=== PATIENT | male | born 1965 | race Caucasian/White ===

== ENCOUNTER → 2017-12-27 20:13 | Outpatient (CLI) | payer MEDICAID, SELFPAY | PROVIDERS: Family Provider Internal Medicine; PCP Internal Medicine; Visit Provider Internal Medicine | DX: G47.10 Hypersomnia, unspecified (principal); R06.81 Apnea, not elsewhere classified; R06.83 Snoring | CPT/HCPCS: 95810 ==

== ENCOUNTER → 2018-06-09 20:00 | Outpatient (CLI) | payer MEDICAID, SELFPAY | PROVIDERS: Family Provider Internal Medicine; PCP Internal Medicine; Visit Provider Psychiatry & Neurology Psychiatry | DX: G47.33 Obstructive sleep apnea (adult) (pediatric) (principal) | CPT/HCPCS: 95810 ==

== ENCOUNTER 2018-08-22 16:57 | Emergency (ER) | payer MEDICAID, SELFPAY ==
[2018-08-22 16:58] VITALS: BP 116/71; PULSE 63; RESP 16; TEMP 36.4; O2SAT 99; BMI 20.5
[2018-08-22 17:06] VITALS: O2SAT 97
--- NOTE | 2018-08-22 17:32 | ED.DCSUM_ITS ---
- ER Visit Summary Date of Service: 08/22/18 Chief Complaint: Cough History of Present Illness: The patient is a 53 M productive cough for a week. Subjective fevers. No sick contacts. Tobacco history. COPD history. States inhalers broken. Occasional wheezing at home. No chest pains. No nausea or vomiting. No dyspnea. Physical Examination: General: Alert and oriented ?3, no acute distress. Occasional coughing HEENT: Normocephalic, atraumatic. Moist mucosa membranes Neck: supple, nontender. Cardiovascular: Regular rate and rhythm, no murmurs Respiratory: Normal breath sounds, symmetric, no distress Abdomen: Soft, nontender, nondistended Extremities: Nontender, no edema, pulses intact ?4 Neuro: no focal neurological deficits. Test Results: [] Emergency Department Course and Treatment: Patient vital signs stable, nontoxic. No current wheezing. COPD history with productive cough. Placed on antibiotics secondary to gold's criteria. Steroids to be held due to no current wheezing. Zithromax started. Prescription for MDI. Follow-up as an outpatient. Treatment Plan: [] Disposition: Discharge Impression: 1. Acute bronchitis 2 COPD This note was generated with [employer] dictation software. It may contain incorrect words, spelling, and punctuation that were not noted in review of the chart prior to signing ED Disposition - Plan for ED Patient: Disposition: Home or Assisted Living Chief Complaint: Cough Diagnosis: Acute bronchitis, COPD (chronic obstructive pulmonary disease) Instructions: ED Upper Resp Infec Abx Tx, ED COPD Flare Prescriptions: Azithromycin [Zithromax] 250 mg PO DAILY #4 tablet Albuterol Sulfate [Proventil Hfa] 6.7 gm IH Q6H #1 [email or web address] Referrals: Mayuri Payne MD [Primary Care Provider] - 5-7 Days
[2018-08-22] MEDS: Azithromycin 250 MG Tablet 500 MG PO (17:42)
--- NOTE | 2018-08-22 17:46 | ED.RN ---
DISCHARGE INSTRUCTIONS GIVEN TO AND REVIEWED WITH PATIENT, PATIENT DENIES QUESTIONS OR CONCERNS AND VOICES UNDERSTANDING OF DISCHARGE INSTRUCTIONS. PT AMBULATES OUT OF ROOM WITHOUT DIFFICULTY.
== END 2018-08-22 17:46 | disposition home or self-care (01) ==
PROVIDERS: Emergency Provider Emergency Medicine; Family Provider Internal Medicine; PCP Internal Medicine
DX: J20.9 Acute bronchitis, unspecified (principal); J44.9 Chronic obstructive pulmonary disease, unspecified; Z79.82 Long term (current) use of aspirin
CPT/HCPCS: 99283

== ENCOUNTER 2019-01-18 21:22 | Emergency (ER) | payer MEDICAID, SELFPAY ==
[2019-01-18 21:25] VITALS: BP 97/61; PULSE 80; RESP 16; TEMP 36.6; O2SAT 100; BMI 19.9
--- NOTE | 2019-01-18 21:56 | EKG12_ITS ---
Test Reason : GEN ILL Blood Pressure : / mmHG Vent. Rate : 073 BPM Atrial Rate : 073 BPM P-R Int : 134 ms QRS Dur : 082 ms QT Int : 374 ms P-R-T Axes : 080 085 050 degrees QTc Int : 412 ms Normal sinus rhythm Normal ECG Confirmed by LISA DIAL, IRENA ([id number]), editorial project manager BABAK RAND ([id number]) on 01/23/2019 4:33:01 PM Referred By: MIKE Confirmed By:IRENA GONZALEZ MD
--- NOTE | 2019-01-18 21:57 | ED.VISSUMM ---
- ER Visit Summary Date of Service: 01/18/19 Chief Complaint: Cough History of Present Illness: The patient is a 54 M who presents for 2 days of cough. Patient states he has been having a severe cough with associated shortness of breath and pleuritic chest pain with cough and diffuse chest tightness otherwise, which he states is chronic. Patient has had no fever. Patient has associated sinus congestion sore throat and rhinorrhea. Patient also complains of his ears ringing. He states he has been having watery diarrhea. had similar symptoms earlier this week. Patient has history of emphysema, coronary artery disease status post stents. Patient smokes tobacco. he is currently not on any medications, including for COPD. Physical Examination: Vital signs: afebrile, hemodynamically stable, no hypoxia on room air General: well nourished, well developed, appears like he does not feel well, frequent harsh moist cough Skin: warm, moist, pale, conjunctivae are pink, no to the palmar creases HEENT: normocephalic and atraumatic; PERRL, EOMI, moist mucous membranes, TMs are clear and pearly bilaterally Cardiovascular: regular rate and rhythm without murmurs, no peripheral edema, 2+ pulses all distal extremities Respiratory: Lung sounds are significantly diminished globally Abdominal: Abdomen is soft, mildly tender in the epigastrium with normoactive bowel sounds, no guarding or rebound, no masses MSK: Moves all extremities, no deformities, normal strength Neuro: Awake and alert, oriented ?4. No facial droop, sensation and motor function intact and symmetric Test Results: Abnormal Lab Results 01/18/19 01/18/19 22:15 22:15 WBC 8.9 RBC 5.11 Hgb 16.2 Hct 46.6 MCV 91.2 MCH 31.7 MCHC 34.8 RDW 12.9 RDW Differential 43.1 Plt Count 185 MPV 9.7 Immature Gran % (Auto) 0.100 Neut % (Auto) 85.2 H Lymph % (Auto) 8.6 L [place] % (Auto) 5.9 Eos % (Auto) 0.0 Baso % (Auto) 0.2 Absolute Neuts (auto) 7.6 Absolute Lymphs (auto) 0.77 L Total Counted Not Reportable Sodium 135 L Potassium 4.2 Chloride 102 Carbon Dioxide 27.0 Anion Gap 6 BUN 16 Creatinine 1.31 H Estim Creat Clear Calc 65.60 Est GFR (MDRD) Af Amer 74 Est GFR (MDRD) Non-Af 61 BUN/Creatinine Ratio 12.2 Glucose 106 Calcium 9.4 Troponin I < 0.015 Clinical Impression(s) from Imaging Studies Chest X-Ray 01/18/19 22:38 IMPRESSION: Findings consistent with COPD. No acute cardiopulmonary disease process is noted. Chest findings are stable in the interval. Electronically Signed: Edin Dodd MD at 23:00 EDT , Service support , Medications Given Discontinued Medications Albuterol Sulfate (Ventolin Aerosols) 2.5 mg INHALATION Q20M KELVIN Stop: 01/18/19 22:41 Last Admin: 01/18/19 22:22 Dose: Not Given Admin: 01/18/19 22:03 Dose: 2.5 mg Admin: 01/18/19 22:03 Dose: 2.5 mg Albuterol/Ipratropium (Duoneb) 3 ml INHALATION X1 ONE Stop: 01/18/19 21:57 Last Admin: 01/18/19 22:03 Dose: 3 ml Sodium Chloride () 1,000 mls @ 999 mls/hr IV .Q1H1M ONE Stop: 01/18/19 22:56 Last Admin: 01/18/19 22:15 Dose: 999 mls/hr Methylprednisolone (Solu-Medrol) 125 mg IV X1 ONE Stop: 01/18/19 21:57 Last Admin: 01/18/19 22:16 Dose: 125 mg Emergency Department Course and Treatment: Patient presents for evaluation of 2 days of cough and other associated symptoms, with frequent moist cough noted. Patient does have significant cardiac history and has associated chest tightness and pleuritic chest pain, which are likely related to his current respiratory illness. Chest pain workup was included. Patient was given breathing treatments and Solu-Medrol. Chest x-ray was significant for COPD with no infiltrates or pulmonary edema noted. Labs showed no leukocytosis. Creatinine was at baseline. Troponin negative. Flu negative. EKG showed sinus rhythm without ischemic changes. On reevaluation, patient's lungs were still diminished but were better auscultated than at initial presentation. Patient's color had improved somewhat. Patient's symptoms are most consistent with a respiratory infection on top of untreated COPD. Patient was given a prescription for an albuterol inhaler and a prednisone burst. Patient was also given a prescription for doxycycline for coverage of rhinosinusitis and bronchitis, with antibiotics provided due to patient's severe COPD and poor outpatient follow-up. Patient was strongly encouraged to follow-up with his doctor for further evaluation and for management of his COPD. Patient was 99% on room air at time of discharge. He was discharged home with return precautions. Treatment Plan: [] Disposition: [] Impression: Acute COPD exacerbation, acute rhinosinusitis and bronchitis This note was generated with [employer] dictation software. It may contain incorrect words, spelling, and punctuation that were not noted in review of the chart prior to signing ED Disposition - Plan for ED Patient: Disposition: Home or Assisted Living Instructions: ED Upper Resp Infec Abx Tx, ED COPD Flare Prescriptions: RX: Albuterol Inhaler [Ventolin Hfa] 2 puff INHALATION Q4H PRN PRN #1 inhaler PRN Reason: Wheezing RX: Prednisone [Deltasone] 40 mg PO DAILY #10 tab RX: Doxycycline 100 mg PO BID #14 cap Referrals: Mayuri Payne MD [Primary Care Provider] - As soon as possible Additional Instructions: Please follow-up with your doctor as soon as possible for evaluation and treatment of your COPD. Take the antibiotic and the steroids as prescribed for the full courses. Use the albuterol inhaler as needed for wheezing and cough. You may use [id number] Tylenol as needed for fever. If you have any worsening of your condition or any new concerning symptoms, please return immediately to the emergency department for another evaluation.
[2019-01-18 22:00] VITALS: PULSE 85; RESP 16
[2019-01-18] MEDS: Albuterol 2.5 MG/3 ML VIAL.NEB. INHALATION ×2 (22:03)
[2019-01-18] MEDS: Ipratropium/Albuterol Sulfate 3 ML AMPUL.NEB INHALATION (22:03)
[2019-01-18] MEDS: 0.9% Normal Saline 1,000 ML 999 ML IV (22:15)
[2019-01-18] MEDS: MethylPREDNISolone 125 MG/2 ML Vial IV (22:16)
[2019-01-18 22:21] VITALS: PULSE 78; RESP 18
[2019-01-18 22:22] VITALS: BP 110/78; PULSE 78; RESP 13; O2SAT 98
[2019-01-18 22:33] LABS: Absolute Lymphocyte Count 0.77 X10^3/ul (0.83-4.51); Absolute Neutrophil Count 7.6 X10^3/uL (2.0-7.7); Basophil# 0.02 X10^3/uL; Basophil% 0.2 % (0-1); Hematocrit 46.6 % (40-54); Hemoglobin 16.2 g/dl (13.0-16.5); Lymphocyte # 0.77 X10^3/ul (4.0); Lymphocyte % 8.6 % (19-41); Mean Corp Hgb Conc 34.8 g/gl (32-36); Mean Corpuscular Hgb 31.7 pg (27.0-32.0); Mean Corpuscular Volume 91.2 fL (80-94); Mean Platelet Vol. 9.7 fl (6.2-12.0); Monocyte# 0.53 X10^3/uL; Monocyte% 5.9 % (0-10); Neutrophil # 7.61 X10^3/uL (2.7-7.7); Neutrophil % 85.2 % (47-70); Platelet Count 185 K/mm3 (150-450); RBC Distribution Width CV 12.9 % (11.6-14.6); RBC Distribution Width SD 43.1 fl (35.1-43.9); Red Blood Count 5.11 M/mm3 (4.6-6.2); White Blood Count 8.9 K/mm3 (4.4-11.0)
[2019-01-18 22:35] LABS: POSITIVE COUNT NO; POSITIVE DIFFERENTIAL NO; POSITIVE MORPHOLOGY NO
--- NOTE | 2019-01-18 22:38 | RAD_ITS ---
STUDY: X-RAY CHEST REASON FOR EXAM: Male, 54 years old. Cough shortness of breath and shaking TECHNIQUE: AP and lateral views of the chest. COMPARISON: Prior study of November 17, 2016 FINDINGS: contract admin leads are present. The lungs are hyperinflated. There is hemidiaphragmatic flattening with an increased retrosternal airspace consistent with COPD. There is no demonstrated pleural abnormality. Normal size heart. Normal mediastinum and lori. Normal visualized pulmonary arteries. Normal visualized aortic arch and descending thoracic aorta. Normal visualized thoracic spine. Normal visualized ribs, clavicles, and shoulders. There is no demonstrated abnormality of the visualized soft tissue structures of the upper abdomen. RAD/Chest PA and Lateral IMPRESSION: Findings consistent with COPD. No acute cardiopulmonary disease process is noted. Chest findings are stable in the interval. Electronically Signed: Edin Dodd MD at 23:00 EDT , Service support ,
[2019-01-18 22:48] LABS: Anion Gap 6 (5-15); BUN 16 mg/dL (7-18); BUN/Creat Ratio 12.2 RATIO (10-20); Calcium,Total 9.4 mg/dL (8.5-10.1); Chloride 102 mmol/L (98-107); Creatinine, Serum 1.31 mg/dL (0.70-1.30); EST Glomerular Filtration Rate 61 mL/min (>60); Est Glom Filt Rate - Afr Amer 74 mL/min (>60); Glucose 106 mg/dL (74-106); Potassium 4.2 mmol/L (3.5-5.1); Sodium Level 135 mmol/L (136-145)
[2019-01-18 23:34] VITALS: BP 119/72; PULSE 88; RESP 18; O2SAT 98
== END 2019-01-18 23:48 | disposition home or self-care (01) ==
PROVIDERS: Emergency Provider Emergency Medicine; Family Provider Internal Medicine; PCP Internal Medicine
DX: J44.1 Chronic obstructive pulmonary disease with (acute) exacerbation (principal); J20.9 Acute bronchitis, unspecified; J44.0 Chronic obstructive pulmonary disease with (acute) lower respiratory infection; J01.90 Acute sinusitis, unspecified; I25.10 Atherosclerotic heart disease of native coronary artery without angina pectoris; F17.200 Nicotine dependence, unspecified, uncomplicated; J45.909 Unspecified asthma, uncomplicated; I25.2 Old myocardial infarction; Z95.5 Presence of coronary angioplasty implant and graft; Z79.51 Long term (current) use of inhaled steroids
CPT/HCPCS: 71046; 80048; 84484; 85025; 87804; 93005; 94640; 96361; 96374; 99284; J7030; A4216

== ENCOUNTER 2019-03-18 23:45 | Emergency (ER) | payer MEDICAID, SELFPAY ==
[2019-03-18 23:46] VITALS: BP 124/66; PULSE 80; RESP 16; TEMP 36.6; O2SAT 98; BMI 19.9
--- NOTE | 2019-03-18 23:58 | ED.RN ---
pt with abrasions to bilateral hands.
--- NOTE | 2019-03-19 00:17 | ED.VISSUMM ---
- ER Visit Summary Date of Service: 03/19/19 Chief Complaint: Rash History of Present Illness: The patient is a 54 M was working with [employer], he developed a slight rash on the back of his hands. No constitutional symptoms. No fever or chills no lymphangitic streaking. Physical Examination: There is a small confluent erythematous rash on the dorsum of his right hand consistent with cellulitis there is a small area where he had a thorn puncture his skin on the left the looks like it starting to get cellulitis. This is confluent, red consistent with cellulitis does not appear fungal. There is no lymphangitic streaking Emergency Department Course and Treatment: Patient has cellulitis. He denies any injury from [email or web address], this does not appear fungal, I doubt it is sporotrichosis. I will treat him for cellulitis. If this worsens he needs to return in a day or 2. Discharge stable condition Impression: Cellulitis This note was generated with [employer] dictation software. It may contain incorrect words, spelling, and punctuation that were not noted in review of the chart prior to signing ED Disposition - Plan for ED Patient: Disposition: Home or Assisted Living Instructions: Discharge Instructions for Cellulitis Prescriptions: Doxycycline 100 mg PO BID #20 cap Referrals: Mayuri Payne MD [Primary Care Provider] - 3-5 Days Additional Instructions: If the rash becomes worse over the next 2 days return to the emergency department right away to get checked to make sure you do not have a fungal infection.
--- NOTE | 2019-03-19 00:22 | ED.DCSUM_ITS ---
- ER Visit Summary Date of Service: 03/19/19 Chief Complaint: Rash History of Present Illness: The patient is a 54 M was working with [employer], he developed a slight rash on the back of his hands. No constitutional symptoms. No fever or chills no lymphangitic streaking. Physical Examination: There is a small confluent erythematous rash on the dorsum of his right hand consistent with cellulitis there is a small area where he had a thorn puncture his skin on the left the looks like it starting to get cellulitis. This is confluent, red consistent with cellulitis does not appear fungal. There is no lymphangitic streaking Emergency Department Course and Treatment: Patient has cellulitis. He denies any injury from [employer], this does not appear fungal, I doubt it is sporotrichosis. I will treat him for cellulitis. If this worsens he needs to return in a day or 2. Discharge stable condition Impression: Cellulitis This note was generated with [employer] dictation software. It may contain incorrect words, spelling, and punctuation that were not noted in review of the chart prior to signing ED Disposition - Plan for ED Patient: Disposition: Home or Assisted Living Instructions: Discharge Instructions for Cellulitis Prescriptions: Doxycycline 100 mg PO BID #20 cap Referrals: Mayuri Payne MD [Primary Care Provider] - 3-5 Days Additional Instructions: If the rash becomes worse over the next 2 days return to the emergency department right away to get checked to make sure you do not have a fungal infection.
[2019-03-19] MEDS: Doxycycline 100 MG CAPSULE PO (00:33)
[2019-03-19 00:35] VITALS: BP 124/66; PULSE 80; RESP 16; O2SAT 98
== END 2019-03-19 00:35 | disposition home or self-care (01) ==
PROVIDERS: Emergency Provider Emergency Medicine; Family Provider Internal Medicine; PCP Internal Medicine
DX: L03.113 Cellulitis of right upper limb (principal); S61.431A Puncture wound without foreign body of right hand, initial encounter; W60.XXXA Contact with nonvenomous plant thorns and spines and sharp leaves, initial encounter; Y93.9 Activity, unspecified; Y92.9 Unspecified place or not applicable; F17.200 Nicotine dependence, unspecified, uncomplicated
CPT/HCPCS: 99283

== ENCOUNTER → 2019-04-14 | Outpatient (CLI) | payer MEDICAID, SELFPAY ==
[2019-04-14 13:41] VITALS: BMI 20.7
[2019-04-14 15:25] LABS: Absolute Lymphocyte Count 1.39 X10^3/ul (0.83-4.51); Absolute Neutrophil Count 6.9 X10^3/uL (2.0-7.7); Basophil# 0.02 X10^3/uL; Basophil% 0.2 % (0-1); Eosinophil# 0.18 X10^3/uL; Hematocrit 43.3 % (40-54); Hemoglobin 14.7 g/dl (13.0-16.5); Lymphocyte # 1.39 X10^3/ul (4.0); Lymphocyte % 15.5 % (19-41); Mean Corp Hgb Conc 33.9 g/gl (32-36); Mean Corpuscular Hgb 31.1 pg (27.0-32.0); Mean Corpuscular Volume 91.7 fL (80-94); Mean Platelet Vol. 10.1 fl (6.2-12.0); Monocyte# 0.52 X10^3/uL; Monocyte% 5.8 % (0-10); Neutrophil # 6.86 X10^3/uL (2.7-7.7); Neutrophil % 76.4 % (47-70); Platelet Count 198 K/mm3 (150-450); RBC Distribution Width CV 12.9 % (11.6-14.6); RBC Distribution Width SD 43.2 fl (35.1-43.9); Red Blood Count 4.72 M/mm3 (4.6-6.2)
[2019-04-14 15:47] LABS: POSITIVE COUNT NO; POSITIVE DIFFERENTIAL NO; POSITIVE MORPHOLOGY NO
[2019-04-14 15:51] LABS: Erythrocyte Sedimentation Rate 3 mm/hr (0-20)
[2019-04-14 16:29] LABS: AST(SGOT) 15 U/L (15-37); Alanine Aminotransfer ALT/SGPT 18 U/L (16-61); Albumin, Serum 3.8 g/dL (3.2-5.0); Alkaline Phosphatase 75 U/L (45-117); Anion Gap 5 (5-15); BUN 19 mg/dL (7-18); BUN/Creat Ratio 16.5 RATIO (10-20); Calcium,Total 9.2 mg/dL (8.5-10.1); Chloride 106 mmol/L (98-107); Creatinine, Serum 1.15 mg/dL (0.70-1.30); EST Glomerular Filtration Rate 71 mL/min (>60); Est Glom Filt Rate - Afr Amer 86 mL/min (>60); Globulin 3.7 g/dL (2.2-4.2); Glucose 97 mg/dL (74-106); Potassium 4.2 mmol/L (3.5-5.1); Protein, Total 7.5 g/dL (6.4-8.2); Sodium Level 141 mmol/L (136-145); T4 Total, Thyroxin 8.7 ug/dL (4.5-12.1)
== END | disposition home or self-care (01) ==
LOC: LAB 14:49
PROVIDERS: Family Provider Internal Medicine; PCP Internal Medicine; Referring Provider Internal Medicine Cardiovascular Disease; Visit Provider Internal Medicine Cardiovascular Disease
DX: R63.4 Abnormal weight loss (principal); E87.1 Hypo-osmolality and hyponatremia; I95.1 Orthostatic hypotension; R68.89 Other general symptoms and signs; R07.9 Chest pain, unspecified; R68.83 Chills (without fever)
CPT/HCPCS: 36415; 80053; 82533; 84436; 85025; 85652

== ENCOUNTER 2019-04-20 01:30 | Emergency (ER) | payer MEDICAID, SELFPAY ==
[2019-04-14 13:41] VITALS: BMI 20.7
[2019-04-20 01:31] VITALS: BP 115/71; PULSE 62; RESP 20; TEMP 36.8; O2SAT 99; BMI 21.1
--- NOTE | 2019-04-20 01:42 | RAD_ITS ---
STUDY: X-RAY - SOFT TISSUE NECK REASON FOR EXAM: Male, 54 years old. Pain. The patient may have swallowed glass. TECHNIQUE: 2 view(s) of the neck were obtained. COMPARISON: None. FINDINGS: Normal visualized nasopharynx, oropharynx, hypopharynx. Normal epiglottis. Normal visualized subglottic tracheal air column. Normal prevertebral soft tissue structures. There is disc space narrowing at the C5-6 and C6-7 levels with mild spondylosis at the C6-7 level.. The soft tissue structures are unremarkable. RAD/Neck for Soft Tissue IMPRESSION: Normal x-ray soft tissue neck. No visualized radiodense foreign body. Electronically Signed: Jason Ware MD at 2:45 EDT , Service support ,
--- NOTE | 2019-04-20 01:53 | ED.VISSUMM ---
- ER Visit Summary Date of Service: 04/20/19 Chief Complaint: Scratchy throat, questionably swallowed glass History of Present Illness: The patient is a 54 M who was making a salad tonight when the saltshaker broke into his salad. He took one bite of the salad after this and it was very salty but he is concerned he may have swallowed a piece of glass. His throat now feels scratchy. He denies seeing any blood. He has no pain in his stomach or his chest. He just feels scratchiness in his throat. Physical Examination: Vital signs reviewed. HEENT exam reveals no foreign body seen. There is no posterior oropharyngeal erythema. There is no bleeding. I see no foreign bodies. His heart is regular rate and rhythm. Lungs are clear. Abdomen is soft. Neurologic exam normal. Test Results: Neck x-rays revealed no evidence of foreign body Emergency Department Course and Treatment: I do not see any evidence of foreign body on the x-ray. I doubt that he swallowed any large pieces of glass. Feel that he can be safely discharged home to follow-up with his doctor Treatment Plan: [] Disposition: Discharge Impression: Sore throat This note was generated with [employer] dictation software. It may contain incorrect words, spelling, and punctuation that were not noted in review of the chart prior to signing ED Disposition - Plan for ED Patient: Referrals: Mayuri Payne MD [Primary Care Provider] -
--- NOTE | 2019-04-20 02:15 | ED.DEP ---
ED Disposition - Plan for ED Patient: Disposition: Home or Assisted Living Instructions: SWALLOWED FOREIGN BODY (Adult) Referrals: Mayuri Payne MD [Primary Care Provider] -
[2019-04-20 02:26] VITALS: RESP 16
== END 2019-04-20 02:27 | disposition home or self-care (01) ==
PROVIDERS: Emergency Provider Emergency Medicine; Family Provider Internal Medicine; PCP Internal Medicine
DX: J02.9 Acute pharyngitis, unspecified (principal); I25.10 Atherosclerotic heart disease of native coronary artery without angina pectoris; J44.9 Chronic obstructive pulmonary disease, unspecified; Z72.0 Tobacco use
CPT/HCPCS: 70360; 99282

== ENCOUNTER → 2019-04-24 | Outpatient (CLI) | payer MEDICAID, SELFPAY ==
[2019-04-14 13:41] VITALS: BMI 20.7
[2019-04-20 01:31] VITALS: BMI 21.1
--- NOTE | 2019-04-24 16:01 | MRI_ITS ---
STUDY: MRI THORACIC SPINE WITHOUT CONTRAST REASON FOR EXAM: Male, 54 years old. Back pain TECHNIQUE: Standardized fat and water weighted pulse sequences were obtained in the sagittal and axial planes. COMPARISON: None. FINDINGS: Normal kyphosis of the thoracic spine. There is no substantial scoliosis. Small interosseous hemangiomata within the T3 and T4 vertebral bodies. T1-2, T2-3, T3-4, T4-5, T5-6, T6-7, T7-8, T8-9, T9-10, T10-11, T11-12: Normal endplates. Tiny left paracentral disc protrusion at T5-6 without significant spinal stenosis.. Normal central canal and intervertebral neural foramina at the corresponding levels. Normal visualized thoracic cord. Normal conus medullaris that terminates at T12-L1. The soft tissue structures are unremarkable. MRI/Spine Thoracic (Routine) IMPRESSION: No evidence for acute fracture or other significant bony pathology. Tiny left paracentral disc protrusion at T5-6 without significant spinal stenosis or cord compression Otherwise unremarkable study Electronically Signed: Francisco Jeong MD at 19:21 EDT , Service support ,
--- NOTE | 2019-04-24 16:01 | MRI_ITS ---
STUDY: MRI LUMBAR SPINE WITHOUT CONTRAST REASON FOR EXAM: Male, 54 years old. Back pain TECHNIQUE: Standardized fat and water weighted pulse sequences were obtained in the sagittal and axial planes. COMPARISON: None FINDINGS: T12-L1: Normal endplates. Normal disc height, hydration and morphology. Normal bilateral facet joints. Normal central canal and bilateral lateral recesses. Normal bilateral intervertebral neural foramina. Normal lumbar lordosis. There is no substantial scoliosis. Normal conus medullaris that terminates at T12-L1 L1-2: Normal endplates. Normal disc height, hydration and morphology. Normal bilateral facet joints. Normal central canal and bilateral lateral recesses. Normal bilateral intervertebral neural foramina. L2-3: Normal endplates. Normal disc height, hydration and morphology. Normal bilateral facet joints. Normal central canal and bilateral lateral recesses. Normal bilateral intervertebral neural foramina. L3-4: Normal endplates. Normal disc height, hydration and morphology. Normal bilateral facet joints. Normal central canal and bilateral lateral recesses. Normal bilateral intervertebral neural foramina. L4-5: Normal endplates. Normal disc height, hydration and minor annular bulge. Bilateral facet arthropathy.. Normal central canal and bilateral lateral recesses. Moderate bilateral neuroforaminal stenosis. L5-S1: Normal endplates. Normal disc height, desiccation and minor annular bulge with central annular tear without focal disc protrusion. Normal bilateral facet joints. Normal central canal and bilateral lateral recesses. Normal bilateral neuroforamina Normal visualized sacral ala. Normal visualized paraspinous soft tissue structures. MRI/Spine Lumbar (Routine) IMPRESSION: No evidence for acute fracture or subluxation. Spinal stenosis L4-5 secondary to annular bulge and facet arthropathy. Minor annular bulge at L5-S1 with central annular tear but without disc protrusion or spinal stenosis Electronically Signed: Francisco Jeong MD at 20:42 EDT , Service support ,
--- NOTE | 2019-04-24 16:01 | MRI_ITS ---
STUDY: MRI CERVICAL SPINE WITHOUT CONTRAST REASON FOR EXAM: Male, 54 years old. Pain TECHNIQUE: Standardized fat and water weighted pulse sequences were obtained in the sagittal and axial planes. COMPARISON: CT of the cervical spine May 31, 2014 FINDINGS: Normal foramen magnum and brainstem-cervical cord junction. Normal craniovertebral junction. Normal anterior atlantoaxial articulation. Normal odontoid process. Normal cervical lordosis. Normal vertebral bodies and posterior osseous elements. C2-3: Normal endplates. Normal disc height, signal and morphology. Normal central canal and intervertebral neural foramina. C3-4: Normal endplates. Normal disc height, signal and morphology. Normal central canal and intervertebral neural foramina. C4-5: Normal endplates. Normal disc height, signal and morphology. Normal central canal and intervertebral neural foramina. C5-6: Normal endplates. Normal disc height, signal and morphology. Normal central canal . Minor right neuroforaminal stenosis and severe narrowing on the left secondary to bony hypertrophy. C6-7: Normal endplates. Normal disc height, signal and mild diffuse bulging of the disc.. Normal central canal. Moderate left neuroforaminal stenosis secondary to disc and bony hypertrophy with minor narrowing on the right. C7-T1: Normal endplates. Normal disc height, signal and tiny left paracentral disc protrusion.. Normal central canal and intervertebral neural foramina. Normal cervical cord. Normal visualized soft tissue structures. MRI/Spine Cervical (Routine) IMPRESSION: No evidence for acute fracture or subluxation. Spinal stenosis at C5-6 and C6-7 greater on the left secondary to disc disease and bony hypertrophy. Electronically Signed: Francisco Jeong MD at 19:55 EDT , Service support ,
--- NOTE | 2019-04-24 16:55 | RAD_ITS ---
STUDY: X-RAY - ORBITS REASON FOR EXAM: Male, 54 years old. This study is being performed as a clearance examination for exclusion of orbital metal, prior to the performance of an MRI examination. TECHNIQUE: 2 view(s) of the orbits were obtained. COMPARISON: None. FINDINGS: Normal bilateral orbits without a metallic orbital foreign body. Normal visualized facial bones. Normal paranasal sinuses. The soft tissue structures are unremarkable. RAD/Orbits for Foreign Body IMPRESSION: No demonstrated metallic orbital foreign body. The patient is cleared for an MRI examination. Electronically Signed: Austin Gonzalez MD at 17:09 EDT , Service support ,
== END | disposition home or self-care (01) ==
PROVIDERS: Family Provider Internal Medicine; PCP Internal Medicine; Referring Provider Internal Medicine Cardiovascular Disease; Visit Provider Internal Medicine Cardiovascular Disease
DX: M54.2 Cervicalgia (principal); R68.89 Other general symptoms and signs; I95.1 Orthostatic hypotension; R07.89 Other chest pain; R63.4 Abnormal weight loss; R29.898 Other symptoms and signs involving the musculoskeletal system
CPT/HCPCS: 70030; 72141; 72146; 72148

== ENCOUNTER → 2019-05-02 | Outpatient (CLI) | payer MEDICAID, SELFPAY ==
[2019-04-14 13:41] VITALS: BMI 20.7
[2019-04-20 01:31] VITALS: BMI 21.1
--- NOTE | 2019-05-02 09:53 | ECHOD_ITS ---
Reason For Study: arrhythmia Procedure This was a 2D Doppler, Color Flow transthoracic echocardiogram. The study was technically difficult. Due to body habitus and respiratoty interference and diminished parasternal accoustic windows. Exam performed in department. Left Ventricle Normal size and thickness. The estimated ejection fraction is 55-60 %. Stage 1 diastolic dysfunction. No regional wall motion abnormalities noted. Right Ventricle Normal size and thickness. Normal systolic function. Atria Normal left atrium. Normal right atrium. Normal atrial septum. Mitral Valve The mitral valve is structurally normal. No prolapse or stenosis seen. Tricuspid Valve Normal tricuspid valve. Mild (1+) tricuspid valve insufficiency. Right ventricular systolic pressure estimated to be 34 mmHg. Aortic Valve Normal aortic valve. Trisinus/trileaflet aortic valve. Pulmonic Valve Normal pulmonic valve. Great Vessels Normal aortic root. Normal arch. Normal inferior vena cava. Inferior vena cava collapse with sniff. Pericardium/Pleural No pericardial effusion. MMode/2D Measurements & Calculations LVIDd: 5.1 cm IVSd: 0.90 cm Ao root diam: 4.1 cm LVIDs: 3.4 cm LVPWd: 0.81 cm RVDd: 3.1 cm FS: 32.4 % LAV(MOD-bp): 51.6 ml LA A4 area: 18.4 cm2 LA dimension(2D): 3.4 cm LAV(MOD-bp) Indexed: 26.0 ml/m2 LAV(MOD-sp2): 42.8 ml LAV(MOD-sp4): 55.0 ml RA A4 area: 10.0 cm2 Time Measurements MV dec time: 0.19 sec Doppler Measurements & Calculations MV E max alex: 79.3 cm/sec Lat Peak E' Alex: 15.6 cm/sec Med Peak E' Alex: 13.2 cm/sec MV A max alex: 31.6 cm/sec E/E' lat: 5.1 E/E' med: 6.0 MV E/A: 2.5 Ao V2 max: 133.9 cm/sec LV V1 max: 116.3 cm/sec PA V2 max: 97.4 cm/sec Ao max P.2 mmHg LV V1 max P.4 mmHg TR max alex: 254.1 cm/sec TR max P.4 mmHg Interpretation Summary The estimated ejection fraction is 55-60 %. Stage 1 diastolic dysfunction. Mild (1+) tricuspid valve insufficiency. Right ventricular systolic pressure estimated to be 34 mmHg. Compared to echo report dated 11/11/2016, no appreciable changes noted. Ordering Physician: José Luis Goldberg Referring Physician: [place]. [place] Performed By: Emmy Salinas, ANGELA, RVT
--- NOTE | 2019-05-02 13:09 | PFTCOMP_ITS ---
COMPLETE PULMONARY FUNCTION TEST INTERPRETATION Brief HPI: Patient is a 54 year old male, currently under the care of Dr. Goldberg, who presents to [facility] for complete pulmonary function tests secondary to diagnosis of hypotension. Respiratory therapist reports good effort and reproducible results. Interpretation: Forced expiration spirometry shows a severe large airways obstructive ventilatory defect with an FEV1 of 79% predicted. There is a significant bronchodilator response in FEV1 by strict ATS criteria. Spirograms are of good quality and plateau slowly, indicating slowly emptying areas of the lungs. The respiratory flow volume loop shows decreased expiratory flow rates at all lung volumes consistent with airway obstruction. Lung volumes by body plethysmography show a normal total lung capacity at 8.11 L, 105% predicted. All other lung volumes are within normal limits. Diffusion capacity by carbon monoxide is normal at 82% predicted. The airway resistance is normal. No previous pulmonary function tests were available for review. Impression: Partially reversible severe large airways obstructive ventilatory defect with preserved lung volumes and diffusing capacity.
== END | disposition home or self-care (01) ==
LOC: PSN 08:41
PROVIDERS: Family Provider Internal Medicine; PCP Internal Medicine; Referring Provider Internal Medicine Cardiovascular Disease; Visit Provider Internal Medicine Cardiovascular Disease
DX: R07.89 Other chest pain (principal); I95.1 Orthostatic hypotension; E87.1 Hypo-osmolality and hyponatremia
CPT/HCPCS: 93306; 94060; 94726; 94729

== ENCOUNTER 2019-06-22 06:16 | Emergency (ER) | payer MEDICAID, SELFPAY ==
[2019-06-13 12:06] VITALS: BMI 20.7
[2019-06-22 06:17] VITALS: BP 128/86; PULSE 60; RESP 15; TEMP 36.7; O2SAT 98; BMI 20.5
--- NOTE | 2019-06-22 06:53 | ED.VIS.GEN ---
History of Present Illness Chief Complaint: Laceration Narrative: This patient is a 54-year-old male who presents with a head injury. He fell out of bed and hit his head on the desk sustaining a laceration lateral to his right eye. He sleeps in a sleeping gag cold at night. He also has a history of some gait instability due to back and leg pain and states that he has had previous falls due to his back or legs giving out. He actually just saw his family physician yesterday. He denies any loss of consciousness or amnesia. He is not anticoagulated. He does however complain of a major headache and nausea. Past Medical History - Allergies and Home Meds Allergies/Adverse Reactions: Allergies No Known Allergies Allergy (Verified 06/22/19 06:22) Primary Care Physician: Mayuri Payne MD [Primary Care Provider] - Past Medical History: - - Weakness, hypotension- on florinef Surgical History: no surgical history Smoking Status: Current every day smoker - Family History Paternal Family History: Family History (Last Reviewed 04/14/19 @ 13:42 by Leia Eddy) Mother Diabetes Father Heart disease Family History: Reports: Heart Disease Maternal Family History: Family History (Last Reviewed 04/14/19 @ 13:42 by Leia Eddy) Mother Diabetes Father Heart disease Family History: Reports: Diabetes Review of Systems All systems negative except as indicated General: Denies: Fever Cardiovascular: Denies: Chest pain Respiratory: Denies: Dyspnea Gastrointestinal: Reports: Nausea. Denies: Vomiting Neurological: Reports: Headache Physical Exam Vital Signs/Narrative: Vital Signs Temp Pulse Resp BP Pulse Ox 06/22/19 06:17 98.0 F 60 15 128/86 H 98 Inital Vital Signs reviewed: Yes General: Well nourished Head: Normocephalic, - - 1 cm laceration over the lateral right eyebrow Eyes: Perrl, EOMI ENT: Moist mucous membranes Neck: Supple Cardiovascular: Regular rate, Regular rhythm Respiratory: No distress, CTA bilaterally Abdomen: Soft Neurological: Alert, Oriented x3, Normal Strength, Normal Sensation, - - GCS of 15 with no focal or lateralizing neurological deficits Diagnostic/Tx/Re-eval - Medical Decision Making Laceration was cleansed with an alcohol swab and then anesthetized with 1 cc of local 1% lidocaine without epinephrine with good anesthesia. 3 simple interrupted 5?0 nonabsorbable sutures were placed. Patient instructed on wound care. Due to his complaints of headache and nausea we will obtain CT of the head. This will be signed out to the oncoming physician to follow-up on the results but if normal plan is discharged. He was instructed on signs and symptoms to monitor for and symptoms which should prompt return here to the emergency department. ED Disposition - Plan for ED Patient: Disposition: Home or Assisted Living Diagnosis: Closed head injury, Facial laceration Instructions: LACERATION, Face (Suture or Tape), HEAD INJURY, No Wake-Up (Adult) Referrals: Mayuri Payne MD [Primary Care Provider] -
--- NOTE | 2019-06-22 06:57 | CT_ITS ---
STUDY: CT BRAIN WITHOUT CONTRAST REASON FOR EXAM: Male, 54 years old. Fall. Head laceration RADIATION DOSAGE (If Supplied By Facility): CTDIvol = ( 44.99 ) mGy, DLP = ( 796.11 ) mGycm TECHNIQUE: Transaxial CT imaging of the brain was performed without administration of intravenous contrast material. Individualized dose optimization techniques were used for this CT. COMPARISON: No relevant priors. FINDINGS: Normal soft tissue structures. Normal calvarium. Normal size ventricles and extra-axial spaces for the patient's age. Normal white matter tracts of the cerebral hemispheres. Normal basal ganglia and thalami. Normal brainstem. Normal cerebellum. There is no intracranial hemorrhage. There are no findings of an acute ischemic infarction. Mucosal retention cysts are seen in the maxillary sinuses bilaterally. CT/Brain/Head without Contrast IMPRESSION: No acute intracranial abnormality Electronically Signed: Angle Sanabria, at 7:26 EDT Tel , Service support ,
[2019-06-22] MEDS: Acetaminophen 500 MG Tablet 1000 MG PO (07:36)
[2019-06-22 07:42] VITALS: BP 127/69; PULSE 71; RESP 16; O2SAT 98
== END 2019-06-22 07:43 | disposition home or self-care (01) ==
LOC: ED 07:09
PROVIDERS: Emergency Provider Emergency Medicine; Family Provider Internal Medicine; PCP Internal Medicine
DX: S01.111A Laceration without foreign body of right eyelid and periocular area, initial encounter (principal); R11.0 Nausea; R40.2410 Glasgow coma scale score 13-15, unspecified time; W06.XXXA Fall from bed, initial encounter; Z91.81 History of falling; Y93.9 Activity, unspecified; Y92.9 Unspecified place or not applicable; R53.1 Weakness; I95.9 Hypotension, unspecified; M79.606 Pain in leg, unspecified; M54.9 Dorsalgia, unspecified; Z79.899 Other long term (current) drug therapy; F17.200 Nicotine dependence, unspecified, uncomplicated
CPT/HCPCS: 12011; 70450; 99283

== ENCOUNTER 2019-09-16 01:36 | Emergency (ER) | payer MEDICAID, SELFPAY ==
[2019-09-16 01:37] VITALS: BP 129/81; PULSE 69; RESP 18; TEMP 36.4; O2SAT 100; BMI 21.0
--- NOTE | 2019-09-16 01:56 | EKG12_ITS ---
Test Reason : Blood Pressure : / mmHG Vent. Rate : 065 BPM Atrial Rate : 065 BPM P-R Int : 142 ms QRS Dur : 088 ms QT Int : 402 ms P-R-T Axes : 076 081 050 degrees QTc Int : 418 ms Normal sinus rhythm Normal ECG Confirmed by ROBB DIAL, EMERITA ([id number]), writer editor BABAK RAND ([id number]) on 09/17/2019 9:45:10 AM Referred By: Confirmed By:JASIEL ZAMUDIO MD
--- NOTE | 2019-09-16 01:56 | RAD_ITS ---
HISTORY: c/o lt sided cp ADDITIONAL HISTORY: None provided. TECHNIQUE: Frontal chest radiograph. Number of images including paperwork: 2 COMPARISON: 01/18/2019 FINDINGS: LUNGS AND PLEURA: Low lung volumes. No dense consolidation. Mild interstitial prominence at the bases. CARDIAC SILHOUETTE: Unremarkable. MEDIASTINUM AND ELADIA: Unremarkable. UPPER ABDOMEN: Unremarkable. SKELETON AND SOFT TISSUES: No acute findings. OTHER DEVICES AND HARDWARE: None. RAD/Chest 1 View (Portable) IMPRESSION: Low lung volumes without definite acute abnormality. Follow-up as clinically indicated. at 0300 Reported and signed by: Nithya Manriquez MD Electronically Signed: Nithya Manriquez MD at 3:00 EST Tel , Service support ,
--- NOTE | 2019-09-16 01:56 | RAD_ITS ---
HISTORY: c/o lt wrist pain nki hx of carpal tunnel ADDITIONAL HISTORY: None provided. TECHNIQUE: Left wrist 3 views Number of images including paperwork: 3 COMPARISON: None FINDINGS: BONES: No acute fracture. JOINTS: No subluxation. Mild radiocarpal joint space narrowing. SOFT TISSUES: No distinct foreign body. RAD/Wrist min 3 Views IMPRESSION: No acute osseous abnormality. at 0257 Reported and signed by: Nithya Manriquez MD Electronically Signed: Nithya Manriquez MD at 2:57 EST Tel , Service support ,
--- NOTE | 2019-09-16 02:03 | ED.VISSUMM ---
- ER Visit Summary Date of Service: 09/16/19 Chief Complaint: Left arm pain History of Present Illness: The patient is a 54 M presenting with left arm pain. Patient states this started 7 days ago. He states pain is worsened with movements and when pushing himself up out of bed. Pain starts in his left wrist and then radiates up his arm. He states it occasionally goes into his left chest wall. He states the pain has been constant for the past 7 days. He denies shortness of breath. Denies fever. Denies other complaints. Physical Examination: Vitals are stable. Patient is afebrile. Alert no acute distress. HEENT exam is unremarkable. Neck is supple. Lungs are clear and equal bilaterally. Chest wall tenderness with no crepitus Heart is regular rate and rhythm. Abdomen is soft nontender nondistended. Extremities mild tenderness of left wrist with painful range of motion. No erythema or warmth. Active full range of motion. Normal pulses. Skin is warm and dry. No focal neurologic deficit. Remainder of exam is unremarkable. Emergency Department Course and Treatment: Patient was given aspirin on arrival. Chest x-ray shows low lung volumes without definite acute abnormality. Left wrist x-ray shows no acute process. CBC, chemistries unremarkable. Troponin is negative. D-dimer negative. Patient has had constant pain for the past 7 days. He has a negative troponin. Pain is more consistent with musculoskeletal pain as it worsens with movements in different positions. He is given a cock-up wrist splint. Advised to follow-up with his primary care physician. He is given a prescription for Naprosyn. Advised return to ED if worsening complaints. Disposition: Discharge home Impression: Left wrist sprain This note was generated with [employer] dictation software. It may contain incorrect words, spelling, and punctuation that were not noted in review of the chart prior to signing ED Disposition - Plan for ED Patient: Instructions: Wrist Sprain Prescriptions: Naproxen [Naprosyn] 500 mg PO BID PRN #20 tab Prescription Printed Referrals: Mayuri Payne MD [Primary Care Provider] -
[2019-09-16 02:12] VITALS: BP 122/76; PULSE 64; RESP 14; O2SAT 100
[2019-09-16] MEDS: Aspirin 81 MG TAB.CHEW 324 MG PO (02:12)
[2019-09-16 02:20] LABS: Absolute Lymphocyte Count 1.71 X10^3/uL (0.83-4.51); Absolute Neutrophil Count 5.1 X10^3/uL (2.0-7.7); Basophil# 0.04 X10^3/uL; Basophil% 0.5 % (0-1); Eosinophil# 0.19 X10^3/uL; Eosinophils% 2.5 % (0-5); Hematocrit 39.3 % (40-54); Hemoglobin 13.4 g/dL (13.0-16.5); Lymphocyte # 1.71 X10^3/ul (4.0); Lymphocyte % 22.5 % (19-41); Mean Corp Hgb Conc 34.1 g/dL (32-36); Mean Corpuscular Hgb 31.2 pg (27.0-32.0); Mean Corpuscular Volume 91.6 fL (80-94); Mean Platelet Vol. 9.6 fl (6.2-12.0); Monocyte# 0.53 X10^3/uL; NRBC Flagged by Analyzer 0 % (0-5); Neutrophil # 5.12 X10^3/uL (2.7-7.7); Neutrophil % 67.2 % (47-70); Platelet Count 184 K/mm3 (150-450); RBC Distribution Width CV 11.9 % (11.6-14.6); RBC Distribution Width SD 40.2 fl (35.1-43.9); Red Blood Count 4.29 M/mm3 (4.6-6.2); White Blood Count 7.6 K/mm3 (4.4-11.0)
[2019-09-16 02:40] LABS: Anion Gap 4 (5-15); BUN 21 mg/dL (7-18); BUN/Creat Ratio 18.9 RATIO (10-20); Calcium,Total 8.9 mg/dL (8.5-10.1); Chloride 106 mmol/L (98-107); Creatinine, Serum 1.11 mg/dL (0.70-1.30); D-Dimer Quantitative (DVT/PE) 0.38 FEU/ug/m (0.27-0.49); EST Glomerular Filtration Rate 74 mL/min (>60); Est Glom Filt Rate - Afr Amer 89 mL/min (>60); Estimated Creatinine Clearance 82.03 ml/min; Glucose 105 mg/dL (74-106); Sodium Level 140 mmol/L (136-145)
[2019-09-16 04:05] VITALS: BP 104/74; PULSE 66; RESP 21; O2SAT 99
--- NOTE | 2019-09-16 04:08 | ED.DEP ---
ED Disposition - Plan for ED Patient: Instructions: Wrist Sprain Prescriptions: Naproxen [Naprosyn] 500 mg PO BID PRN #20 tablet Referrals: Mayuri Payne MD [Primary Care Provider] -
[2019-09-16 04:24] VITALS: BP 124/76; PULSE 65; RESP 18; O2SAT 95
== END 2019-09-16 04:24 | disposition home or self-care (01) ==
LOC: ED 02:06
PROVIDERS: Emergency Provider Emergency Medicine; Family Provider Internal Medicine; PCP Internal Medicine
DX: S63.502A Unspecified sprain of left wrist, initial encounter (principal); R07.89 Other chest pain; X58.XXXA Exposure to other specified factors, initial encounter; Y93.9 Activity, unspecified; Y92.9 Unspecified place or not applicable; I25.10 Atherosclerotic heart disease of native coronary artery without angina pectoris; Z79.82 Long term (current) use of aspirin; Z72.0 Tobacco use
CPT/HCPCS: 71045; 73110; 80048; 84484; 85025; 85379; 93005; 99285; A4216

== ENCOUNTER 2019-10-01 15:33 | Emergency (ER) | payer MEDICAID, SELFPAY ==
[2019-10-01 15:34] VITALS: BP 107/73; PULSE 69; RESP 18; TEMP 36.5; O2SAT 99; BMI 21.6
--- NOTE | 2019-10-01 15:56 | RAD_ITS ---
STUDY: X-RAY - LEFT HUMERUS REASON FOR EXAM: Male, 54 years old. Pain TECHNIQUE: 2 view(s) of the humerus. COMPARISON: None. FINDINGS: Normal visualized humerus. There is no demonstrated fracture or osseous destructive process. There is no demonstrated soft tissue abnormality. RAD/Humerus min 2 Views IMPRESSION: Normal x-ray examination of the humerus. Electronically Signed: Marino Loaiza MD at 16:37 EST , Service support ,
--- NOTE | 2019-10-01 15:58 | ED.VISSUMM ---
- ER Visit Summary Date of Service: 10/01/19 Chief Complaint: Left arm pain History of Present Illness: The patient is a [address] Payne. He is left-hand dominant. He reports that approximately 3 weeks ago he fell out of bed and hit his left wrist on a stool. States that he had pain that began in his wrist at that time and he was seen in the emergency department and placed in a Velcro splint. Ports the pain is now moved up to his elbow and then moved from his elbow to his shoulder. He denies any further trauma. Patient reports it is a constant sharp, throbbing pain that is 9 out of 10 worsening a 10 currently it is worsened by movement. Is relieved by elevating it and heat. He denies any numbness or weakness. Physical Examination: Vitals: Stable. Afebrile. General: Well-nourished and well-developed. Head: Normocephalic atraumatic. Neck: Supple, no lymphadenopathy. No JVD. Nontender. Cardiovascular: Regular rate and rhythm. No murmurs. Respiratory: No respiratory distress. Clear to auscultation bilaterally. Abdominal: Soft, nontender, nondistended, normal bowel sounds. No guarding, rebound, or peritoneal signs. Back: Nontender. Extremities: Mild diffuse tenderness palpation over his entire left arm. This is from the shoulder down to his wrist. This seems to be worse over the olecranon process. There is no soft tissue swelling or contusion. There is no erythema or warmth to suggest cellulitis or septic joint. He has a 2+ radial pulse. Less than 2-second cap refill. Normal sensation to light touch. He has normal range of motion at the shoulder, elbow, and wrist with minimal pain. No edema. Skin: Normal color, no rash. Neurologic: Alert and oriented ?3. Cranial nerves II through XII are intact. Normal strength and sensation. Psych: Normal affect. Test Results: Patient had x-rays of his left humerus and left forearm that showed no acute disease. Emergency Department Course and Treatment: Patient was treated with naproxen. He is resting comfortably. Treatment Plan: Had a prolonged scratch patient at this time I do not have an explanation for his pain. It is been going on for 3 weeks. I do not think placing him on opiate-based medications as indicated or in his best interest. He will be discharged instructed to follow-up his primary care physician in 3 to 5 days for another exam. I discussed them at this point that I think that anything that would be most beneficial to him is physical therapy. Disposition: To home in improved and stable condition. Impression: 1. Left arm pain, chronic. 2. Left forearm pain, chronic. This note was generated with [employer] dictation software. It may contain incorrect words, spelling, and punctuation that were not noted in review of the chart prior to signing ED Disposition - Plan for ED Patient: Instructions: Hand and Wrist Exercises: Forearm Roll Prescriptions: Naproxen [Naprosyn] 500 mg PO BID #14 tablet Referrals: Mayuri Payne MD [Primary Care Provider] - 3-5 Days
--- NOTE | 2019-10-01 16:00 | RAD_ITS ---
STUDY: X-RAY - LEFT RADIUS AND ULNA REASON FOR EXAM: Male, 54 years old. Pain. TECHNIQUE: 2 view(s) of the forearm. COMPARISON: None. FINDINGS: There is no demonstrated soft tissue swelling. Normal visualized radius. Normal visualized ulna. There is no demonstrated acute fracture. RAD/Forearm 2 Views IMPRESSION: Normal x-ray examination of the radius and ulna. Electronically Signed: Marino Loaiza MD at 16:36 EST , Service support ,
[2019-10-01] MEDS: Naproxen 500 MG Tablet PO (16:05)
== END 2019-10-01 16:52 | disposition home or self-care (01) ==
LOC: ED 16:04
PROVIDERS: Emergency Provider Emergency Medicine; Family Provider Internal Medicine; PCP Internal Medicine
DX: M79.632 Pain in left forearm (principal); G89.29 Other chronic pain; J44.9 Chronic obstructive pulmonary disease, unspecified; R51 Headache; Z72.0 Tobacco use; Z79.82 Long term (current) use of aspirin; Z79.899 Other long term (current) drug therapy
CPT/HCPCS: 73060; 73090; 99283

== ENCOUNTER → 2019-11-22 10:13 | Outpatient (CLI) | payer MEDICAID, SELFPAY ==
[2019-11-02 14:54] VITALS: BMI 20.5
[2019-11-16 12:49] VITALS: BMI 26.4
--- NOTE | 2019-11-22 10:15 | ART_ITS ---
Reason For Study: Claudication Procedure A bilateral lower extremity continuous wave Doppler with analog waveform analysis,segmental pressures,and ankle brachial indexes without exercise. Left Segmental Pressures Left brachial= 101mmHg. Left posterior tibial artery = 148mmHg. Left dorsalis pedis artery = 149mmHg. Left digit = 63 mmHg. Right Segmental Pressures Right brachial= 109mmHg. Right posterior tibial artery = 149mmHg. Right dorsalis pedis artery = 131mmHg. Right digit = 57 mmHg. Indices The right ankle brachial index by the posterior tibial artery is 1.37. The right ankle brachial index by the dorsalis pedis is 1.20. The right digital-brachial index is 0.52. The left ankle brachial index by the posterior tibial artery is 1.36. The left ankle brachial index by the dorsalis pedis is 1.37. The left digital-brachial index is 0.58. Interpretation Summary 1. Bilateral legs appear triphasic flow and LUCIANA 1.37 and 1.37 and may be slightly falsely elevated. But appears normal at ankles. 2. Bilateral mild small vessel disease with DBI 0.52 and 0.58. Ordering Physician: Naresh Sainz Referring Physician: Naresh Sainz Performed By: Cheryle Sainz RDCS/RVT
== END ==
PROVIDERS: PCP Internal Medicine; Referring Provider Nurse Practitioner Family; Visit Provider Nurse Practitioner Family
DX: I73.9 Peripheral vascular disease, unspecified (principal); F17.200 Nicotine dependence, unspecified, uncomplicated; R68.89 Other general symptoms and signs
CPT/HCPCS: 93923

== ENCOUNTER → 2019-11-29 13:28 | Outpatient (CLI) | payer MEDICAID, SELFPAY ==
[2019-11-02 14:54] VITALS: BMI 20.5
[2019-11-16 12:49] VITALS: BMI 26.4
--- NOTE | 2019-11-29 13:31 | STE_ITS ---
Reason For Study: CHEST PAIN Stress Results Protocol: Dobutatmine Stress Echo Maximum Predicted HR: 168 bpm Target HR: 143 bpm % Maximum Predicted HR: 86 % DurationHeart Rate Stage (mm:ss) (bpm) BP Dose Comment BASELINE 55 132/84 STAGE 1 3:33 55 127/7310.00 STAGE 2 3:00 129 146/8620.00 STAGE 3 3:00 130 150/7530.00ST DEPRESSION, STATES CHEST STABBING STAGE 4 3:47 144 149/9540.000.25 MG AGTROPINE, CHEST PAIN REMAINS,O2 APPLIED RECOVERY 98 121/70 STATES PAIN, COMES AND GOES, GETTING BETTER Stress Duration: 13:20 mm:ss Maximum Stress HR: 144 bpm Baseline Echocardiogram Findings The estimated ejection fraction is 65 %. Stress Echo Wall motion Data Resting WM Intermediate WM Stress WM Resting Wall Motion Wall Motion Stress No regional wall motion No regional wall motion abnormalities noted. abnormalities noted. EKG Data The baseline ECG displays normal sinus rhythm. The patient was titrated from 10 mcg to a maximum of 40 mcg of dobutamine during the stress. The maximum heart rate attained was 144 beats per minute. This was 85% of maximum predicted heart rate. The stress ECG displays diffuse abnormal ST segments. No clinical angina was noted. Interpretation Summary The estimated ejection fraction is 65 %. Normal, adequate, dobutamine echocardiogram. Negative for ischemia by echocardiographic criteria. Pt developed diffuse ST depresion during infusion which lasted until 15:50 into recovery. No associated wall motion abnormality noted. No anginal symptoms noted. Appropriate blood pressure response to dobutamine. Final LVEF is 75%. Test terminated due to the attainment target heart rate. Ordering Physician: JUJU MACARIO Referring Physician: JUJU MACARIO Performed By: Emmy Salinas, RDCS, RVT
== END ==
PROVIDERS: PCP Internal Medicine; Referring Provider Nurse Practitioner Family; Visit Provider Nurse Practitioner Family
DX: R06.09 Other forms of dyspnea (principal); F17.200 Nicotine dependence, unspecified, uncomplicated; R07.9 Chest pain, unspecified
CPT/HCPCS: 93017; 93350; J7040; A4216

== ENCOUNTER 2020-06-25 04:13 | Emergency (ER) | payer MEDICAID, SELFPAY ==
[2020-05-02 09:10] VITALS: BMI 21.3
[2020-06-25 04:15] VITALS: BP 134/88; PULSE 63; RESP 12; TEMP 36.4; O2SAT 99; BMI 22.5
--- NOTE | 2020-06-25 04:17 | ED.VIS.GEN ---
History of Present Illness Chief Complaint: Chest Pain Informant: Patient Narrative: 55-year-old male presenting with sharp chest pain. He states it is on both sides of his chest parasternally. It hurts when he twists to the left or the right. He has COPD and chronic shortness of breath but no new shortness of breath. He does not have a new cough or fever. Patient states that he had a negative stress test earlier this year. He also had a normal cardiac catheterization late last year. He states that he has been trying to get into an appointment with Dr. Goldberg, but he states nobody is seeing patients because of COVID?19. He also has questions about his medications scribed to him by his PCP. He states he called the office but they would not give him information out over the phone. He also states he did not make an appointment because he is working on gas money to get over there. No history of DVT/PE that he can recall. He has no risk factors that he knows of. He has no exposure to COVID?19. Patient also states that he thinks he has a urinary tract infection or possibly a kidney stone because it denise when he urinates. He also complains of right-sided flank pain. - Past Medical History (1) Chronic hyponatremia Status: Chronic (2) Claudication Status: Chronic (3) History of left heart catheterization Status: Chronic Comment: Normal Coronary Arteries per cath done 11/11/[address] Goldberg Cath At [place] [address] Marrero Past Medical History - Allergies and Home Meds Allergies/Adverse Reactions: Allergies No Known Allergies Allergy (Verified 12/01/19 10:05) Primary Care Physician: Mayuri Pyane MD [Primary Care Provider] - Prior records reviewed: Yes Past Medical History: - - Reviewed and problem list Surgical History: - - Cardiac catheterization Lives: Alone Smoking Status: Current every day smoker Alcohol: None Drugs: None - Family History Paternal Family History: Family History (Last Reviewed 05/02/20 @ 09:11 by Leia Eddy) Mother Diabetes Father Heart disease Family History: Reports: Heart Disease Maternal Family History: Family History (Last Reviewed 05/02/20 @ 09:11 by Leia Eddy) Mother Diabetes Father Heart disease Family History: Reports: Diabetes Review of Systems General: Denies: Chills, Fever, Sweats Eyes: Denies: Visual changes - bilaterally, Diplopia ENT: Denies: Rhinorrhea, Sore throat Cardiovascular: Reports: Chest pain. Denies: Palpitations, Heart racing Respiratory: Denies: Dyspnea, Cough, Sputum Gastrointestinal: Denies: Abdominal pain, Nausea, Vomiting Genitourinary: Reports: Dysuria. Denies: Hematuria Musculoskeletal: Reports: Back pain - Right flank pain. Denies: Myalgias Skin: Denies: Rash, Abscess Neurological: Denies: Headache, Weakness Physical Exam Inital Vital Signs reviewed: Yes General: Unkempt, No Acute Distress Head: Normocephalic, Atraumatic Eyes: Perrl, EOMI ENT: Moist mucous membranes, No rhinorrhea Cardiovascular: Regular rate, Regular rhythm Respiratory: No distress, CTA bilaterally Abdomen: Soft, Nontender, Nondistended Back: CVA tenderness - Right sided Extremities: Nontender, No edema Skin: Normal color, No rash Neurological: Alert, Oriented x3 Psychological: Normal affect, Normal Mood Diagnostic/Tx/Re-eval Clinical Impression(s) from Imaging Studies Chest X-Ray 06/25/20 04:18 IMPRESSION: Right basilar subsegmental atelectasis versus pneumonia. Electronically Signed: Triston Sevilla MD at 4:39 EDT , Service support , Abdomen/Pelvis CT 06/25/20 04:48 IMPRESSION: No hydronephrosis or urinary tract stones. Fecal retention. Hepatic cysts not significantly changed. Borderline prostate gland enlargement. Electronically Signed: Triston Sevilla MD at 5:45 EDT , Service support , Laboratory Data 06/25/20 06/25/20 06/25/20 04:20 04:20 04:20 WBC 7.4 RBC 4.39 L Hgb 13.3 Hct 40.7 MCV 92.7 MCH 30.3 MCHC 32.7 RDW Std Deviation 42.7 RDW Coeff of Juan David 12.4 Plt Count 208 MPV 10.1 Immature Gran % (Auto) 0.100 Neut % (Auto) 62.4 Lymph % (Auto) 27.4 Sandoval % (Auto) 6.8 Eos % (Auto) 2.6 Baso % (Auto) 0.7 Absolute Neuts (auto) 4.6 Absolute Lymphs (auto) 2.02 Nucleated RBC % 0 D-Dimer Quant (PE/DVT) <= 0.27 Sodium 145 Potassium 3.9 Chloride 110 H Carbon Dioxide 30.0 Anion Gap 5 BUN 16 Creatinine 1.24 Estim Creat Clear Calc 77.66 Est GFR (MDRD) Af Amer 78 Est GFR (MDRD) Non-Af 65 BUN/Creatinine Ratio 12.9 Glucose 76 Calcium 8.5 Troponin I < 0.015 Urine Color Urine Clarity Urine pH Ur Specific Bearden Urine Protein Urine Glucose (UA) Urine Ketones Urine Occult Blood Urine Nitrite Urine Bilirubin Urine Urobilinogen Ur Leukocyte Esterase Urine RBC Urine WBC Ur Squamous Epith Cells Urine Bacteria Urine Mucus 06/25/20 04:40 WBC RBC Hgb Hct MCV MCH MCHC RDW Std Deviation RDW Coeff of Juan David Plt Count MPV Immature Gran % (Auto) Neut % (Auto) Lymph % (Auto) Sandoval % (Auto) Eos % (Auto) Baso % (Auto) Absolute Neuts (auto) Absolute Lymphs (auto) Nucleated RBC % D-Dimer Quant (PE/DVT) Sodium Potassium Chloride Carbon Dioxide Anion Gap BUN Creatinine Estim Creat Clear Calc Est GFR (MDRD) Af Amer Est GFR (MDRD) Non-Af BUN/Creatinine Ratio Glucose Calcium Troponin I Urine Color Yellow Urine Clarity Clear Urine pH 6.0 Ur Specific Bearden 1.025 Urine Protein 15 H Urine Glucose (UA) Normal Urine Ketones 5 H Urine Occult Blood 50 H Urine Nitrite Negative Urine Bilirubin 1 H Urine Urobilinogen 8 H Ur Leukocyte Esterase 25 H Urine RBC 0-5 SEEN Urine WBC 0-5 SEEN Ur Squamous Epith Cells 0 SEEN Urine Bacteria 0 SEEN Urine Mucus 0 SEEN - Rhythm Strip Rhythm Strip: Sinus Rhythm Rate: 61 - EKG Follow-up EKG Interpretation: Sinus Rhythm, No Acute Injury Pattern - Medical Decision Making Patient presents with chest pain which he has had this yesterday. He states that it is constant but exacerbated by turning left and right. It is reproducible by having him do this motion. He has no cough, shortness of breath, diaphoresis, lightheadedness, radiation of the pain. His EKG is normal. Troponin is negative. Given that he has had this pain since yesterday I do not believe he needs a delta troponin and EKG. In addition to this he had a negative stress test this year as well as a negative cardiac cath last year. D-dimer is negative. In regards to his complaint of right flank pain he did have some hematuria without signs of infection. CT abdomen pelvis without contrast shows no kidney stone therefore he likely passed a stone if he had one. Patient will be discharged home in stable condition and he is encouraged to follow-up with his regular providers. Impression: 1. Atypical chest pain 2. Right flank pain 3. Hematuria ED Disposition - Plan for ED Patient: Disposition: Home or Assisted Living Instructions: ED Chest Pain Atypical Unkn Cause, ED Hematuria Referrals: Mayuri Payne MD [Primary Care Provider] -
--- NOTE | 2020-06-25 04:18 | RAD_ITS ---
STUDY: X-RAY CHEST REASON FOR EXAM: Male, 55 years old. Chest pain. TECHNIQUE: AP portable chest. COMPARISON: September 16, 2019. FINDINGS: Small patchy density right lung base. No pleural effusions. No pneumothorax. Normal size heart. Normal mediastinum and lori. Normal visualized pulmonary arteries. Normal visualized aortic arch and descending thoracic aorta. Normal visualized thoracic spine. Normal visualized ribs, clavicles, and shoulders. There is no demonstrated abnormality of the visualized soft tissue structures of the upper abdomen. RAD/Chest 1 View (Portable) IMPRESSION: Right basilar subsegmental atelectasis versus pneumonia. Electronically Signed: Triston Sevilla MD at 4:39 EDT , Service support ,
--- NOTE | 2020-06-25 04:18 | EKG12_ITS ---
Test Reason : CP Blood Pressure : / mmHG Vent. Rate : 061 BPM Atrial Rate : 061 BPM P-R Int : 144 ms QRS Dur : 088 ms QT Int : 420 ms P-R-T Axes : 067 076 053 degrees QTc Int : 422 ms Normal sinus rhythm Normal ECG Confirmed by ROBB DIAL, EMERITA ([id number]), television news video editor NISREEN GUIDRY ([id number]) on 07/01/2020 1:10:37 PM Referred By: DR DELA CRUZ Confirmed By:JASIEL ZAMUDIO MD
[2020-06-25] MEDS: Aspirin 81 MG TAB.CHEW 324 MG PO (04:30)
[2020-06-25 04:35] LABS: Absolute Lymphocyte Count 2.02 X10^3/uL (0.83-4.51); Absolute Neutrophil Count 4.6 X10^3/uL (2.0-7.7); Basophil# 0.05 X10^3/uL; Basophil% 0.7 % (0-1); Eosinophil# 0.19 X10^3/uL; Eosinophils% 2.6 % (0-5); Hematocrit 40.7 % (40-54); Hemoglobin 13.3 g/dL (13.0-16.5); Lymphocyte # 2.02 X10^3/ul (4.0); Lymphocyte % 27.4 % (19-41); Mean Corp Hgb Conc 32.7 g/dL (32-36); Mean Corpuscular Hgb 30.3 pg (27.0-32.0); Mean Corpuscular Volume 92.7 fL (80-94); Mean Platelet Vol. 10.1 fl (6.2-12.0); Monocyte% 6.8 % (0-10); NRBC Flagged by Analyzer 0 % (0-5); Neutrophil % 62.4 % (47-70); Platelet Count 208 K/mm3 (150-450); RBC Distribution Width CV 12.4 % (11.6-14.6); RBC Distribution Width SD 42.7 fl (35.1-43.9); Red Blood Count 4.39 M/mm3 (4.6-6.2); White Blood Count 7.4 K/mm3 (4.4-11.0)
[2020-06-25 04:42] LABS: D-Dimer Quantitative (DVT/PE) <= 0.27 FEU/ug/m (0.27-0.49)
[2020-06-25 04:43] LABS: Anion Gap 5 (5-15); BUN 16 mg/dL (7-18); BUN/Creat Ratio 12.9 RATIO (10-20); Calcium,Total 8.5 mg/dL (8.5-10.1); Chloride 110 mmol/L (98-107); Creatinine, Serum 1.24 mg/dL (0.70-1.30); EST Glomerular Filtration Rate 65 mL/min (>60); Est Glom Filt Rate - Afr Amer 78 mL/min (>60); Estimated Creatinine Clearance 77.66 ml/min; Glucose 76 mg/dL (74-106); Potassium 3.9 mmol/L (3.5-5.1); Sodium Level 145 mmol/L (136-145)
[2020-06-25 04:46] LABS: Bacteria 0 SEEN /hpf (None Seen); Mucous, Urine 0 SEEN /hpf (<or=2+); Squamous Epithelial Cells - UA 0 SEEN /hpf (0-5)
[2020-06-25 04:47] LABS: Color, Urine Yellow (Yellow); Glucose, Dipstick Normal (Normal); Ketone-Dipstick 5 mg/dl (Negative); Leukocyte Esterase-Dipstick 25 /ul (Negative); Nitrite-Dipstick Negative (Negative); Occult Blood-Urine 50 /ul (Negative); Protein-Dipstick 15 mg/dl (Negative); Specific Gravity, Urine 1.025 (1.002-1.030); Urine Bilirubin Dipstick 1 mg/dL (Negative); Urine Clarity Clear (Clear); Urine Urobilinogen 8 mg/dl (Normal)
--- NOTE | 2020-06-25 04:48 | CT_ITS ---
STUDY: CT ABDOMEN AND PELVIS WITHOUT CONTRAST REASON FOR EXAM: Male, 55 years old. Right flank pain since yesterday. History of kidney stones and colon cancer. RADIATION DOSAGE (If Supplied By Facility): CTDIvol = ( 6.31 ) mGy, DLP = ( 315.31 ) mGycm TECHNIQUE: Transaxial images were obtained from the dome of the diaphragm to the symphysis pubis without oral contrast, and without intravenous contrast. Sagittal and coronal images were reconstructed. Individualized dose optimization techniques were used for this CT. COMPARISON: April 20, 2013. FINDINGS: The visualized lung bases are unremarkable. The visualized portions of the heart are within normal limits. Hepatic cysts not significantly changed. The gallbladder is contracted. Normal spleen. Normal pancreas. Normal bilateral adrenal glands. Normal right kidney. Normal left kidney. Normal visualized stomach. Normal small intestine. Stool present throughout the colon suggestive of fecal retention. The appendix is probably visualized and appears normal. Evaluation of bowel is limited without oral contrast. There is atherosclerotic calcification of the abdominal aorta, without a demonstrated aneurysm. Normal inferior vena cava. Normal retroperitoneum. No intra-abdominal free air. Normal urinary bladder. Prostate gland is borderline enlarged. Normal abdominal wall. Normal osseous structures. CT/Abdomen/Pelvis without Cont IMPRESSION: No hydronephrosis or urinary tract stones. Fecal retention. Hepatic cysts not significantly changed. Borderline prostate gland enlargement. Electronically Signed: Triston Sevilla MD at 5:45 EDT , Service support ,
[2020-06-25 04:53] LABS: Red Blood Cells-Urine 0-5 SEEN /hpf (0-5); White Blood Cells 0-5 SEEN /hpf (0-5)
[2020-06-25 06:10] VITALS: BP 119/72; PULSE 80; RESP 16; O2SAT 98
== END 2020-06-25 06:11 | disposition home or self-care (01) ==
PROVIDERS: Emergency Provider Student in an Organized Health Care Education/Training Program; PCP Internal Medicine
DX: R07.89 Other chest pain (principal); R10.9 Unspecified abdominal pain; R31.9 Hematuria, unspecified; R30.0 Dysuria; J44.9 Chronic obstructive pulmonary disease, unspecified; F17.200 Nicotine dependence, unspecified, uncomplicated
CPT/HCPCS: 71045; 74176; 80048; 81001; 84484; 85025; 85379; 93005; 99285

== ENCOUNTER 2021-07-16 05:53 | Emergency (ER) | payer MEDICAID, SELFPAY ==
[2021-07-16 05:55] VITALS: BP 121/79; PULSE 63; RESP 16; TEMP 36.8; O2SAT 99; BMI 23.2
--- NOTE | 2021-07-16 05:56 | RAD_ITS ---
EXAM: XR CHEST, 1 VIEW : 1965 CLINICAL INDICATION: chest pain TECHNIQUE: Frontal view of the chest. This report was created using [employer] report generation technology. COMPARISON: 06/25/20 FINDINGS: LUNGS AND PLEURAL SPACES: Unremarkable. No consolidation or edema. No pneumothorax. No effusion. HEART: Unremarkable. Cardiac silhouette not enlarged. MEDIASTINUM: Central airways and mediastinal contour are unremarkable. BONES/JOINTS: Unremarkable. SOFT TISSUES: Unremarkable. RAD/Chest 1 View (Portable) IMPRESSION: No radiographic evidence of acute cardiopulmonary disease. at 0658 Reported and signed by: Chance Mcdaniels MD Electronically Signed: Chance Mcdaniels MD at 6:57 EDT Tel , Service support ,
--- NOTE | 2021-07-16 05:56 | EKG12_ITS ---
Test Reason : CP Blood Pressure : / mmHG Vent. Rate : 063 BPM Atrial Rate : 063 BPM P-R Int : 146 ms QRS Dur : 084 ms QT Int : 406 ms P-R-T Axes : 068 076 054 degrees QTc Int : 415 ms Normal sinus rhythm Normal ECG Confirmed by ROBB DIAL, EMERITA ([id number]), newspaper copy editor NISREEN GUIDRY ([id number]) on 07/21/2021 10:39:12 AM Referred By: DONALD Confirmed By:JASIEL ZAMUDIO MD
[2021-07-16 06:08] LABS: Absolute Lymphocyte Count 1.87 X10^3/uL (0.83-4.51); Absolute Neutrophil Count 4.6 X10^3/uL (2.0-7.7); Basophil# 0.03 X10^3/uL; Basophil% 0.4 % (0-1); Eosinophil# 0.15 X10^3/uL; Eosinophils% 2.1 % (0-5); Hemoglobin 13.5 g/dL (13.0-16.5); Lymphocyte # 1.87 X10^3/ul (0.83-4.51); Lymphocyte % 26.3 % (19-41); Mean Corp Hgb Conc 33.8 g/dL (32-36); Mean Corpuscular Hgb 30.7 pg (27.0-32.0); Mean Corpuscular Volume 90.9 fL (80-94); Mean Platelet Vol. 9.4 fl (6.2-12.0); Monocyte# 0.47 X10^3/uL; Monocyte% 6.6 % (0-10); NRBC Flagged by Analyzer 0 % (0-5); Neutrophil # 4.56 X10^3/uL (2.7-7.7); Neutrophil % 64.3 % (47-70); Platelet Count 200 K/mm3 (150-450); RBC Distribution Width CV 12.1 % (11.6-14.6); RBC Distribution Width SD 40.1 fl (35.1-43.9); White Blood Count 7.1 K/mm3 (4.4-11.0)
--- NOTE | 2021-07-16 06:19 | ED.VIS.CHEST ---
HPI History of Present Illness Chief Complaint: Chest Pain Informant: patient and spouse/S.O. Onset/Context/Timing Onset: Yesterday and Days Activity at onset: gradual Timing: Continuous Quality: Positive for Stabbing Location: Right Chest and Left Chest Current Severity: Mild Maximum Severity: Mild Worsened By: Movement of Arm Relieved By: Nothing Associated Symptoms: Negative for Nausea, Vomiting, Diaphoresis, Dyspnea, Cough, Fever, Lightheadedness, Acid Reflux and Palpitations Narrative Narrative: 56-year-old male past medical history of coronary artery disease with 2 prior heart caths. On history of COPD and vertigo. Patient states on Wednesday he had some type of pulmonary function testing. He states they made him breathe in and out multiple times in deeply and it caused him to get chest soreness. He said since that time in the last 24 hours he has had constant stabbing chest discomfort all over his entire chest. Worse with movement. He denies any falls or trauma. No fever or chills. No history of DVT or PE. No hemoptysis. Is not associated with exertion. He has had similar symptoms to this before. Prior Similar Symptoms: Yes Recent Illness/Hospitalization: No CVD Risk Factors: Positive for Smoking; Negative for Diabetes PE Risk Factors: Negative for Recent Travel/Surgery, Recent Immobilization, Prior DVT or PE, Cancer and OCP + Smoking + >/=35 TAD Risk Factors: Negative for Marfan's Syndrome [facility] Medical History (Updated 07/16/21 @ 06:[address] Ki Pena MD) Asthma Chest pain of uncertain etiology Chronic hyponatremia Cold intolerance Depression History of bronchitis History of pneumonia Hypertension Nicotine dependence Orthostatic hypotension Pulmonary fibrosis Pulmonary hypertension Rheumatoid arthritis Sleep apnea Syncope and collapse Syncope, near Weight loss, abnormal Home Medications aspirin 81 mg PO DAILY 09/16/19 [History Last Taken Unknown] naproxen 500 mg PO BID PRN #20 tab 09/16/19 [Rx Last Taken Unknown] fludrocortisone 0.1 mg tablet 0.2 mg PO BID #120 tab 11/16/19 [Rx Last Taken Unknown] gabapentin 600 mg tablet 600 mg PO BID 12/01/19 [History Last Taken Unknown] Allergy/AdvReac Type Severity Reaction Status Date / Time No Known Allergies Allergy Verified 07/16/21 05:54 Family History Mother Diabetes Father Heart disease Surgical History History of left heart catheterization (11/11/16) Social History Smoking Status: Current every day smoker tobacco type: cigarettes ROS ROS ED ROS Narrative Stabbing chest discomfort. Review of Systems ROS Unobtainable: Denies due to encephalopathy Constitutional Constitutional ED: Denies chills, fever(s) or subjective Eyes Eyes: Denies none or change in vision ENT ENT ED: Denies ear pain or sore throat Cardiovascular Cardiovascular: Reports as per HPI and chest pain; Denies palpitations Respiratory/Chest Respiratory/Chest: Denies cough, dyspnea or sputum Gastrointestinal Gastrointestinal: Denies abdominal pain, diarrhea, nausea or vomiting Genitourinary Genitourinary ED: Denies dysuria or hematuria Musculoskeletal Musculoskeletal: Denies myalgias Integumentary Denies rash Neurologic Neurologic: Denies headache(s) Psychiatric Psychiatric: Denies depression Endocrine Endocrinology: Denies polyuria Hematologic/Lymphatic Hematologic/Lymphatic: Denies easy bruising Allergic/Immunologic Allergic/Immunologic ED: Denies urticaria EXAM Physical Exam Narrative Exam Narrative: Male no acute distress vital signs stable afebrile. Pulse ox 9 9% on room air no signs hypoxia. H EENT exam unremarkable. Neck nontender. No lymphadenopathy. Lungs clear to auscultation bilaterally. Heart regular rate and rhythm no murmur rate about 60. Chest wall reproducibly tender over his entire anterior chest wall. There is no signs of trauma. There is no bruising. There is no subcu air or crepitance. This appears a musculoskeletal chest pain is very reproducible. He states this is the same pain that he came in for. Abdomen soft nontender normal bowel sounds no peritoneal signs. Moving all 4 extremities. Calves are nontender without edema or cords. Back nontender. Neurologically is awake and alert. No focal motor deficits. Const Vital Signs: 07/16/21 05:55 07/16/21 06:00 07/16/21 06:02 Temperature 98.2 F Temperature Source Temporal Pulse Rate 63 Respiratory Rate 16 Respiratory Effort Normal Respiratory Pattern Normal Blood Pressure 121/79 H Blood Pressure Mean 93 Pulse Ox 99 Oxygen Delivery Method Room Air Room Air Positive well nourished and well developed; Negative for obese, cachectic, contractures or unkempt General Appearance ED: well developed and NAD; Negative for unkempt, cachectic, contractures or pallor Nutritional Appearance: Negative for cachectic or obese HEENT Reports moist mucous membranes normocephalic and atraumatic; Negative for trauma Eyes PERRL and EOMs intact bilaterally Neck no lymphadenopathy, supple and no JVD Chest Wall inspection of chest normal; Negative for palpation of chest normal Chest: tenderness Resp normal respiratory effort and clear to auscultation bilaterally Effort and Inspection: respiratory distress Auscultation: Negative for rales, rhonchi or wheezes Cardio regular rate, regular rhythm, S1 normal heart sound, S2 normal heart sound and no murmurs Rate: Negative for bradycardia or tachycardic GI normal to inspection, nondistended, normoactive bowel sounds, soft to palpation, non-tender, non-distended and no masses Back/Spine no CVA tenderness General Back: Negative for CVA tenderness Extremity normal to inspection General Extremety ED: Negative for edema or tenderness General Extremity: Negative for edema Neuro oriented x3 Sensorium / Orientation: awake, alert, oriented to person, oriented to place and oriented to time Motor Exam: strength 5/5 throughout Psych mental status grossly normal Appearance: Negative for unkempt Skin no rashes or lesions noted and no wounds General Skin Exam: Negative for jaundice or pallor Heart Score History: Slightly/Non-Suspicious ECG: Normal Age: >45 - <65 years Risk Factors: >/= 3 Risk Factors or History of CAD Troponin: </= Normal Limit Score: 3 MDM MDM MDM Narrative Medical decision making narrative: 56-year-old male with reproducible chest wall pain. The pains been more than 24 hours. Sharp and stabbing. Not associated with exertion. It occurred after he had some type of pulmonary function tests done. Clinically this does not sound cardiac. He does have a history of coronary disease. He will be put through a cardiac work-up. If the work-up is negative apart with him being discharged home. Patient's chest x-ray, labs and EKG were basically unremarkable except for COPD on chest x-ray. Pain is reproducible. Is been going on more than 24 hours. His troponin is normal. Patient will be discharged home with musculoskeletal chest wall pain. Motrin for the pain. Follow-up as needed. Lab Data Attestation: I reviewed the patient's lab results. Lab results narrative: CBC shows a normal white count of 7. Hemoglobin 13.5. BMP normal. Troponin IV. Normal gap. Normal creatinine. Labs: Laboratory Results - last 24 hr 07/16/21 07/16/21 06:00 06:00 WBC 7.1 RBC 4.40 L Hgb 13.5 Hct 40.0 MCV 90.9 MCH 30.7 MCHC 33.8 RDW Std Deviation 40.1 RDW Coeff of Juan David 12.1 Plt Count 200 MPV 9.4 Immature Gran % (Auto) 0.300 Neut % (Auto) 64.3 Lymph % (Auto) 26.3 Simpson % (Auto) 6.6 Eos % (Auto) 2.1 Baso % (Auto) 0.4 Absolute Neuts (auto) 4.6 Absolute Lymphs (auto) 1.87 Nucleated RBC % 0 Sodium 140 Potassium 4.0 Chloride 105 Carbon Dioxide 29.0 Anion Gap 6 BUN 13 Creatinine 1.20 Estim Creat Clear Calc 81.72 Est GFR (MDRD) Af Amer 81 Est GFR (MDRD) Non-Af 67 BUN/Creatinine Ratio 10.8 Glucose 97 Calcium 9.0 Troponin I High Sens 4 Radiography Chest X-Ray - ED: 1 View, Read by ED Physician, Heart, Lungs, Mediastinum, Bony Structures, No Acute Disease and Chronic Changes Diagnostic Testing: Single portable chest x-ray interpreted by myself shows chronic changes consistent with COPD. But no acute process. Rhythm Strip Rhythm Strip: Sinus Rhythm Rate: 63 Ectopy: None EKG Initial EKG: Attestation: I personally reviewed and interpreted this EKG as follows: Interpretation: Sinus Rhythm and No Acute Injury Pattern Comments: Normal sinus rhythm rate of 63 no acute signs of ID or ischemia. Unchanged from her prior EKG from June of last year. Prior EKG tracings: available for review Prior: Unchanged Discharge Plan Triage Chief Complaint: Chest Pain ED Provider: Ki Pena Dx/Rx/DC Orders Clinical Impression: Anterior chest wall pain, History of acquired heart disease Instructions: ED Chest Wall Contusion Prescriptions: No Action gabapentin 600 mg tablet 600 mg PO BID RF: 0 aspirin 81 MG tablet,chewable 81 mg PO DAILY RF: 0 naproxen 500 MG tablet 500 mg PO BID PRN Qty: 20 RF: 0 fludrocortisone 0.1 mg tablet 0.2 mg PO BID Qty: 120 RF: 11 Primary Care Provider: Mayuri Payne Referrals: Mayuri Payne MD [Primary Care Provider] - 1 Week if not improving Activity Restrictions/Additional Instructions: The chest pain you are having appears to be from your chest wall. Most likely it was strained. Ice to the chest wall. Motrin for pain and inflammation over the next several days this should improve. Follow-up with your doctor if not feeling better. Disposition Disposition: Home, Self Care
[2021-07-16] MEDS: Aspirin 81 MG TAB.CHEW 324 MG PO (06:22)
[2021-07-16 06:48] LABS: Anion Gap 6 (5-15); BUN 13 mg/dL (7-18); BUN/Creat Ratio 10.8 RATIO (10-20); Chloride 105 mmol/L (98-107); EST Glomerular Filtration Rate 67 mL/min (>60); Est Glom Filt Rate - Afr Amer 81 mL/min (>60); Estimated Creatinine Clearance 81.72 ml/min; Glucose 97 mg/dL (74-106); Sodium Level 140 mmol/L (136-145); Troponin-I HS 4 pg/mL (3.0-78.0)
[2021-07-16 07:01] VITALS: BP 132/74; PULSE 74; RESP 16; TEMP 36.6; O2SAT 97
== END 2021-07-16 07:05 | disposition home or self-care (01) ==
LOC: ED 06:48
PROVIDERS: Emergency Provider Emergency Medicine; PCP Internal Medicine
DX: R07.89 Other chest pain (principal); I10 Essential (primary) hypertension; F32.A Depression, unspecified; G47.30 Sleep apnea, unspecified; I25.10 Atherosclerotic heart disease of native coronary artery without angina pectoris; I27.20 Pulmonary hypertension, unspecified; J44.9 Chronic obstructive pulmonary disease, unspecified; J84.10 Pulmonary fibrosis, unspecified; M06.9 Rheumatoid arthritis, unspecified; Z87.01 Personal history of pneumonia (recurrent); Z79.82 Long term (current) use of aspirin; Z79.899 Other long term (current) drug therapy; F17.210 Nicotine dependence, cigarettes, uncomplicated
CPT/HCPCS: 71045; 80048; 84484; 85025; 93005; 99285; A4216

== ENCOUNTER 2021-11-14 18:00 | Observation (INO) | payer MEDICAID, SELFPAY ==
[2021-11-14 18:06] VITALS: BP 130/90; PULSE 69; RESP 19; TEMP 38.1; O2SAT 98; BMI 22.0
--- NOTE | 2021-11-14 18:10 | EKG12_ITS ---
Test Reason : WEAKNESS Blood Pressure : / mmHG Vent. Rate : 066 BPM Atrial Rate : 066 BPM P-R Int : 138 ms QRS Dur : 086 ms QT Int : 368 ms P-R-T Axes : 070 078 047 degrees QTc Int : 385 ms Normal sinus rhythm Normal ECG Confirmed by LISA DIAL, IRENA ([id number]), tape editor NISREEN GUIDRY ([id number]) on 11/17/2021 10:07:21 AM Referred By: PATRICIA Confirmed By:IRENA GONZALEZ MD
--- NOTE | 2021-11-14 18:25 | CT_ITS ---
STUDY: CT BRAIN WITHOUT CONTRAST REASON FOR EXAM: Male, 56 years old. SYNCOPE weakness TECHNIQUE: Transaxial CT imaging of the brain was performed without administration of intravenous contrast material. Individualized dose optimization techniques were used for this CT. COMPARISON: 06.22.19 FINDINGS: Normal calvarium. Normal soft tissues. Normal size ventricles and extra-axial spaces for the patient''s age. Normal white matter tracts of the cerebral hemispheres. Normal basal ganglia and thalami. Normal brainstem. Normal cerebellum. There is no intracranial hemorrhage. There are no findings of an acute ischemic infarction. There is a mucous retention cyst and/or polyp of the maxillary sinus. ASPECTS 10 CT/Brain/Head without Contrast IMPRESSION: There are no acute intracranial findings. Electronically Signed: Chance Garcia MD at 18:55 EST ,
--- NOTE | 2021-11-14 18:26 | RAD_ITS ---
EXAM: XR PELVIS, 1 OR 2 VIEWS : 1965 CLINICAL INDICATION: weakness TECHNIQUE: Frontal view of the pelvis. This report was created using [employer] report generation technology. COMPARISON: None. FINDINGS: BONES/JOINTS: Unremarkable. No displaced fracture. No destructive or sclerotic lesions. Note that overlapping bowel shadows may however obscure fine detail. Sacroiliac joints are unremarkable. No widening of the pubic symphysis. The articular structures are unremarkable. SOFT TISSUES: Unremarkable. No soft tissue swelling or gas. RAD/Pelvis 1 or 2 Views IMPRESSION: No evidence of displaced pelvic fracture. at 1921 Reported and signed by: Scot Delong MD Electronically Signed: Scot Delong MD at 19:19 EST ,
--- NOTE | 2021-11-14 18:26 | ED.VIS.FALL ---
HPI HPI - Fall History of Present Illness Chief Complaint: Weakness Narrative Narrative: 56-year-old male presenting with flulike symptoms for a week. Patient is a poor informant. He states he has a cough, congestion, chills, body aches. He states he did not know he had a fever until today. He has been taking Tylenol at home for body aches. He states he has been getting weaker and weaker. He reports falling last couple of days. Patient states that over the last 2 days he has not been able to move his right leg to stand on it. He states he is crawling across the floor. Today he states he hit his head on a table when he fell. He denies LOC. He states he is not on any blood thinners. Patient is not having chest pain but has subjective shortness of breath. He states his at home has a cough and has the bronchitis. Patient states he is not on any medications prescribed. [facility] Medical History Asthma Chest pain of uncertain etiology Chronic hyponatremia Cold intolerance Depression History of bronchitis History of pneumonia Hypertension Nicotine dependence Orthostatic hypotension Pulmonary fibrosis Pulmonary hypertension Rheumatoid arthritis Sleep apnea Syncope and collapse Syncope, near Weight loss, abnormal Home Medications NK 11/14/21 [History Last Taken Unknown] Allergy/AdvReac Type Severity Reaction Status Date / Time No Known Allergies Allergy Verified 11/14/21 18:10 Family History Mother Diabetes Father Heart disease Surgical History History of left heart catheterization (11/11/16) Social History Smoking Status: Current every day smoker tobacco type: cigarettes ROS ROS ED Constitutional Constitutional ED: Reports chills and fever(s) ENT ENT ED: Reports rhinorrhea Cardiovascular Cardiovascular: Denies chest pain or palpitations Respiratory/Chest Respiratory/Chest: Reports cough and dyspnea Gastrointestinal Gastrointestinal: Denies abdominal pain, nausea or vomiting Genitourinary Genitourinary ED: Denies dysuria or hematuria Musculoskeletal Musculoskeletal: Denies arthralgias or myalgias Integumentary Denies rash Neurologic Neurologic: Reports paresthesias RLE; Denies headache(s) Psychiatric Psychiatric: Denies anxiety or depression EXAM Physical Exam Const Vital Signs: 11/14/21 18:06 11/14/21 18:11 11/14/21 20:13 Temperature 100.5 F H 99.6 F H Temperature Source Temporal Temporal Pulse Rate 69 65 Respiratory Rate 19 H 18 Respiratory Effort Normal Non-Labored Respiratory Pattern Normal Blood Pressure 130/90 H 126/85 H Blood Pressure Mean 103 98 Pulse Ox 98 95 Oxygen Delivery Method Room Air Room Air Positive well nourished General Appearance ED: NAD HEENT Reports normocephalic HEENT Narrative: Dry mucous membranes atraumatic Eyes PERRL and EOMs intact bilaterally General Eye ED: Negative for pale conjunctiva or scleral icterus Resp normal respiratory effort and clear to auscultation bilaterally Cardio regular rate and regular rhythm GI non-tender and non-distended Palpation: soft Extremity Extremity Narrative: Diminished sensation over right lower extremity. Patient unable to lift the right leg off the bed. He is unable to hold off the bed when lifted for him. Patient is able to flex and extend his ankle and move his toes. Diminished sensation in the right foot. Neuro oriented x3 Sensorium / Orientation: alert Psych Psych Narrative: Confused Skin Lesions: no lesions Rashes: no rashes MDM MDM MDM Narrative Medical decision making narrative: Patient presenting with generalized weakness and falls. He did hit his head as well. He is complaining of generalized weakness with weakness in his right leg for last couple of days and inability to ambulate secondary to weakness in his leg. On initial examination the patient could not hold his leg up in the air and could not raise it off of the bed. Blood work obtained shows that he is leukopenic and lymphopenic. His renal function electrolytes are normal. Lactic acid is slightly elevated at 2.2. LFTs are normal. Rapid Covid test is positive. Chest x-ray on my interpretation shows no acute cardiopulmonary process and the radiologist does agree. EKG on my interpretation shows sinus rhythm with a ventricular rate of 66 bpm without sign of ischemic change. Since patient was having trouble moving his leg and fell I did obtain a x-ray of the pelvis and on my interpretation there are no acute fractures of the pelvis visualized. CT of the brain and cervical spine are obtained and show no acute abnormalities. Given patient's weakness I do believe he needs to be admitted. He seems to be slightly confused and slow to answer questions which is abnormal for him. On reevaluation prior to admitting the patient I asked him if he could raise his right leg and he was able to raise his right leg off the bed under his own strength. Is unclear why he is able to move it now. He does not exhibit any other symptoms of stroke. He does not appear to have any traumatic injuries to the leg. Patient was discussed with the hospitalist for admission. Impression: 1. COVID-19 2. Generalized weakness 3. Falls 4. Right leg weakness 5. Closed head injury Lab Data Labs: Laboratory Results - last 24 hr 11/14/21 11/14/21 11/14/21 18:22 18:22 18:22 WBC 3.2 L RBC 4.30 L Hgb 13.5 Hct 38.3 L MCV 89.1 MCH 31.4 MCHC 35.2 RDW Std Deviation 39.3 RDW Coeff of Juan David 12.1 Plt Count 161 MPV 10.5 Immature Gran % (Auto) 0.300 Neut % (Auto) 74.1 H Lymph % (Auto) 11.1 L [place] % (Auto) 13.3 H Eos % (Auto) 0.9 Baso % (Auto) 0.3 Absolute Neuts (auto) 2.4 Absolute Lymphs (auto) 0.36 L Nucleated RBC % 0 Differential Comment SCANNED Diff Path Review May foll Sodium 136 Potassium 3.5 Chloride 107 Carbon Dioxide 25.0 Anion Gap 4 L BUN 11 Creatinine 1.05 Estim Creat Clear Calc 88.50 Est GFR (MDRD) Af Amer 94 Est GFR (MDRD) Non-Af 78 BUN/Creatinine Ratio 10.5 Glucose 127 H Lactic Acid 2.2 H* Calcium 8.5 Total Bilirubin 0.30 AST 14 L ALT 19 Alkaline Phosphatase 79 Troponin I High Sens 5 Total Protein 6.9 Albumin 3.5 Globulin 3.4 Albumin/Globulin Ratio 1.0 Radiography Diagnostic Testing: Clinical Impression(s) from Imaging Studies Brain CT 11/14/21 18:25 IMPRESSION: There are no acute intracranial findings. Electronically Signed: Chance Garcia MD at 18:55 EST , Pelvis X-Ray 11/14/21 18:26 IMPRESSION: No evidence of displaced pelvic fracture. at 1921 Reported and signed by: Scot Delong MD Electronically Signed: Scot Delong MD at 19:19 EST , Cervical Spine CT 11/14/21 18:31 IMPRESSION: Degenerative changes of the cervical spine. There are no acute findings. Electronically Signed: Chance Garcia MD at 19:00 EST , Chest X-Ray 11/14/21 18:45 IMPRESSION: No radiographic evidence of acute cardiopulmonary disease. at 1920 Reported and signed by: Scot Delong MD Electronically Signed: Scot Delong MD at 19:19 EST , Discharge Plan Triage Chief Complaint: Weakness ED Provider: Alphonso Tapia Dx/Rx/DC Orders Prescriptions: No Action NK RF: 0 Primary Care Provider: Mayuri Payne
--- NOTE | 2021-11-14 18:31 | CT_ITS ---
EXAM: CT SPINE - CERVICAL WITHOUT IV REASON FOR EXAM: Male, 56 years old. NECK PAIN falls Individualized dose optimization techniques were used for this CT. TECHNIQUE: Multiplanar images were obtained of the cervical spine. IV contrast was not utilized. COMPARISON: None. FINDINGS: The vertebral bodies do maintain their height. The odontoid process is intact. There is no anterolisthesis or fracture. No pre-vertebral soft tissue swelling is seen. The intravertebral disc height is lost. There are scattered lymph nodes in the neck. There are degenerative changes of the osseous structures. There is bilateral facet arthropathy. . There are vascular calcifications. There are scattered blebs and bullae. This can be seen in pulmonary emphysema. CT/Spine Cervical without Contras IMPRESSION: Degenerative changes of the cervical spine. There are no acute findings. Electronically Signed: Chance Garcia MD at 19:00 EST Reading Location ID and State: [facility] / [place] , Service support ,
--- NOTE | 2021-11-14 18:45 | RAD_ITS ---
EXAM: XR CHEST, 1 VIEW : 1965 CLINICAL INDICATION: cough TECHNIQUE: Frontal view of the chest. This report was created using [employer] report generation technology. COMPARISON: 07/16/2021 FINDINGS: LUNGS AND PLEURAL SPACES: Unremarkable. No consolidation or edema. No pneumothorax. No effusion. HEART: Unremarkable. Cardiac silhouette not enlarged. MEDIASTINUM: Central airways and mediastinal contour are unremarkable. BONES/JOINTS: Unremarkable. SOFT TISSUES: Unremarkable. RAD/Chest 1 View (Portable) IMPRESSION: No radiographic evidence of acute cardiopulmonary disease. at 1920 Reported and signed by: Scot Delong MD Electronically Signed: Scot Delong MD at 19:19 EST ,
[2021-11-14 18:53] LABS: Absolute Lymphocyte Count 0.36 X10^3/uL (0.83-4.51); Absolute Neutrophil Count 2.4 X10^3/uL (2.0-7.7); Basophil# 0.01 X10^3/uL; Basophil% 0.3 % (0-1); Eosinophil# 0.03 X10^3/uL; Eosinophils% 0.9 % (0-5); Hematocrit 38.3 % (40-54); Hemoglobin 13.5 g/dL (13.0-16.5); Lymphocyte # 0.36 X10^3/ul (0.83-4.51); Lymphocyte % 11.1 % (19-41); Mean Corp Hgb Conc 35.2 g/dL (32-36); Mean Corpuscular Hgb 31.4 pg (27.0-32.0); Mean Corpuscular Volume 89.1 fL (80-94); Mean Platelet Vol. 10.5 fl (6.2-12.0); Monocyte# 0.43 X10^3/uL; Monocyte% 13.3 % (0-10); NRBC Flagged by Analyzer 0 % (0-5); Neutrophil % 74.1 % (47-70); POSITIVE DIFFERENTIAL YES; Platelet Count 161 K/mm3 (150-450); RBC Distribution Width CV 12.1 % (11.6-14.6); RBC Distribution Width SD 39.3 fl (35.1-43.9); White Blood Count 3.2 K/mm3 (4.4-11.0)
[2021-11-14 19:01] LABS: Differential Indicated SCAN CRITERIA MET
[2021-11-14] MEDS: Acetaminophen 500 MG Tablet 1000 MG PO (19:05)
[2021-11-14 19:08] LABS: AST(SGOT) 14 U/L (15-37); Alanine Aminotransfer ALT/SGPT 19 U/L (16-61); Albumin, Serum 3.5 g/dL (3.2-5.0); Alkaline Phosphatase 79 U/L (45-117); Anion Gap 4 (5-15); BUN 11 mg/dL (7-18); BUN/Creat Ratio 10.5 RATIO (10-20); Calcium,Total 8.5 mg/dL (8.5-10.1); Chloride 107 mmol/L (98-107); Creatinine, Serum 1.05 mg/dL (0.70-1.30); EST Glomerular Filtration Rate 78 mL/min (>60); Est Glom Filt Rate - Afr Amer 94 mL/min (>60); Globulin 3.4 g/dL (2.2-4.2); Glucose 127 mg/dL (74-106); Potassium 3.5 mmol/L (3.5-5.1); Protein, Total 6.9 g/dL (6.4-8.2); Sodium Level 136 mmol/L (136-145); Troponin-I HS 5 pg/mL (3.0-78.0)
[2021-11-14 19:19] LABS: Differential Comment SCANNED
[2021-11-14 19:28] LABS: Lactic Acid 2.2 mmol/L (0.4-1.9)
--- NOTE | 2021-11-14 19:57 | ED.RN ---
pt's updated on pt's care and pt spoke to his and re-itereated what was going on.pt is very tired and is falling asleep while engaging in conversation with his .
--- NOTE | 2021-11-14 20:11 | HP.PCM.HOS_ITS ---
HPI - General General Date of Admission: 11/14/21 HPI Narrative History was difficult to obtain as patient answers few questions. On some questions patient does not answer. However when it was discussed with patient that a decision will be made whether he will be discharged home or he will stay at the hospital patient became more vocal and stated that he has been told that he will stay at the hospital for further tests. Hospitalist historty taking: ARIEL KEATING, is a 56 M who reported that he is here because he has had shortness of breath for a day or so. Patient did not answer any other questions in regard to his shortness of breath and other related symptoms. History reported by Emergency Department Doctor: Emergency department doctor however reported to Hospitalist that patient is here for flulike symptoms including cough chills; and body aches and patient has also had similar symptoms but patient symptoms is worse . Also emergent department doctor reported that per patient, he (patient) has been falling multiple times in the same week of presentation. Reportedly he hit his head against a table. Emergency department doctor reported that on first physical examination patient could not raise his right leg at all but on later examination by the same emergency department doctor patient could raise his right leg. Further, ED nurse reported that patient has difficulty raising his right leg and when his right leg is raised it immediately falls to the bed. Also patient nurse reported that patient reports left eye blurry vision. Hospitalist attempted to reach patient's next of kin/contact that is patient's . However the number listed was the same number for patient and it went through voice message. [facility] Medical History Asthma Chest pain of uncertain etiology Chronic hyponatremia Cold intolerance Depression History of bronchitis History of pneumonia Hypertension Nicotine dependence Orthostatic hypotension Pulmonary fibrosis Pulmonary hypertension Rheumatoid arthritis Sleep apnea Syncope and collapse Syncope, near Weight loss, abnormal Home Medications albuterol sulfate 2.5 mg INHALATION 11/14/21 [History Last Taken Unknown] gabapentin 600 mg PO BID 11/14/21 [History Last Taken Unknown] pantoprazole 40 mg PO DAILY 11/14/21 [History Last Taken Unknown] Allergy/AdvReac Type Severity Reaction Status Date / Time No Known Allergies Allergy Verified 11/14/21 18:10 Family History Mother Diabetes Father Heart disease Surgical History History of left heart catheterization (11/11/16) Social History Smoking Status: Current every day smoker tobacco type: cigarettes ROS Review of Systems ROS Unobtainable: due to mental condition Vital Signs Vital Signs Vital Signs: 11/14/21 18:06 11/14/21 18:11 Temperature 100.5 F H Temperature Source Temporal Pulse Rate 69 Respiratory Rate 19 H Respiratory Effort Normal Non-Labored Respiratory Pattern Normal Blood Pressure 130/90 H Blood Pressure Mean 103 Pulse Ox 98 Oxygen Delivery Method Room Air Weight Weight: 77.8 kg Body Mass Index (BMI) 22.0 Physical Exam Narrative Physical exam: General: Unkept with untidy hoover. Head: Normocephalic, atraumatic, no tenderness Eyes: Vision is grossly normal. ENT, no trauma, no rhinorrhea Neck: Nontender, full range of motion, no spinal tenderness, deformities, step- off CVS: Regular rate and rhythm. S1-S2 present. No murmur, gallop or rub. Respiratory : Diminished, chest wall nontender Abdomen: Soft, nontender, nondistended, normal bowel sounds, no masses : Deferred Back: Nontender, no CVA tenderness, no midline spinal tenderness, deformities, step-offs Extremities: Cachectic. No trauma. Skin: Normal color, no trauma, abrasions Neuro: Alert. Does not raise bilateral legs. Strength in bilateral legs is 5 out of 5. Raise bilateral arms. Strength in bilateral is 5 out of 5. Psychiatry: Flat affect. Appears depressed. Hardly talks. Results Lab / Micro Data Result Diagrams: 11/14/21 18:22 11/14/21 18:22 Labs: Laboratory Results - last 24 hr 11/14/21 18:22: WBC 3.2 L, RBC 4.30 L, Hgb 13.5, Hct 38.3 L, MCV 89.1, MCH 31.4, MCHC 35.2, RDW Std Deviation 39.3, RDW Coeff of Juan David 12.1, Plt Count 161, MPV 10.5, Immature Gran % (Auto) 0.300, Neut % (Auto) 74.1 H, Lymph % (Auto) 11.1 L, [place] % (Auto) 13.3 H, Eos % (Auto) 0.9, Baso % (Auto) 0.3, Absolute Neuts (auto) 2.4, Absolute Lymphs (auto) 0.36 L, Nucleated RBC % 0, Differential Comment SCANNED, Diff Path Review February foll 11/14/21 18:22: Sodium 136, Potassium 3.5, Chloride 107, Carbon Dioxide 25.0, Anion Gap 4 L, BUN 11, Creatinine 1.05, Estim Creat Clear Calc 88.50, Est GFR (M DRD) Af Amer 94, Est GFR (MDRD) Non-Af 78, BUN/Creatinine Ratio 10.5, Glucose 127 H, Calcium 8.5, Total Bilirubin 0.30, AST 14 L, ALT 19, Alkaline Phosphatase 79, Troponin I High Sens 5, Total Protein 6.9, Albumin 3.5, Globulin 3.4, Albumin/Globulin Ratio 1.0 11/14/21 18:22: Lactic Acid 2.2 H* Micro: Microbiology 11/14/21 18:22 Nasal Secretion SARS-CoV-2 Antigen (Rapid) - Final SARS-CoV-2 (COVID 19) Radiology Impression Brain CT 11/14/21 18:25 IMPRESSION: There are no acute intracranial findings. Electronically Signed: Chance Garcia MD at 18:55 EST , Pelvis X-Ray 11/14/21 18:26 IMPRESSION: No evidence of displaced pelvic fracture. at 1921 Reported and signed by: Scot Delong MD Electronically Signed: Scot Delong MD at 19:19 EST , Cervical Spine CT 11/14/21 18:31 IMPRESSION: Degenerative changes of the cervical spine. There are no acute findings. Electronically Signed: Chance Garcia MD at 19:00 EST , Chest X-Ray 11/14/21 18:45 IMPRESSION: No radiographic evidence of acute cardiopulmonary disease. at 1920 Reported and signed by: Scot Delong MD Electronically Signed: Scot Delong MD at 19:19 EST , Assessment & Plan Assessment/Plan (1) Depression: (2) COVID-19: (3) Psychiatric illness: PLAN: Depression with psychomotor retardation/psychiatry illness/Generalized weakness/multiple falls. Unclear whether patient has a history of bipolar so will not start patient on antidepressant at this time. I recommend a further conversation with patient's spouse if she can be reached. At this time will order PT and OT to evaluate and treat patient. Brain CT was independently visualized and interpreted. Brain CT did not show any acute intracranial findings. I agree with radiologist interpretation. I do not believe patient has a stroke. However will order an MRI to rule out stroke. Cervical CT showed degenerative changes of the cervical spine. Pelvic x-ray did not show any displaced pelvic fracture NIH per stroke protocol. No aspirin or statin at this time. Vitamin D level ordered. COVID-19 infection T-max at hospital was 100. 5F Rapid Covid antigen was positive. Chest x-ray was independently visualized and interpreted and I agree radiology interpretation of no acute cardiopulmonary process. Review of labs showed a lactic acid of 2.2, trend. White count showed WBC of 3.2; neutrophilia; lymphopenia and monocytosis. As needed Tylenol for fever. Mucinex as needed as needed. Adult Failure to thrive/ Mild malnutrition Cachectic. Ensure Enlive ordered. Nutrition consult. Tobacco abuse Counseled Declined nicotine patch. DVT prophylaxis: Subcutaneous Lovenox ordered. Charges/Coding Visit Charges OBSV E&M: 14146 Initial observation care L3
[2021-11-14 20:13] VITALS: BP 126/85; PULSE 65; RESP 18; TEMP 37.6; O2SAT 95
--- NOTE | 2021-11-14 20:15 | ED.RN ---
message left with pt's to call the hospital for update on the pt's condition.pt gave permission to disclose his data to his .
[2021-11-14 21:27] VITALS: BP 108/69; PULSE 64; RESP 18; TEMP 38.1; O2SAT 97
[2021-11-14 21:39] VITALS: BMI 21.0
[2021-11-14 22:03] VITALS: BP 121/78; PULSE 58; RESP 16; TEMP 37.5; O2SAT 98
[2021-11-14] MEDS: Enoxaparin 30 MG/0.3 ML Syringe SC (22:18)
[2021-11-14 22:30] LABS: Reflex Lactate? Y
[2021-11-14 23:10] VITALS: PULSE 60
[2021-11-14 23:19] LABS: Lactic Acid 0.8 mmol/L (0.4-1.9)
[2021-11-14 23:40] VITALS: O2SAT 98
--- NOTE | 2021-11-14 23:52 | NURSING ---
Pt NIH is very difficult to assess at this time. Becomes lethargic and falls asleep. Difficult to tell if pt is able to follow commands, is not listening, or is just not wanting to.
[2021-11-15] VITALS (10 sets, daily range): BP systolic 93–123; BP diastolic 63–87; PULSE 54–70; RESP 12–18; TEMP 36.6–37.2; O2SAT 95–100; BMI 21.0
--- NOTE | 2021-11-15 | NURSING ---
Attempted to call Evelina, to ask MRI checklist but there was no answer. Message left.
[2021-11-15 07:14] LABS: Absolute Lymphocyte Count 0.79 X10^3/uL (0.83-4.51); Absolute Neutrophil Count 2.2 X10^3/uL (2.0-7.7); Basophil# 0.02 X10^3/uL; Basophil% 0.5 % (0-1); Eosinophil# 0.02 X10^3/uL; Eosinophils% 0.5 % (0-5); Hematocrit 41.5 % (40-54); Hemoglobin 14.1 g/dL (13.0-16.5); Lymphocyte # 0.79 X10^3/ul (0.83-4.51); Lymphocyte % 21.2 % (19-41); Mean Corpuscular Hgb 30.6 pg (27.0-32.0); Mean Platelet Vol. 10.2 fl (6.2-12.0); Monocyte# 0.64 X10^3/uL; Monocyte% 17.2 % (0-10); NRBC Flagged by Analyzer 0 % (0-5); Neutrophil # 2.24 X10^3/uL (2.7-7.7); Neutrophil % 60.3 % (47-70); Platelet Count 154 K/mm3 (150-450); RBC Distribution Width CV 12.2 % (11.6-14.6); RBC Distribution Width SD 40.3 fl (35.1-43.9); Red Blood Count 4.61 M/mm3 (4.6-6.2); White Blood Count 3.7 K/mm3 (4.4-11.0)
[2021-11-15 07:37] LABS: Anion Gap 4 (5-15); BUN 13 mg/dL (7-18); BUN/Creat Ratio 11.3 RATIO (10-20); Calcium,Total 8.6 mg/dL (8.5-10.1); Chloride 107 mmol/L (98-107); Cholesterol 192 mg/dL (200); Creatinine, Serum 1.15 mg/dL (0.70-1.30); EST Glomerular Filtration Rate 70 mL/min (>60); Est Glom Filt Rate - Afr Amer 85 mL/min (>60); Estimated Creatinine Clearance 77.28 ml/min; Glucose 86 mg/dL (74-106); High Density Lipoprotein 42 mg/dL; Potassium 3.8 mmol/L (3.5-5.1); Sodium Level 138 mmol/L (136-145); Triglycerides 100 mg/dL; Very Low Density Lipoprotein 20 mg/dL (5-40)
[2021-11-15] MEDS: Enoxaparin 30 MG/0.3 ML Syringe SC (09:23)
[2021-11-15] MEDS: Pantoprazole Sodium 40 MG Tablet PO (09:24)
--- NOTE | 2021-11-15 10:30 | MRI_ITS ---
STUDY: MRI BRAIN WITHOUT CONTRAST REASON FOR EXAM: Male, 56 years old. Rule out CVA, CONFUSION, WEAKNESS TECHNIQUE: Standardized multiplanar fat and water weighted pulse sequences were obtained. COMPARISON: 11/14/2021 CT of the head FINDINGS: Normal size of the ventricles and extra-axial spaces for the patient''s age. Normal white matter tracts of the supratentorial brain. Normal bilateral basal ganglia. Normal thalami. There is no extra-axial fluid accumulation. Normal sella turcica, pituitary gland, infundibular stalk, optic chiasm and hypothalamus. Normal tectal plate and pineal gland. Normal midbrain, mariana and medulla. Normal cerebellum. Normal basal cisterns. MRI/Brain without Contrast IMPRESSION: Unremarkable unenhanced MRI of the brain. Electronically Signed: Tika Reyna MD at 14:54 EST ,
[2021-11-15] MEDS: DULoxetine Hcl 30 MG Capsule PO (16:45)
--- NOTE | 2021-11-15 17:37 | NURSING ---
This RN was rounding on pt, pt in chair at the time and states he fell to his knee while attempting to stand to use urinal. Pt states he was able to get back up to chair and then called for help to use urinal. Pt denies hitting any other body part and denies hitting his head. Chair alarm placed under pt and MD notified at this time.
--- NOTE | 2021-11-15 17:52 | PCM.PN.HOSP ---
Subjective Subjective Patient was seen and examined today, he underwent an MRI of the brain that did not show any evidence of acute stroke. Patient however had a fall in his room when he tried to ambulate today, he did not appear to be injured however. Objective Data Objective Data Vital Signs: Vital Signs Temp Pulse Resp BP Pulse Ox 98.2 F 60 12 98/70 99 11/15/21 16:48 11/15/21 16:48 11/15/21 16:48 11/15/21 16:48 11/15/21 16:48 Oxygen Delivery Method Room Air Weight: 74.4 kg Body Mass Index (BMI) 21.0 Intake & Output: Intake and Output for Last 24 Hours 11/13/21 11/14/21 11/15/21 23:59 23:59 23:59 Intake Total 500 / 500 240 / 240 Output Total 1000 / 1000 Balance 500 / 75 -760 / -760 Lab / Micro Data Result Diagrams: 11/15/21 07:02 11/15/21 07:02 Labs: Laboratory Results - last 24 hr 11/14/21 18:22: WBC 3.2 L, RBC 4.30 L, Hgb 13.5, Hct 38.3 L, MCV 89.1, MCH 31.4, MCHC 35.2, RDW Std Deviation 39.3, RDW Coeff of Juan David 12.1, Plt Count 161, MPV 10.5, Immature Gran % (Auto) 0.300, Neut % (Auto) 74.1 H, Lymph % (Auto) 11.1 L, [place] % (Auto) 13.3 H, Eos % (Auto) 0.9, Baso % (Auto) 0.3, Absolute Neuts (auto) 2.4, Absolute Lymphs (auto) 0.36 L, Nucleated RBC % 0, Differential Comment SCANNED, Diff Path Review February11/14/21 18:22: Sodium 136, Potassium 3.5, Chloride 107, Carbon Dioxide 25.0, Anion Gap 4 L, BUN 11, Creatinine 1.05, Estim Creat Clear Calc 88.50, Est GFR (MDRD) Af Amer 94, Est GFR (MDRD) Non-Af 78, BUN/Creatinine Ratio 10.5, Glucose 127 H, Calcium 8.5, Total Bilirubin 0.30, AST 14 L, ALT 19, Alkaline Phosphatase 79, Troponin I High Sens 5, Total Protein 6.9, Albumin 3.5, Globulin 3.4, Albumin/Globulin Ratio 1.0 11/14/21 18:22: Lactic Acid 2.2 H* 11/14/21 22:50: Lactic Acid 0.8 11/15/21 07:02: WBC 3.7 L, RBC 4.61, Hgb 14.1, Hct 41.5, MCV 90.0, MCH 30.6, MCHC 34.0, RDW Std Deviation 40.3, RDW Coeff of Juan David 12.2, Plt Count 154, MPV 10.2, Immature Gran % (Auto) 0.300, Neut % (Auto) 60.3, Lymph % (Auto) 21.2, [place] % (Auto) 17.2 H, Eos % (Auto) 0.5, Baso % (Auto) 0.5, Absolute Neuts (auto) 2.2, Absolute Lymphs (auto) 0.79 L, Nucleated RBC % 0 11/15/21 07:02: Sodium 138, Potassium 3.8, Chloride 107, Carbon Dioxide 27.0, Anion Gap 4 L, BUN 13, Creatinine 1.15, Estim Creat Clear Calc 77.28, Est GFR (MDRD) Af Amer 85, Est GFR (MDRD) Non-Af 70, BUN/Creatinine Ratio 11.3, Glucose 86, Calcium 8.6, Triglycerides 100, Cholesterol 192, LDL Cholesterol 130, VLDL Cholesterol 20, HDL Cholesterol 42 Micro: Microbiology 11/14/21 18:22 Nasal Secretion SARS-CoV-2 Antigen (Rapid) - Final SARS-CoV-2 (COVID 19) Radiography Diagnostic Testing: Radiology Impression Brain CT 11/14/21 18:25 IMPRESSION: There are no acute intracranial findings. Electronically Signed: Chance Garcia MD at 18:55 EST , Pelvis X-Ray 11/14/21 18:26 IMPRESSION: No evidence of displaced pelvic fracture. at 1921 Reported and signed by: Scot Delong MD Electronically Signed: Scot Delong MD at 19:19 EST , Cervical Spine CT 11/14/21 18:31 IMPRESSION: Degenerative changes of the cervical spine. There are no acute findings. Electronically Signed: Chance Garcia MD at 19:00 EST , Chest X-Ray 11/14/21 18:45 IMPRESSION: No radiographic evidence of acute cardiopulmonary disease. at 1920 Reported and signed by: Scot Delong MD Electronically Signed: Scot Delong MD at 19:19 EST , Brain MRI 11/15/21 10:30 IMPRESSION: Unremarkable unenhanced MRI of the brain. Electronically Signed: Tika Reyna MD at 14:54 EST , Physical Exam Const alert and oriented x3 Constitutional Narrative: Patient appears older than his stated age, he is a poor informant General Appearance: cooperative, well kempt and well developed Orientation / Consciousness: awake, oriented to person, oriented to place and oriented to time HEENT normocephalic, head/scalp atraumatic and moist oral mucous membranes Head and Scalp: normocephalic Eyes PERRL, EOMs intact bilaterally and conjunctivae normal Neck nuchal rigidity, supple, no JVD and thyroid normal General: trachea midline Resp normal respiratory effort, no retractions, no use of accessory muscles and clear to auscultation bilaterally Auscultation: Negative for rales, rhonchi or wheezes Cardio regular rate, regular rhythm, S1 normal heart sound, S2 normal heart sound, no murmurs, no rub and no gallops GI normal to inspection, nondistended, normoactive bowel sounds, soft to palpation, non-tender and non-distended Extremity no clubbing, cyanosis or edema Skin no rashes or lesions noted General Skin Exam: no breakdown Neuro oriented x3, CN's II-XII intact bilaterally, no focal motor deficits and no sensory deficits noted Sensorium / Orientation: awake and alert Speech: speech normal Psych Psych Narrative: Patient has an extremely flat affect, he is a poor informant Assessment & Plan Assessment/Plan (1) COVID-19: PLAN: 1. Acute debility-etiology unclear at this point, patient has not had an acute stroke, I talked his by telephone, she states that he has chronic lower back [id number] is somewhat vague about his other medical problems as she does not accompany him to his primary care office. Patient told me that he has oxygen at home, he states his PCP set him up with oxygen-I am not sure why. Patient's pulse ox is 99% on room air. I had a discussion with the patient concerning discharge planning, patient was extremely hard to communicate with and I told him that the choice was to either go to an extended care facility for inpatient rehab services or go home, at this point I have decided to keep him another night in the hospital and let him make a decision tomorrow. I discussed this with the patient's who states that she does not understand why the patient does not want to come home. She cannot verify when the patient got sick with Covid, she feels that she also has Covid but she has not been tested, I encouraged her to go get tested and perhaps get monoclonal antibodies if possible. #2 depression-I think patient has untreated depression at this time, patient's states that he has been depressed since he lost his father several years ago and his mother about a year and a half ago. Patient is not on any antidepressants, I have elected to place him on Cymbalta 30 mg daily as a starting dose, I am giving him Cymbalta also due to the fact that he has chronic back pain. #3 COVID-19 infection without pneumonia-patient does not need treatment at this time, he is not hypoxic #4 apparent cognitive impairment-etiology unknown at this time, and may be due to depression or the effects of COVID-19, again I decided to place the patient on an antidepressant at this time Patient's gabapentin will be held at this time. Charges/Coding Visit Charges OBSV E&M: 46973 Subsequent observation care L3
[2021-11-16 02:48] VITALS: PULSE 53
[2021-11-16 04:10] VITALS: BP 106/62; PULSE 54; RESP 16; TEMP 36.4; O2SAT 95
[2021-11-16 07:00] VITALS: PULSE 51
[2021-11-16 09:50] VITALS: BP 94/63; PULSE 55; RESP 16; TEMP 36.6; O2SAT 98
[2021-11-16] MEDS: DULoxetine Hcl 30 MG Capsule PO (09:52)
[2021-11-16] MEDS: Pantoprazole Sodium 40 MG Tablet PO (09:52)
--- NOTE | 2021-11-16 09:58 | PCM.DC ---
Discharge Instructions Diet Discharge Diet: No restrictions Activity Discharge Activity: Return to Normal Activity (quarantine for the next 3 days) Weight Bearing Status: Full weight bearing (may use walker if needed) Follow Up Care Test Results: Test results from this visit will be discussed in further detail at your follow-up appointment, if applicable. Discharge Plan Admission Admit Date/Time: 11/14/21 20:30 Primary Reason for Your Visit: debility, COVID-19 Attending Provider: Mario Rosas Primary Care Provider: Mayuri Payne Discharge Orders/Prescriptions Prescriptions: New duloxetine 30 mg Capsule,Delayed Release(Dr/Ec) 30 mg PO DAILY Qty: 60 RF: 0 Continued albuterol sulfate 2.5 mg /3 mL (0.083 %) solution for nebulization 2.5 mg inhalation RF: 0 pantoprazole 40 mg tablet,delayed release (DR/EC) 40 mg PO DAILY RF: 0 Discontinued gabapentin 600 mg tablet 600 mg PO BID RF: 0 Referrals / Follow Up: Mayuri Payne MD [Primary Care Provider] - Within 2 Weeks Disposition Disposition (needs filled in before D/C Order can be placed): Home, Self Care
--- NOTE | 2021-11-16 10:06 | PCM.DC.SUM ---
Providers Date of Admission: 11/14/21 Date of Discharge: 11/16/21 Primary Care Physician: Dr. Mayuri Payne MD Reason For Visit: WEAKNESS Diagnosis Discharge Diagnosis (1) COVID-19: Status: Acute Code(s): U07.1 - COVID-19 Plan: 1. Acute debility-etiology unclear #2 COVID-19 infection without pneumonia #3 chronic depression Medications at Discharge Home Medications albuterol sulfate 2.5 mg INHALATION 11/14/21 pantoprazole 40 mg PO DAILY 11/14/21 duloxetine 30 mg PO DAILY #60 cap 11/16/21 Hospital Course Operations None Procedures None Summary of Care Provided Minutes Spent on Discharge: 30 Hospital Course: Patient is a 56-year-old white male that was seen in the emergency room at [facility] is complaining with overall weakness along with cough, congestion, chills, and body aches, patient was a poor informant. Patient states that he has been falling over the last couple of days at home. Work-up in the emergency room included labs which revealed a rapid Covid test that was positive, lactic acid was slightly elevated at 2.2, chest x-ray showed no evidence of cardiopulmonary process, EKG shows sinus rhythm without ischemic changes. CT of the brain and cervical spine were obtained and showed no acute abnormalities. Patient was noted to be slow to answer questions in the emergency room and slightly confused. Patient was placed in observation status on PCU and was seen in consultation by PT and OT. Patient stated he had a walker at home that he could use, initially when I saw the patient, he was slow to answer questions and appeared to be lethargic, had a talk with his by phone who stated that she feels as if the patient has an underlying depression, he is not on any antidepressants. I noticed that the patient was also taking gabapentin at home, I felt that this may have caused lethargy and confusion, it was held while he was in the hospital. On 11/16/2021, patient was seen and examined: On examination he appeared in good health and spirits. Vital signs as documented. Skin warm and dry and without overt rashes. Neck without JVD, neck was supple, trachea midline, thyroid was normal. Lungs clear bilaterally, normal air movement was noted. Heart exam notable for regular rhythm, normal sounds and absence of murmurs, rubs or gallops. Abdomen unremarkable and without evidence of organomegaly, masses, or abdominal aortic enlargement. Bowel sounds are present, abdomen is not distended. Extremities nonedematous, no cyanosis was noted, no clubbing was noted. Neuro: Cranial nerves II through XII are grossly intact, no focal motor deficits were noted, sensation to light touch and pinprick intact, motor exam 5/5 throughout. Psych: Patient is alert and oriented x3, he does not appear anxious or depressed, he does not appear agitated. Patient appeared more alert and talkative on 11/16/2021, I felt that he needed an antidepressant added to his medications at home, I also instructed the patient not to take his gabapentin. Patient was discharged on 11/16/2021 in stable condition to home. Weight / BMI Weight Weight: 74.4 kg Body Mass Index (BMI) 21.0 ABG / Lab / Microbiology Data Result Diagrams: 11/15/21 07:02 11/15/21 07:02 Microbiology: Microbiology 11/14/21 18:22 Nasal Secretion SARS-CoV-2 Antigen (Rapid) - Final SARS-CoV-2 (COVID 19) Radiography Diagnostic Testing: Radiology Impression Brain MRI 11/15/21 10:30 IMPRESSION: Unremarkable unenhanced MRI of the brain. Electronically Signed: Tika Reyna MD at 14:54 EST Reading Location ID and State: [facility] / [place] Tel , Service support , D/C Instructions Discharge Diet: No restrictions Weight Bearing Status: Full weight bearing (may use walker if needed) Meaningful Use Info Meaningful Use Diagnoses (Choose all that apply): None applicable Discharge Plan Admission Admit Date/Time: 11/14/21 20:30 Primary Reason for Your Visit: debility, COVID-19 Attending Provider: Mario Rosas Primary Care Provider: Mayuri Payne Discharge Orders/Prescriptions Prescriptions: New duloxetine 30 mg Capsule,Delayed Release(Dr/Ec) 30 mg PO DAILY Qty: 60 RF: 0 Continued albuterol sulfate 2.5 mg /3 mL (0.083 %) solution for nebulization 2.5 mg inhalation RF: 0 pantoprazole 40 mg tablet,delayed release (DR/EC) 40 mg PO DAILY RF: 0 Discontinued gabapentin 600 mg tablet 600 mg PO BID RF: 0 Referrals / Follow Up: Mayuri Payne MD [Primary Care Provider] - Within 2 Weeks Disposition Disposition (needs filled in before D/C Order can be placed): Home, Self Care Charges/Coding Visit Charges OBSV E&M: 30835 Observation care discharge
[2021-11-17 08:11] LABS: Vitamin D,25 Hydroxy 10.5 ng/mL
[2021-11-17 15:04] LABS: Pathologist Review Reviewed
== END 2021-11-16 10:04 | disposition home or self-care (01) ==
LOC: ED 18:19 → MS3 20:41 → PCU 21:19
PROVIDERS: Admitting Provider Hospitalist; Emergency Provider Student in an Organized Health Care Education/Training Program; PCP Internal Medicine; Visit Provider Internal Medicine
DX: U07.1 COVID-19 (principal); E44.1 Mild protein-calorie malnutrition; M06.9 Rheumatoid arthritis, unspecified; J84.10 Pulmonary fibrosis, unspecified; F17.210 Nicotine dependence, cigarettes, uncomplicated; I10 Essential (primary) hypertension; F32.A Depression, unspecified; Z79.899 Other long term (current) drug therapy; J45.909 Unspecified asthma, uncomplicated; G47.30 Sleep apnea, unspecified; S09.90XA Unspecified injury of head, initial encounter; Y93.9 Activity, unspecified; Y99.9 Unspecified external cause status; W19.XXXA Unspecified fall, initial encounter; Y92.9 Unspecified place or not applicable; R62.7 Adult failure to thrive; Z68.21 Body mass index [BMI] 21.0-21.9, adult; M41.9 Scoliosis, unspecified
CPT/HCPCS: 36415; 70450; 70551; 71045; 72125; 72170; 80048; 80053; 80061; 82306; 83605; 84484; 85025; 87040; 87426; 93005; 96360; 96361; 96372; 97162; 97166; 99218; 99285; 99406; J7040; A4216; G0378

== ENCOUNTER 2022-05-06 17:29 | Emergency (ER) | payer MEDICAID, SELFPAY ==
[2022-05-06 17:29] VITALS: BP 109/97; PULSE 61; RESP 16; TEMP 36; O2SAT 96; BMI 20.5
--- NOTE | 2022-05-06 17:49 | ED.VIS.FALL ---
HPI HPI - Fall History of Present Illness Chief Complaint: Fall Informant: patient Occured/Mechanism Occurred: Today (Just prior to arrival) Mechanism/Context: Yes same level fall Narrative: Right knee gave out causing him to fall while in [employer] Pain/Injury Location: Left wrist, right knee Quality of Pain: Aching Current Severity: Moderate Maximum Severity: Moderate Associated Symptoms Associated Symptoms: Negative for Parasthesias, Weakness, Loss of function, Inability to ambulate or Loss of consciousness Narrative Narrative: Patient states he has some chronic issues with his right knee but has not had them evaluated, it gave out today while he was walking in a store causing him to fall and catch himself against his left wrist and down to his right knee. Able to bear weight but it hurts. No other injuries. [facility] Medical History Asthma Chest pain of uncertain etiology Chronic hyponatremia Cold intolerance Depression History of bronchitis History of pneumonia Hypertension Nicotine dependence Orthostatic hypotension Pulmonary fibrosis Pulmonary hypertension Rheumatoid arthritis Sleep apnea Syncope and collapse Syncope, near Weight loss, abnormal Home Medications albuterol sulfate 2.5 mg/3 mL (0.083 %) solution for nebulization 2.5 mg inhalation 11/14/21 [History Last Taken Unknown] pantoprazole 40 mg tablet,delayed release 40 mg PO DAILY 11/14/21 [History Last Taken Unknown] duloxetine 30 mg capsule,delayed release 30 mg PO DAILY #60 caps 11/16/21 [Rx Last Taken Unknown] naproxen 500 mg tablet 500 mg PO BID PRN #14 tabs 05/06/22 [Rx Last Taken Unknown] Allergy/AdvReac Type Severity Reaction Status Date / Time No Known Allergies Allergy Verified 05/06/22 17:32 Family History Mother Diabetes Father Heart disease Surgical History History of left heart catheterization (11/11/16) Social History Smoking Status: Current every day smoker tobacco type: cigarettes ROS ROS ED Constitutional Constitutional ED: Denies chills or fever(s) Musculoskeletal Musculoskeletal: Reports extremity pain; Denies neck pain Integumentary Denies Abrasions, rash or wounds Neurologic Neurologic: Denies paresthesias or weakness EXAM Physical Exam Const Vital Signs: 05/06/22 17:29 05/06/22 17:29 Temperature 96.8 F L Temperature Source Temporal Pulse Rate 61 Respiratory Rate 16 Respiratory Effort Normal Respiratory Depth Normal Respiratory Pattern Normal Blood Pressure 109/97 H Blood Pressure Mean 101 Pulse Ox 96 Oxygen Delivery Method Room Air Room Air Positive well nourished and well developed General Appearance ED: well developed and NAD Neck full ROM and supple Back/Spine normal ROM and normal to inspection Extremity Extremity Narrative: Limited range of motion of the right knee which is normal-appearing. Tender at the patella mildly tender at the tibial tuberosity, nontender at the joint line bilaterally. No laxity with stressing MCL and LCL, nor ACL and PCL although this exam is very limited due to limited bending. Extensor mechanism intact able to straighten. No effusion. There is minor tenderness at the distal left ulna where there is an abrasion, and mild tenderness at the ulnar aspect of the carpus and proximal half of the fifth metacarpal with there is also an abrasion. No lacerations. Good range of motion of the wrist. No tenderness at the radial aspect. Neuro oriented x3, no focal motor deficits and no sensory deficits noted Sensorium / Orientation: alert Psych mental status grossly normal and thought process normal Skin no wounds Rashes: no rashes MDM MDM MDM Narrative Medical decision making narrative: Three-view x-rays of the left wrist and 4 view x-ray series of the right knee are both negative for any acute fracture or dislocation on my interpretation. Radiology in agreement. He was given an Pete wrap, NSAIDs, appropriate discharge instructions with follow-up. Radiography Diagnostic Testing: Clinical Impression(s) from Imaging Studies Knee X-Ray 05/06/22 17:55 IMPRESSION: No acute osseous abnormalities. There are mild degenerative changes in the lateral knee which are stable. Electronically Signed: Scot Delong MD at 18:58 EDT , Wrist X-Ray 05/06/22 17:55 IMPRESSION: Negative left wrist x-rays. Electronically Signed: Scot Delong MD at 18:59 EDT , Discharge Plan Triage Chief Complaint: Fall ED Provider: Dylon Maldonado Dx/Rx/DC Orders Clinical Impression: Injury of knee, right, Contusion of left wrist, Abrasion of left wrist Instructions: Reducing Knee Pain and Swelling Prescriptions: New naproxen 500 mg tablet 500 mg PO BID PRN Qty: 14 0RF No Action albuterol sulfate 2.5 mg /3 mL (0.083 %) solution for nebulization 2.5 mg inhalation pantoprazole 40 mg tablet,delayed release (DR/EC) 40 mg PO DAILY duloxetine 30 mg Capsule,Delayed Release(Dr/Ec) 30 mg PO DAILY Qty: 60 0RF Rx Instructions: one daily for three days, then increase to two once a day Primary Care Provider: Mayuri Payne Referrals: Mayuri Payne MD [Primary Care Provider] - Dakota Segovia MD [Med Staff - Active Staff] - 1 Week if not improving Disposition Disposition: Home, Self Care
--- NOTE | 2022-05-06 17:55 | RAD_ITS ---
EXAM: XR RIGHT KNEE COMPLETE, 4 OR MORE VIEWS CLINICAL INDICATION: fall, gave out, injury TECHNIQUE: Four or more views of the right knee. This report was created using [employer] report generation technology. COMPARISON: 07/03/2013 FINDINGS: BONES/JOINTS: There is again minimal irregularity of the lateral tibial plateau which is unchanged from the reference exam. There are mild degenerative changes with osteophyte formation. No acute fracture. No subluxation. Normal alignment. No sclerotic or destructive changes observed. SOFT TISSUES: Unremarkable. No soft tissue swelling or gas. No radiopaque foreign body. RAD/Knee 4 or More Views IMPRESSION: No acute osseous abnormalities. There are mild degenerative changes in the lateral knee which are stable. Electronically Signed: Scot Delong MD at 18:58 EDT ,
--- NOTE | 2022-05-06 17:55 | RAD_ITS ---
EXAM: XR LEFT WRIST COMPLETE, 3 OR MORE VIEWS CLINICAL INDICATION: fall/injury TECHNIQUE: Frontal, lateral and oblique views of the left wrist. This report was created using [employer] report generation technology. COMPARISON: None. FINDINGS: BONES/JOINTS: Unremarkable. No acute fracture. No subluxation. Normal alignment. Preservation of the joint space. No sclerotic or destructive changes observed. SOFT TISSUES: Unremarkable. No soft tissue swelling or gas. No radiopaque foreign body. RAD/Wrist min 3 Views IMPRESSION: Negative left wrist x-rays. Electronically Signed: Scot Delong MD at 18:59 EDT ,
[2022-05-06] MEDS: Ibuprofen 600 MG Tablet PO (18:22)
[2022-05-06 19:47] VITALS: BP 134/78; PULSE 78; RESP 14; TEMP 37.2; O2SAT 99
== END 2022-05-06 19:48 | disposition home or self-care (01) ==
PROVIDERS: Emergency Provider Emergency Medicine; PCP Internal Medicine; Visit Provider Emergency Medicine
DX: S60.812A Abrasion of left wrist, initial encounter (principal); M06.9 Rheumatoid arthritis, unspecified; I27.20 Pulmonary hypertension, unspecified; J84.10 Pulmonary fibrosis, unspecified; J45.909 Unspecified asthma, uncomplicated; Z87.01 Personal history of pneumonia (recurrent); G47.30 Sleep apnea, unspecified; Z79.899 Other long term (current) drug therapy; F32.A Depression, unspecified; F17.210 Nicotine dependence, cigarettes, uncomplicated; Y93.01 Activity, walking, marching and hiking; W19.XXXA Unspecified fall, initial encounter; Y92.512 Supermarket, store or market as the place of occurrence of the external cause; S60.212A Contusion of left wrist, initial encounter; S89.91XA Unspecified injury of right lower leg, initial encounter
CPT/HCPCS: 73110; 73564; 99284

== ENCOUNTER 2022-05-30 23:00 | Emergency (ER) | payer MEDICAID, SELFPAY ==
--- NOTE | 2022-05-30 | RAD_ITS ---
STUDY: X-RAY CHEST REASON FOR EXAM: Male, 57 years old. Cough and short of breath. TECHNIQUE: PA and lateral COMPARISON: 11/14/2021 CXR FINDINGS: LUNGS: No evidence of pneumonia, pulmonary edema, pneumothorax or pleural effusion. Lucent and hyperinflated lungs.Small calcified granulomas right mid lung. MEDIASTINUM, ELADIA: Cardiac silhouette, hilar and mediastinal contours with no acute findings. Degenerative osseous changes with no acute osseous abnormality. BONES: Degenerative osseous changes with no acute osseous abnormality. UPPER ABDOMEN: No apparent free intraperitoneal air. RAD/Chest PA and Lateral IMPRESSION: No acute findings. Underlying COPD/emphysema. Electronically Signed: Edin Cagle MD at 0:59 EDT Reading Location ID and State: [address] [place] [address] Tel , Service support ,
[2022-05-30 23:01] VITALS: BP 136/107; PULSE 64; RESP 16; TEMP 36.7; O2SAT 98; BMI 21.2
--- NOTE | 2022-05-30 23:35 | RAD_ITS ---
STUDY: X-RAY - RIGHT KNEE REASON FOR EXAM: Male, 57 years old. Fall, injury. TECHNIQUE: 4 view(s) of the knee. COMPARISON: None. FINDINGS: Minimally displaced fracture through the lower pole of the patella with overlying soft tissue swelling. No other fracture. Alignment otherwise anatomic. Mild for age degenerative changes. Normal bony mineralization. Soft tissues otherwise unremarkable. RAD/Knee 4 or More Views IMPRESSION: Minimally displaced fracture through the lower pole of the patella with overlying soft tissue swelling. Electronically Signed: Edin Cagle MD at 1:08 EDT Reading Location ID and State: [facility] / [place] Tel , Service support ,
--- NOTE | 2022-05-30 23:35 | RAD_ITS ---
STUDY: X-RAY - LEFT WRIST REASON FOR EXAM: Male, 57 years old. Injury from falling. TECHNIQUE: 3 view(s) of the wrist were obtained. COMPARISON: 05/06/2022 radiographs. FINDINGS: No visible fracture. No osseous destruction. Alignment anatomic. Mild degenerative changes. Soft tissues unremarkable. RAD/Wrist min 3 Views IMPRESSION: No acute osseous abnormality. Electronically Signed: Edin Cagle MD at 1:09 EDT ,
--- NOTE | 2022-05-31 00:04 | EX.ED.DYSGE1 ---
HPI History of Present Illness Chief Complaint: Lower Extremity Injury Informant: patient Narrative Narrative: Patient presents after his right knee gave out on him. He states this happens all the time, his right knee has arthritis has been hurting for years, tonight it gave out and he fell to his right knee and caught himself on left outstretched hand and hurt his hand/wrist. He is still able to walk. Denies any other symptoms or injuries. Has not seen orthopedics for this before. He also states that he is here because his breathing has not been good for the last several weeks. He has history of COPD. It improves when he uses inhaler. He cannot tell me whether his breathing issue is wheezing or not, he is not feeling short of breath right now. This has been intermittent. Denies any chest pain, palpitations, syncope. He has had a cough and felt like he had a cold. This is been going on for 2 or 3 weeks. [facility] Medical History Asthma Chest pain of uncertain etiology Chronic hyponatremia Cold intolerance Depression History of bronchitis History of pneumonia Hypertension Nicotine dependence Orthostatic hypotension Pulmonary fibrosis Pulmonary hypertension Rheumatoid arthritis Sleep apnea Syncope and collapse Syncope, near Weight loss, abnormal Home Medications albuterol sulfate 2.5 mg/3 mL (0.083 %) solution for nebulization 2.5 mg inhalation 11/14/21 [History Last Taken Unknown] pantoprazole 40 mg tablet,delayed release 40 mg PO DAILY 11/14/21 [History Last Taken Unknown] duloxetine 30 mg capsule,delayed release 30 mg PO DAILY #60 caps 11/16/21 [Rx Last Taken Unknown] naproxen 500 mg tablet 500 mg PO BID PRN #14 tabs 05/06/22 [Rx Last Taken Unknown] prednisone 20 mg tablet 20 mg PO DAILY #5 TABLETS 05/31/22 [Rx Last Taken Unknown] Allergy/AdvReac Type Severity Reaction Status Date / Time No Known Allergies Allergy Verified 05/30/22 23:03 Family History Mother Diabetes Father Heart disease Surgical History History of left heart catheterization (11/11/16) Social History Smoking Status: Current every day smoker tobacco type: cigarettes ROS ROS ED Constitutional Constitutional ED: Denies chills or fever(s) Eyes Eyes: Denies change in vision or diplopia ENT ENT ED: Denies rhinorrhea or sore throat Cardiovascular Cardiovascular: Denies chest pain, orthopnea or palpitations Respiratory/Chest Respiratory/Chest: Reports cough and dyspnea; Denies orthopnea or sputum Gastrointestinal Gastrointestinal: Denies abdominal pain, diarrhea, nausea or vomiting Genitourinary Genitourinary ED: Denies dysuria or hematuria Musculoskeletal Musculoskeletal: Reports extremity pain; Denies neck pain Integumentary Denies Abrasions, rash or wounds Neurologic Neurologic: Denies paresthesias or weakness Psychiatric Psychiatric: Denies anxiety or suicidal thoughts EXAM Physical Exam Const Vital Signs: 05/30/22 23:01 Temperature 98.1 F Temperature Source Temporal Pulse Rate 64 Respiratory Rate 16 Blood Pressure 136/107 H Blood Pressure Mean 116 Pulse Ox 98 Oxygen Delivery Method Room Air Positive well nourished, well developed and unkempt General Appearance ED: unkempt, well developed and NAD HEENT Reports moist mucous membranes normocephalic and atraumatic Eyes PERRL and EOMs intact bilaterally Neck full ROM and supple Chest Wall inspection of chest normal and palpation of chest normal Resp normal respiratory effort and clear to auscultation bilaterally Cardio regular rate, regular rhythm and no murmurs Rate: Negative for tachycardic GI non-tender and non-distended Auscultation: normoactive bowel sounds Palpation: soft Back/Spine normal ROM and normal to inspection General Back: other FROM Extremity normal to inspection Extremity Narrative: Normal-appearing right knee. Diffusely mildly tender. No signs of injury. All ligaments stable with short endpoints but ACL and PCL are very limited exam because he can barely bend past 30 degrees. Extensor mechanism is intact. No effusion. Very nonfocal exam. It is not warm or red. Left wrist mildly tender at the distal radius. There is no swelling, he has excellent full range of motion, no deformity or no other bony tenderness. Other extremities are benign full range of motion throughout. Neuro oriented x3, no focal motor deficits and no sensory deficits noted Sensorium / Orientation: alert Motor Exam: strength 5/5 throughout Psych mental status grossly normal and thought process normal Appearance: unkempt Skin no wounds Rashes: no rashes MDM MDM MDM Narrative Medical decision making narrative: 2 view x-ray of the chest shows COPD but no acute abnormality. 4 view x-ray series of the right knee on my interpretation shows a transverse patella fracture. Three-view left wrist x-ray my interpretation is negative for nothing acute. Radiology in agreement here, patient was given a knee immobilizer with instructions for use, he has a walker/Rollator at home which I think he will do better with an crutches, he has been walking on this, he is able to extend his knee. Therefore I am telling him to do no more than partial weightbearing, we will help him to the car and give him instructions on how to use the knee immobilizer until he can get home, he will go to bed tonight and use it tomorrow as needed and follow-up with orthopedics after the weekend. With regards to his lungs, I do not think he is having severe COPD exacerbation nor does he need antibiotics since he had URI symptoms that are resolving and has no pneumonia. I will give him a prescription for a low-dose of prednisone so as not to inhibit healing of his knee significantly, to use as needed. Radiography Diagnostic Testing: Clinical Impression(s) from Imaging Studies Chest X-Ray 05/30/22 00:00 IMPRESSION: No acute findings. Underlying COPD/emphysema. Electronically Signed: Edin Cagle MD at 0:59 EDT Reading Location ID and State: [address] [place] [address] Tel , Service support , Knee X-Ray 05/30/22 23:35 IMPRESSION: Minimally displaced fracture through the lower pole of the patella with overlying soft tissue swelling. Electronically Signed: Edin Cagle MD at 1:08 EDT Reading Location ID and State: [facility] / [place] Tel , Service support , Wrist X-Ray 05/30/22 23:35 IMPRESSION: No acute osseous abnormality. Electronically Signed: Edin Cagle MD at 1:09 EDT Reading Location ID and State: [facility] / [place] Tel , Service support , Discharge Plan Triage Chief Complaint: Lower Extremity Injury ED Provider: Dylon Maldonado Dx/Rx/DC Orders Clinical Impression: Closed fracture of right patella, Left wrist sprain, Arthritis of right knee, COPD exacerbation Instructions: ED COPD Flare, ED Knee Immobilizer, ED Patella Fracture Prescriptions: New prednisone 20 mg tablet 20 mg PO DAILY Qty: 5 0RF No Action albuterol sulfate 2.5 mg /3 mL (0.083 %) solution for nebulization 2.5 mg inhalation pantoprazole 40 mg tablet,delayed release (DR/EC) 40 mg PO DAILY duloxetine 30 mg Capsule,Delayed Release(Dr/Ec) 30 mg PO DAILY Qty: 60 0RF Rx Instructions: one daily for three days, then increase to two once a day naproxen 500 mg tablet 500 mg PO BID PRN Qty: 14 0RF Primary Care Provider: Mayuri Payne Referrals: Mayuri Payne MD [Primary Care Provider] - Colby Brown MD [Med Staff - Active Staff] - (Call for appointment after the weekend to be seen by any available orthopedic for your knee) Activity Restrictions/Additional Instructions: Whenever you are up on your feet, make sure you have the knee immobilizer on and you are trying to limit weightbearing on your right lower extremity is much as possible, use walker/Rollator at all times when getting around. Disposition Disposition: Home, Self Care
[2022-05-31 01:54] VITALS: PULSE 76; RESP 18; O2SAT 96
== END 2022-05-31 01:55 | disposition home or self-care (01) ==
PROVIDERS: Emergency Provider Emergency Medicine; PCP Internal Medicine; Visit Provider Emergency Medicine
DX: S82.031A Displaced transverse fracture of right patella, initial encounter for closed fracture (principal); M06.9 Rheumatoid arthritis, unspecified; J44.1 Chronic obstructive pulmonary disease with (acute) exacerbation; J84.10 Pulmonary fibrosis, unspecified; S63.502A Unspecified sprain of left wrist, initial encounter; F17.210 Nicotine dependence, cigarettes, uncomplicated; M17.11 Unilateral primary osteoarthritis, right knee; W19.XXXA Unspecified fall, initial encounter
CPT/HCPCS: 71046; 73110; 73564; 87811; 99283; A4216

== ENCOUNTER 2022-06-16 08:46 | Emergency (ER) | payer MEDICAID, SELFPAY ==
[2022-06-16 08:47] VITALS: BP 102/71; PULSE 63; RESP 13; TEMP 36.7; O2SAT 94; BMI 22.8
--- NOTE | 2022-06-16 09:03 | EKG12_ITS ---
Test Reason : CP Blood Pressure : / mmHG Vent. Rate : 058 BPM Atrial Rate : 058 BPM P-R Int : 144 ms QRS Dur : 086 ms QT Int : 402 ms P-R-T Axes : 105 100 121 degrees QTc Int : 394 ms Suspect arm lead reversal, interpretation assumes no reversal Sinus bradycardia Lateral infarct , age undetermined Abnormal ECG Confirmed by LISA DIAL, IRENA ([id number]), supervising film or videotape editor PAVAN HUTCHINS ([id number]) on 06/17/2022 9:29:52 AM Referred By: CONNOR Confirmed By:IRENA GONZALEZ MD
--- NOTE | 2022-06-16 09:03 | CT_ITS ---
EXAM: CT HEAD WITHOUT INTRAVENOUS CONTRAST CLINICAL INDICATION: Altered mental status. TECHNIQUE: Multiple axial images were obtained of the head without intravenous contrast. This CT exam was performed using one or more of the following dose reduction techniques: automated exposure control, adjustment of the mA and/or kV according to patient size, and/or use of iterative reconstruction technique. This report was created using [employer] report generation technology. RADIATION DOSE: CTDIvol = 44.99 mGy, DLP = 762.36 mGy-cm COMPARISON: CT head without contrast 11/14/2021. FINDINGS: BRAIN AND EXTRA-AXIAL SPACES: Unremarkable. No intra- or extra-axial hemorrhage. No evidence of acute infarct. No intracranial mass or mass effect. There is preservation of the reynolds/white matter interface. Posterior fossa structures are unremarkable. Ventricles are appropriate for age. No hydrocephalus. Basal cisterns are patent. BONES/JOINTS: Unremarkable. No discrete lytic or blastic abnormalities. SINUSES: Benign mucus retention cyst in the left maxillary sinus is unchanged. MASTOID AIR CELLS: Unremarkable. Clear. ORBITS: Visualized globes, extraocular muscles, optic nerves and retrobulbar fat appear unremarkable. CT/Brain/Head without Contrast IMPRESSION: 1. No CT evidence of intracranial bleeding, intracranial mass, acute ischemic infarct or acute intracranial abnormality. 2. No interval change when compared to 11/14/2021. Electronically Signed: Cheko Torres MD at 9:48 EDT ,
--- NOTE | 2022-06-16 09:03 | RAD_ITS ---
EXAM: XR CHEST, 2 VIEWS CLINICAL INDICATION: Chest pain. TECHNIQUE: Frontal and lateral views of the chest. This report was created using [employer] report generation technology. COMPARISON: 05/31/2022. FINDINGS: LUNGS AND PLEURAL SPACES: Mild pulmonary hyperinflation and flattening of the hemidiaphragms. No suspicious infiltrates. No pneumothorax. No effusion. HEART: Microcardia. MEDIASTINUM: Central airways and mediastinal contour are unremarkable. BONES/JOINTS: Unremarkable. SOFT TISSUES: Unremarkable. RAD/Chest PA and Lateral IMPRESSION: 1. No acute findings in the chest. 2. COPD but unchanged when compared to 05/31/2022. HRCT chest will help clarify if desired. Electronically Signed: Cheko Torres MD at 9:50 EDT ,
--- NOTE | 2022-06-16 09:05 | EDS_ITS ---
HPI History of Present Illness Chief Complaint: Alt LOC Detail of Chief Complaint: Chest pain, altered level of consciousness Informant: patient and EMS Onset/Context/Timing Onset: Today Activity at onset: activity on onset (Awoke with symptoms when EMS woke him up) Timing: Continuous Quality: Positive for Pressure and Sharp Location: Left Parasternal (Radiating to right shoulder) Current Severity: Moderate Maximum Severity: Moderate Associated Symptoms: Positive for Nausea (But I always feel nauseated) and Dyspnea (But I am always a little short of breath); Negative for Diaphoresis, Lightheadedness or Palpitations Narrative Narrative: Family called EMS this morning because he was lethargic and not able to be woken up. EMS arrived and woke him up, upon which the patient stated that he was having chest discomfort. He states it is sharp and pressure at the same time more to the left chest. He has a history of 2 heart attacks and states this feels different. He states he is a little short of breath all the time, he has a history of significant COPD. He does not think it is necessarily been flared up lately. He denies any new cough. Denies any leg pain or swelling except for his right knee pain that has been there for several weeks since he fractured it last month. He is getting around in a knee immobilizer and doing okay there. He states he is making a point to try to still get around. [facility] Medical History Asthma Chest pain of uncertain etiology Chronic hyponatremia Cold intolerance Depression History of bronchitis History of pneumonia Hypertension Nicotine dependence Orthostatic hypotension Pulmonary fibrosis Pulmonary hypertension Rheumatoid arthritis Sleep apnea Syncope and collapse Syncope, near Weight loss, abnormal Home Medications naproxen 500 mg tablet 500 mg PO BID PRN #14 tabs 05/06/22 [Rx Last Taken Unknown] aspirin 81 mg chewable tablet 81 mg PO DAILY 06/16/22 [History Last Taken 2 Days Ago ~06/14/22] duloxetine 60 mg capsule,delayed release 60 mg PO DAILY 06/16/22 [History Last Taken 2 Days Ago ~06/14/22] Allergy/AdvReac Type Severity Reaction Status Date / Time No Known Allergies Allergy Verified 06/03/22 09:38 Family History Mother Diabetes Father Heart disease Surgical History History of left heart catheterization (11/11/16) Social History Smoking Status: Current every day smoker tobacco type: cigarettes ROS ROS ED Constitutional Constitutional ED: Reports fatigue; Denies chills or fever(s) Eyes Eyes: Denies change in vision or diplopia ENT ENT ED: Denies rhinorrhea or sore throat Cardiovascular Cardiovascular: Reports chest pain; Denies orthopnea or palpitations Respiratory/Chest Respiratory/Chest: Reports dyspnea and dyspnea on exertion; Denies cough or orthopnea Gastrointestinal Gastrointestinal: Reports constipation, nausea and other Details: States he chronically has abdominal discomfort usually due to constipation ; Denies diarrhea or vomiting Genitourinary Genitourinary ED: Denies dysuria or hematuria Musculoskeletal Musculoskeletal: Denies back pain or neck pain Integumentary Denies abscess or rash Neurologic Neurologic: Denies headache(s), paresthesias or weakness Psychiatric Psychiatric: Denies anxiety or suicidal thoughts EXAM Physical Exam Const Vital Signs: 06/16/22 08:47 06/16/22 08:55 06/16/22 09:03 Temperature 98.1 F Temperature Source Oral Pulse Rate 63 Pulse Rate [Lying] Pulse Rate [Sitting (for 1 minute prior to obtaining)] Pulse Rate [Standing (for 1 minute prior to obtaining)] Respiratory Rate 13 Respiratory Effort Respiratory Pattern Normal Blood Pressure 102/71 Blood Pressure [Lying] Blood Pressure [Sitting (for 1 minute prior to obtaining)] Blood Pressure [Standing (for 1 minute prior to obtaining)] Blood Pressure Mean 81 Blood Pressure Mean [Lying] Blood Pressure Mean [Sitting (for 1 minute prior to obtaining)] Blood Pressure Mean [Standing (for 1 minute prior to obtaining)] Pulse Ox 94 Oxygen Delivery Method Room Air Room Air 06/16/22 10:35 06/16/22 10:37 06/16/22 11:00 Temperature Temperature Source Pulse Rate 58 L 52 L Pulse Rate [Lying] Pulse Rate [Sitting (for 1 minute prior to obtaining)] Pulse Rate [Standing (for 1 minute prior to obtaining)] Respiratory Rate 9 L 14 Respiratory Effort Non-Labored Respiratory Pattern Normal Blood Pressure 104/75 118/85 H Blood Pressure [Lying] Blood Pressure [Sitting (for 1 minute prior to obtaining)] Blood Pressure [Standing (for 1 minute prior to obtaining)] Blood Pressure Mean 84 96 Blood Pressure Mean [Lying] Blood Pressure Mean [Sitting (for 1 minute prior to obtaining)] Blood Pressure Mean [Standing (for 1 minute prior to obtaining)] Pulse Ox 99 99 Oxygen Delivery Method Room Air Room Air 06/16/22 12:05 06/16/22 13:23 Temperature Temperature Source Pulse Rate 50 L Pulse Rate [Lying] 50 L Pulse Rate [Sitting (for 1 minute prior to obtaining)] 56 L Pulse Rate [Standing (for 1 minute prior to obtaining)] 63 Respiratory Rate 18 Respiratory Effort Respiratory Pattern Blood Pressure 124/85 H Blood Pressure [Lying] 116/85 H Blood Pressure [Sitting (for 1 minute prior to obtaining)] 117/91 H Blood Pressure [Standing (for 1 minute prior to obtaining)] 105/80 Blood Pressure Mean 98 Blood Pressure Mean [Lying] 95 Blood Pressure Mean [Sitting (for 1 minute prior to obtaining)] 99 Blood Pressure Mean [Standing (for 1 minute prior to obtaining)] 88 Pulse Ox 98 Oxygen Delivery Method Room Air Positive well nourished and well developed General Appearance ED: well developed and NAD HEENT Reports moist mucous membranes normocephalic and atraumatic Eyes PERRL and EOMs intact bilaterally Neck full ROM, no lymphadenopathy, supple and no JVD Resp normal respiratory effort and clear to auscultation bilaterally Cardio regular rate, regular rhythm and no murmurs Rate: Negative for tachycardic GI non-tender and non-distended Auscultation: normoactive bowel sounds Palpation: soft Back/Spine no CVA tenderness General Back: other FROM Extremity normal to inspection, no calf tenderness and no pedal edema General Extremety ED: Negative for edema, pulses abnormal or tenderness General Extremity: Negative for edema or pulses abnormal Neuro oriented x3, CN's II-XII intact bilaterally and no sensory deficits noted Sensorium / Orientation: awake and alert Motor Exam: strength 5/5 throughout Psych Psych Narrative: Flat affect Skin no rashes or lesions noted and no wounds Heart Score History: Slightly/Non-Suspicious ECG: Nonspecific Repolarization Age: >45 - <65 years Risk Factors: >/= 3 Risk Factors or History of CAD Troponin: </= Normal Limit Score: 4 MDM MDM MDM Narrative Medical decision making narrative: I did an ABG on the patient to rule out hypercapnia, he is compensated and not hypercapnic. Chest x-ray on my interpretation unremarkable, [address] of his head given the history prior to arrival, shows nothing acute. His EKG shows no acute injury, his D-dimer is within normal limits ruling out pulmonary embolus and this atypical presentation of chest discomfort, and his troponin is negative at 4. He is doing well clinically, still having some discomfort, we did a delta troponin on him 2 hours later that was also negative, I do not think this is likely acute coronary syndrome. He is a little prerenal, upon getting him up, he felt near syncopal although his vital signs did not change significantly. I gave him a liter of IV fluid, we observed him for longer, and then did orthostatics even before the fluids were done, and they were negative and he felt much better. The is concerned, and the patient admits that, he does not drink enough water. He drinks caffeinated coffee all day long. We discussed this, I agree he needs to drink more fluids without diuretic, and at this time he is stable and improved for discharge. Lab Data Attestation: I reviewed the patient's lab results. Labs: Laboratory Results - last 24 hr 06/16/22 06/16/22 06/16/22 09:25 09:25 09:25 WBC 8.9 RBC 4.51 L Hgb 14.4 Hct 41.3 MCV 91.6 MCH 31.9 MCHC 34.9 RDW Std Deviation 41.6 RDW Coeff of Juan David 12.5 Plt Count 203 MPV 10.4 Immature Gran % (Auto) 0.500 Neut % (Auto) 81.5 H Lymph % (Auto) 13.4 L Wise % (Auto) 2.4 Eos % (Auto) 1.6 Baso % (Auto) 0.6 Absolute Neuts (auto) 7.2 Absolute Lymphs (auto) 1.19 Nucleated RBC % 0 D-Dimer Quant (PE/DVT) 0.41 Sodium 141 Potassium 4.1 Chloride 105 Carbon Dioxide 26.0 Anion Gap 10 BUN 23 H Creatinine 1.07 Estim Creat Clear Calc 89.26 Est GFR (MDRD) Af Amer 92 Est GFR (MDRD) Non-Af 76 BUN/Creatinine Ratio 21.5 H Glucose 111 H Calcium 8.8 Troponin I High Sens 4 06/16/22 11:55 WBC RBC Hgb Hct MCV MCH MCHC RDW Std Deviation RDW Coeff of Juan David Plt Count MPV Immature Gran % (Auto) Neut % (Auto) Lymph % (Auto) Wise % (Auto) Eos % (Auto) Baso % (Auto) Absolute Neuts (auto) Absolute Lymphs (auto) Nucleated RBC % D-Dimer Quant (PE/DVT) Sodium Potassium Chloride Carbon Dioxide Anion Gap BUN Creatinine Estim Creat Clear Calc Est GFR (MDRD) Af Amer Est GFR (MDRD) Non-Af BUN/Creatinine Ratio Glucose Calcium Troponin I High Sens 3 ABG Data Attestation: I personally reviewed and interpreted this ABG as follows: Interpretation: Compensated chronic CO2 retention ABG results: ABG 06/16/22 06/16/22 09:27 09:27 Specimen Type ART Cancelled Sample Site R Brach Cancelled pH 7.40 Cancelled Bicarbonate Actual 24.3 Cancelled Total CO2 26 Cancelled Base Excess -1 Cancelled O2 Saturation 96 Cancelled O2 % 21 Cancelled ABG pCO2 39.6 Cancelled ABG pO2 82 Cancelled Joe Test Cancelled Respiration Rate Cancelled O2 Delivery Device Cancelled Liter Flow Cancelled Minute Volume Cancelled Vent Mode Cancelled Inspiratory Time Cancelled Expiratory Time Cancelled Tidal Volume Cancelled Mean Airway Pressure Cancelled POC PEEP Cancelled Peak Inspir Pressure Cancelled POC Pressure Suppt Cancelled Pressure Control Cancelled Pressure High Cancelled Pressure Low Cancelled Time High Cancelled Time Low Cancelled EPAP Cancelled IPAP Cancelled Blood Gas Comments Cancelled Crit Call To/Read Back Cancelled Blood Gas Notified Whom Cancelled Blood Gas Notified Time Cancelled Clinical Comments Cancelled Radiography Chest X-Ray - ED: 2 View, Read by ED Physician, No Acute Disease, Chronic Changes and No Infiltrates Diagnostic Testing: Clinical Impression(s) from Imaging Studies Brain CT 06/16/22 09:03 IMPRESSION: 1. No CT evidence of intracranial bleeding, intracranial mass, acute ischemic infarct or acute intracranial abnormality. 2. No interval change when compared to 11/14/2021. Electronically Signed: Cheko Torres MD at 9:48 EDT , Chest X-Ray 06/16/22 09:03 IMPRESSION: 1. No acute findings in the chest. 2. COPD but unchanged when compared to 05/31/2022. HRCT chest will help clarify if desired. Electronically Signed: Cheko Torres MD at 9:50 EDT , Rhythm Strip Rhythm Strip: Sinus Rhythm Rate: 60 Ectopy: None EKG Initial EKG: Attestation: I personally reviewed and interpreted this EKG as follows: Interpretation: Sinus Rhythm, No Acute Injury Pattern and Non-Specific ST Changes (ST scooping inferiorly) Prior EKG tracings: available for review Prior: Unchanged Discharge Plan Triage Chief Complaint: Alt LOC Other Complaint: Chest Pain ED Provider: Dylon Maldonado Dx/Rx/DC Orders Clinical Impression: Transient alteration of awareness, Chest pain of unknown etiology, Dehydration, mild Instructions: ED Chest Pain, Uncertain Cause, ED Dehydration (Adult) Prescriptions: No Action naproxen 500 mg tablet 500 mg PO BID PRN Qty: 14 0RF aspirin [Aspirin Low-Strength] 81 mg Tablet,Chewable 81 mg PO DAILY duloxetine 60 mg capsule,delayed release(DR/EC) 60 mg PO DAILY Primary Care Provider: Mayuri Payne Referrals: Mayuri Payne MD [Primary Care Provider] - 3-5 Days Disposition Disposition: Home, Self Care
[2022-06-16 09:33] LABS: Absolute Lymphocyte Count 1.19 X10^3/uL (0.83-4.51); Absolute Neutrophil Count 7.2 X10^3/uL (2.0-7.7); Basophil# 0.05 X10^3/uL; Basophil% 0.6 % (0-1); Eosinophil# 0.14 X10^3/uL; Eosinophils% 1.6 % (0-5); Hematocrit 41.3 % (40-54); Hemoglobin 14.4 g/dL (13.0-16.5); Lymphocyte # 1.19 X10^3/ul (0.83-4.51); Lymphocyte % 13.4 % (19-41); Mean Corp Hgb Conc 34.9 g/dL (32-36); Mean Corpuscular Hgb 31.9 pg (27.0-32.0); Mean Corpuscular Volume 91.6 fL (80-94); Mean Platelet Vol. 10.4 fl (6.2-12.0); Monocyte# 0.21 X10^3/uL; Monocyte% 2.4 % (0-10); NRBC Flagged by Analyzer 0 % (0-5); Neutrophil # 7.22 X10^3/uL (2.7-7.7); Neutrophil % 81.5 % (47-70); Platelet Count 203 K/mm3 (150-450); RBC Distribution Width CV 12.5 % (11.6-14.6); RBC Distribution Width SD 41.6 fl (35.1-43.9); Red Blood Count 4.51 M/mm3 (4.6-6.2); White Blood Count 8.9 K/mm3 (4.4-11.0)
[2022-06-16 09:46] LABS: D-Dimer Quantitative (DVT/PE) 0.41 FEU/ug/m (0.27-0.49)
[2022-06-16 09:51] LABS: Anion Gap 10 (5-15); BUN 23 mg/dL (7-18); BUN/Creat Ratio 21.5 RATIO (10-20); Calcium,Total 8.8 mg/dL (8.5-10.1); Chloride 105 mmol/L (98-107); Creatinine, Serum 1.07 mg/dL (0.70-1.30); EST Glomerular Filtration Rate 76 mL/min (>60); Est Glom Filt Rate - Afr Amer 92 mL/min (>60); Estimated Creatinine Clearance 89.26 ml/min; Glucose 111 mg/dL (74-106); Potassium 4.1 mmol/L (3.5-5.1); Sodium Level 141 mmol/L (136-145); Troponin-I HS (w/2H Reflex) 4 pg/mL (3.0-78.0)
[2022-06-16] MEDS: Ondansetron 4 MG/2 ML Vial IV (10:10)
[2022-06-16 10:37] VITALS: BP 104/75; PULSE 58; RESP 9; O2SAT 99
[2022-06-16 11:00] VITALS: BP 118/85; PULSE 52; RESP 14; O2SAT 99
[2022-06-16 11:30] LABS: Reflex Troponin-HS? (from REC) Y
[2022-06-16 11:55] LABS: Base Excess -1 mmol/L (-2 to +2); Bicarbonate 24.3 mmol/L (22-26); Blood Gas Specimen Type ART; FI02 21; PO2 82 mmHG (75-100); SITE R Brach; SO2 96 % (95-99); Total Carbon Dioxide 26 mmol/L; pCO2 39.6 mmHg (35-45)
[2022-06-16 12:05] VITALS: BP 124/85; PULSE 50; RESP 18; O2SAT 98
[2022-06-16 12:21] LABS: Troponin-I HS 3 pg/mL (3.0-78.0)
[2022-06-16 13:23] VITALS: BP 105/80; BP 116/85; BP 117/91; PULSE 50; PULSE 56; PULSE 63
[2022-06-16] MEDS: 0.9% Normal Saline 1,000 ML 999 ML IV (13:23)
== END 2022-06-16 14:39 | disposition home or self-care (01) ==
PROVIDERS: Emergency Provider Emergency Medicine; PCP Internal Medicine; Visit Provider Emergency Medicine
DX: R40.4 Transient alteration of awareness (principal); M06.9 Rheumatoid arthritis, unspecified; I27.20 Pulmonary hypertension, unspecified; J84.10 Pulmonary fibrosis, unspecified; J45.909 Unspecified asthma, uncomplicated; F32.A Depression, unspecified; G47.30 Sleep apnea, unspecified; I10 Essential (primary) hypertension; Z79.899 Other long term (current) drug therapy; Z79.82 Long term (current) use of aspirin; F17.210 Nicotine dependence, cigarettes, uncomplicated; E86.0 Dehydration; R07.9 Chest pain, unspecified; I25.2 Old myocardial infarction
CPT/HCPCS: 36415; 36600; 70450; 71046; 80048; 82803; 84484; 85025; 85379; 93005; 96361; 96374; 99285; J7030; A4216; J2405

== ENCOUNTER 2022-09-13 02:43 | Emergency (ER) | payer MEDICAID, SELFPAY ==
[2022-09-13 02:44] VITALS: BP 128/83; PULSE 75; RESP 13; TEMP 36.3; O2SAT 100; BMI 22.1
[2022-09-13] MEDS: Ipratropium/Albuterol Sulfate 3 ML AMPUL.NEB INHALATION (03:36)
[2022-09-13] MEDS: Albuterol 2.5 MG/3 ML VIAL.NEB. INHALATION (03:36)
[2022-09-13] MEDS: predniSONE 20 MG Tablet 40 MG PO (04:10)
--- NOTE | 2022-09-13 04:10 | RAD_ITS ---
STUDY: X-RAY CHEST REASON FOR EXAM: Male, 57 years old. cough TECHNIQUE: PA and lateral views of the chest. COMPARISON: June 16, 2022. FINDINGS: No focal infiltrates or effusions. No pneumothorax. Lungs are hyperinflated. Normal size heart. Normal mediastinum and lori. Normal visualized pulmonary arteries. Normal visualized aortic arch and descending thoracic aorta. Normal visualized thoracic spine. Normal visualized ribs, clavicles, and shoulders. There is no demonstrated abnormality of the visualized soft tissue structures of the upper abdomen. RAD/Chest PA and Lateral IMPRESSION: Stable chest, no acute cardiopulmonary disease. COPD. Electronically Signed: Triston Sevilla MD at 4:28 EST Reading Location ID and State: [id number] / , Service support ,
[2022-09-13 04:11] VITALS: BP 114/72; PULSE 77; O2SAT 100; O2SAT 99
--- NOTE | 2022-09-13 05:00 | EX.ED.DYSGE1 ---
HPI History of Present Illness Chief Complaint: Shortness of Breath Narrative Narrative: Patient is a 57-year-old male with past medical history of COPD who continues to smoke. He states his was seen yesterday secondary to congestion and cough and diagnosed with an upper respiratory infection. He states that he has had congestion and cough and increased shortness of breath since that time. He denies any chest pain fevers chills nausea or vomiting. He states he does not have an inhaler or nebulizer medication at home to help control symptoms. He also reports he has concern for pneumonia because of his history of COPD and symptoms and therefore comes in for evaluation. [facility] Medical History Asthma Chest pain of uncertain etiology Chronic hyponatremia Cold intolerance Depression History of bronchitis History of pneumonia Hypertension Nicotine dependence Orthostatic hypotension Pulmonary fibrosis Pulmonary hypertension Rheumatoid arthritis Sleep apnea Syncope and collapse Syncope, near Weight loss, abnormal Home Medications naproxen 500 mg tablet 500 mg PO BID PRN #14 tabs 05/06/22 [Rx Last Taken Unknown] aspirin 81 mg chewable tablet 81 mg PO DAILY 06/16/22 [History Last Taken 2 Days Ago ~06/14/22] duloxetine 60 mg capsule,delayed release 60 mg PO DAILY 06/16/22 [History Last Taken 2 Days Ago ~06/14/22] albuterol sulfate 90 mcg/actuation aerosol inhaler (Ventolin HFA) 1 - 2 puff inhalation Q4H PRN PRN Wheezing #1 device 09/13/22 [Rx Last Taken Unknown] ipratropium 0.5 mg-albuterol 3 mg (2.5 mg base)/3 mL nebulization soln 3 ml inhalation 4X/DAY PRN PRN shortness of breath or wheezing #180 mL 09/13/22 [Rx Last Taken Unknown] prednisone 20 mg tablet 40 mg PO DAILY 5 days #10 tabs 09/13/22 [Rx Last Taken Unknown] Allergy/AdvReac Type Severity Reaction Status Date / Time No Known Allergies Allergy Verified 09/13/22 02:50 Family History Mother Diabetes Father Heart disease Surgical History History of left heart catheterization (11/11/16) Social History Smoking Status: Current every day smoker tobacco type: cigarettes ROS ROS ED Constitutional Constitutional ED: Denies chills or fever(s) ENT ENT ED: Reports rhinorrhea; Denies sore throat Cardiovascular Cardiovascular: Denies chest pain Respiratory/Chest Respiratory/Chest: Reports cough and dyspnea Gastrointestinal Gastrointestinal: Denies abdominal pain, diarrhea, nausea or vomiting Genitourinary Genitourinary ED: Denies dysuria Musculoskeletal Musculoskeletal: Denies myalgias Integumentary Denies rash Neurologic Neurologic: Denies headache(s) Hematologic/Lymphatic Hematologic/Lymphatic: Denies easy bleeding or easy bruising EXAM Physical Exam Const Vital Signs: 09/13/22 02:44 09/13/22 04:11 09/13/22 04:11 Temperature 97.4 F L Temperature Source Temporal Pulse Rate 75 77 Respiratory Rate 13 Respiratory Effort Short of Breath Blood Pressure 128/83 H 114/72 Blood Pressure Mean 98 86 Pulse Ox 100 99 Oxygen Delivery Method Room Air Room Air Room Air Positive well nourished and well developed General Appearance ED: well developed HEENT Reports moist mucous membranes HEENT Narrative: No tongue or lip swelling no oral lesions no airway edema or compromise. Cobblestoning is noted in the posterior pharynx consistent with sinus drainage Eyes PERRL and EOMs intact bilaterally Neck supple and no JVD Chest Wall palpation of chest normal Resp normal respiratory effort Resp Narrative: Breath sounds are diminished throughout with faint wheeze noted in the bilateral bases consistent with smoking history but otherwise no nasal flaring retractions tachypnea or accessory muscle use Cardio regular rate and regular rhythm GI normal to inspection, nondistended, normoactive bowel sounds, non-tender, non-distended and no masses GI Narrative: No pulsatile mass or fluid wave noted Auscultation: normoactive bowel sounds Palpation: soft Extremity normal to inspection Extremity Narrative: No asymmetric edema no pitting edema negative Homans' sign bilaterally Neuro oriented x3 and CN's II-XII intact bilaterally Sensorium / Orientation: alert Psych Psych Narrative: Patient has a flat affect Skin no rashes or lesions noted MDM MDM MDM Narrative Medical decision making narrative: Patient presented to the ER afebrile and in no acute respiratory distress satting 98 to 100% on room air. His constellation of symptoms are consistent with COPD exacerbation. from a viral infection most likely given to him by his . As he reports that his was checked for viral infections the other day did not feel need for influenza or COVID swab. However with concern for missed pneumonia a chest x-ray was ordered. This revealed no acute infiltrate or pneumothorax or pleural effusion. Patient was given prednisone and breathing treatments and on reevaluation had improvement of symptoms and his pulse ox remained 98 to 100% on room air without respiratory distress. Therefore at this time as he is not requiring supplemental oxygen he is safe for discharge and can follow-up on an outpatient basis Radiography Diagnostic Testing: Clinical Impression(s) from Imaging Studies Chest X-Ray 09/13/22 04:10 IMPRESSION: Stable chest, no acute cardiopulmonary disease. COPD. Electronically Signed: Triston Sevilla MD at 4:28 EST Reading Location ID and State: [id number] / , Service support , Chest x-ray as interpreted by the emergency medicine physician reveals COPD-like changes without acute infiltrate or pneumothorax or pleural effusion. Discharge Plan Triage Chief Complaint: Shortness of Breath ED Provider: Kwan Smith Dx/Rx/DC Orders Clinical Impression: Acute exacerbation of chronic obstructive pulmonary disease, Nicotine dependence Instructions: COPD: Wheezing and Chest Tightness, Asthma and COPD Prescriptions: New prednisone 20 mg tablet 40 mg PO DAILY 5 Days Qty: 10 0RF albuterol sulfate [Ventolin HFA] 90 mcg/actuation HFA aerosol inhaler 1 - 2 puff inhalation Q4H PRN PRN (Reason: Wheezing) Qty: 1 2RF ipratropium-albuterol 0.5 mg-3 mg(2.5 mg base)/3 mL solution for nebulization 3 ml inhalation 4X/DAY PRN PRN (Reason: shortness of breath or wheezing) Qty: 180 2RF No Action naproxen 500 mg tablet 500 mg PO BID PRN Qty: 14 0RF aspirin [Aspirin Low-Strength] 81 mg Tablet,Chewable 81 mg PO DAILY duloxetine 60 mg capsule,delayed release(DR/EC) 60 mg PO DAILY Primary Care Provider: Mayuri Payne Referrals: Mayuri Payne MD [Primary Care Provider] - Disposition Disposition: Home, Self Care Discharge Date/Time: 09/13/22 05:04
== END 2022-09-13 05:04 | disposition home or self-care (01) ==
PROVIDERS: Emergency Provider Emergency Medicine; PCP Internal Medicine; Visit Provider Emergency Medicine
DX: J44.1 Chronic obstructive pulmonary disease with (acute) exacerbation (principal); I10 Essential (primary) hypertension; F17.210 Nicotine dependence, cigarettes, uncomplicated; R06.02 Shortness of breath; Z79.52 Long term (current) use of systemic steroids
CPT/HCPCS: 71046; 99283

== ENCOUNTER 2023-01-04 12:44 | Emergency (ER) | payer MEDICAID, SELFPAY ==
[2023-01-04 12:45] VITALS: BP 151/111; PULSE 65; RESP 18; TEMP 36; O2SAT 100; BMI 21.9
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
[2023-01-04] MEDS: Diphth,Pertuss(Acell),Tet Vac 0.5 ML Vial IM (15:08)
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
== END 2023-01-04 16:18 | disposition home or self-care (01) ==
PROVIDERS: Emergency Provider Emergency Medicine; PCP Internal Medicine; Visit Provider Emergency Medicine
DX: T20.19XA Burn of first degree of multiple sites of head, face, and neck, initial encounter (principal); X08.8XXA Exposure to other specified smoke, fire and flames, initial encounter; I10 Essential (primary) hypertension; F17.210 Nicotine dependence, cigarettes, uncomplicated; Z79.82 Long term (current) use of aspirin; Z79.899 Other long term (current) drug therapy; Z23 Encounter for immunization
CPT/HCPCS: 90715; 99282

== ENCOUNTER 2023-01-24 04:36 | Emergency (ER) | payer MEDICAID, SELFPAY ==
[2023-01-24 04:38] VITALS: BP 138/98; PULSE 55; RESP 18; TEMP 36.6; O2SAT 99; BMI 22.5
--- NOTE | 2023-01-24 04:53 | EKG12_ITS ---
Test Reason : CP Blood Pressure : / mmHG Vent. Rate : 048 BPM Atrial Rate : 048 BPM P-R Int : 146 ms QRS Dur : 090 ms QT Int : 426 ms P-R-T Axes : 059 076 041 degrees QTc Int : 380 ms Sinus bradycardia Otherwise normal ECG Confirmed by LISA DIAL, IRENA ([id number]), sports editor NISREEN GUIDRY ([id number]) on 01/28/2023 7:45:10 AM Referred By: AAYUSH Confirmed By:IRENA GONZALEZ MD
--- NOTE | 2023-01-24 05:05 | RAD_ITS ---
EXAM: XR CHEST, 1 VIEW CLINICAL INDICATION: chest pain TECHNIQUE: Frontal view of the chest. This report was created using [employer] report generation technology. COMPARISON: 09/13/2022. FINDINGS: LUNGS AND PLEURAL SPACES: Unremarkable. No consolidation or edema. No pneumothorax. No effusion. HEART: Unremarkable. Cardiac silhouette not enlarged. MEDIASTINUM: Central airways and mediastinal contour are unremarkable. BONES/JOINTS: Unremarkable. SOFT TISSUES: Unremarkable. RAD/Chest 1 View (Portable) IMPRESSION: No acute cardiopulmonary abnormality. Electronically Signed: Darryl Angulo MD at 5:25 EDT ,
[2023-01-24 05:09] LABS: Absolute Neutrophil Count 4.5 X10^3/uL (2.0-7.7); Basophil# 0.04 X10^3/uL; Basophil% 0.6 % (0-1); Eosinophil# 0.13 X10^3/uL; Hematocrit 44.3 % (40-54); Hemoglobin 14.7 g/dL (13.0-16.5); Mean Corp Hgb Conc 33.2 g/dL (32-36); Mean Corpuscular Hgb 30.5 pg (27.0-32.0); Mean Corpuscular Volume 91.9 fL (80-94); Mean Platelet Vol. 8.9 fl (6.2-12.0); Monocyte# 0.36 X10^3/uL; Monocyte% 5.5 % (0-10); NRBC Flagged by Analyzer 0 % (0-5); Neutrophil # 4.48 X10^3/uL (2.7-7.7); Neutrophil % 68.7 % (47-70); Platelet Count 206 K/mm3 (150-450); RBC Distribution Width CV 11.9 % (11.6-14.6); RBC Distribution Width SD 40.2 fl (35.1-43.9); Red Blood Count 4.82 M/mm3 (4.6-6.2); White Blood Count 6.5 K/mm3 (4.4-11.0)
[2023-01-24 05:31] LABS: Anion Gap 3 (5-15); BUN 17 mg/dL (7-18); BUN/Creat Ratio 14.8 RATIO (10-20); Chloride 105 mmol/L (98-107); Creatinine, Serum 1.15 mg/dL (0.70-1.30); EST Glomerular Filtration Rate 70 mL/min (>60); Est Glom Filt Rate - Afr Amer 85 mL/min (>60); Estimated Creatinine Clearance 80.86 ml/min; Glucose 104 mg/dL (74-106); Potassium 4.1 mmol/L (3.5-5.1); Sodium Level 136 mmol/L (136-145); Troponin-I HS (w/2H Reflex) 4 pg/mL (3.0-78.0)
[2023-01-24] MEDS: Ipratropium/Albuterol Sulfate 3 ML AMPUL.NEB INHALATION (06:19)
[2023-01-24 06:20] VITALS: PULSE 57; RESP 18
[2023-01-24 06:31] VITALS: BP 101/72; PULSE 64
[2023-01-24 07:01] LABS: Reflex Troponin-HS? (from REC) Y
[2023-01-24 07:09] VITALS: BP 123/83; PULSE 12; RESP 60; O2SAT 97
[2023-01-24 07:42] LABS: Troponin-I HS 5 pg/mL (3.0-78.0)
--- NOTE | 2023-01-24 07:47 | ED.VIS.CHEST ---
HPI History of Present Illness Chief Complaint: Chest Pain Informant: patient and spouse/S.O. Narrative Narrative: Patient is a 58-year-old male with history of chronic hyponatremia, depression, hypertension, pulmonary fibrosis and continued tobacco use presenting with chest pain. He states he had chest pain for the past few days. Is been intermittent. It is in his left chest and radiates to his left arm. He states he sometimes has it at rest but is worse when he moves around. Denies any trauma or injury. Denies any swelling of his legs. Denies any history of DVT or PE. Has a chronic cough but denies any change in it. Did not take any medication for symptoms prior to arrival. Denies any associated diaphoresis, nausea or vomiting. PFSH PFS Medical History Asthma Chest pain of uncertain etiology Chronic hyponatremia Cold intolerance Depression History of bronchitis History of pneumonia Hypertension Nicotine dependence Orthostatic hypotension Pulmonary fibrosis Pulmonary hypertension Rheumatoid arthritis Sleep apnea Syncope and collapse Syncope, near Weight loss, abnormal Home Medications albuterol sulfate 90 mcg/actuation aerosol inhaler (Ventolin HFA) 1 - 2 puff inhalation Q4H PRN PRN Wheezing #1 inh 01/24/23 [Rx Last Taken Unknown] Allergy/AdvReac Type Severity Reaction Status Date / Time No Known Allergies Allergy Verified 01/04/23 12:45 Family History Mother Diabetes Father Heart disease Surgical History History of left heart catheterization (11/11/16) Social History Smoking Status: Current every day smoker tobacco type: cigarettes ROS ROS ED Constitutional Constitutional ED: Denies chills or fever(s) Cardiovascular Cardiovascular: Reports as per HPI and chest pain; Denies palpitations Respiratory/Chest Respiratory/Chest: Reports cough; Denies dyspnea Gastrointestinal Gastrointestinal: Denies abdominal pain, nausea or vomiting Musculoskeletal Musculoskeletal: Denies arthralgias or myalgias Integumentary Denies rash Neurologic Neurologic: Denies headache(s) Hematologic/Lymphatic Hematologic/Lymphatic: Denies easy bleeding or easy bruising EXAM Physical Exam Const Vital Signs: 01/24/23 04:38 01/24/23 05:03 01/24/23 06:20 Temperature 97.9 F Temperature Source Oral Pulse Rate 55 L 57 L Respiratory Rate 18 18 Respiratory Pattern Normal Blood Pressure 138/98 H Blood Pressure Mean 111 Pulse Ox 99 Oxygen Delivery Method Room Air Room Air 01/24/23 06:31 01/24/23 07:09 Temperature Temperature Source Pulse Rate 64 12 L Respiratory Rate 60 H Respiratory Pattern Blood Pressure 101/72 123/83 H Blood Pressure Mean 81 96 Pulse Ox 97 Oxygen Delivery Method Positive well nourished and well developed General Appearance ED: well developed and NAD HEENT Reports moist mucous membranes normocephalic and atraumatic Eyes PERRL and EOMs intact bilaterally Neck supple Neck Narrative: Left lateral neck tenderness to palpation. No pinpoint area. No midline tenderness. Normal range of motion. Chest Wall inspection of chest normal Chest Narrative: Tenderness to palpation of the left anterior chest. No chest wall crepitus appreciated. Resp normal respiratory effort Resp Narrative: Tight breath sounds with diminished sounds at the bases. Auscultation: diminished lung sounds; Negative for rhonchi or wheezes Cardio regular rate, regular rhythm and no murmurs GI normal to inspection, nondistended, normoactive bowel sounds and soft to palpation Extremity normal to inspection Neuro oriented x3 Sensorium / Orientation: awake Motor Exam: Negative for general weakness Psych mental status grossly normal Skin no rashes or lesions noted Heart Score History: Slightly/Non-Suspicious ECG: Normal Age: >45 - <65 years Risk Factors: 1 or 2 Risk Factors Troponin: </= Normal Limit Score: 2 MDM MDM MDM Narrative Medical decision making narrative: Patient is evaluated for couple days of chest pain. It seems to be more muscle skeletal. He does have tight breath sounds and is given a DuoNeb in the ER. He has some improvement of his breathing with that. He denies any change in his cough, sputum production or other URI symptoms consistent with an asthma/COPD exacerbation. Cardiac work-up including delta high-sensitivity troponin, EKG and chest x-ray large unremarkable. Chest x-ray interpreted by myself as well as radiology does not show any acute process. CBC and BMP largely normal. Patient does not have an albuterol inhaler at home. We discussed smoking cessation. Will be given a prescription for albuterol inhaler. Encouraged to follow-up with cardiology. Outpatient cardiology visit from 12/01/2019 reviewed. And that noted discussed that patient has had negative stress test as well as a cardiac catheterization on 11/11/2016 which showed normal coronary arteries. Lab Data Labs: Laboratory Results - last 24 hr 01/24/23 01/24/23 01/24/23 04:57 04:57 07:10 WBC 6.5 RBC 4.82 Hgb 14.7 Hct 44.3 MCV 91.9 MCH 30.5 MCHC 33.2 RDW Std Deviation 40.2 RDW Coeff of Juan David 11.9 Plt Count 206 MPV 8.9 Immature Gran % (Auto) 0.200 Neut % (Auto) 68.7 Lymph % (Auto) 23.0 [place] % (Auto) 5.5 Eos % (Auto) 2.0 Baso % (Auto) 0.6 Absolute Neuts (auto) 4.5 Absolute Lymphs (auto) 1.50 Nucleated RBC % 0 Sodium 136 Potassium 4.1 Chloride 105 Carbon Dioxide 28.0 Anion Gap 3 L BUN 17 Creatinine 1.15 Estim Creat Clear Calc 80.86 Est GFR (MDRD) Af Amer 85 Est GFR (MDRD) Non-Af 70 BUN/Creatinine Ratio 14.8 Glucose 104 Calcium 10.0 Troponin I High Sens 4 5 Radiography Chest X-Ray - ED: 1 View, Read by ED Physician, Read by Radiologist and No Acute Disease Diagnostic Testing: Clinical Impression(s) from Imaging Studies Chest X-Ray 01/24/23 05:05 IMPRESSION: No acute cardiopulmonary abnormality. Electronically Signed: Darryl Angulo MD at 5:25 EDT , Rhythm Strip Rhythm Strip: Sinus Rhythm Rate: 48 Ectopy: None EKG Initial EKG: Attestation: I personally reviewed and interpreted this EKG as follows: Interpretation: Sinus Bradycardia Comments: Sinus bradycardia rate of 48 bpm Normal axis Normal intervals Normal ST segments Compared to prior EKG no significant changes however prior EKG did have a limb lead reversal Discharge Plan Triage Chief Complaint: Chest Pain ED Provider: Maryanne Patricio Dx/Rx/DC Orders Clinical Impression: Chest pain of uncertain etiology, Continuous tobacco abuse Instructions: ED Chest Pain, Uncertain Cause Prescriptions: New albuterol sulfate [Ventolin HFA] 90 mcg/actuation HFA aerosol inhaler 1 - 2 puff inhalation Q4H PRN PRN (Reason: Wheezing) Qty: 1 0RF Primary Care Provider: Mayuri Payne Referrals: Mayuri Payne MD [Primary Care Provider] - Naresh Sainz AEMT, AEMT-C [Med Staff - Adv Practice Prof] - As soon as possible Activity Restrictions/Additional Instructions: Your cardiac work-up was largely normal. The cause of your symptoms is not entirely clear however I think it safe you to go home. I do think you would benefit from using an inhaler which has been prescribed. Please try to quit smoking. Disposition Disposition: Home, Self Care
[2023-01-24 07:59] VITALS: BP 126/86; PULSE 59; RESP 13; O2SAT 94
== END 2023-01-24 08:04 | disposition home or self-care (01) ==
PROVIDERS: Emergency Provider Emergency Medicine; PCP Internal Medicine; Visit Provider Emergency Medicine
DX: R07.9 Chest pain, unspecified (principal); J84.10 Pulmonary fibrosis, unspecified; I10 Essential (primary) hypertension; E87.1 Hypo-osmolality and hyponatremia; F17.210 Nicotine dependence, cigarettes, uncomplicated; J45.909 Unspecified asthma, uncomplicated; F32.A Depression, unspecified; Z79.899 Other long term (current) drug therapy
CPT/HCPCS: 71045; 80048; 84484; 85025; 93005; 94640; 99283; J7030; A4216

== ENCOUNTER 2023-04-15 01:13 | Emergency (ER) | payer MEDICAID, SELFPAY ==
[2023-04-15 01:14] VITALS: BP 125/85; PULSE 86; RESP 15; TEMP 36.4; O2SAT 100
--- NOTE | 2023-04-15 02:13 | EDS_ITS ---
HPI History of Present Illness Chief Complaint: Upper Extremity Injury Narrative Narrative: 58-year-old male with left-sided chronic neck pain. He states has been going on for several months. He states he was seen in the ER initially and told he had a nerve impingement. He has not followed up with Dr. Allen this because he states he cannot get in the office with her and he can only see a nurse practitioner PA. He states he did do physical therapy for a while and just did not help. He does not recall medications that help. He denies any new trauma. He states that the pain is worsening. Hurts worse when he turns his head to the left and when he lifts his head with his neck in extension [facility] Medical History Asthma Chest pain of uncertain etiology Chronic hyponatremia Cold intolerance Depression History of bronchitis History of pneumonia Hypertension Nicotine dependence Orthostatic hypotension Pulmonary fibrosis Pulmonary hypertension Rheumatoid arthritis Sleep apnea Syncope and collapse Syncope, near Weight loss, abnormal Home Medications albuterol sulfate 90 mcg/actuation aerosol inhaler (Ventolin HFA) 1 - 2 puff inhalation Q4H PRN PRN Wheezing #1 inh 01/24/23 [Rx Last Taken Unknown] Allergy/AdvReac Type Severity Reaction Status Date / Time No Known Allergies Allergy Verified 01/04/23 12:45 Family History Mother Diabetes Father Heart disease Surgical History History of left heart catheterization (11/11/16) Social History Smoking Status: Current every day smoker tobacco type: cigarettes ROS ROS ED Constitutional Constitutional ED: Denies chills or fever(s) Eyes Eyes: Denies change in vision or diplopia ENT ENT ED: Denies rhinorrhea or sore throat Cardiovascular Cardiovascular: Denies chest pain or palpitations Respiratory/Chest Respiratory/Chest: Denies cough or dyspnea Gastrointestinal Gastrointestinal: Denies abdominal pain or constipation Genitourinary Genitourinary ED: Denies dysuria or hematuria Musculoskeletal Musculoskeletal: Reports neck pain; Denies back pain or myalgias Integumentary Denies abscess Neurologic Neurologic: Denies headache(s) Psychiatric Psychiatric: Denies anxiety EXAM Physical Exam Const Vital Signs: 04/15/23 01:14 Temperature 97.6 F L Temperature Source Temporal Pulse Rate 86 Respiratory Rate 15 Blood Pressure 125/85 H Blood Pressure Mean 98 Pulse Ox 100 Oxygen Delivery Method Room Air Positive well nourished General Appearance ED: NAD HEENT Reports moist mucous membranes Eyes PERRL and EOMs intact bilaterally Chest Wall inspection of chest normal Resp normal respiratory effort Cardio regular rate and regular rhythm Back/Spine Back/Spine Narrative: Cervical paraspinal musculature tenderness and extends into the left trapezius. Difficulty with head turning both to the right and the left. Limited range of motion. Difficulty with extension of the neck. No midline deformity or step- off. Neuro oriented x3 and CN's II-XII intact bilaterally Sensorium / Orientation: alert Psych mental status grossly normal MDM MDM MDM Narrative Medical decision making narrative: Patient with chronic neck pain. He has not followed up for this. He does state that he has had images including MRI of his neck. He states that he has not a referral to a specialist in spine as of yet. Patient given Norflex and Toradol in the ED. given that he had advanced imaging I will just give him a referral to orthopedics. He will be started on muscle relaxers and NSAIDs. Return precautions discussed Impression: 1. Chronic neck pain Discharge Plan Triage Chief Complaint: Upper Extremity Injury ED Provider: Alphonso Tapia Dx/Rx/DC Orders Prescriptions: No Action albuterol sulfate [Ventolin HFA] 90 mcg/actuation HFA aerosol inhaler 1 - 2 puff inhalation Q4H PRN PRN (Reason: Wheezing) Qty: 1 0RF Primary Care Provider: Mayuri Payne Referrals: Mayuri Payne MD [Primary Care Provider] -
[2023-04-15] MEDS: Ketorolac 15 MG/ML Vial IM (02:38)
[2023-04-15] MEDS: cycloBENZAPRine HCl 10 MG Tablet PO (02:38)
[2023-04-15 02:56] VITALS: BP 125/74; PULSE 74; RESP 18; O2SAT 97
== END 2023-04-15 03:00 | disposition home or self-care (01) ==
LOC: ED 02:41
PROVIDERS: Emergency Provider Student in an Organized Health Care Education/Training Program; PCP Internal Medicine; Visit Provider Student in an Organized Health Care Education/Training Program
DX: G89.29 Other chronic pain (principal); F17.210 Nicotine dependence, cigarettes, uncomplicated; M54.2 Cervicalgia; I10 Essential (primary) hypertension; J45.909 Unspecified asthma, uncomplicated; Z79.899 Other long term (current) drug therapy
CPT/HCPCS: 96372; 99282

== ENCOUNTER 2023-10-06 21:10 | Observation (INO) | payer MEDICAID, SELFPAY ==
[2023-10-06 21:15] VITALS: BP 118/62; PULSE 56; RESP 19; TEMP 36.9; O2SAT 96; BMI 19.6
[2023-10-06 21:33] VITALS: BP 111/77; PULSE 57; RESP 12; O2SAT 97
--- NOTE | 2023-10-06 21:41 | CT_ITS ---
INDICATION: altered mental status EXAMINATION: CT BRAIN - CT Head or Brain W/O Contrast Injection TECHNIQUE: Multiple axial images were obtained of the head without intravenous contrast. A radiation dose optimization technique was used for this scan. IV Contrast dosage and agent: None. RADIATION DOSAGE (If Supplied By Facility): CTDIvol = ( 44.99 ) mGy, DLP = ( 812.98 ) mGycm COMPARISON: CT head 06/16/2022 FINDINGS: BRAIN: No acute bleed. No edema. Vyas-white matter differentiation is maintained. VENTRICLES AND SULCI: Not dilated. EXTRA-AXIAL: No hemorrhage, fluid collection, or mass. CALVARIUM / SKULL BASE: Unremarkable. FACE/SINUSES: Mucosal thickening in the maxillary sinuses with a small polyp or retention cyst in the left maxillary sinus. SOFT TISSUES: Unremarkable. CT/Brain/Head without Contrast IMPRESSION: No acute abnormality. CT angiogram and/or MRI may be helpful to evaluate for acute infarct as clinically indicated. Electronically Signed: Shana Geiger MD at 22:52 EST ,
--- NOTE | 2023-10-06 21:51 | EX.ED.DYSGE1 ---
HPI History of Present Illness Chief Complaint: Alt LOC Informant: patient and EMS Narrative Narrative: Limited history on this 58-year-old male who was brought by EMS because he apparently was sitting in his car for hours at a gas station and then seemed confused when somebody checked on him. He is confused and does not know why he is here. When asked questions, he points that his right hand and states you need to get it out. When asked what he is referring to, he states the cigarettes. Get them out of the room. He is obviously confused. He denies being in any pain. PFSH PFS Medical History Asthma Chest pain of uncertain etiology Chronic hyponatremia Cold intolerance Depression History of bronchitis History of pneumonia Hypertension Nicotine dependence Orthostatic hypotension Pulmonary fibrosis Pulmonary hypertension Rheumatoid arthritis Sleep apnea Syncope and collapse Syncope, near Weight loss, abnormal Home Medications albuterol sulfate 90 mcg/actuation aerosol inhaler (Ventolin HFA) 1 - 2 puff inhalation Q4H PRN PRN Wheezing #1 inh 01/24/23 [Rx Last Taken Unknown] cyclobenzaprine 10 mg tablet 10 mg PO TID PRN Muscle Spasm #20 TABLETS 04/15/23 [Rx Last Taken Unknown] naproxen 500 mg tablet (Naprosyn) 500 mg PO BID PRN pain #20 tabs 04/15/23 [Rx Last Taken Unknown] Allergy/AdvReac Type Severity Reaction Status Date / Time No Known Allergies Allergy Verified 01/04/23 12:45 Family History Mother Diabetes Father Heart disease Surgical History History of left heart catheterization (11/11/16) Social History Smoking Status: Unknown if ever smoked ROS ROS ED Review of Systems ROS Unobtainable: due to mental status Cardiovascular Cardiovascular: Denies chest pain Gastrointestinal Gastrointestinal: Denies abdominal pain Musculoskeletal Musculoskeletal: Denies back pain or neck pain Neurologic Neurologic: Denies headache(s) EXAM Physical Exam Const Vital Signs: 10/06/23 21:15 10/06/23 21:33 10/07/23 00:59 Temperature 98.5 F Temperature Source Temporal Pulse Rate 56 L 57 L 52 L Respiratory Rate 19 H 12 17 Respiratory Effort Blood Pressure 118/62 111/77 107/76 Blood Pressure Mean 80 88 86 Pulse Ox 96 97 95 Oxygen Delivery Method Room Air Room Air 10/07/23 01:01 10/06/23 21:45 Temperature Temperature Source Pulse Rate 52 L Respiratory Rate 13 Respiratory Effort Non-Labored Blood Pressure 99/78 Blood Pressure Mean 85 Pulse Ox 96 Oxygen Delivery Method Room Air Positive well nourished and well developed General Appearance ED: well developed and NAD HEENT Reports moist mucous membranes HEENT Narrative: Oral membranes moist. Edentulous. POP clear. normocephalic and atraumatic Eyes PERRL and EOMs intact bilaterally Neck full ROM, no lymphadenopathy and supple Resp normal respiratory effort and clear to auscultation bilaterally Cardio regular rate, regular rhythm and no murmurs Rate: other Other Details: Borderline bradycardia GI non-tender and non-distended Auscultation: normoactive bowel sounds Palpation: soft Back/Spine no CVA tenderness General Back: other FROM Extremity normal to inspection General Extremety ED: Negative for edema, pulses abnormal or tenderness General Extremity: Negative for edema or pulses abnormal Neuro CN's II-XII intact bilaterally and no sensory deficits noted Neuro Narrative: Oriented to the city and to person but not time or place otherwise. Had to be told he was in the hospital. Normal speech when he does talk, just confused. Nonlateralizing neurologic exam otherwise. Sensorium / Orientation: awake, alert and orientation impaired Motor Exam: strength 5/5 throughout Skin no rashes or lesions noted and no wounds MDM MDM MDM Narrative Medical decision making narrative: Workup performed for delirium/encephalopathy, including CT of the head, which I reviewed as well as the report which is negative, I agree with the report. He has leukopenia, but he is negative for COVID and as well as influenza. He has some mild EVANGELIST which may be due to dehydration it is a prerenal pattern. His urinalysis is negative for infection. 1 view chest x-ray is also negative for pneumonia my interpretation. Alcohol and drug screen are both negative. He is not a known alcoholic, he has been here multiple times before and not has not been an issue, and he denies using any alcohol or drugs at all. Cardiac workup unremarkable. Vital signs of remained normal. Psychiatric disease is in the differential diagnosis, however he has a history of depression in the EMR and not necessarily psychosis, I think he is going to need further workup before assuming that this could be psychiatric in etiology. He denies having any visual or auditory hallucinations when I asked him directly. When I asked him if he remembers being in his car earlier, he states he was tired, states he was on his way home from work, but he cannot tell me why he was in his car at a gas station for a long period of time. He denies being homeless. History & Record Review Additional record(s) reviewed:: Prior ED visit and Prior labs Lab Data Attestation: I reviewed the patient's lab results. Labs: Laboratory Results - last 24 hr 10/06/23 10/06/23 10/06/23 21:51 22:00 23:10 WBC 4.0 L RBC 4.65 Hgb 14.1 Hct 41.9 MCV 90.1 MCH 30.3 MCHC 33.7 RDW Std Deviation 40.5 RDW Coeff of Juan David 12.3 Plt Count 120 L MPV 10.1 Immature Gran % (Auto) 0.300 Neut % (Auto) 77.8 H Lymph % (Auto) 12.8 L [place] % (Auto) 8.8 Eos % (Auto) 0.0 Baso % (Auto) 0.3 Absolute Neuts (auto) 3.1 Absolute Lymphs (auto) 0.51 L Nucleated RBC % 0 Differential Comment SEE COMMENT Diff Path Review May foll Platelet Estimate MOD DEC RBC Morphology N CHROM Anisocytosis 1+ Macrocytosis RARE Sodium 136 Potassium 4.1 Chloride 103 Carbon Dioxide 27.0 Anion Gap 6 BUN 39 H Creatinine 1.39 H Estim Creat Clear Calc 58.25 Est GFR (MDRD) Af Amer 68 Est GFR (MDRD) Non-Af 56 L BUN/Creatinine Ratio 28.1 H Glucose 106 Calcium 8.9 Total Bilirubin 0.50 AST 24 ALT 25 Alkaline Phosphatase 75 Troponin I High Sens 7 Total Protein 7.2 Albumin 3.5 Globulin 3.7 Albumin/Globulin Ratio 0.9 Urine Color Yellow Urine Clarity Clear Urine pH 5.0 Ur Specific [place] 1.025 Urine Protein 30 H Urine Glucose (UA) Normal Urine Ketones 5 H Urine Occult Blood 50 H Urine Nitrite Negative Urine Bilirubin Negative Urine Urobilinogen 1 H Ur Leukocyte Esterase Negative Urine RBC 0-5 SEEN Urine WBC 0 SEEN Ur Squamous Epith Cells 0 SEEN Urine Bacteria RARE Urine Mucus 0 SEEN Urine Opiates Screen NEGATIVE Urine Methadone Screen NEGATIVE Ur Barbiturates Screen NEGATIVE Ur Phencyclidine Scrn NEGATIVE Ur Amphetamines Screen NEGATIVE MDMA (Ecstasy) Screen NEGATIVE U Benzodiazepines Scrn NEGATIVE Urine Cocaine Screen NEGATIVE U Cannabinoids Screen NEGATIVE Ur Drug Screen Comment Ethyl Alcohol 3.0 POC Glucose 98 Radiography Diagnostic Testing: Clinical Impression(s) from Imaging Studies Brain CT 10/06/23 21:41 IMPRESSION: No acute abnormality. CT angiogram and/or MRI may be helpful to evaluate for acute infarct as clinically indicated. Electronically Signed: Shana Geiger MD at 22:52 EST , Chest X-Ray 10/07/23 00:20 IMPRESSION: No evidence of active intrathoracic disease. Electronically Signed: Shana Geiger MD at 0:56 EST , Rhythm Strip Rhythm Strip: Sinus Rhythm Rate: 55 Ectopy: None EKG Initial EKG: Attestation: I personally reviewed and interpreted this EKG as follows: Interpretation: No Acute Injury Pattern and Sinus Bradycardia Management Discussion w/another healthcare provider: Hospitalist Discharge Plan Dx/Rx/DC Orders Clinical Impression: Acute encephalopathy, EVANGELIST (acute kidney injury) Disposition Disposition: Acute Care [facility]
[2023-10-06 22:15] LABS: Absolute Lymphocyte Count 0.51 X10^3/uL (0.83-4.51); Absolute Neutrophil Count 3.1 X10^3/uL (2.0-7.7); Basophil# 0.01 X10^3/uL; Basophil% 0.3 % (0-1); Hematocrit 41.9 % (40-54); Hemoglobin 14.1 g/dL (13.0-16.5); Lymphocyte # 0.51 X10^3/ul (0.83-4.51); Lymphocyte % 12.8 % (19-41); Mean Corp Hgb Conc 33.7 g/dL (32-36); Mean Corpuscular Hgb 30.3 pg (27.0-32.0); Mean Corpuscular Volume 90.1 fL (80-94); Mean Platelet Vol. 10.1 fl (6.2-12.0); Monocyte# 0.35 X10^3/uL; Monocyte% 8.8 % (0-10); NRBC Flagged by Analyzer 0 % (0-5); Neutrophil % 77.8 % (47-70); POSITIVE DIFFERENTIAL YES; Platelet Count 120 K/mm3 (150-450); RBC Distribution Width CV 12.3 % (11.6-14.6); RBC Distribution Width SD 40.5 fl (35.1-43.9); Red Blood Count 4.65 M/mm3 (4.6-6.2)
[2023-10-06 22:16] LABS: Differential Indicated SCAN CRITERIA MET
[2023-10-06 22:20] LABS: Bedside Glucose 98 mg/dL (74-106)
[2023-10-06 22:44] LABS: ALB/GLOB Ratio 0.9 RATIO (0.9-2.4); AST(SGOT) 24 U/L (15-37); Alanine Aminotransfer ALT/SGPT 25 U/L (16-61); Albumin, Serum 3.5 g/dL (3.2-5.0); Alkaline Phosphatase 75 U/L (45-117); Anion Gap 6 (5-15); BUN 39 mg/dL (7-18); BUN/Creat Ratio 28.1 RATIO (10-20); Calcium,Total 8.9 mg/dL (8.5-10.1); Chloride 103 mmol/L (98-107); Creatinine, Serum 1.39 mg/dL (0.70-1.30); EST Glomerular Filtration Rate 56 mL/min (>60); Est Glom Filt Rate - Afr Amer 68 mL/min (>60); Estimated Creatinine Clearance 58.25 ml/min; Globulin 3.7 g/dL (2.2-4.2); Glucose 106 mg/dL (74-106); Potassium 4.1 mmol/L (3.5-5.1); Protein, Total 7.2 g/dL (6.4-8.2); Sodium Level 136 mmol/L (136-145); Troponin-I HS 7 pg/mL (3.0-78.0)
[2023-10-06 22:59] LABS: Platelet Estimate MOD DEC (ADEQ); Red Cell Morphology N CHROM NORMAL (NORM C&C)
[2023-10-06 23:00] LABS: Anisocytosis 1+; Macrocytosis RARE
[2023-10-06 23:20] LABS: Mucous, Urine 0 SEEN /hpf (<or=2+); Squamous Epithelial Cells - UA 0 SEEN /hpf (0-5); White Blood Cells 0 SEEN /hpf (0-5)
[2023-10-06 23:27] LABS: Color, Urine Yellow (Yellow); Glucose, Dipstick Normal (Normal); Ketone-Dipstick 5 mg/dl (Negative); Leukocyte Esterase-Dipstick Negative /ul (Negative); Nitrite-Dipstick Negative (Negative); Occult Blood-Urine 50 /ul (Negative); Protein-Dipstick 30 mg/dl (Negative); Specific Gravity, Urine 1.025 (1.002-1.030); Urine Bilirubin Dipstick Negative (Negative); Urine Clarity Clear (Clear); Urine Urobilinogen 1 mg/dl (Normal)
[2023-10-06 23:52] LABS: Bacteria RARE /hpf (None Seen); Red Blood Cells-Urine 0-5 SEEN /hpf (0-5)
[2023-10-07] VITALS (13 sets, daily range): BP systolic 97–108; BP diastolic 64–86; PULSE 52–55; RESP 13–18; TEMP 36.6–37.4; O2SAT 95–100; BMI 18.8
[2023-10-07] LABS: Amphetamine Urine VISTA NEGATIVE (<1000 ng/mL); Barbiturate Urine VISTA NEGATIVE (< 200 ng/mL); Benzodiazepine Urine VISTA NEGATIVE (< 200 ng/mL); Cocaine Urine VISTA NEGATIVE (< 300 ng/mL); Ecstacy Urine VISTA NEGATIVE (< 500 ng/mL); Methadone Urine VISTA NEGATIVE (< 300 ng/mL); PCP Urine VISTA NEGATIVE (< 25 ng/mL); THC Urine VISTA NEGATIVE (< 50 ng/mL); Vista UDS pH Range 4
--- NOTE | 2023-10-07 00:20 | RAD_ITS ---
INDICATION: altered LOC EXAMINATION/TECHNIQUE: X-RAY - XR Chest 1 View AP portable. 12:15 AM COMPARISON: 01/24/2023 FINDINGS: LINES/DEVICES: None. LUNGS: No consolidation. No pneumothorax. MEDIASTINUM: Unremarkable. CARDIAC SILHOUETTE: Not enlarged. BONES AND SOFT TISSUES: No acute abnormalities. RAD/Chest 1 View (Portable) IMPRESSION: No evidence of active intrathoracic disease. Electronically Signed: Shana Geiger MD at 0:56 EST ,
--- NOTE | 2023-10-07 00:54 | PCM.HP.STD ---
HPI - General General Date of Admission: 10/07/23 Date of Service: 10/07/23 Chief Complaint: Altered mental status HPI Narrative ARIEL KEATING, is a 58 M who presented to [facility] ED on 10/07/2023 via EMS with altered mental status. Patient seen at bedside in the ED. Patient was alert and laying comfortably in bed. However, he was not answering most questions appropriately. He was oriented to person and place, but not time. Was able to tell me his full name and date of , and told me he was at [facility]. However he thought the year was 2002 or 2003. He was unable to tell me what month it was. He was unable to tell me what was happening with him earlier today and why he came to the emergency department. He reported mild left-sided neck discomfort but otherwise denied any acute pain or discomfort. Denied any chest pain, shortness of breath, fevers or chills, abdominal pain. Patient stated that he lives in [place] with his , and pointed to an empty chair to his right when stating he lived with his . He was unable to tell me who the president of was. Was unable to give any further details regarding his current situation or medical history. Per ED staff, patient has come to the [facility] ED multiple times but has never had altered mentation like this. Patient was apparently seen sitting in his car for hours at a gas station earlier today, and when someone checked on him he seemed confused so EMS was called. No other acute concerns at this time. [facility] Medical History Asthma Chest pain of uncertain etiology Chronic hyponatremia Cold intolerance Depression History of bronchitis History of pneumonia Hypertension Nicotine dependence Orthostatic hypotension Pulmonary fibrosis Pulmonary hypertension Rheumatoid arthritis Sleep apnea Syncope and collapse Syncope, near Weight loss, abnormal Home Medications albuterol sulfate 90 mcg/actuation aerosol inhaler (Ventolin HFA) 1 - 2 puff inhalation Q4H PRN PRN Wheezing #1 inh 01/24/23 [Rx Last Taken Unknown] cyclobenzaprine 10 mg tablet 10 mg PO TID PRN Muscle Spasm #20 TABLETS 04/15/23 [Rx Last Taken Unknown] naproxen 500 mg tablet (Naprosyn) 500 mg PO BID PRN pain #20 tabs 07/06/23 [Rx Last Taken Unknown] Allergy/AdvReac Type Severity Reaction Status Date / Time No Known Allergies Allergy Verified 01/04/23 12:45 Family History Mother Diabetes Father Heart disease Family History unable to obtain Surgical History History of left heart catheterization (11/11/16) Social History Smoking Status: Current every day smoker tobacco type: cigarettes ROS Constitutional Constitutional: Denies chills, fatigue, fever(s) or weakness Eyes Eyes: Denies change in vision Cardiovascular Cardiovascular: Denies chest pain Respiratory/Chest Respiratory/Chest: Denies cough Gastrointestinal Gastrointestinal: Denies abdominal pain Musculoskeletal Musculoskeletal: Reports neck pain; Denies back pain Neurologic Neurologic: Denies dizziness or headache(s) Vital Signs Vital Signs Vital Signs: 10/06/23 21:15 10/06/23 21:33 Temperature 98.5 F Temperature Source Temporal Pulse Rate 56 L 57 L Respiratory Rate 19 H 12 Blood Pressure 118/62 111/77 Blood Pressure Mean 80 88 Pulse Ox 96 97 Oxygen Delivery Method Room Air Weight Weight: 69.4 kg Body Mass Index (BMI) 19.6 Physical Exam Const alert and no apparent distress Constitutional Narrative: Middle aged male, thin, unkempt appearing, laying fairly comfortably in bed, in no acute distress. Alert and oriented to person and place, not oriented to time and otherwise not answering most questions appropriately. General Appearance: cooperative Orientation / Consciousness: confused and disoriented HEENT normocephalic, head/scalp atraumatic, hearing grossly normal bilaterally and nasal mucous membranes and turbinates normal HEENT Narrative: Dry mucous membranes. Eyes PERRL, EOMs intact bilaterally and conjunctivae normal Neck full ROM, no lymphadenopathy and supple Lymph Lymphatic: no lymphadenopathy noted Chest inspection of chest normal Resp normal respiratory effort, normal air movement, no use of accessory muscles and clear to auscultation bilaterally Cardio no murmurs and peripheral pulses 2+ throughout Cardio Narrative: Sinus bradycardia. GI normal to inspection, nondistended, normoactive bowel sounds, soft to palpation, non-tender and non-distended Back/Spine normal ROM Extremity normal to inspection, full ROM and no pedal edema Skin no rashes or lesions noted Neuro moves all extremities and no focal motor deficits Neuro Narrative: Had difficulty following commands with neurologic exam. Did not squeeze either hand tightly, was trying to pull my hands and toward him. Did lift both legs spontaneously without issue. Had significant difficulty tracking my finger with his eyes, but no clear pattern noted. Results Lab / Micro Data 10/06/23 22:00 10/06/23 22:00 Labs: Laboratory Results - last 24 hr 10/06/23 21:51: POC Glucose 98 10/06/23 22:00: WBC 4.0 L, RBC 4.65, Hgb 14.1, Hct 41.9, MCV 90.1, MCH 30.3, MCHC 33.7, RDW Std Deviation 40.5, RDW Coeff of Juan David 12.3, Plt Count 120 L, MPV 10.1, Immature Gran % (Auto) 0.300, Neut % (Auto) 77.8 H, Lymph % (Auto) 12.8 L, [place] % (Auto) 8.8, Eos % (Auto) 0.0, Baso % (Auto) 0.3, Absolute Neuts (auto) 3.1, Absolute Lymphs (auto) 0.51 L, Nucleated RBC % 0, Differential Comment SEE COMMENT, Diff Path Review May foll, Platelet Estimate MOD DEC, RBC Morphology N CHROM, Anisocytosis 1+, Macrocytosis RARE, Sodium 136, Potassium 4.1, Chloride 103, Carbon Dioxide 27.0, Anion Gap 6, BUN 39 H, Creatinine 1.39 H, Estim Creat Clear Calc 58.25, Est GFR (MDRD) Af Amer 68, Est GFR (MDRD) Non-Af 56 L, BUN/Creatinine Ratio 28.1 H, Glucose 106, Calcium 8.9, Total Bilirubin 0.50, AST 24, ALT 25, Alkaline Phosphatase 75, Troponin I High Sens 7, Total Protein 7.2, Albumin 3.5, Globulin 3.7, Albumin/Globulin Ratio 0.9, Ethyl Alcohol 3.0 10/06/23 23:10: Urine Color Yellow, Urine Clarity Clear, Urine pH 5.0, Ur Specific [place] 1.025, Urine Protein 30 H, Urine Glucose (UA) Normal, Urine Ketones 5 H, Urine Occult Blood 50 H, Urine Nitrite Negative, Urine Bilirubin Negative, Urine Urobilinogen 1 H, Ur Leukocyte Esterase Negative, Urine RBC 0-5 SEEN, Urine WBC 0 SEEN, Ur Squamous Epith Cells 0 SEEN, Urine Bacteria RARE, Urine Mucus 0 SEEN, Urine Opiates Screen NEGATIVE, Urine Methadone Screen NEGATIVE, Ur Barbiturates Screen NEGATIVE, Ur Phencyclidine Scrn NEGATIVE, Ur Amphetamines Screen NEGATIVE, MDMA (Ecstasy) Screen NEGATIVE, U Benzodiazepines Scrn NEGATIVE, Urine Cocaine Screen NEGATIVE, U Cannabinoids Screen NEGATIVE, Ur Drug Screen Comment Micro: Microbiology 10/06/23 22:01 Nasal Secretion SARS-CoV-2 & FLU Antigen (Rapid) - Final Rhythm Strip Rhythm Strip: Sinus Rhythm Rate: 55 Ectopy: None Imagaing Radiology Impression Brain CT 10/06/23 21:41 IMPRESSION: No acute abnormality. CT angiogram and/or MRI may be helpful to evaluate for acute infarct as clinically indicated. Electronically Signed: Shana Geiger MD at 22:52 EST , Assessment & Plan Assessment/Plan (1) Altered mental status: PLAN: Plan Patient is a 58-year-old male who presented to [facility] ED on 10/07/2023 with altered mental status. 1. Altered mental status Unclear etiology at this point. CT brain without contrast unremarkable. Labs fairly benign. Chest x-ray with mild hyperinflation noted, however ABG normal, no hypercapnia noted. Urine drug screen negative, alcohol level 0. Hemodynamically stable, afebrile, low concern for infection. ? Admit under observation status to PCU. Teleneurology consulted. Orders placed per stroke order set. MRI brain without contrast ordered. Spot EEG ordered. Seems less likely psychiatric illness but cannot rule out. 2. Mild thrombocytopenia ? Platelets 120 on admit. Previous platelet counts ranging from 150s to 210s. Follow-up a.m. CBC. 3. Mild creatinine elevation, EVANGELIST ruled out ? Creatinine 1.39, BUN 39 on admit. Baseline creatinine 1.0-1.3. Maintenance IV fluids started in the ED as patient appeared dry on exam. Follow-up a.m. BMP. Chronic medical conditions: ? History of depression: Was previously on duloxetine, not currently on any medications per home med list. ? History of cigarette [id number]-year history noted in outpatient cardiology note in 2020. Unclear if patient is a current smoker at this time. ? History of alcohol abuse: Noted in cardiology note from 2020 that patient had previous history of heavy alcohol use. Unclear if patient is a current alcohol user, alcohol level notably 0 on admit. DVT prophylaxis: SCDs CODE STATUS: Full code, unverified Expected disposition: TBD Total clinical time spent by myself addressing the patient's medical issues, reviewing all the data, and collaborating with patient's care team: 55 minutes. Charges/Coding Visit Charges Inpatient E&M: 08537 Init Hosp L2
--- NOTE | 2023-10-07 01:05 | MRI_ITS ---
STUDY: MRI BRAIN WITHOUT CONTRAST REASON FOR EXAM: Male, 58 years old. RULE OUT CVA, LATERED MENTAL STATUS, CONFUSION TECHNIQUE: Standardized multiplanar fat and water weighted pulse sequences were obtained. COMPARISON: CT brain October 06, 2023. MR brain the fifth 2021.. FINDINGS: Normal size of the ventricles and extra-axial spaces for the patient''s age. Normal white matter tracts of the supratentorial brain. Normal bilateral basal ganglia. Normal thalami. There is no extra-axial fluid accumulation. Normal flow voids within the major intracranial circulation suggesting patency by spin echo criteria. Normal sella turcica, pituitary gland, infundibular stalk, optic chiasm and hypothalamus. Normal tectal plate and pineal gland. Normal midbrain, mariana and medulla. Normal cerebellum. Normal basal cisterns. Normal bilateral temporal bones. Normal bilateral internal auditory canals. No demonstrated orbital abnormality, within the constraints of a routine brain study. Normal visualized paranasal sinuses. Normal calvarium and skull base. Normal visualized soft tissue structures. Normal visualized upper cervical spine. MRI/Brain without Contrast IMPRESSION: Normal unenhanced MRI of the brain. Electronically Signed: Raul Glass MD at 17:39 EST ,
--- NOTE | 2023-10-07 01:11 | ED.RN ---
Pt unable to recall home medications.
[2023-10-07 01:56] LABS: Thyroid Stim Hormone (TSH) 0.71 uIU/mL (0.358-3.74)
[2023-10-07 02:08] LABS: Blood Gas Specimen Type VEN; O2 Delivery Device Room Air; SITE L Radial; VBG BASE EXCESS -2 mmol/L (-1.0-3.5); VBG Bicarbonate 23 mmol/L (22-26); VBG PO2 27 mmHg (25-40); VBG SO2 52 % (50-70); VBG TCO2 24 mmol/L (23-33); VBG pH 7.42 (7.32-7.42)
[2023-10-07 02:45] LABS: Hemoglobin A1c 5.6 % (3.8-5.6)
[2023-10-07] MEDS: 0.9% Normal Saline (1000mL) 1,000 ML 150 ML IV ×2 (04:47→12:00)
[2023-10-07 06:38] LABS: Hematocrit 39.4 % (40-54); Mean Corpuscular Hgb 30.4 pg (27.0-32.0); Mean Corpuscular Volume 92.1 fL (80-94); Mean Platelet Vol. 10.1 fl (6.2-12.0); Platelet Count 105 K/mm3 (150-450); RBC Distribution Width SD 40.7 fl (35.1-43.9); Red Blood Count 4.28 M/mm3 (4.6-6.2); White Blood Count 4.4 K/mm3 (4.4-11.0)
[2023-10-07 07:01] LABS: Anion Gap 6 (5-15); BUN 32 mg/dL (7-18); BUN/Creat Ratio 28.8 RATIO (10-20); Calcium,Total 8.5 mg/dL (8.5-10.1); Chloride 106 mmol/L (98-107); Creatinine, Serum 1.11 mg/dL (0.70-1.30); EST Glomerular Filtration Rate 73 mL/min (>60); Est Glom Filt Rate - Afr Amer 88 mL/min (>60); Glucose 94 mg/dL (74-106); Potassium 3.6 mmol/L (3.5-5.1); Sodium Level 137 mmol/L (136-145)
[2023-10-07 07:50] LABS: Cholesterol 178 mg/dL (200); High Density Lipoprotein 37 mg/dL; Triglycerides 98 mg/dL; Very Low Density Lipoprotein 20 mg/dL (5-40)
--- NOTE | 2023-10-07 08:33 | PN.HOSP_ITS ---
Reason for Visit Reason for Visit: Diagnoses Altered mental status, unspecified (10/07/23) Objective Data Objective Data Vital Signs: Vital Signs Temp Pulse Resp BP Pulse Ox O2 Del Method 97.8 F 55 L 14 107/73 99 Room Air 10/07/23 06:23 10/07/23 06:23 10/07/23 06:23 10/07/23 06:23 10/07/23 06:23 10/07/23 06:23 Oxygen Delivery Method Room Air Weight: 146 lb 13.246 oz Body Mass Index (BMI) 18.8 Intake & Output: Intake and Output for Last 24 Hours 10/05/23 10/06/23 10/07/23 23:59 23:59 23:59 Output Total Balance -1 Lab / Micro Data 10/07/23 06:28 10/07/23 06:28 Labs: Laboratory Results - last 24 hr 10/06/23 21:51: POC Glucose 98 10/06/23 22:00: WBC 4.0 L, RBC 4.65, Hgb 14.1, Hct 41.9, MCV 90.1, MCH 30.3, MCHC 33.7, RDW Std Deviation 40.5, RDW Coeff of Juan David 12.3, Plt Count 120 L, MPV 10.1, Immature Gran % (Auto) 0.300, Neut % (Auto) 77.8 H, Lymph % (Auto) 12.8 L, [place] % (Auto) 8.8, Eos % (Auto) 0.0, Baso % (Auto) 0.3, Absolute Neuts (auto) 3.1, Absolute Lymphs (auto) 0.51 L, Nucleated RBC % 0, Differential Comment SEE COMMENT, Diff Path Review May foll, Platelet Estimate MOD DEC, RBC Morphology N CHROM, Anisocytosis 1+, Macrocytosis RARE, Sodium 136, Potassium 4.1, Chloride 103, Carbon Dioxide 27.0, Anion Gap 6, BUN 39 H, Creatinine 1.39 H, Estim Creat Clear Calc 58.25, Est GFR (MDRD) Af Amer 68, Est GFR (MDRD) Non-Af 56 L, BUN/Creatinine Ratio 28.1 H, Glucose 106, Hemoglobin A1c 5.6, Calcium 8.9, Total Bilirubin 0.50, AST 24, ALT 25, Alkaline Phosphatase 75, Troponin I High Sens 7, Total Protein 7.2, Albumin 3.5, Globulin 3.7, Albumin/Globulin Ratio 0.9, TSH 0.71, Ethyl Alcohol 3.0 10/06/23 23:10: Urine Color Yellow, Urine Clarity Clear, Urine pH 5.0, Ur Specif ic [place] 1.025, Urine Protein 30 H, Urine Glucose (UA) Normal, Urine Ketones 5 H, Urine Occult Blood 50 H, Urine Nitrite Negative, Urine Bilirubin Negative, Urine Urobilinogen 1 H, Ur Leukocyte Esterase Negative, Urine RBC 0-5 SEEN, Urine WBC 0 SEEN, Ur Squamous Epith Cells 0 SEEN, Urine Bacteria RARE, Urine Mucus 0 SEEN, Urine Opiates Screen NEGATIVE, Urine Methadone Screen NEGATIVE, Ur Barbiturates Screen NEGATIVE, Ur Phencyclidine Scrn NEGATIVE, Ur Amphetamines Screen NEGATIVE, MDMA (Ecstasy) Screen NEGATIVE, U Benzodiazepines Scrn NEGATIVE, Urine Cocaine Screen NEGATIVE, U Cannabinoids Screen NEGATIVE, Ur Drug Screen Comment 10/07/23 06:28: WBC 4.4, RBC 4.28 L, Hgb 13.0, Hct 39.4 L, MCV 92.1, MCH 30.4, MCHC 33.0, RDW Std Deviation 40.7, RDW Coeff of Juan David 12.0, Plt Count 105 L, MPV 10.1, Sodium 137, Potassium 3.6, Chloride 106, Carbon Dioxide 25.0, Anion Gap 6, BUN 32 H, Creatinine 1.11, Estim Creat Clear Calc 70.00, Est GFR (MDRD) Af Amer 88, Est GFR (MDRD) Non-Af 73, BUN/Creatinine Ratio 28.8 H, Glucose 94, Calcium 8.5, Triglycerides 98, Cholesterol 178, LDL Cholesterol 121, VLDL Cholesterol 20, HDL Cholesterol 37 L Micro: Microbiology 10/06/23 22:01 Nasal Secretion SARS-CoV-2 & FLU Antigen (Rapid) - Final ABG Data ABG results: ABG 10/07/23 02:05 Specimen Type JORGE Sample Site L Radial VBG pH 7.42 VBG pO2 27 VBG HCO3 23 VBG Total CO2 24 VBG O2 Sat (Calc) 52 VBG Base Excess -2 L POC Mix VBG pCO2 Pt Tmp 35.0 L O2 Delivery Device Room Air Radiography Diagnostic Testing: Radiology Impression Brain CT 10/06/23 21:41 IMPRESSION: No acute abnormality. CT angiogram and/or MRI may be helpful to evaluate for acute infarct as clinically indicated. Electronically Signed: Shana Geiger MD at 22:52 EST , Chest X-Ray 10/07/23 00:20 IMPRESSION: No evidence of active intrathoracic disease. Electronically Signed: Shana Geiger MD at 0:56 EST , Rhythm Strip Rhythm Strip: Sinus Rhythm Rate: 55 Ectopy: None Physical Exam Narrative Seen and examined. Patient is noncommunicative. Does not respond to the single question. Blank look. Mute Physical exam General: Awake. Looks confused and disoriented. HEENT: Atraumatic, PERRLA, EOMI, Normocephalic Oral: Oral mucosa dry. No Gingival or Mucosal Lesions/ Ulcerations Neck: Supple, No JVD, Negative Carotid Bruits Lungs: Air entry diminished in bilateral lung bases. No crepitation/rhonchi Cardiovascular: Regular rate, Regular Rhythm, Normal S1, Normal S2, No murmurs Abdomen: Bowel Sounds Present, Soft, Non Tender, Non-Distended : No renal angle tenderness. No suprapubic tenderness. Extremities: No edema, Capillary Refill Less than 3 Seconds Skin: No rashes, No breakdown Musculoskeletal: Mild to moderate muscle atrophy of extremities, spinal muscles and intercostal muscles. Loss of subcutaneous fat. ROM restricted. Neurological: Neuroexam difficult to obtain. Confused, disoriented. Does not follow commands. Mute. Obtunded. Psych/Mental Status: Flat affect. Assessment & Plan Assessment/Plan (1) Altered mental status: PLAN: Plan Patient is a 58-year-old male who presented to [facility] ED on 10/07/2023 with altered mental status, confused and disoriented. 1. Altered mental status, unclear: Patient was found in the car in confused state.Patient is not answering any questions. MRI questioner could not be completed and therefore chest abdomen pelvis x-rays were ordered rule out metallic object as contraindication for MRI. CT brain without contrast unremarkable. Patient had mild thrombocytopenia 105,000. Chest x-ray with mild hyperinflation noted, however ABG normal, no hypercapnia noted. Urine drug screen negative, alcohol level 0. Hemodynamically stable, afebrile, low concern for infection. Discussed with the teleneurologist. EEG is ordered. Serum ammonia ordered which is normal. VBG pH 7.42 total CO2 24. 2. Mild thrombocytopenia ? Platelets 120 on admit. Previous platelet counts ranging from 150s to 210s. Platelet count repeat 105,000. 3. Mild creatinine elevation, EVANGELIST ruled out ? Creatinine 1.39, BUN 39 on admit. Baseline creatinine 1.0-1.3. Maintenance IV fluids started in the ED as patient appeared dry on exam. Repeat creatinine 1.1 Chronic medical conditions: ? History of depression: Was previously on duloxetine, not currently on any medications per home med list. ? History of cigarette [id number]-year history noted in outpatient cardiology note in 2020. Unclear if patient is a current smoker at this time. ? History of alcohol abuse: Noted in cardiology note from 2020 that patient had previous history of heavy alcohol use. Unclear if patient is a current alcohol user, alcohol level notably 0 on admit. DVT prophylaxis: SCDs CODE STATUS: Full code, unverified Microbiology Past 72 Hours 10/06/23 22:01 Nasal Secretion SARS-CoV-2 & FLU Antigen (Rapid) - Final Laboratory Results 10/06/23 21:51: POC Glucose 98 10/06/23 22:00: WBC 4.0 L, RBC 4.65, Hgb 14.1, Hct 41.9, MCV 90.1, MCH 30.3, MCHC 33.7, RDW Std Deviation 40.5, RDW Coeff of Juan David 12.3, Plt Count 120 L, MPV 10.1, Immature Gran % (Auto) 0.300, Neut % (Auto) 77.8 H, Lymph % (Auto) 12.8 L, [place] % (Auto) 8.8, Eos % (Auto) 0.0, Baso % (Auto) 0.3, Absolute Neuts (auto) 3.1, Absolute Lymphs (auto) 0.51 L, Nucleated RBC % 0, Differential Comment SEE COMMENT, Diff Path Review Reviewed, Platelet Estimate MOD DEC, RBC Morphology N CHROM, Anisocytosis 1+, Macrocytosis RARE, Sodium 136, Potassium 4.1, Chloride 103, Carbon Dioxide 27.0, Anion Gap 6, BUN 39 H, Creatinine 1.39 H, Estim Creat Clear Calc 58.25, Est GFR (MDRD) Af Amer 68, Est GFR (MDRD) Non-Af 56 L, BUN/Creatinine Ratio 28.1 H, Glucose 106, Hemoglobin A1c 5.6, Calcium 8.9, Total Bilirubin 0.50, AST 24, ALT 25, Alkaline Phosphatase 75, Troponin I High Sens 7, Total Protein 7.2, Albumin 3.5, Globulin 3.7, Albumin/Globulin Ratio 0.9, TSH 0.71, Ethyl Alcohol 3.0 10/06/23 23:10: Urine Color Yellow, Urine Clarity Clear, Urine pH 5.0, Ur Specific [place] 1.025, Urine Protein 30 H, Urine Glucose (UA) Normal, Urine Ketones 5 H, Urine Occult Blood 50 H, Urine Nitrite Negative, Urine Bilirubin Negative, Urine Urobilinogen 1 H, Ur Leukocyte Esterase Negative, Urine RBC 0-5 SEEN, Urine WBC 0 SEEN, Ur Squamous Epith Cells 0 SEEN, Urine Bacteria RARE, Urine Mucus 0 SEEN, Urine Opiates Screen NEGATIVE, Urine Methadone Screen NEGATIVE, Ur Barbiturates Screen NEGATIVE, Ur Phencyclidine Scrn NEGATIVE, Ur Amphetamines Screen NEGATIVE, MDMA (Ecstasy) Screen NEGATIVE, U Benzodiazepines Scrn NEGATIVE, Urine Cocaine Screen NEGATIVE, U Cannabinoids Screen NEGATIVE, Ur Drug Screen Comment 10/07/23 02:05: Specimen Type JORGE, Sample Site L Radial, VBG pH 7.42, VBG pO2 27, VBG HCO3 23, VBG Total CO2 24, VBG O2 Sat (Calc) 52, VBG Base Excess -2 L, POC Mix VBG pCO2 Pt Tmp 35.0 L, O2 Delivery Device Room Air 10/07/23 06:28: WBC 4.4, RBC 4.28 L, Hgb 13.0, Hct 39.4 L, MCV 92.1, MCH 30.4, MCHC 33.0, RDW Std Deviation 40.7, RDW Coeff of Juan David 12.0, Plt Count 105 L, MPV 10.1, Sodium 137, Potassium 3.6, Chloride 106, Carbon Dioxide 25.0, Anion Gap 6, BUN 32 H, Creatinine 1.11, Estim Creat Clear Calc 70.00, Est GFR (MDRD) Af Amer 88, Est GFR (MDRD) Non-Af 73, BUN/Creatinine Ratio 28.8 H, Glucose 94, Calcium 8.5, Triglycerides 98, Cholesterol 178, LDL Cholesterol 121, VLDL Cholesterol 20, HDL Cholesterol 37 L 10/07/23 14:30: Ammonia 16.0 Charges/Coding Visit Charges Inpatient E&M: 35156 Subs Hosp L2
--- NOTE | 2023-10-07 11:21 | NEURO.CONS ---
Assessment and Plan: Neuro Assessment/Plan ARIEL KEATING is a 58 M with limited past medical history and no documented history neurologic disorder, being evaluated by Teleneurology forc confusion. History is very limited given lack of collateral information. Exam consistent with some delirium and amnesia but no clear other focal deficits. Imaging pending. Ddx includes stroke, post-ictal period, occult infection (meningitis/encephalitis) Plan: - ammonia level, Vit B12, TSH - pending MRI Brain and EEG Further recs after the above or after can obtain additional collateral information (pt mentioned ). I personally attended this patient and spent a total time of 30min minutes evaluating this patient including clinical assessment, review of chart, medical history imaging, and determining appropriate treatment and workup. HPI Consult Data Date of Consult: 10/07/23 HPI Narrative HPI Narrative: ARIEL KEATING, is a 58 M who presented to [facility] ED on 10/07/2023 via EMS with altered mental status. Patient seen at bedside in the ED. Patient was alert and laying comfortably in bed. However, he was not answering most questions appropriately. He was oriented to person and place, but not time. Was able to tell me his full name and date of , and told me he was at [facility]. However he thought the year was 2002 or 2003. He was unable to tell me what month it was. He was unable to tell me what was happening with him earlier today and why he came to the emergency department. He reported mild left-sided neck discomfort but otherwise denied any acute pain or discomfort. Denied any chest pain, shortness of breath, fevers or chills, abdominal pain. Patient stated that he lives in [place] with his , and pointed to an empty chair to his right when stating he lived with his . He was unable to tell me who the president of [place] was. Was unable to give any further details regarding his current situation or medical history. Per ED staff, patient has come to the [facility] ED multiple times but has never had altered mentation like this. Patient was apparently seen sitting in his car for hours at a gas station earlier today, and when someone checked on him he seemed confused so EMS was called. No other acute concerns at this time. Per ED history: Limited history on this 58-year-old male who was brought by EMS because he apparently was sitting in his car for hours at a gas station and then seemed confused when somebody checked on him. He is confused and does not know why he is here. When asked questions, he points that his right hand and states you need to get it out. When asked what he is referring to, he states the cigarettes. Get them out of the room. He is obviously confused. He denies being in any pain. Neurologic History Pt states he was loading junk in his vehicle when he was found. More aware to place and situation. Pt poor historian and very delayed in answering questions. Pt states he lives with his Joy. Still feels off. Numbers are not in service. Denies numbness tingling, denies alcohol use. Was able to stand with poor attention and needed a 2 person assist. Most of history obtained from nurse - no calls from family and the nurse states there have been no calls. [facility] Medical History Asthma Chest pain of uncertain etiology Chronic hyponatremia Cold intolerance Depression History of bronchitis History of pneumonia Hypertension Nicotine dependence Orthostatic hypotension Pulmonary fibrosis Pulmonary hypertension Rheumatoid arthritis Sleep apnea Syncope and collapse Syncope, near Weight loss, abnormal Home Medications albuterol sulfate 90 mcg/actuation aerosol inhaler (Ventolin HFA) 1 - 2 puff inhalation Q4H PRN PRN Wheezing #1 inh 01/24/23 [Rx Last Taken Unknown] cyclobenzaprine 10 mg tablet 10 mg PO TID PRN Muscle Spasm #20 TABLETS 04/15/23 [Rx Last Taken Unknown] naproxen 500 mg tablet (Naprosyn) 500 mg PO BID PRN pain #20 tabs 04/15/23 [Rx Last Taken Unknown] Allergy/AdvReac Type Severity Reaction Status Date / Time No Known Allergies Allergy Verified 01/04/23 12:45 Family History Mother Diabetes Father Heart disease Family History unable to obtain Surgical History History of left heart catheterization (11/11/16) Social History Smoking Status: Current every day smoker tobacco type: cigarettes Vital Signs Vital Signs Vital Signs: 10/06/23 21:15 10/06/23 21:33 10/07/23 00:59 Temperature 98.5 F Temperature Source Temporal Pulse Rate 56 L 57 L 52 L Respiratory Rate 19 H 12 17 Respiratory Effort Respiratory Depth Respiratory Pattern Blood Pressure 118/62 111/77 107/76 Blood Pressure Mean 80 88 86 Blood Pressure Source Blood Pressure Position Blood Pressure Location Pulse Ox 96 97 95 Oxygen Delivery Method Room Air Room Air 10/07/23 01:01 10/06/23 21:45 10/07/23 01:12 Temperature Temperature Source Pulse Rate 52 L 53 L Respiratory Rate 13 15 Respiratory Effort Non-Labored Respiratory Depth Respiratory Pattern Blood Pressure 99/78 99/78 Blood Pressure Mean 85 85 Blood Pressure Source Blood Pressure Position Blood Pressure Location Pulse Ox 96 100 Oxygen Delivery Method Room Air 10/07/23 03:00 10/07/23 03:22 10/07/23 05:53 Temperature 97.8 F 98 F Temperature Source Temporal Oral Pulse Rate 55 L 55 L Respiratory Rate 16 15 Respiratory Effort Normal Non-Labored Respiratory Depth Normal Respiratory Pattern Irregular Blood Pressure 101/86 H 105/66 Blood Pressure Mean 91 79 Blood Pressure Source Monitor Monitor Blood Pressure Position Supine Supine Blood Pressure Location Right Arm Pulse Ox 99 98 Oxygen Delivery Method Room Air Room Air Room Air 10/07/23 06:08 10/07/23 06:23 10/07/23 06:00 Temperature 98.1 F 97.8 F 98 F Temperature Source Temporal Temporal Temporal Pulse Rate 55 L 55 L 55 L Respiratory Rate 16 14 15 Respiratory Effort Respiratory Depth Respiratory Pattern Blood Pressure 107/66 107/73 108/71 Blood Pressure Mean 79 84 83 Blood Pressure Source Monitor Monitor Monitor Blood Pressure Position Supine Supine Supine Blood Pressure Location Right Arm Right Arm Right Arm Pulse Ox 97 99 98 Oxygen Delivery Method Room Air Room Air Room Air 10/07/23 09:00 10/07/23 10:00 Temperature 99.3 F H Temperature Source Oral Pulse Rate 53 L Respiratory Rate 18 Respiratory Effort Normal Non-Labored Respiratory Depth Normal Respiratory Pattern Normal Blood Pressure 104/69 Blood Pressure Mean 80 Blood Pressure Source Monitor Blood Pressure Position Semi-Fowlers Blood Pressure Location Right Arm Pulse Ox 95 Oxygen Delivery Method Room Air Room Air Weight Weight: 66.6 kg Body Mass Index (BMI) 18.8 NIHSS NIHSS Nursing Documentation NIHSS Nursing Documentation: NIHSS: Ischemic Stroke/TIA Start: 12/28/23 05:53 Text: For PCU Patients: NIH and Neuro Check every 4 Status: Active hours and PRN Freq: [id number] Protocol: Activity Type Activity Date Activity User E-sign Co-sign Detail Recorded Client Recorded Date Recorded By Document 10/07/23 10:00 Desktop 10/07/23 11:04 10/07/23 10:00 NIH Stroke Scale [NIHSS] A score of 0 is normal or asymptomatic . Total possible score is 42. Inpatient: RN or Physician to activate a stroke alert for onset of new stroke symptoms or with NIHSS increase >/= 3 points. Following change in neurological status, NIHSS will be performed per physician order or more frequently PRN. -1a. Level of Consciousness Alert; keenly responsive -1b. LOC Questions Answers one question correctly. -1c. LOC Commands Performs one task correctly. -2. Best Gaze Normal -3. Visual No visual loss -4. Facial Palsy Normal symmetrical movements -5a. Left Arm Drift; arm drifts downward but doesn?t hit the bed -5b. Right Arm Drift; arm drifts downward but doesn?t hit the bed -6a. Left Leg Drift; leg falls by the end of 5- seconds, but does not hit bed -6b. Right Leg Drift; leg falls by the end of 5- seconds, but does not hit bed -7. Limb Ataxia UN=Amputation or joint fusion , explain -'UN' explanation ext x4 with ataxia. no fine motor skills -8. Sensory Mild-to- moderate sensory loss; -9. Best Language Severe aphasia; -10. Dysarthria Mild-to- moderate dysarthria; -11. Extinction and Inattention Visual, tactile , auditory, spatial, or personal inattention -Total 11 Query Text:A score of 0 is normal or asymptomatic. Total possible score is 42 . ED: Notify Physician for NIHSS increase by > / = 3 points. Inpatient: RN or Physician to activate a stroke alert for NIHSS increase of > / = 3 points. Coma Scale [Assess] -Eye Opening Spontaneous -Motor Obeys Commands -Verbal Confused [Total] -Coma Scale Total 14 Physical Exam Narrative -? General: Laying comfortably in bed; in no acute distress. -? HENT: Normal oropharynx and mucosa. Normal external appearance of ears and nose. Exophthalmos. -? Neck: Supple, no pain or tenderness -? CV:? No peripheral edema. -? Pulmonary:? Normal respiratory effort. -? Ext: No cyanosis, edema, or deformity -? Skin: No rash. Normal palpation of skin.? -? Musculoskeletal: full range of motion; no joint tenderness. Normal digits and nails by inspection. No clubbing. -? NEURO: -? Mental Status: Pt alert, oriented to place but poorly to time and situation. Attention is poor - bad focus - Language - naming and reading are intact -? Cranial Nerves: EOMI, visual damon full, no facial asymmetry, facial sensation intact, hearing intact, tongue midline -? Motor: normal bulk, tone, and strength throughout. No pronator drift or satelliting. Upper and lower extremities equal bilaterally. -? Sensation- Intact to light touch bilaterally -? Coordination: No dysmetria on [id number] Lab / Micro Data 10/07/23 06:28 10/07/23 06:28 Labs: Laboratory Results - last 24 hr 10/06/23 21:51: POC Glucose 98 10/06/23 22:00: WBC 4.0 L, RBC 4.65, Hgb 14.1, Hct 41.9, MCV 90.1, MCH 30.3, MCHC 33.7, RDW Std Deviation 40.5, RDW Coeff of Juan David 12.3, Plt Count 120 L, MPV 10.1, Immature Gran % (Auto) 0.300, Neut % (Auto) 77.8 H, Lymph % (Auto) 12.8 L, [place] % (Auto) 8.8, Eos % (Auto) 0.0, Baso % (Auto) 0.3, Absolute Neuts (auto) 3.1, Absolute Lymphs (auto) 0.51 L, Nucleated RBC % 0, Differential Comment SEE COMMENT, Diff Path Review May foll, Platelet Estimate MOD DEC, RBC Morphology N CHROM, Anisocytosis 1+, Macrocytosis RARE, Sodium 136, Potassium 4.1, Chloride 103, Carbon Dioxide 27.0, Anion Gap 6, BUN 39 H, Creatinine 1.39 H, Estim Creat Clear Calc 58.25, Est GFR (MDRD) Af Amer 68, Est GFR (MDRD) Non-Af 56 L, BUN/Creatinine Ratio 28.1 H, Glucose 106, Hemoglobin A1c 5.6, Calcium 8.9, Total Bilirubin 0.50, AST 24, ALT 25, Alkaline Phosphatase 75, Troponin I High Sens 7, Total Protein 7.2, Albumin 3.5, Globulin 3.7, Albumin/Globulin Ratio 0.9, TSH 0.71, Ethyl Alcohol 3.0 10/06/23 23:10: Urine Color Yellow, Urine Clarity Clear, Urine pH 5.0, Ur Specific [place] 1.025, Urine Protein 30 H, Urine Glucose (UA) Normal, Urine Ketones 5 H, Urine Occult Blood 50 H, Urine Nitrite Negative, Urine Bilirubin Negative, Urine Urobilinogen 1 H, Ur Leukocyte Esterase Negative, Urine RBC 0-5 SEEN, Urine WBC 0 SEEN, Ur Squamous Epith Cells 0 SEEN, Urine Bacteria RARE, Urine Mucus 0 SEEN, Urine Opiates Screen NEGATIVE, Urine Methadone Screen NEGATIVE, Ur Barbiturates Screen NEGATIVE, Ur Phencyclidine Scrn NEGATIVE, Ur Amphetamines Screen NEGATIVE, MDMA (Ecstasy) Screen NEGATIVE, U Benzodiazepines Scrn NEGATIVE, Urine Cocaine Screen NEGATIVE, U Cannabinoids Screen NEGATIVE, Ur Drug Screen Comment 10/07/23 06:28: WBC 4.4, RBC 4.28 L, Hgb 13.0, Hct 39.4 L, MCV 92.1, MCH 30.4, MCHC 33.0, RDW Std Deviation 40.7, RDW Coeff of Juan David 12.0, Plt Count 105 L, MPV 10.1, Sodium 137, Potassium 3.6, Chloride 106, Carbon Dioxide 25.0, Anion Gap 6, BUN 32 H, Creatinine 1.11, Estim Creat Clear Calc 70.00, Est GFR (MDRD) Af Amer 88, Est GFR (MDRD) Non-Af 73, BUN/Creatinine Ratio 28.8 H, Glucose 94, Calcium 8.5, Triglycerides 98, Cholesterol 178, LDL Cholesterol 121, VLDL Cholesterol 20, HDL Cholesterol 37 L Micro: Microbiology 10/06/23 22:01 Nasal Secretion SARS-CoV-2 & FLU Antigen (Rapid) - Final ABG Data ABG results: ABG 10/07/23 02:05 Specimen Type JORGE Sample Site L Radial VBG pH 7.42 VBG pO2 27 VBG HCO3 23 VBG Total CO2 24 VBG O2 Sat (Calc) 52 VBG Base Excess -2 L POC Mix VBG pCO2 Pt Tmp 35.0 L O2 Delivery Device Room Air Rhythm Strip Rhythm Strip: Sinus Rhythm Rate: 55 Ectopy: None Imagaing Radiology Impression Brain CT 10/06/23 21:41 IMPRESSION: No acute abnormality. CT angiogram and/or MRI may be helpful to evaluate for acute infarct as clinically indicated. Electronically Signed: Shana Geiger MD at 22:52 EST Reading Location ID and State: [facility] / [place] Tel , Service support , Chest X-Ray 10/07/23 00:20 IMPRESSION: No evidence of active intrathoracic disease. Electronically Signed: Shana Geiger MD at 0:56 EST , Active Medications Active Medications Active Medications: Current Medications Generic Name Dose Route Start Last Admin Trade Name Freq PRN Reason Stop Dose Admin Acetaminophen 650 mg 10/07/23 05:53 Acetaminophen 325 Mg Tablet PO Q6H PRN PRN Pain 1-10 Or Fever>100.7 Hydralazine HCl 5 mg 10/07/23 05:53 Hydralazine 20 Mg/Ml Vial IV Q30M PRN to maintain BP goals Sodium Chloride 1,000 mls @ 150 mls/hr 10/06/23 21:45 10/07/23 04:47 IV 150 mls/hr .[id number] KELVIN Administration Labetalol HCl 10 - 20 mg 10/07/23 05:53 Labetalol (Prefilled) 20 Mg/4 Ml IV Q10M PRN PRN to Maintain BP Goals Melatonin 3 mg 10/07/23 05:53 Melatonin 3 Mg Tablet PO QHS PRN PRN INSOMNIA Ondansetron HCl 4 mg 10/07/23 05:53 Ondansetron 4 Mg/2 Ml Vial IV Q8H PRN PRN NAUSEA/VOMITING Sodium Chloride 10 - 40 ml 10/07/23 02:48 0.9% Saline Lock 10 Ml Syringe IV UD PRN SALINE FLUSH
[2023-10-07 13:03] LABS: Pathologist Review Reviewed
--- NOTE | 2023-10-07 14:51 | RAD_ITS ---
INDICATION: MRI clearance EXAMINATION/TECHNIQUE: X-RAY - XR Abdomen 1 View COMPARISON: None FINDINGS: BOWEL GAS PATTERN: Non-obstructive. Significant colonic fecal retention. FREE AIR: Not assessed on a single supine view. ORGANOMEGALY: Not seen. CALCIFICATIONS: No abnormal calcifications observed. LOWER CHEST: No acute pathology. BONES AND SOFT TISSUES: No acute pathology. No radiodense foreign bodies. RAD/Abdomen Single View IMPRESSION: No metallic foreign bodies. Electronically Signed: Triston Baker MD at 15:58 EST ,
[2023-10-07] MEDS: Lactulose 20 GM/30 ML UDC PO ×2 (17:13→19:40)
[2023-10-07] MEDS: Lactated Ringers 1,000 ML 75 ML IV ×2 (17:13→22:42)
[2023-10-07] MEDS: 0.9% Saline Lock 10 ML Syringe IV (22:42)
--- NOTE | 2023-10-07 23:10 | NURSING ---
bed alarm on, pt standing in doorway, incontinent of stool. iv tubing torn, bleeding on floor. pt confused, disoriented, and very unsteady. pt assisted back to bed, cleaned, and taken to room 113 for closer observation. bed alarm on and call light in reach.
[2023-10-08] VITALS (7 sets, daily range): BP systolic 104–133; BP diastolic 57–88; PULSE 46–69; RESP 14–16; TEMP 36.1–36.8; O2SAT 96–100; BMI 18.8
[2023-10-08 07:21] LABS: Absolute Lymphocyte Count 1.08 X10^3/uL (0.83-4.51); Absolute Neutrophil Count 2.4 X10^3/uL (2.0-7.7); Basophil# 0.01 X10^3/uL; Basophil% 0.3 % (0-1); Hematocrit 41.7 % (40-54); Hemoglobin 13.7 g/dL (13.0-16.5); Lymphocyte # 1.08 X10^3/ul (0.83-4.51); Lymphocyte % 28.3 % (19-41); Mean Corp Hgb Conc 32.9 g/dL (32-36); Mean Corpuscular Hgb 30.2 pg (27.0-32.0); Mean Corpuscular Volume 92.1 fL (80-94); Mean Platelet Vol. 10.9 fl (6.2-12.0); Monocyte# 0.31 X10^3/uL; Monocyte% 8.1 % (0-10); NRBC Flagged by Analyzer 0 % (0-5); POSITIVE COUNT YES; Platelet Count 94 K/mm3 (150-450); RBC Distribution Width SD 40.6 fl (35.1-43.9); Red Blood Count 4.53 M/mm3 (4.6-6.2); White Blood Count 3.8 K/mm3 (4.4-11.0)
--- NOTE | 2023-10-08 07:57 | PN.HOSP_ITS ---
Reason for Visit Reason for Visit: Diagnoses Altered mental status, unspecified (10/07/23) Objective Data Objective Data Vital Signs: Vital Signs Temp Pulse Resp BP Pulse Ox O2 Del Method 98 F 54 L 16 133/57 H 98 Room Air 10/08/23 02:00 10/08/23 03:10 10/08/23 02:00 10/08/23 02:00 10/08/23 02:00 10/08/23 02:00 Oxygen Delivery Method Room Air Weight: 146 lb 13.246 oz Body Mass Index (BMI) 18.8 Intake & Output: Intake and Output for Last 24 Hours 10/06/23 10/07/23 10/08/23 23:59 23:59 23:59 Intake Total 2506.25 / 2506.25 0 / 0 Output Total 301 / 301 200 / 200 Balance 2205.25 / 2205.25 -200 / -200 Lab / Micro Data 10/08/23 06:07 10/07/23 06:28 Labs: Laboratory Results - last 24 hr 10/06/23 22:00: Diff Path Review Reviewed 10/07/23 14:30: Ammonia 16.0 10/08/23 06:07: WBC 3.8 L, RBC 4.53 L, Hgb 13.7, Hct 41.7, MCV 92.1, MCH 30.2, MCHC 32.9, RDW Std Deviation 40.6, RDW Coeff of Juan David 12.0, Plt Count 94 L, MPV 10.9, Immature Gran % (Auto) 0.300, Neut % (Auto) 63.0, Lymph % (Auto) 28.3, Desha % (Auto) 8.1, Eos % (Auto) 0.0, Baso % (Auto) 0.3, Absolute Neuts (auto) 2.4, Absolute Lymphs (auto) 1.08, Nucleated RBC % 0 Micro: Microbiology 10/06/23 22:01 Nasal Secretion SARS-CoV-2 & FLU Antigen (Rapid) - Final Radiography Diagnostic Testing: Radiology Impression Brain MRI 10/07/23 01:05 IMPRESSION: Normal unenhanced MRI of the brain. Electronically Signed: Raul Glass MD at 17:39 EST , KUB X-Ray 10/07/23 14:51 IMPRESSION: No metallic foreign bodies. Electronically Signed: Triston Baker MD at 15:58 EST Reading Location ID and State: [facility] / [place] Tel , Service support , Rhythm Strip Rhythm Strip: Sinus Rhythm Rate: 55 Ectopy: None Physical Exam Narrative Seen and examined. Patient is noncommunicative. Does not respond to the single question. Blank look. Mute Physical exam General: Awake. Looks confused and disoriented. HEENT: Atraumatic, PERRLA, EOMI, Normocephalic Oral: Oral mucosa dry. No Gingival or Mucosal Lesions/ Ulcerations Neck: Supple, No JVD, Negative Carotid Bruits Lungs: Air entry diminished in bilateral lung bases. No crepitation/rhonchi Cardiovascular: Regular rate, Regular Rhythm, Normal S1, Normal S2, No murmurs Abdomen: Bowel Sounds Present, Soft, Non Tender, Non-Distended : No renal angle tenderness. No suprapubic tenderness. Extremities: No edema, Capillary Refill Less than 3 Seconds Skin: No rashes, No breakdown Musculoskeletal: Mild to moderate muscle atrophy of extremities, spinal muscles and intercostal muscles. Loss of subcutaneous fat. ROM restricted. Neurological: Neuroexam difficult to obtain. Confused, disoriented. Does not follow commands. Mute. Obtunded. Psych/Mental Status: Flat affect. HEENT normocephalic, head/scalp atraumatic, hearing grossly normal bilaterally and nasal mucous membranes and turbinates normal Eyes PERRL, EOMs intact bilaterally and conjunctivae normal Neck full ROM, no lymphadenopathy and supple Lymph Lymphatic: no lymphadenopathy noted Chest inspection of chest normal Resp normal respiratory effort, normal air movement, no use of accessory muscles and clear to auscultation bilaterally Cardio no murmurs and peripheral pulses 2+ throughout Cardio Narrative: Sinus bradycardia. GI normal to inspection, nondistended, normoactive bowel sounds, soft to palpation, non-tender and non-distended Back/Spine normal ROM Extremity normal to inspection, full ROM and no pedal edema Skin no rashes or lesions noted Neuro moves all extremities and no focal motor deficits Neuro Narrative: Had difficulty following commands with neurologic exam. Did not squeeze either hand tightly, was trying to pull my hands and toward him. Did lift both legs spontaneously without issue. Had significant difficulty tracking my finger with his eyes, but no clear pattern noted. Assessment & Plan Assessment/Plan (1) Altered mental status: PLAN: Plan Patient is a 58-year-old male who presented to [facility] ED on 10/07/2023 with altered mental status, confused and disoriented. 1. Altered mental status, unclear: Patient was found in the car in confused state.Patient is not answering any questions. MRI questioner could not be completed and therefore chest abdomen pelvis x-rays were ordered rule out metallic object as contraindication for MRI. CT brain without contrast unremarkable. Patient had mild thrombocytopenia 105,000. Chest x-ray with mild hyperinflation noted, however ABG normal, no hypercapnia noted. Urine drug screen negative, alcohol level 0. Hemodynamically stable, afebrile, low concern for infection. Discussed with the teleneurologist. EEG is ordered. Serum ammonia ordered which is normal. VBG pH 7.42 total CO2 24. 10/08: MRI brain unenhanced shows no acute abnormality. EEG pending. Neuro follow-up requested. Mild thrombocytopenia. Bradycardia. 2. Mild thrombocytopenia ? Platelets 120 on admit. Previous platelet counts ranging from 150s to 210s. Platelet count repeat 105,000. 3. Mild creatinine elevation, EVANGELIST ruled out ? Creatinine 1.39, BUN 39 on admit. Baseline creatinine 1.0-1.3. Maintenance IV fluids started in the ED as patient appeared dry on exam. Repeat creatinine 1.1 Chronic medical conditions: ? History of depression: Was previously on duloxetine, not currently on any medications per home med list. ? History of cigarette [id number]-year history noted in outpatient cardiology note in 2019. Unclear if patient is a current smoker at this time. ? History of alcohol abuse: Noted in cardiology note from 2019 that patient had previous history of heavy alcohol use. Unclear if patient is a current alcohol user, alcohol level notably 0 on admit. DVT prophylaxis: SCDs CODE STATUS: Full code, unverified Microbiology Past 72 Hours 10/06/23 22:01 Nasal Secretion SARS-CoV-2 & FLU Antigen (Rapid) - Final Laboratory Results 10/06/23 21:51: POC Glucose 98 10/06/23 22:00: WBC 4.0 L, RBC 4.65, Hgb 14.1, Hct 41.9, MCV 90.1, MCH 30.3, MCHC 33.7, RDW Std Deviation 40.5, RDW Coeff of Juan David 12.3, Plt Count 120 L, MPV 10.1, Immature Gran % (Auto) 0.300, Neut % (Auto) 77.8 H, Lymph % (Auto) 12.8 L, Desha % (Auto) 8.8, Eos % (Auto) 0.0, Baso % (Auto) 0.3, Absolute Neuts (auto) 3.1, Absolute Lymphs (auto) 0.51 L, Nucleated RBC % 0, Differential Comment SEE COMMENT, Diff Path Review Reviewed, Platelet Estimate MOD DEC, RBC Morphology N CHROM, Anisocytosis 1+, Macrocytosis RARE, Sodium 136, Potassium 4.1, Chloride 103, Carbon Dioxide 27.0, Anion Gap 6, BUN 39 H, Creatinine 1.39 H, Estim Creat Clear Calc 58.25, Est GFR (MDRD) Af Amer 68, Est GFR (MDRD) Non-Af 56 L, BUN/Creatinine Ratio 28.1 H, Glucose 106, Hemoglobin A1c 5.6, Calcium 8.9, Total Bilirubin 0.50, AST 24, ALT 25, Alkaline Phosphatase 75, Troponin I High Sens 7, Total Protein 7.2, Albumin 3.5, Globulin 3.7, Albumin/Globulin Ratio 0.9, TSH 0.71, Ethyl Alcohol 3.0 10/06/23 23:10: Urine Color Yellow, Urine Clarity Clear, Urine pH 5.0, Ur Specific [place] 1.025, Urine Protein 30 H, Urine Glucose (UA) Normal, Urine Ketones 5 H, Urine Occult Blood 50 H, Urine Nitrite Negative, Urine Bilirubin Negative, Urine Urobilinogen 1 H, Ur Leukocyte Esterase Negative, Urine RBC 0-5 SEEN, Urine WBC 0 SEEN, Ur Squamous Epith Cells 0 SEEN, Urine Bacteria RARE, Urine Mucus 0 SEEN, Urine Opiates Screen NEGATIVE, Urine Methadone Screen NEGATIVE, Ur Barbiturates Screen NEGATIVE, Ur Phencyclidine Scrn NEGATIVE, Ur Amphetamines Screen NEGATIVE, MDMA (Ecstasy) Screen NEGATIVE, U Benzodiazepines Scrn NEGATIVE, Urine Cocaine Screen NEGATIVE, U Cannabinoids Screen NEGATIVE, Ur Drug Screen Comment 10/07/23 02:05: Specimen Type JORGE, Sample Site L Radial, VBG pH 7.42, VBG pO2 27, VBG HCO3 23, VBG Total CO2 24, VBG O2 Sat (Calc) 52, VBG Base Excess -2 L, POC Mix VBG pCO2 Pt Tmp 35.0 L, O2 Delivery Device Room Air 10/07/23 06:28: WBC 4.4, RBC 4.28 L, Hgb 13.0, Hct 39.4 L, MCV 92.1, MCH 30.4, MCHC 33.0, RDW Std Deviation 40.7, RDW Coeff of Juan David 12.0, Plt Count 105 L, MPV 10.1, Sodium 137, Potassium 3.6, Chloride 106, Carbon Dioxide 25.0, Anion Gap 6, BUN 32 H, Creatinine 1.11, Estim Creat Clear Calc 70.00, Est GFR (MDRD) Af Amer 88, Est GFR (MDRD) Non-Af 73, BUN/Creatinine Ratio 28.8 H, Glucose 94, Calcium 8.5, Triglycerides 98, Cholesterol 178, LDL Cholesterol 121, VLDL Cholesterol 20, HDL Cholesterol 37 L 10/07/23 14:30: Ammonia 16.0
[2023-10-08 08:23] LABS: ALB/GLOB Ratio 0.9 RATIO (0.9-2.4); AST(SGOT) 28 U/L (15-37); Alanine Aminotransfer ALT/SGPT 23 U/L (16-61); Albumin, Serum 3.2 g/dL (3.2-5.0); Alkaline Phosphatase 67 U/L (45-117); Anion Gap 7 (5-15); BUN 18 mg/dL (7-18); BUN/Creat Ratio 20.9 RATIO (10-20); Calcium,Total 8.7 mg/dL (8.5-10.1); Chloride 108 mmol/L (98-107); Creatinine, Serum 0.86 mg/dL (0.70-1.30); EST Glomerular Filtration Rate 98 mL/min (>60); Est Glom Filt Rate - Afr Amer 118 mL/min (>60); Estimated Creatinine Clearance 90.35 ml/min; GGTP 28 U/L (15-85); Globulin 3.6 g/dL (2.2-4.2); Glucose 80 mg/dL (74-106); Potassium 3.7 mmol/L (3.5-5.1); Protein, Total 6.8 g/dL (6.4-8.2); Sodium Level 137 mmol/L (136-145)
[2023-10-08] MEDS: Lactulose 20 GM/30 ML UDC PO (09:49)
--- NOTE | 2023-10-08 11:10 | CM.UR ---
MARTINEZ ESCALANTE Face to Face with patient for initial transition planning/care coordination assessment. RN CM introduced self and role at [facility]. Patient lying in bed, alert and confused. Patient willing to participate in assessment and is having difficulty answering some questions. Care providers, pharmacy, and demographics verified as best patient could answer. Patient wishes to discharge home, will monitor progress with therapy. Patient states he has no further needs or concerns at this time. SW updated regarding concern for SNF at discharge. CM to follow for discharge planning needs that may arise. PCP: No PCP Specialists: none Preferred Pharmacy: [facility] Insurance: [facility] Prescription Benefit: yes Living Will/HPOA: none LNOK: , no children, patient states he has brother and sister, no other family. Living Arrangements: Patient states he lives with in a first floor apartment. Patient states he is independent at home. Transportation: self, DME/HHC: Patient states he has cane, walker, and rollator at home. No previous HHC or SNF. Disposition Plan: TBD, anticipate SNF pending therapy. SW aware. Ruby MCCLELLAN, RN, CM
--- NOTE | 2023-10-08 13:58 | CASEMGMT ---
LUIS DANIEL reviewed patient's chart and noted that therapy is recommending intermediate facility for rehab. LUIS DANIEL met with patient and his Evelina. Evelina said she does not have a working phone right now. Both patient and Evelina were asking where patient's truck is located. SW let them know SW will check on this. Speech was working with patient so SW let them know SW will check back. Leia d/c demand planning analyst said she would check on location of patient's vehicle. Leia did find out that patient's truck is still at the [place] on [facility]. Leia notified patient and his . LUIS DANIEL then checked back with patient and Evelina and they have the keys to patient's truck and know where it is located. LUIS DANIEL then talked with patient and let him know therapy's recommendations for intermediate facility short term for rehab. Patient said he would look at a list. Evelina then asked if someone could arrange a taxi ride home for her. LUIS DANIEL let Evelina know SW will check. Patient did not think she could get in and out of the hospital van. LUIS DANIEL asked the supervisor propellant charge loading about this. Whitney Chin [employer]ER SIMÓN
--- NOTE | 2023-10-08 15:15 | CASEMGMT ---
Discharge Planning A list of?SNF providers including quality and resource use data and consistent with the patient's preferred geographic region, medical needs, and insurance network was created in [employer] Guide.? This list was provided to the SW. Leia Choi Discharge Planning Asst.
--- NOTE | 2023-10-08 16:01 | CASEMGMT ---
SW took patient a list of retirement facilities. Patient's Evelina said he needs to be a in a facility in [place] because she does not have transportation. The only two [place] facilities on the list were [facility] and [facility]. They were in agreement with referrals being made to those facilities. LUIS DANIEL explained patient will stay at [facility] until his insurance would approve him. LUIS DANIEL explained to patient he will be here through the weekend. Plan: SNF pending accepting facility and pre-cert. Whitney GR
--- NOTE | 2023-10-08 16:16 | CASEMGMT ---
Discharge Planning Referral sent to [facility] and [facility] via [facility]. Leia Choi, Discharge Planning Asst
--- NOTE | 2023-10-08 17:04 | CASEMGMT ---
[facility] accepted patient and started pre-cert. Patient will likely be here through the weekend waiting on pre-cert. Whitney GR
--- NOTE | 2023-10-08 18:30 | CON.PCM.NE_ITS ---
Assessment and Plan: Neuro Assessment/Plan ARIEL KEATING is a 58 M with limited past medical history and no documented history neurologic disorder, being evaluated by Teleneurology forc confusion. History is very limited given lack of collateral information. Exam consistent with some delirium and amnesia but no clear other focal deficits. Imaging pending. Ddx includes stroke, post-ictal period, occult infection (meningitis/encephalitis) Plan: - ammonia level, Vit B12, TSH - pending MRI Brain and EEG Further recs after the above or after can obtain additional collateral information (pt mentioned ). I personally attended this patient and spent a total time of 30min minutes evaluating this patient including clinical assessment, review of chart, medical history imaging, and determining appropriate treatment and workup. HPI Consult Data Date of Consult: 10/08/23 HPI Narrative HPI Narrative: ARIEL KEATING, is a 58 M who presents PFSH Medical History Asthma Chest pain of uncertain etiology Chronic hyponatremia Cold intolerance Depression History of bronchitis History of pneumonia Hypertension Nicotine dependence Orthostatic hypotension Pulmonary fibrosis Pulmonary hypertension Rheumatoid arthritis Sleep apnea Syncope and collapse Syncope, near Weight loss, abnormal Home Medications albuterol sulfate 90 mcg/actuation aerosol inhaler (Ventolin HFA) 1 - 2 puff inhalation Q4H PRN PRN Wheezing #1 inh 01/24/23 [Rx Last Taken Unknown] cyclobenzaprine 10 mg tablet 10 mg PO TID PRN Muscle Spasm #20 TABLETS 04/15/23 [Rx Last Taken Unknown] naproxen 500 mg tablet (Naprosyn) 500 mg PO BID PRN pain #20 tabs 04/15/23 [Rx Last Taken Unknown] Allergy/AdvReac Type Severity Reaction Status Date / Time No Known Allergies Allergy Verified 01/04/23 12:45 Family History Mother Diabetes Father Heart disease Family History unable to obtain Surgical History History of left heart catheterization (11/11/16) Social History Smoking Status: Current every day smoker tobacco type: cigarettes Vital Signs Vital Signs Vital Signs: 10/07/23 20:00 10/07/23 22:00 10/08/23 02:00 Temperature 98 F 98 F Temperature Source Temporal Temporal Pulse Rate 55 L 55 L 54 L Respiratory Rate 18 16 Respiratory Effort Respiratory Depth Respiratory Pattern Blood Pressure 105/75 133/57 H Blood Pressure Mean 85 82 Blood Pressure Source Monitor Monitor Blood Pressure Position Semi-Fowlers Blood Pressure Location Right Arm Pulse Ox 100 98 Oxygen Delivery Method Room Air Room Air Room Air 10/08/23 03:10 10/08/23 08:00 10/08/23 07:50 Temperature 98.3 F Temperature Source Oral Pulse Rate 54 L 46 L Respiratory Rate 14 Respiratory Effort Normal Non-Labored Respiratory Depth Respiratory Pattern Blood Pressure 104/88 H Blood Pressure Mean 93 Blood Pressure Source Monitor Blood Pressure Position Blood Pressure Location Pulse Ox 98 96 Oxygen Delivery Method Room Air Room Air 10/08/23 09:29 10/08/23 11:34 10/08/23 11:34 Temperature Temperature Source Pulse Rate Respiratory Rate Respiratory Effort Normal Non-Labored Respiratory Depth Normal Respiratory Pattern Normal Blood Pressure Blood Pressure Mean Blood Pressure Source Blood Pressure Position Blood Pressure Location Pulse Ox 99 99 Oxygen Delivery Method Room Air 10/08/23 15:56 10/08/23 14:00 Temperature 97.3 F L Temperature Source Oral Pulse Rate 69 Respiratory Rate 16 Respiratory Effort Normal Non-Labored Respiratory Depth Normal Respiratory Pattern Normal Blood Pressure 110/65 Blood Pressure Mean 80 Blood Pressure Source Monitor Blood Pressure Position Blood Pressure Location Pulse Ox 97 Oxygen Delivery Method Room Air Room Air Weight Weight: 66.6 kg Body Mass Index (BMI) 18.8 EEG Results Procedure Details EEG Procedure Details: ARIEL KEATING is a 58 year old M with a past medical history of , who presents for evaluation of Electroencephalogram on DATE at TIME NIHSS NIHSS Nursing Documentation NIHSS Nursing Documentation: NIHSS: Ischemic Stroke/TIA Start: 10/07/23 05:53 Text: For PCU Patients: NIH and Neuro Check every 4 Status: Complete hours and PRN Freq: [id number] Protocol: Activity Type Activity Date Activity User E-sign Co-sign Detail Recorded Client Recorded Date Recorded By Document 10/07/23 14:00 Desktop 10/07/23 15:03 10/07/23 14:00 NIH Stroke Scale [NIHSS] A score of 0 is normal or asymptomatic . Total possible score is 42. Inpatient: RN or Physician to activate a stroke alert for onset of new stroke symptoms or with NIHSS increase >/= 3 points. Following change in neurological status, NIHSS will be performed per physician order or more frequently PRN. -1a. Level of Consciousness Alert; keenly responsive -1b. LOC Questions Answers one question correctly. -1c. LOC Commands Performs one task correctly. -2. Best Gaze Normal -3. Visual No visual loss -4. Facial Palsy Normal symmetrical movements -5a. Left Arm No drift; arm holds 90 (or 45 ) degrees for full 10 seconds -5b. Right Arm No drift; arm holds 90 (or 45 ) degrees for full 10 seconds -6a. Left Leg No drift; leg holds 30-degree position for full 5 seconds -6b. Right Leg Drift; leg falls by the end of 5- seconds, but does not hit bed -7. Limb Ataxia UN=Amputation or joint fusion , explain -'UN' explanation ext x4 with ataxia. no fine motor skills -8. Sensory Mild-to- moderate sensory loss; -9. Best Language Severe aphasia; -10. Dysarthria Mild-to- moderate dysarthria; -11. Extinction and Inattention Visual, tactile , auditory, spatial, or personal inattention -Total 8 Query Text:A score of 0 is normal or asymptomatic. Total possible score is 42 . ED: Notify Physician for NIHSS increase by > / = 3 points. Inpatient: RN or Physician to activate a stroke alert for NIHSS increase of > / = 3 points. Coma Scale [Assess] -Eye Opening Spontaneous -Motor Obeys Commands -Verbal Confused [Total] -Coma Scale Total 14 Physical Exam Narrative -? General: Laying comfortably in bed; in no acute distress. -? HENT: Normal oropharynx and mucosa. Normal external appearance of ears and nose. Exophthalmos. -? Neck: Supple, no pain or tenderness -? CV:? No peripheral edema. -? Pulmonary:? Normal respiratory effort. -? Ext: No cyanosis, edema, or deformity -? Skin: No rash. Normal palpation of skin.? -? Musculoskeletal: full range of motion; no joint tenderness. Normal digits and nails by inspection. No clubbing. -? NEURO: -? Mental Status: Pt alert, oriented to place but poorly to time and situation. Attention is poor - bad focus - Language - naming and reading are intact -? Cranial Nerves: EOMI, visual damon full, no facial asymmetry, facial sensation intact, hearing intact, tongue midline -? Motor: normal bulk, tone, and strength throughout. No pronator drift or satelliting. Upper and lower extremities equal bilaterally. -? Sensation- Intact to light touch bilaterally -? Coordination: No dysmetria on assesm-onic-ogyaty Lab / Micro Data 10/08/23 06:07 10/08/23 06:07 Labs: Laboratory Results - last 24 hr 10/08/23 06:07: WBC 3.8 L, RBC 4.53 L, Hgb 13.7, Hct 41.7, MCV 92.1, MCH 30.2, MCHC 32.9, RDW Std Deviation 40.6, RDW Coeff of Juan David 12.0, Plt Count 94 L, MPV 10.9, Immature Gran % (Auto) 0.300, Neut % (Auto) 63.0, Lymph % (Auto) 28.3, [place] % (Auto) 8.1, Eos % (Auto) 0.0, Baso % (Auto) 0.3, Absolute Neuts (auto) 2.4, Absolute Lymphs (auto) 1.08, Nucleated RBC % 0, Sodium 137, Potassium 3.7, Chloride 108 H, Carbon Dioxide 22.0, Anion Gap 7, BUN 18, Creatinine 0.86, Estim Creat Clear Calc 90.35, Est GFR (MDRD) Af Amer 118, Est GFR (MDRD) Non-Af 98, BUN/Creatinine Ratio 20.9 H, Glucose 80, Calcium 8.7, Total Bilirubin 1.00, GGT 28, AST 28, ALT 23, Alkaline Phosphatase 67, Total Protein 6.8, Albumin 3.2, Globulin 3.6, Albumin/Globulin Ratio 0.9 Rhythm Strip Rhythm Strip: Sinus Rhythm Rate: 55 Ectopy: None Active Medications Active Medications Active Medications: Current Medications Generic Name Dose Route Start Last Admin Trade Name Freq PRN Reason Stop Dose Admin Acetaminophen 650 mg 10/07/23 05:53 Acetaminophen 325 Mg Tablet PO Q6H PRN PRN Pain 1-10 Or Fever>100.7 Hydralazine HCl 5 mg 10/07/23 05:53 Hydralazine 20 Mg/Ml Vial IV Q30M PRN to maintain BP goals Labetalol HCl 10 - 20 mg 10/07/23 05:53 Labetalol (Prefilled) 20 Mg/4 Ml IV Q10M PRN PRN to Maintain BP Goals Lactulose 20 gm 10/07/23 14:10 10/08/23 09:49 Lactulose 20 Gm/30 Ml Udc PO 20 gm BID KELVIN Administration Melatonin 3 mg 10/07/23 05:53 Melatonin 3 Mg Tablet PO QHS PRN PRN INSOMNIA Ondansetron HCl 4 mg 10/07/23 05:53 Ondansetron 4 Mg/2 Ml Vial IV Q8H PRN PRN NAUSEA/VOMITING Sodium Chloride 10 - 40 ml 10/07/23 02:48 10/07/23 22:42 0.9% Saline Lock 10 Ml Syringe IV 10 ml UD PRN Administration SALINE FLUSH
--- NOTE | 2023-10-08 18:35 | PN.NEURO_ITS ---
Assessment and Plan: Neuro Assessment/Plan Assessment/Plan ARIEL KEATING is a 58 M with limited past medical history and no documented history neurologic disorder, being evaluated by Teleneurology forc confusion. History is very limited given lack of collateral information. Exam consistent with some delirium and amnesia but no clear other focal deficits. Imaging with no clear abnormalities and on my review, no evidence of thalamic hyperintensity. Given normal EEG and MRI and new history concern for possible worsening of baseline confusion. Possble vitamin deficiency or concussion in setting of likely poor baseline. Plan: - Vit B12, folate TSH - replace thiamine 100mg daily I personally attended this patient and spent a total time of 30min minutes evaluating this patient including clinical assessment, review of chart, medical history imaging, and determining appropriate treatment and workup. Subject: Neurology Subjective Interval History: 10/08 - present today. He fell on Wednesday and per pt did hit his head. He went missing on 10/06 - nothing like this has ever happened before. He has been more forgetful and having more issues since he got COVID a couple years ago. They get most of their food from the food pantry. [facility] He does seem better today than yesterday per my evaluation. Consult Data Date of Consult: 10/07/23 HPI Narrative HPI Narrative: ARIEL KEATING, is a 58 M who presented to [facility] ED on 10/07/2023 via EMS with altered mental status. Patient seen at bedside in the ED. Patient was alert and laying comfortably in bed. However, he was not answe ring most questions appropriately. He was oriented to person and place, but not time. Was able to tell me his full name and date of , and told me he was at [facility]. However he thought the year was 2002 or 2003. He was unable to tell me what month it was. He was unable to tell me what was happening with him earlier today and why he came to the emergency department. He reported mild left-sided neck discomfort but otherwise denied any acute pain or discomfort. Denied any chest pain, shortness of breath, fevers or chills, abdominal pain. Patient stated that he lives in [place] with his , and pointed to an empty chair to his right when stating he lived with his . He was unable to tell me who the president of [place] was. Was unable to give any further details regarding his current situation or medical history. Per ED staff, patient has come to the [facility] ED multiple times but has never had altered mentation like this. Patient was apparently seen sitting in his car for hours at a gas station earlier today, and when someone checked on him he seemed confused so EMS was called. No other acute concerns at this time. Per ED history: Limited history on this 58-year-old male who was brought by EMS because he apparently was sitting in his car for hours at a gas station and then seemed confused when somebody checked on him. He is confused and does not know why he is here. When asked questions, he points that his right hand and states you need to get it out. When asked what he is referring to, he states the cigarettes. Get them out of the room. He is obviously confused. He denies being in any pain. Neurologic History Pt states he was loading junk in his vehicle when he was found. More aware to place and situation. Pt poor historian and very delayed in answering questions. Pt states he lives with his Joy. Still feels off. Numbers are not in service. Denies numbness tingling, denies alcohol use. Was able to stand with poor attention and needed a 2 person assist. Most of history obtained from nurse - no calls from family and the nurse states there have been no calls. NIHSS NIHSS Nursing Documentation NIHSS Nursing Documentation: NIHSS: Ischemic Stroke/TIA Start: 10/07/23 05:53 Text: For PCU Patients: NIH and Neuro Check every 4 Status: Complete hours and PRN Freq: [id number] Protocol: Activity Type Activity Date Activity User E-sign Co-sign Detail Recorded Client Recorded Date Recorded By Document 10/07/23 14:00 Desktop 10/07/23 15:03 10/07/23 14:00 NIH Stroke Scale [NIHSS] A score of 0 is normal or asymptomatic . Total possible score is 42. Inpatient: RN or Physician to activate a stroke alert for onset of new stroke symptoms or with NIHSS increase >/= 3 points. Following change in neurological status, NIHSS will be performed per physician order or more frequently PRN. -1a. Level of Consciousness Alert; keenly responsive -1b. LOC Questions Answers one question correctly. -1c. LOC Commands Performs one task correctly. -2. Best Gaze Normal -3. Visual No visual loss -4. Facial Palsy Normal symmetrical movements -5a. Left Arm No drift; arm holds 90 (or 45 ) degrees for full 10 seconds -5b. Right Arm No drift; arm holds 90 (or 45 ) degrees for full 10 seconds -6a. Left Leg No drift; leg holds 30-degree position for full 5 seconds -6b. Right Leg Drift; leg falls by the end of 5- seconds, but does not hit bed -7. Limb Ataxia UN=Amputation or joint fusion , explain -'UN' explanation ext x4 with ataxia. no fine motor skills -8. Sensory Mild-to- moderate sensory loss; -9. Best Language Severe aphasia; -10. Dysarthria Mild-to- moderate dysarthria; -11. Extinction and Inattention Visual, tactile , auditory, spatial, or personal inattention -Total 8 Query Text:A score of 0 is normal or asymptomatic. Total possible score is 42 . ED: Notify Physician for NIHSS increase by > / = 3 points. Inpatient: RN or Physician to activate a stroke alert for NIHSS increase of > / = 3 points. Coma Scale [Assess] -Eye Opening Spontaneous -Motor Obeys Commands -Verbal Confused [Total] -Coma Scale Total 14 Objective Data Objective Data Vital Signs: Vital Signs Temp Pulse Resp BP Pulse Ox O2 Del Method 97.3 F L 69 16 110/65 97 Room Air 10/08/23 15:56 10/08/23 15:56 10/08/23 15:56 10/08/23 15:56 10/08/23 15:56 10/08/23 15:56 Oxygen Delivery Method Room Air Weight: 66.6 kg Body Mass Index (BMI) 18.8 Intake & Output: Intake and Output for Last 24 Hours 10/06/23 10/07/23 10/08/23 23:59 23:59 23:59 Intake Total 2506.25 / 2506.25 1000 / 1000 Output Total 301 / 301 200 / 200 Balance 2205.25 / 2205.25 800 / 800 Lab / Micro Data 10/08/23 06:07 10/08/23 06:07 Labs: Laboratory Results - last 24 hr 10/08/23 06:07: WBC 3.8 L, RBC 4.53 L, Hgb 13.7, Hct 41.7, MCV 92.1, MCH 30.2, MCHC 32.9, RDW Std Deviation 40.6, RDW Coeff of Juan David 12.0, Plt Count 94 L, MPV 10.9, Immature Gran % (Auto) 0.300, Neut % (Auto) 63.0, Lymph % (Auto) 28.3, [place] % (Auto) 8.1, Eos % (Auto) 0.0, Baso % (Auto) 0.3, Absolute Neuts (auto) 2.4, Absolute Lymphs (auto) 1.08, Nucleated RBC % 0, Sodium 137, Potassium 3.7, Chloride 108 H, Carbon Dioxide 22.0, Anion Gap 7, BUN 18, Creatinine 0.86, Estim Creat Clear Calc 90.35, Est GFR (MDRD) Af Amer 118, Est GFR (MDRD) Non-Af 98, BUN/Creatinine Ratio 20.9 H, Glucose 80, Calcium 8.7, Total Bilirubin 1.00, GGT 28, AST 28, ALT 23, Alkaline Phosphatase 67, Total Protein 6.8, Albumin 3.2, Globulin 3.6, Albumin/Globulin Ratio 0.9 Micro: Microbiology 10/06/23 22:01 Nasal Secretion SARS-CoV-2 & FLU Antigen (Rapid) - Final Rhythm Strip Rhythm Strip: Sinus Rhythm Rate: 55 Ectopy: None Physical Exam Narrative -? General: Laying comfortably in bed; in no acute distress. -? HENT: Normal oropharynx and mucosa. Normal external appearance of ears and nose. Exophthalmos. -? Neck: Supple, no pain or tenderness -? CV:? No peripheral edema. -? Pulmonary:? Normal respiratory effort. -? Ext: No cyanosis, edema, or deformity -? Skin: No rash. Normal palpation of skin.? -? Musculoskeletal: full range of motion; no joint tenderness. Normal digits and nails by inspection. No clubbing. -? NEURO: -? Mental Status: Pt alert, oriented to place but poorly to time and situation. Attention is improved compared to yesterday - Language - naming and reading are intact -? Cranial Nerves: EOMI, visual damon full, no facial asymmetry, facial sensation intact, hearing intact, tongue midline -? Motor: normal bulk, tone, and strength throughout. No pronator drift or satelliting. Upper and lower extremities equal bilaterally. -? Sensation- Intact to light touch bilaterally -? Coordination: No dysmetria on [id number]
[2023-10-09 03:47] VITALS: BP 121/90; PULSE 50; RESP 16; TEMP 36.1; O2SAT 99
--- NOTE | 2023-10-09 07:16 | CASEMGMT ---
[facility] also accepted pt and according to note in [facility] started precert. [facility] asking [facility] to withdraw their precert as pt going with a different facility. APRIL Gonzalez
[2023-10-09 08:18] VITALS: O2SAT 95
[2023-10-09 08:33] LABS: Absolute Lymphocyte Count 0.96 X10^3/uL (0.83-4.51); Absolute Neutrophil Count 3.6 X10^3/uL (2.0-7.7); Basophil# 0.01 X10^3/uL; Basophil% 0.2 % (0-1); Eosinophil# 0.01 X10^3/uL; Eosinophils% 0.2 % (0-5); Hemoglobin 14.5 g/dL (13.0-16.5); Lymphocyte # 0.96 X10^3/ul (0.83-4.51); Lymphocyte % 19.4 % (19-41); Mean Corp Hgb Conc 34.5 g/dL (32-36); Mean Corpuscular Volume 89.9 fL (80-94); Mean Platelet Vol. 10.9 fl (6.2-12.0); Monocyte# 0.36 X10^3/uL; Monocyte% 7.3 % (0-10); NRBC Flagged by Analyzer 0 % (0-5); Neutrophil # 3.61 X10^3/uL (2.7-7.7); Neutrophil % 72.7 % (47-70); Platelet Count 103 K/mm3 (150-450); RBC Distribution Width CV 11.9 % (11.6-14.6); RBC Distribution Width SD 39.2 fl (35.1-43.9); Red Blood Count 4.67 M/mm3 (4.6-6.2)
[2023-10-09 08:50] LABS: ALB/GLOB Ratio 0.8 RATIO (0.9-2.4); AST(SGOT) 22 U/L (15-37); Alanine Aminotransfer ALT/SGPT 24 U/L (16-61); Albumin, Serum 3.1 g/dL (3.2-5.0); Alkaline Phosphatase 66 U/L (45-117); Anion Gap 4 (5-15); BUN 17 mg/dL (7-18); BUN/Creat Ratio 20.5 RATIO (10-20); Calcium,Total 8.9 mg/dL (8.5-10.1); Chloride 108 mmol/L (98-107); Creatinine, Serum 0.83 mg/dL (0.70-1.30); EST Glomerular Filtration Rate 102 mL/min (>60); Est Glom Filt Rate - Afr Amer 123 mL/min (>60); Estimated Creatinine Clearance 93.61 ml/min; Globulin 3.7 g/dL (2.2-4.2); Glucose 92 mg/dL (74-106); Potassium 3.6 mmol/L (3.5-5.1); Protein, Total 6.8 g/dL (6.4-8.2); Sodium Level 138 mmol/L (136-145)
[2023-10-09 09:53] VITALS: BP 96/65; PULSE 62; RESP 18; TEMP 36.6; O2SAT 94
--- NOTE | 2023-10-09 09:56 | PCM.PN.HOSP ---
Reason for Visit Reason for Visit: Diagnoses Altered mental status, unspecified (10/07/23) Objective Data Objective Data Vital Signs: Vital Signs Temp Pulse Resp BP Pulse Ox O2 Del Method 98 F 62 18 96/65 94 Room Air 10/09/23 09:53 10/09/23 09:53 10/09/23 09:53 10/09/23 09:53 10/09/23 09:53 10/09/23 09:53 Oxygen Delivery Method Room Air Weight: 146 lb 13.246 oz Body Mass Index (BMI) 18.8 Intake & Output: Intake and Output for Last 24 Hours 10/07/23 10/08/23 10/09/23 23:59 23:59 23:59 Intake Total 2506.25 / 2506.25 1000 / 1000 120 / 120 Output Total 301 / 301 700 / 1200 800 / 800 Balance 2205.25 / 2205.25 300 / -200 -680 / -680 Lab / Micro Data 10/09/23 08:10 10/09/23 08:10 Labs: Laboratory Results - last 24 hr 10/09/23 08:10: WBC 5.0, RBC 4.67, Hgb 14.5, Hct 42.0, MCV 89.9, MCH 31.0, MCHC 34.5, RDW Std Deviation 39.2, RDW Coeff of Juan David 11.9, Plt Count 103 L, MPV 10.9, Immature Gran % (Auto) 0.200, Neut % (Auto) 72.7 H, Lymph % (Auto) 19.4, [place] % (Auto) 7.3, Eos % (Auto) 0.2, Baso % (Auto) 0.2, Absolute Neuts (auto) 3.6, Absolute Lymphs (auto) 0.96, Nucleated RBC % 0, Sodium 138, Potassium 3.6, Chloride 108 H, Carbon Dioxide 26.0, Anion Gap 4 L, BUN 17, Creatinine 0.83, Estim Creat Clear Calc 93.61, Est GFR (MDRD) Af Amer 123, Est GFR (MDRD) Non-Af 102, BUN/Creatinine Ratio 20.5 H, Glucose 92, Calcium 8.9, Total Bilirubin 0.80, AST 22, ALT 24, Alkaline Phosphatase 66, Total Protein 6.8, Albumin 3.1 L, Globulin 3.7, Albumin/Globulin Ratio 0.8 L Micro: Microbiology 10/06/23 22:01 Nasal Secretion SARS-CoV-2 & FLU Antigen (Rapid) - Final Rhythm Strip Rhythm Strip: Sinus Rhythm Rate: 55 Ectopy: None Physical Exam Narrative Seen and examined. Patient is more communicative and comprehensive than yesterday. Sitting upright on the bed. Eye contact present. He answers simple questions. Physical exam General: Awake. Slow to interact. Mildly communicative. Oriented to place person but not time. He could not tell with the day or night. HEENT: Atraumatic, PERRLA, EOMI, Normocephalic Oral: Oral mucosa moist. No Gingival or Mucosal Lesions/ Ulcerations Neck: Supple, No JVD, Negative Carotid Bruits Lungs: Air entry diminished in bilateral lung bases. No crepitation/rhonchi Cardiovascular: Regular rate, Regular Rhythm, Normal S1, Normal S2, No murmurs Abdomen: Bowel Sounds Present, Soft, Non Tender, Non-Distended : No renal angle tenderness. No suprapubic tenderness. Extremities: No edema, Capillary Refill Less than 3 Seconds Skin: No rashes, No breakdown Musculoskeletal: Mild decreased bulk of muscles of extremities, spinal muscles and intercostal muscles. Loss of subcutaneous fat. ROM restricted. Neurological: Nonfocal exam. No neck rigidity. DTR 2+. Muscle strength 4+/5. Psych/Mental Status: Flat affect. Depressed mood. Assessment & Plan Assessment/Plan (1) Altered mental status: PLAN: Plan Patient is a 58-year-old male who presented to [facility] ED on 10/07/2023 with altered mental status, confused and disoriented. 1. Altered mental status, unclear: Patient was found in the car in confused state.Patient is not answering any questions. MRI questioner could not be completed and therefore chest abdomen pelvis x-rays were ordered rule out metallic object as contraindication for MRI. CT brain without contrast unremarkable. Patient had mild thrombocytopenia 105,000. Chest x-ray with mild hyperinflation noted, however ABG normal, no hypercapnia noted. Urine drug screen negative, alcohol level 0. Hemodynamically stable, afebrile, low concern for infection. Discussed with the teleneurologist. EEG is ordered. Serum ammonia ordered which is normal. VBG pH 7.42 total CO2 24. 10/08: MRI brain unenhanced shows no acute abnormality. EEG is reported as mild to moderate diffuse slowing of background rhythms without focal lateralized or epileptiform abnormalities. Patient is little interactive and follows simple command. Supervised diet is allowed. Sinus bradycardia on monitor 10/09: Patient is more awake and alert. Responded his name, , place and person but could not tell his age or month. His verbal output and comprehension is improving. Patient is states that he feels sad/depressed mood but unclear about anhedonia. Denies suicidal ideation or attempt or plan. Will start on SNRI, venlafaxine 75 mg twice daily. Avoid QT prolonging drugs. Cautioned about abrupt withdrawal, mononucleated, risk of seizure.TSH normal. Free T4 orientate T3 ordered. Last SEXUAL side effects as compared to SSRIs. 2. Mild thrombocytopenia ? Platelets 120 on admit. Previous platelet counts ranging from 150s to 210s. Platelet count repeat 105,000. 3. Mild creatinine elevation, EVANGELIST ruled out ? Creatinine 1.39, BUN 39 on admit. Baseline creatinine 1.0-1.3. Maintenance IV fluids started in the ED as patient appeared dry on exam. Repeat creatinine 1.1 Chronic medical conditions: ? History of depression: Was previously on duloxetine, not currently on any medications per home med list. ? History of cigarette [id number]-year history noted in outpatient cardiology note in 2019. Unclear if patient is a current smoker at this time. ? History of alcohol abuse: Noted in cardiology note from 2020 that patient had previous history of heavy alcohol use. Unclear if patient is a current alcohol user, alcohol level notably 0 on admit. Chronic moderate protein calorie malnutrition: Patient BMI is 18.9 kg/m? with mild decrease of muscles bulk of extremities, intervertebral and intercostal muscles and loss of subcutaneous fat. DVT prophylaxis: SCDs CODE STATUS: Full code, unverified Microbiology Past 72 Hours 10/06/23 22:01 Nasal Secretion SARS-CoV-2 & FLU Antigen (Rapid) - Final Laboratory Results 10/09/23 08:10: WBC 5.0, RBC 4.67, Hgb 14.5, Hct 42.0, MCV 89.9, MCH 31.0, MCHC 34.5, RDW Std Deviation 39.2, RDW Coeff of Juan David 11.9, Plt Count 103 L, MPV 10.9, Immature Gran % (Auto) 0.200, Neut % (Auto) 72.7 H, Lymph % (Auto) 19.4, [place] % (Auto) 7.3, Eos % (Auto) 0.2, Baso % (Auto) 0.2, Absolute Neuts (auto) 3.6, Absolute Lymphs (auto) 0.96, Nucleated RBC % 0, Sodium 138, Potassium 3.6, Chloride 108 H, Carbon Dioxide 26.0, Anion Gap 4 L, BUN 17, Creatinine 0.83, Estim Creat Clear Calc 93.61, Est GFR (MDRD) Af Amer 123, Est GFR (MDRD) Non-Af 102, BUN/Creatinine Ratio 20.5 H, Glucose 92, Calcium 8.9, Total Bilirubin 0.80, AST 22, ALT 24, Alkaline Phosphatase 66, Total Protein 6.8, Albumin 3.1 L, Globulin 3.7, Albumin/Globulin Ratio 0.8 L Charges/Coding Visit Charges Inpatient E&M: 34735 Subs Hosp L2
[2023-10-09] MEDS: Folic Acid 1 MG Tablet PO (11:30)
[2023-10-09] MEDS: Venlafaxine HCl 75 MG Tablet PO ×2 (11:30→20:47)
--- NOTE | 2023-10-09 14:27 | CASEMGMT ---
Social Work SW checked [facility] several times, we do not have precert. It is anticipated pt will be here until Wednesday pending precert. APRIL Gonzalez
[2023-10-09 15:45] VITALS: BP 131/93; PULSE 52; RESP 18; TEMP 36.6; O2SAT 97
[2023-10-09 21:45] VITALS: BP 137/81; PULSE 58; RESP 18; TEMP 36.9; O2SAT 97
[2023-10-09 23:58] LABS: T4 Free Direct 1.55 ng/dL (0.76-1.46)
[2023-10-10] MEDS: MELATONIN 3 MG TABLET PO ×2 (00:09→20:19)
[2023-10-10 03:45] VITALS: BP 135/88; PULSE 73; RESP 18; TEMP 37.2; O2SAT 99
[2023-10-10 08:49] VITALS: BP 116/81; PULSE 68; RESP 18; TEMP 36.6; O2SAT 94
[2023-10-10] MEDS: Venlafaxine HCl 75 MG Tablet PO ×2 (08:51→20:19)
[2023-10-10] MEDS: Thiamine Hydrochloride 100 MG Tablet PO (08:51)
[2023-10-10] MEDS: Folic Acid 1 MG Tablet PO (08:51)
--- NOTE | 2023-10-10 11:16 | PCM.PN.HOSP ---
Reason for Visit Reason for Visit: Diagnoses Altered mental status, unspecified (10/07/23) Objective Data Objective Data Vital Signs: Vital Signs Temp Pulse Resp BP Pulse Ox O2 Del Method 98 F 68 18 116/81 H 94 Room Air 10/10/23 08:49 10/10/23 08:49 10/10/23 08:49 10/10/23 08:49 10/10/23 08:49 10/10/23 08:49 Oxygen Delivery Method Room Air Weight: 146 lb 13.246 oz Body Mass Index (BMI) 18.8 Intake & Output: Intake and Output for Last 24 Hours 10/08/23 10/09/23 10/10/23 23:59 23:59 23:59 Intake Total 1000 / 1000 720 / 795 75 / 75 Output Total 700 / 1200 800 / 1075 450 / 450 Balance 300 / -200 -80 / -280 -375 / -375 Lab / Micro Data 10/09/23 08:10 10/09/23 08:10 Labs: Laboratory Results - last 24 hr 10/09/23 08:10: Free T4 1.55 H Micro: Microbiology 10/06/23 22:01 Nasal Secretion SARS-CoV-2 & FLU Antigen (Rapid) - Final Rhythm Strip Rhythm Strip: Sinus Rhythm Rate: 55 Ectopy: None Physical Exam Narrative Seen and examined. Patient is sleepy/lethargic in the morning. As per nursing staff, patient oriented to self and sometimes place, sometimes impulsive and tried to climb out of the bed. He also has sometimes hallucinations mainly visual with delayed response. Physical exam General: Sleepy, wakes up on verbal command. Slow to interact. Lethargic. HEENT: Atraumatic, PERRLA, EOMI, Normocephalic Oral: Oral mucosa moist. No Gingival or Mucosal Lesions/ Ulcerations Neck: Supple, No JVD, Negative Carotid Bruits Lungs: Air entry diminished in bilateral lung bases. No crepitation/rhonchi Cardiovascular: Regular rate, Regular Rhythm, Normal S1, Normal S2, No murmurs Abdomen: Bowel Sounds Present, Soft, Non Tender, Non-Distended : No renal angle tenderness. No suprapubic tenderness. Extremities: No edema, Capillary Refill Less than 3 Seconds Skin: No rashes, No breakdown Musculoskeletal: Mild decreased bulk of muscles of extremities, spinal muscles and intercostal muscles. Loss of subcutaneous fat. ROM restricted. Neurological: Nonfocal exam. No neck rigidity. DTR 2+. Muscle strength 4+/5. Psych/Mental Status: Flat affect. Depressed mood. Assessment & Plan Assessment/Plan (1) Altered mental status: PLAN: Plan Patient is a 58-year-old male who presented to [facility] ED on 10/07/2023 with altered mental status, confused and disoriented. 1. Altered mental status, acute encephalopathy exact etiology unclear may be after fall: Patient was found in the car in confused state.Patient is not answering any questions. MRI questioner could not be completed and therefore chest abdomen pelvis x-rays were ordered rule out metallic object as contraindication for MRI. CT brain without contrast unremarkable. Patient had mild thrombocytopenia 105,000. Chest x-ray with mild hyperinflation noted, however ABG normal, no hypercapnia noted. Urine drug screen negative, alcohol level 0. Hemodynamically stable, afebrile, low concern for infection. Discussed with the teleneurologist. EEG is ordered. Serum ammonia ordered which is normal. VBG pH 7.42 total CO2 24. 10/08: MRI brain unenhanced shows no acute abnormality. EEG is reported as mild to moderate diffuse slowing of background rhythms without focal lateralized or epileptiform abnormalities. Patient is little interactive and follows simple command. Supervised diet is allowed. Sinus bradycardia on monitor 10/09: Patient is more awake and alert. Responded his name, , place and person but could not tell his age or month. His verbal output and comprehension is improving. Patient is states that he feels sad/depressed mood but unclear about anhedonia. Denies suicidal ideation or attempt or plan. Will start on SNRI, venlafaxine 75 mg twice daily. Avoid QT prolonging drugs. Cautioned about abrupt withdrawal, mononucleated, risk of seizure.TSH normal. Free T4 ordered. Last SEXUAL side effects as compared to SSRIs. 10/10: Patient seemed more lethargic and sleepy today. Also has intermittent hallucination trying to get up from bed Free T4 1.55 High. TSH 0.71. Continue venlafaxine. Free T4 may be slightly high with TSH and low normal probably from euthyroid sick syndrome. Need repeat thyroid function test after 3 months. 2. Mild thrombocytopenia ? Platelets 120 on admit. Previous platelet counts ranging from 150s to 210s. Platelet count repeat 105,000. 3. Mild creatinine elevation, EVANGELIST ruled out ? Creatinine 1.39, BUN 39 on admit. Baseline creatinine 1.0-1.3. Maintenance IV fluids started in the ED as patient appeared dry on exam. Repeat creatinine 1.1 Chronic medical conditions: ? History of depression: Was previously on duloxetine, not currently on any medications per home med list. ? History of cigarette [id number]-year history noted in outpatient cardiology note in 2020. Unclear if patient is a current smoker at this time. ? History of alcohol abuse: Noted in cardiology note from 2020 that patient had previous history of heavy alcohol use. Unclear if patient is a current alcohol user, alcohol level notably 0 on admit. Chronic moderate protein calorie malnutrition: Patient BMI is 18.9 kg/m? with mild decrease of muscles bulk of extremities, intervertebral and intercostal muscles and loss of subcutaneous fat. DVT prophylaxis: SCDs CODE STATUS: Full code, unverified Charges/Coding Visit Charges Inpatient E&M: 97873 Subs Hosp L2
[2023-10-10 16:02] VITALS: BP 132/92; PULSE 76; RESP 20; TEMP 36.9; O2SAT 94
[2023-10-10 22:00] VITALS: BP 120/88; PULSE 90; RESP 18; TEMP 36.9; O2SAT 95
[2023-10-11 04:00] VITALS: BP 137/87; PULSE 55; RESP 18; TEMP 36.6; O2SAT 96
[2023-10-11 08:56] VITALS: BP 130/89; PULSE 56; RESP 16; TEMP 36.6; O2SAT 96
[2023-10-11 11:21] LABS: Vitamin B12 353 pg/mL (211-911)
--- NOTE | 2023-10-11 13:16 | PN.HOSP_ITS ---
Reason for Visit Reason for Visit: Diagnoses Altered mental status, unspecified (10/07/23) Objective Data Objective Data Vital Signs: Vital Signs Temp Pulse Resp BP Pulse Ox O2 Del Method 97.8 F 56 L 16 130/89 H 96 Room Air 10/11/23 08:56 10/11/23 08:56 10/11/23 08:56 10/11/23 08:56 10/11/23 08:56 10/11/23 09:48 Oxygen Delivery Method Room Air Weight: 146 lb 13.246 oz Body Mass Index (BMI) 18.8 Intake & Output: Intake and Output for Last 24 Hours 10/09/23 10/10/23 10/11/23 23:59 23:59 23:59 Intake Total 720 / 795 345 / 420 195 / 195 Output Total 800 / 1075 850 / 975 225 / 225 Balance -80 / -280 -505 / -555 -30 / -30 Lab / Micro Data 10/09/23 08:10 10/09/23 08:10 Labs: Laboratory Results - last 24 hr 10/09/23 08:10: Vitamin B12 353 Micro: Microbiology 10/06/23 22:01 Nasal Secretion SARS-CoV-2 & FLU Antigen (Rapid) - Final Rhythm Strip Rhythm Strip: Sinus Rhythm Rate: 55 Ectopy: None Physical Exam Narrative Seen and examined. Today also patient is patient is sleepy/lethargic but he wakes up. Disoriented, sometimes impulsive and to climb out of the bed more in the nighttime. He also has sometimes hallucinations mainly visual with delayed response. Physical exam General: Sleepy, wakes up on verbal command. Slow to interact. Lethargic. Confused and disoriented HEENT: Atraumatic, PERRLA, EOMI, Normocephalic Oral: Oral mucosa moist. No Gingival or Mucosal Lesions/ Ulcerations Neck: Supple, No JVD, Negative Carotid Bruits Lungs: Air entry diminished in bilateral lung bases. No crepitation/rhonchi Cardiovascular: Regular rate, Regular Rhythm, Normal S1, Normal S2, No murmurs Abdomen: Bowel Sounds Present, Soft, Non Tender, Non-Distended : No renal angle tenderness. No suprapubic tenderness. Extremities: No edema, Capillary Refill Less than 3 Seconds Skin: No rashes, No breakdown Musculoskeletal: Mild decreased bulk of muscles of extremities, spinal muscles and intercostal muscles. Loss of subcutaneous fat. ROM restricted. Neurological: Nonfocal exam. No neck rigidity. DTR 2+. Muscle strength 4+/5. Psych/Mental Status: Flat affect. Depressed mood. Hallucinations Assessment & Plan Assessment/Plan (1) Altered mental status: PLAN: Plan Patient is a 58-year-old male who presented to [facility] ED on 10/07/2023 with altered mental status, confused and disoriented. 1. Altered mental status, acute encephalopathy exact etiology unclear may be after fall: Patient was found in the car in confused state.Patient is not answering any questions. MRI questioner could not be completed and therefore chest abdomen pelvis x-rays were ordered rule out metallic object as contraindication for MRI. CT brain without contrast unremarkable. Patient had mild thrombocytopenia 105,000. Chest x-ray with mild hyperinflation noted, however ABG normal, no hypercapnia noted. Urine drug screen negative, alcohol level 0. Hemodynamically stable, afebrile, low concern for infection. Discussed with the teleneurologist. EEG is ordered. Serum ammonia ordered which is normal. VBG pH 7.42 total CO2 24. 10/08: MRI brain unenhanced shows no acute abnormality. EEG is reported as mild to moderate diffuse slowing of background rhythms without focal lateralized or epileptiform abnormalities. Patient is little interactive and follows simple command. Supervised diet is allowed. Sinus bradycardia on monitor 10/09: Patient is more awake and alert. Responded his name, , place and person but could not tell his age or month. His verbal output and comprehension is improving. Patient is states that he feels sad/depressed mood but unclear about anhedonia. Denies suicidal ideation or attempt or plan. Will start on SNRI, venlafaxine 75 mg twice daily. Avoid QT prolonging drugs. Cautioned about abrupt withdrawal, mononucleated, risk of seizure.TSH normal. Free T4 ordered. Last SEXUAL side effects as compared to SSRIs. 10/10: Patient seemed more lethargic and sleepy today. Also has intermittent hallucination trying to get up from bed Free T4 1.55 High. TSH 0.71. Continue venlafaxine. Free T4 may be slightly high with TSH and low normal probably from euthyroid sick syndrome. Need repeat thyroid function test after 3 months. 10/11/2023: Patient is confused disoriented lethargic. Hallucinations. Venlafaxine discontinued. Orientation cues. Avoid benzodiazepines. 2. Mild thrombocytopenia ? Platelets 120 on admit. Previous platelet counts ranging from 150s to 210s. Platelet count repeat 105,000. 3. Mild creatinine elevation, EVANGELIST ruled out ? Creatinine 1.39, BUN 39 on admit. Baseline creatinine 1.0-1.3. Maintenance IV fluids started in the ED as patient appeared dry on exam. Repeat creatinine 1.1 Chronic medical conditions: ? History of depression: Was previously on duloxetine, not currently on any medications per home med list. ? History of cigarette [id number]-year history noted in outpatient card iology note in 2020. Unclear if patient is a current smoker at this time. ? History of alcohol abuse: Noted in cardiology note from 2020 that patient had previous history of heavy alcohol use. Unclear if patient is a current alcohol user, alcohol level notably 0 on admit. Chronic moderate protein calorie malnutrition: Patient BMI is 18.9 kg/m? with mild decrease of muscles bulk of extremities, intervertebral and intercostal muscles and loss of subcutaneous fat. DVT prophylaxis: SCDs CODE STATUS: Full code, unverified Charges/Coding Visit Charges Inpatient E&M: 59399 Subs Hosp L2
[2023-10-11 16:00] VITALS: BP 129/80; PULSE 56; RESP 18; TEMP 36.6; O2SAT 96
[2023-10-11 16:15] LABS: Absolute Lymphocyte Count 0.92 X10^3/uL (0.83-4.51); Absolute Neutrophil Count 9.3 X10^3/uL (2.0-7.7); Basophil# 0.02 X10^3/uL; Basophil% 0.2 % (0-1); Eosinophil# 0.01 X10^3/uL; Eosinophils% 0.1 % (0-5); Hematocrit 39.7 % (40-54); Hemoglobin 13.5 g/dL (13.0-16.5); Lymphocyte # 0.92 X10^3/ul (0.83-4.51); Lymphocyte % 8.2 % (19-41); Mean Corpuscular Hgb 30.1 pg (27.0-32.0); Mean Corpuscular Volume 88.6 fL (80-94); Mean Platelet Vol. 10.2 fl (6.2-12.0); Monocyte# 0.93 X10^3/uL; Monocyte% 8.3 % (0-10); NRBC Flagged by Analyzer 0 % (0-5); Neutrophil # 9.26 X10^3/uL (2.7-7.7); Neutrophil % 82.8 % (47-70); Platelet Count 183 K/mm3 (150-450); RBC Distribution Width CV 11.9 % (11.6-14.6); RBC Distribution Width SD 38.4 fl (35.1-43.9); Red Blood Count 4.48 M/mm3 (4.6-6.2); White Blood Count 11.2 K/mm3 (4.4-11.0)
[2023-10-11 16:33] LABS: Anion Gap 5 (5-15); BUN 18 mg/dL (7-18); BUN/Creat Ratio 22.8 RATIO (10-20); Calcium,Total 9.3 mg/dL (8.5-10.1); Chloride 109 mmol/L (98-107); Creatinine, Serum 0.79 mg/dL (0.70-1.30); EST Glomerular Filtration Rate 108 mL/min (>60); Est Glom Filt Rate - Afr Amer 131 mL/min (>60); Estimated Creatinine Clearance 98.35 ml/min; Glucose 106 mg/dL (74-106); Magnesium 2.4 mg/dL (1.6-2.6); Potassium 3.7 mmol/L (3.5-5.1); Sodium Level 139 mmol/L (136-145)
[2023-10-11] MEDS: Lactulose 20 GM/30 ML UDC PO (21:46)
[2023-10-11 22:00] VITALS: BP 120/77; PULSE 65; RESP 16; TEMP 36.6; O2SAT 96
[2023-10-12 04:00] VITALS: BP 122/71; PULSE 66; RESP 16; TEMP 36.6; O2SAT 97
[2023-10-12 08:35] VITALS: BP 115/88; PULSE 60; RESP 18; TEMP 36.3; O2SAT 97
[2023-10-12] MEDS: Thiamine Hydrochloride 100 MG Tablet PO (08:42)
[2023-10-12] MEDS: Lactulose 20 GM/30 ML UDC PO (08:42)
[2023-10-12] MEDS: Folic Acid 1 MG Tablet PO (08:43)
--- NOTE | 2023-10-12 10:21 | CASEMGMT ---
[facility] canceled the pre-cert. SW sent updates to [facility] and let them know [facility] canceled the pre-cert. Plan: [facility] pending pre-cert. Whitney GR
--- NOTE | 2023-10-12 11:40 | PCM.TXEXTCAR ---
Diet Diet Order/Speech Therapy: 10/08/23 11:52 Diet: Regular - General Food consistency:: Mechanical (Minced/Moist) Liquid Consistency:: Regular/Thin Is pt able to select menu?: No Diet Comments: DIRECT SUP/TOTAL FEED, FOOD/DRINK ONLY IF FULLY ALERT Routine Orders/Code Status Suppository Type: Dulcolax 10mg Suppository Frequency: Daily PRN Wound(s) left elbow: Wound Type: Abrasion Problem/Diagnosis (1) Altered mental status: Status: Acute Code(s): R41.82 - Altered mental status, unspecified Plan Patient is a 58-year-old male who presented to [facility] ED on 10/07/2023 with altered mental status, confused and disoriented. 1. Altered mental status, acute encephalopathy exact etiology unclear may be after fall: Patient was found in the car in confused state.Patient is not answering any questions. MRI questioner could not be completed and therefore chest abdomen pelvis x-rays were ordered rule out metallic object as contraindication for MRI. CT brain without contrast unremarkable. Patient had mild thrombocytopenia 105,000. Chest x-ray with mild hyperinflation noted, however ABG normal, no hypercapnia noted. Urine drug screen negative, alcohol level 0. Hemodynamically stable, afebrile, low concern for infection. Discussed with the teleneurologist. EEG is ordered. Serum ammonia ordered which is normal. VBG pH 7.42 total CO2 24. 10/08: MRI brain unenhanced shows no acute abnormality. EEG is reported as mild to moderate diffuse slowing of background rhythms without focal lateralized or epileptiform abnormalities. Patient is little interactive and follows simple command. Supervised diet is allowed. Sinus bradycardia on monitor 10/09: Patient is more awake and alert. Responded his name, , place and person but could not tell his age or month. His verbal output and comprehension is improving. Patient is states that he feels sad/depressed mood but unclear about anhedonia. Denies suicidal ideation or attempt or plan. Will start on SNRI, venlafaxine 75 mg twice daily. Avoid QT prolonging drugs. Cautioned about abrupt withdrawal, mononucleated, risk of seizure.TSH normal. Free T4 ordered. Last SEXUAL side effects as compared to SSRIs. 10/10: Patient seemed more lethargic and sleepy today. Also has intermittent hallucination trying to get up from bed Free T4 1.55 High. TSH 0.71. Continue venlafaxine. Free T4 may be slightly high with TSH and low normal probably from euthyroid sick syndrome. Need repeat thyroid function test after 3 months. 10/11/2023: Patient is confused disoriented lethargic. Hallucinations. Venlafaxine discontinued. Orientation cues. Avoid benzodiazepines. 2. Mild thrombocytopenia ? Platelets 120 on admit. Previous platelet counts ranging from 150s to 210s. Platelet count repeat 105,000. 3. Mild creatinine elevation, EVANGELIST ruled out ? Creatinine 1.39, BUN 39 on admit. Baseline creatinine 1.0-1.3. Maintenance IV fluids started in the ED as patient appeared dry on exam. Repeat creatinine 1.1 Chronic medical conditions: ? History of depression: Was previously on duloxetine, not currently on any medications per home med list. ? History of cigarette [id number]-year history noted in outpatient cardiology note in 2019. Unclear if patient is a current smoker at this time. ? History of alcohol abuse: Noted in cardiology note from 2019 that patient had previous history of heavy alcohol use. Unclear if patient is a current alcohol user, alcohol level notably 0 on admit. Chronic moderate protein calorie malnutrition: Patient BMI is 18.9 kg/m? with mild decrease of muscles bulk of extremities, intervertebral and intercostal muscles and loss of subcutaneous fat. DVT prophylaxis: SCDs CODE STATUS: Full code, unverified Allergies/Procedures Done in Hospital Allergies No Known Allergies Allergy (Verified 01/04/23 12:45) Type of Care/Length of Stay Estimated LOS: Convalescent Care Less Than 30 days Type of Care Needed: Skilled Rehab Potential: Good Prognosis: Good Additional Orders/Day of Discharge Day of Discharge: 10/12/23 Dietary and Speech Recommendations Dietitian Recommendations/Changes: Continue diet per AGRICULTURAL RESEARCH ENGINEER recommendations. Expect needs to be met with diet at this time. Discharge Plan Admission Admit Date/Time: 10/07/23 15:33 Primary Reason for Your Visit: Acute encephalopathy after fall. Attending Provider: Farzad Dallas Primary Care Provider: Care Physician,No Primary Consulting Providers: Nicolas Whaley; Nessa Tavarez; Abena Salas; Preet Aragon; Chris Luna; ADAM SCHWARZ; [place]; Jessica Louis; Louis Johnson; Supriya Hoffman; Juvencio Guzman; Tahira Horta; Alice Orellana; Pan Serna; Micaela Bearden; Waldemar Kumar; Dalton King; Yuri Sabillon; Cori Ibanez; Marisol Lewis; Johnny Miranda; Chelsea Loza; Kameron Luna; Temi Soriano; Garrett Garcia; Gregorio Ho Discharge Orders/Prescriptions Prescriptions: New acetaminophen 325 mg Tablet 650 mg PO Q6H PRN PRN (Reason: Pain 1-10 Or Fever>100.7) Qty: 0 0RF thiamine HCl (vitamin B1) [Vitamin B-1] 100 mg Tablet 100 mg PO BREAKFAST Qty: 0 0RF folic acid 1 mg Tablet 1 mg PO BREAKFAST Qty: 0 0RF lactulose 20 gram/30 mL Solution 20 g PO BID PRN (Reason: constipation/confusion) Qty: 0 0RF Continued albuterol sulfate [Ventolin HFA] 90 mcg/actuation HFA aerosol inhaler 1 - 2 puff inhalation Q4H PRN PRN (Reason: Wheezing) Qty: 1 0RF cyclobenzaprine 10 mg tablet 10 mg PO TID PRN (Reason: Muscle Spasm) Qty: 20 0RF Discontinued naproxen [Naprosyn] 500 mg tablet 500 mg PO BID PRN (Reason: pain) Qty: 20 0RF Referrals / Follow Up: Care Physician,No Primary [Primary Care Provider] - Disposition Disposition (needs filled in before D/C Order can be placed): Long Term Facility
--- NOTE | 2023-10-12 13:47 | CASEMGMT ---
[facility] received authorization for patient. SW notified physician. SW also spoke with patient letting him know [facility] has accepted him and he will go today. Patient's has no transportation and no working phone. SW spoke with Hospital Resource Officer Ahmet and will go to patient's home to notify patient's . SW let patient know this information. LUIS DANIEL completed a 7000 in [employer] system. Plan: d/c to [facility] under skilled level of care on a convalescent stay. Physicians will transport patient via ambulance. Whitney GR
--- NOTE | 2023-10-12 13:48 | PCM.DC.SUM ---
Providers Date of Admission: 10/07/23 Date of Discharge: 10/12/23 Primary Care Physician: Alina Primary Care Phys Consultations 10/07/23 05:53 Consult: Tele-Neurology Routine Consulting Provider: [facility] Reason for Consult: Acute Ischemic Stroke/TIA EMERGENT Consult: No MD Notified: Yes Date Notified: 10/07/23 Time Notified: 06:22 Method of Notification: Answering Service Nursing Unit Staff Notify [facility] of Tele-Neurology Consult: Yes Reason For Visit: ALTERED MENTAL STATUS, CVA RULE OUT Diagnosis Discharge Diagnosis (1) Altered mental status: Status: Acute Code(s): R41.82 - Altered mental status, unspecified Plan Patient is a 58-year-old male who presented to [facility] ED on 10/07/2023 with altered mental status, confused and disoriented. 1. Altered mental status, acute encephalopathy exact etiology unclear may be after fall: Patient was found in the car in confused state.Patient is not answering any questions. MRI questioner could not be completed and therefore chest abdomen pelvis x-rays were ordered rule out metallic object as contraindication for MRI. CT brain without contrast unremarkable. Patient had mild thrombocytopenia 105,000. Chest x-ray with mild hyperinflation noted, however ABG normal, no hypercapnia noted. Urine drug screen negative, alcohol level 0. Hemodynamically stable, afebrile, low concern for infection. Discussed with the teleneurologist. EEG is ordered. Serum ammonia ordered which is normal. VBG pH 7.42 total CO2 24. 10/08: MRI brain unenhanced shows no acute abnormality. EEG is reported as mild to moderate diffuse slowing of background rhythms without focal lateralized or epileptiform abnormalities. Patient is little interactive and follows simple command. Supervised diet is allowed. Sinus bradycardia on monitor 10/09: Patient is more awake and alert. Responded his name, , place and person but could not tell his age or month. His verbal output and comprehension is improving. Patient is states that he feels sad/depressed mood but unclear about anhedonia. Denies suicidal ideation or attempt or plan. Will start on SNRI, venlafaxine 75 mg twice daily. Avoid QT prolonging drugs. Cautioned about abrupt withdrawal, mononucleated, risk of seizure.TSH normal. Free T4 ordered. Last SEXUAL side effects as compared to SSRIs. 12/31: Patient seemed more lethargic and sleepy today. Also has intermittent hallucination trying to get up from bed Free T4 1.55 High. TSH 0.71. Continue venlafaxine. Free T4 may be slightly high with TSH and low normal probably from euthyroid sick syndrome. Need repeat thyroid function test after 3 months. 10/11/2023: Patient is confused disoriented lethargic. Hallucinations. Venlafaxine discontinued. Orientation cues. Avoid benzodiazepines. 10/12/2023: Patient is still intermittently confused sometimes awake and follows command. Patient discharged on thiamine folic acid and lactulose. 2. Mild thrombocytopenia ? Platelets 120 on admit. Previous platelet counts ranging from 150s to 210s. Platelet count repeat 105,000. 10/12: Platelet count is 183,000. Thrombocytopenia resolved. 3. Mild creatinine elevation, EVANGELIST ruled out ? Creatinine 1.39, BUN 39 on admit. Baseline creatinine 1.0-1.3. Maintenance IV fluids started in the ED as patient appeared dry on exam. Repeat creatinine 1.1 10/12: BUNs/creatinine 18/0.79. EVANGELIST resolved. Patient encouraged to drink fluid. Chronic medical conditions: ? History of depression: Was previously on duloxetine, not currently on any medications per home med list. ? History of cigarette smokin19-91-jtkq-year history noted in outpatient cardiology note in 2020. Unclear if patient is a current smoker at this time. ? History of alcohol abuse: Noted in cardiology note from 2020 that patient had previous history of heavy alcohol use. Unclear if patient is a current alcohol user, alcohol level notably 0 on admit. Chronic moderate protein calorie malnutrition: Patient BMI is 18.9 kg/m? with mild decrease of muscles bulk of extremities, intervertebral and intercostal muscles and loss of subcutaneous fat. DVT prophylaxis: SCDs CODE STATUS: Full code, unverified Discharge medication reconciliation done. Discharge follow-up instructions completed. Discharge process discussed with the patient and all questions were answered to patient's satisfaction. Follow with PCP in 1 to 2 weeks Total time spent, exact 35 minutes on discharge meds reconciliation, examination, coordination of care with nurses and ancillary staff, review of imaging and blood test and discussion with the patient on follow-up instructions. Medications at Discharge Home Medications albuterol sulfate 90 mcg/actuation aerosol inhaler (Ventolin HFA) 1 - 2 puff inhalation Q4H PRN PRN Wheezing #1 inh 01/24/23 cyclobenzaprine 10 mg tablet 10 mg PO TID PRN Muscle Spasm #20 TABLETS 04/15/23 acetaminophen 325 mg tablet 650 mg (2 x 325 mg) PO Q6H PRN PRN Pain 1-10 Or Fever>100.7 #0 tabs 10/12/23 folic acid 1 mg tablet 1 mg PO BREAKFAST #0 tabs 10/12/23 lactulose 20 gram/30 mL oral solution 20 g (30 mL) PO BID PRN constipation/confusion #0 mL 10/12/23 thiamine HCl (vitamin B1) 100 mg tablet (Vitamin B-1) 100 mg PO BREAKFAST #0 tabs 10/12/23 Physical Exam Narrative Seen and examined. Patient is awake and when asked he says it is not daytime. At nights he gets disoriented, confused, climb out of the bed more in the nighttime. He also has sometimes hallucinations mainly visual with delayed response. Physical exam General: Awake. Disoriented to place and time but oriented to person. Slow to interact. HEENT: Atraumatic, PERRLA, EOMI, Normocephalic Oral: Oral mucosa moist. No Gingival or Mucosal Lesions/ Ulcerations Neck: Supple, No JVD, Negative Carotid Bruits Lungs: Air entry diminished in bilateral lung bases. No crepitation/rhonchi Cardiovascular: Regular rate, Regular Rhythm, Normal S1, Normal S2, No murmurs Abdomen: Bowel Sounds Present, Soft, Non Tender, Non-Distended : No renal angle tenderness. No suprapubic tenderness. Extremities: No edema, Capillary Refill Less than 3 Seconds Skin: No rashes, No breakdown Musculoskeletal: Mild decreased bulk of muscles of extremities, spinal muscles and intercostal muscles. Loss of subcutaneous fat. ROM restricted. Neurological: Nonfocal exam. No neck rigidity. DTR 2+. Muscle strength 4+/5. Psych/Mental Status: Flat affect. Depressed mood. Hallucinations Weight / BMI Weight Weight: 146 lb 13.246 oz Body Mass Index (BMI) 18.8 ABG / Lab / Microbiology Data 10/11/23 16:00 10/11/23 16:00 Laboratory: Laboratory Results - last 24 hr 10/11/23 16:00: WBC 11.2 H, RBC 4.48 L, Hgb 13.5, Hct 39.7 L, MCV 88.6, MCH 30.1, MCHC 34.0, RDW Std Deviation 38.4, RDW Coeff of Juan David 11.9, Plt Count 183, MPV 10.2, Immature Gran % (Auto) 0.400, Neut % (Auto) 82.8 H, Lymph % (Auto) 8.2 L, [place] % (Auto) 8.3, Eos % (Auto) 0.1, Baso % (Auto) 0.2, Absolute Neuts (auto) 9.3 H, Absolute Lymphs (auto) 0.92, Nucleated RBC % 0, Sodium 139, Potassium 3.7, Chloride 109 H, Carbon Dioxide 25.0, Anion Gap 5, BUN 18, Creatinine 0.79, Estim Creat Clear Calc 98.35, Est GFR (MDRD) Af Amer 131, Est GFR (MDRD) Non-Af 108, BUN/Creatinine Ratio 22.8 H, Glucose 106, Calcium 9.3, Phosphorus 3.0, Magnesium 2.4 Microbiology: Microbiology 10/06/23 22:01 Nasal Secretion SARS-CoV-2 & FLU Antigen (Rapid) - Final Meaningful Use Info Meaningful Use Diagnoses (Choose all that apply): None applicable Discharge Plan Admission Admit Date/Time: 10/07/23 15:33 Primary Reason for Your Visit: Acute encephalopathy after fall. Attending Provider: Farzad Dallas Primary Care Provider: Care Physician,No Primary Consulting Providers: Nicolas Whaley; Nessa Tavarez; Abena Salas; Preet Argaon; Chris Luna; ADAM SCHWARZ; [place]; Jessica Louis; Louis Johnson; Supriya Hoffman; Juvencio Guzman; Tahira Horta; Alice Orellana; Pan Serna; Micaela Bearden; Waldemar Kumar; Dalton King; Yuri Sabillon; Cori Ibanez; Marisol Lewis; Johnny Miranda; Chelsea Loza; Kameron Luna; Temi Soriano; Garrett Garcia; Gregorio Ho Discharge Orders/Prescriptions Prescriptions: New acetaminophen 325 mg Tablet 650 mg PO Q6H PRN PRN (Reason: Pain 1-10 Or Fever>100.7) Qty: 0 0RF thiamine HCl (vitamin B1) [Vitamin B-1] 100 mg Tablet 100 mg PO BREAKFAST Qty: 0 0RF folic acid 1 mg Tablet 1 mg PO BREAKFAST Qty: 0 0RF lactulose 20 gram/30 mL Solution 20 g PO BID PRN (Reason: constipation/confusion) Qty: 0 0RF Continued albuterol sulfate [Ventolin HFA] 90 mcg/actuation HFA aerosol inhaler 1 - 2 puff inhalation Q4H PRN PRN (Reason: Wheezing) Qty: 1 0RF cyclobenzaprine 10 mg tablet 10 mg PO TID PRN (Reason: Muscle Spasm) Qty: 20 0RF Discontinued naproxen [Naprosyn] 500 mg tablet 500 mg PO BID PRN (Reason: pain) Qty: 20 0RF Referrals / Follow Up: Jan Spencer MD [Non-Staff -Ordering Privileges] - Within 1 Month (for suspected concussion injury) Tree Lott DO [Med Staff - Senior Solutions Engineer] - Within 1 Month Care Physician,No Primary [Primary Care Provider] - Disposition Disposition (needs filled in before D/C Order can be placed): [facility] Facility Charges/Coding Visit Charges Inpatient E&M: 90331 Disch Hosp >30min
[2023-10-12 14:14] VITALS: BP 92/59; PULSE 63; RESP 18; TEMP 36.6; O2SAT 96
--- NOTE | 2023-10-12 15:43 | NURSING ---
female phoned in, states she is pt spouse. updated on pt status/ POC. Evelina with questions regarding discharge insurance, phone call then passed onto Whitney CARY to speak with spouse.
--- NOTE | 2023-10-12 15:45 | CASEMGMT ---
Discharge Planning Discharge orders, signed med list, and transport time sent to [facility] via [facility]. [facility] will transport patient by cot at 4:30p. Nursing, SW, and patient updated. Leia Choi, Discharge Planning Asst.
== END 2023-10-12 15:52 | DRG 52 ==
LOC: ED 10-07 00:51 → PCU 10-07 01:31
PROVIDERS: Admitting Provider Hospitalist; Emergency Provider Emergency Medicine; Visit Provider Internal Medicine
DX: G93.40 Encephalopathy, unspecified (principal); M06.9 Rheumatoid arthritis, unspecified; I27.20 Pulmonary hypertension, unspecified; D69.6 Thrombocytopenia, unspecified; I10 Essential (primary) hypertension; F17.210 Nicotine dependence, cigarettes, uncomplicated; J45.909 Unspecified asthma, uncomplicated; R79.89 Other specified abnormal findings of blood chemistry; Z91.81 History of falling; R00.1 Bradycardia, unspecified
CPT/HCPCS: 36415; 70450; 70551; 71045; 74018; 80048; 80053; 80061; 80307; 80320; 81001; 82140; 82607; 82746; 82803; 82962; 82977; 83036; 83735; 84100; 84439; 84443; 84484; 85025; 85027; 87428; 92526; 92610; 93005; 94668; 94762; 95819; 96360; 96361; 97110; 97162; 97166; 97530; 97535; 97802; 99221; 99285; J7030; J7120; A4216; G0378; G0480

== ENCOUNTER → 2023-10-13 | Outpatient (REF) | payer MEDICAID, SELFPAY ==
--- OUTSIDE RECORDS SUMMARY | 2023-10-13 04:07 | XMS RPT_ITS | CCD ---
Author Name Unknown Address [address] [place] [address] Organization [facility] Care Team Providers Care Mate Chief Name Role Phone THAO CARPIO Jen Unavailable Unavailable Allergies Allergy Classification Reported Allergen(s) Allergy Type Date of Onset Reaction(s) Facility (1 source) traZODone Drug Allergy 03-22-2019 Other: See Comments [facility] Medications Completed/Discontinued Medications Medication Drug Class(es) Dates Sig (Normalized) Sig (Original) albuterol 0.83 mg/ml inhalation solution (2 sources) beta2-Adrenergic Agonist Start: 06-26-2021 albuterol (PROVENTIL) 2.5 mg /3 mL (0.083 %) nebulizer solution Indications: COPD with chronic bronchitis (HCC) Use 3 mL via nebulizer every 4 hours as needed for wheezing/shortness of breath. Use over 5-15minutes. (J44.9) COPD with chronic bronchitis Dispense 100 - 3ml vials, 2 refills 3 mL 2 06/26/2021 Active Problems Active Problems Problem Classification Problem Date Documented Date Episodic/Chronic Adjustment disorders (1 source) Adjustment disorder with mixed anxiety and depressed mood; Translations: [Adjustment disorder with mixed anxiety and depressed mood] Onset: 04-20-2016 04-20-2016 Chronic Chronic obstructive pulmonary disease and bronchiectasis (2 sources) Emphysematous bronchitis; Translations: [Chronic obstructive pulmonary disease, unspecified] Onset: 01-22-2016 Chronic Malaise and fatigue (1 source) Chronic fatigue, unspecified; Translations: [Other malaise and fatigue] Chronic Miscellaneous mental health disorders (1 source) Pain disorder with psychological factor; Translations: [Pain disorder with related psychological factors] Onset: 04-20-2016 04-20-2016 Chronic Other circulatory disease (1 source) Orthostatic hypotension; Translations: [Orthostatic hypotension] Episodic Other screening for suspected conditions (not mental disorders or infectious disease) (1 source) Patient encounter status; Translations: [Encounter for screening for malignant neoplasm of colon] Episodic Residual codes; unclassified (1 source) Obstructive sleep apnea syndrome; Translations: [Obstructive sleep apnea (adult) (pediatric)] Onset: 05-25-2018 05-25-2018 Chronic Residual codes; unclassified (1 source) REM sleep behavior disorder; Translations: [REM sleep behavior disorder] Onset: 05-25-2018 05-25-2018 Chronic Substance-related disorders (2 sources) Tobacco user; Translations: [Nicotine dependence, unspecified, uncomplicated] Onset: 12-04-2007 Chronic Unclassified (1 source) Obstructive sleep apnea (adult) (pediatric); Translations: [Obstructive sleep apnea (adult) (pediatric)] Onset: 02-06-2018 Chronic Past or Other Problems Problem Classification Problem Date Documented Da te Episodic/Chronic Malaise and fatigue (1 source) Physical deconditioning; Translations: [Other malaise] Onset: 10-14-2016 10-14-2016 Episodic Other connective tissue disease (1 source) Falls; Translations: [Repeated falls] Onset: 05-25-2018 05-25-2018 Episodic Other gastrointestinal disorders (1 source) Chronic constipation; Translations: [Other constipation] Onset: 11-18-2015 11-18-2015 Episodic Other upper respiratory disease (1 source) Deviated nasal septum; Translations: [Deviated nasal septum] Onset: 05-25-2018 05-25-2018 Episodic Spondylosis; intervertebral disc disorders; other back problems (4 sources) Backache; Translations: [Dorsalgia, unspecified] Onset: 08-27-2011 05-25-2018 Episodic Results Test Name Value Interpretation Reference Range Facil ity Vital Signs Date Time Vital Sign Value Performing Clinician [place] billings 12-24-2021 16:41-0400 Diastolic blood pressure 78 mm[Hg] Thao Carpio MD Work Phone: [facility] 12-24-2021 16:41-0400 Systolic blood pressure 102 mm[Hg] Thao Carpio MD Work Phone: [facility] 12-24-2021 15:17-0400 Heart rate 70 /min Thao Carpio MD Work Phone: [facility] Encounters Encounter Date Encounter Type Care Provider Facility Start: 12-24-2021 End: 12-24-2021 Office outpatient visit 25 minutes Thao Carpio MD Work Phone: [facility] [place] Procedures Date Procedure Procedure Detail Performing Clinician Start: 03-21-2021 Adult depression scr eening assessment Thao Carpio MD Work Phone: Start: 01-29-2016 Colonoscopy Thao salazar MD Work Phone: Plan of Treatment Date Care Activity Detail Author Start: 03-24-2026 LIPID SCREEN LIPID SCREEN [facility] Start: 03-24-2024 DIABETES SCREEN DIABETES SCREEN [facility] Start: 12-24-2022 ANNUAL PCP TEAM 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 RAIL OPERATOR JOHN DISEASE VISIT ANNUAL PCP TEAM CHRONIC DISEASE VISIT [facility] Start: 10-21-2022 PROSTATE CANCER SCRE ENING DISCUSSION PROSTATE CANCER SCREENING DISCUSSION [facility] Start: 06-11-2022 Influenza vaccination INFLUENZA (Sea son Ended) [facility] Start: 03-25-2022 FECAL OCCULT BLOOD FECAL OCCULT BLOO D [facility] Start: 03-21-2022 Adult depression scr eening assessment DEPRESSION SCREENING [facility] Start: 03-21-2022 COVID-19 VACCINE (#1) COVID-19 VACCI NE (#1) [facility] Immunizations Immunization Date Immunization Notes Care Provider Penny welch 11-11-2016 influenza, seasonal, injectable Thao Carpio MD Work Phone: [facility] 08-29-2016 influenza, seasonal, injectable Thao Carpio MD Work Phone: [facility] 08-29-2016 influenza, seasonal, injectable, preservative free Thao Carpio MD Work Phone: [facility] Work Phone: 07-18-1997 hepatitis B vaccine, adult dosage Thao Carpio MD Work Phone: [facility] Work Phone: 05-09-1997 hepatitis B vaccine, adult dosage Thao Carpio MD Work Phone: [facility] Work Phone: Payers Date Payer Category Payer Medicaid [facility] MEDICAID [facility] [employer] MEDICAID [id number] 2016-Present [phone] [address] [place] [address] Medicaid 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 (1 pack every 2 days or so); a little over half PPD when erves acting up; down to 12 cig a day otherwise [facility] Start: 1965 Sex Assigned At Not on file [facility] Start: 12-14-2021 End: 12-24-2021 Exposure to SARS-CoV-2 (event) Not sure [facility] Clinical Notes 01-22-2016 to 12-24-2021 Thao Carpio MD - 12/24/2021 3:43 PM EDT Note Date & Type Note Facility 12-24-2021 Note HNO ID: [id number] Author: Thao Carpio MD Service: ? Author Type: Physician Type: Progress Notes Filed: 03/19/2022 1:45 AM Note Text: This note was created using TactoTekriter. Subjective Hong Rondon is a 56 year old male. Patient presents with: F/U 6 months SUBJECTIVE: Hong Rondon is a 56 year old year old gentleman here today for 6 month follow up appointment for review of medical conditions. States that was not able to get out of bed. Was not feeling good. Went to ER via squad and was admitted. Stroke was ruled out. Was tested positive 11/17/21. Did not feel like anything was wrong till tried to get out of bad and did not feel like could get of bed. Gets dizzy when does things like scooping out litter box. Knows has to sit after that. Waits 15 to 20 minutes then can do dishes. Rests after that. Times his day around what he can do. Things like chips do not taste right. Taste not back since COVID yet. Gets more tired more quick;y than every before. Drinks a lot of Gatorade. Finishes 2 to 3 bottles per day. Cymbalta was started by hospitalist and is up to 30 mg twice daily. While laying in bed, right leg will start throbbing and feel like might go out on him Gabapentin stopped by hospitalist. He states cannot walk and so did not puruue PT. Still has crutches, wheelchair, etc. Noted lots of constipation. Does eat a lot of cheese. PAST MEDICAL HISTORY Diagnosis Date - Abdominal pain, right lower quadrant - Abdominal pain, unspecified site - Back pain 2 blown discs - Chest pain, unspecified 07/06/2008 - Disturbance of skin sensation - Esophageal reflux - Hemorrhage of gastrointestinal tract, unspecified - Hemorrhage of rectum and anus - Hemorrhage of rectum and anus - Internal hemorrhoids without mention of complication - Pain in joint, shoulder region - Poor dentition 01/22/2016 teeth extracted; edentulous - Scoliosis - Tobacco use disorder - Unspecified constipation Current Outpatient Medications Medication Sig - gabapentin (NEURONTIN) 600 mg tablet Take 1 tablet by mouth twice daily for 180 days. for back pain. - pantoprazole DR (PROTONIX) 40 mg tablet Take 1 tablet by mouth once daily. As directed for persistent reflux - naproxen (NAPROSYN) 500 mg tablet Take 1 tablet by mouth twice daily as needed. With food - albuterol HFA (PROVENTIL HFA) 90 mcg/actuation inhaler as needed for Wheezing/Shortness of Breath. - aspirin, enteric coated (ASPIRIN LOW DOSE) 81 mg EC tablet Take 1 tablet by mouth once daily. - DULoxetine (CYMBALTA) 30 mg capsule take 1 capsule by mouth once daily for 3 days then INCREASE to 2 capsules once daily - meclizine (ANTIVERT) 12.5 mg tab Take 1 tablet by mouth three times daily as needed (dizziness). - albuterol (PROVENTIL) 2.5 mg /3 mL (0.083 %) nebulizer solution Use 3 mL via nebulizer every 4 hours as needed for wheezing/shortness of breath. Use over 5-15minutes. (J44.9) COPD with chronic bronchitis Dispense 100 - 3ml vials, 2 refills - hydrOXYzine pamoate (VISTARIL) 25 mg capsule Take 1 capsule by mouth three times daily as needed. (Patient not taking: Reported on 12/30/2020 ) - aspirin, enteric coated (ASPIRIN, ENTERIC COATED) 81 mg EC tablet Aspirin Aspirin Active 81 MG DAILY September 16, 2019 2:13am 09-16-2019 [facility] ([id number]) (Patient not taking: Reported on 12/30/2020) - Nebulizer NEBULIZER FOR HOME USE. DX: J44.9 - COMPOUNDED PRESCRIPTION Walker with seat Dx-M 54.41 No current facility-administered medications for this visit. Review of Systems Objective BP 92/58 Pulse 70 12/24/21 1517 12/24/21 1611 BP: 92/58 90/60 Pulse: 70 Physical Exam Vitals reviewed. Constitutional: Appearance: Normal appearance. Eyes: Conjunctiva/sclera: Conjunctivae normal. Cardiovascular: Rate and Rhythm: Normal rate and regular rhythm. Heart sounds: Normal heart sounds. Pulmonary: Effort: Pulmonary effort is normal. Breath sounds: Normal breath sounds. Skin: General: Skin is warm and dry. Neurological: General: No focal deficit present. Mental Status: He is alert and oriented to person, place, and time. Psychiatric: Behavior: Behavior normal. Thought Content: Thought content normal. Judgment: Judgment normal. Assessment and Plan ASSESSMENT/PLAN: 1. Orthostatic hypotension - ICD9: 458.0, ICD10: I95.1 (primary diagnosis) Encouraged to stay hydrated Consider support hose Adequate electrolytes diet an d fluids 2. COPD with chronic bronchitis (HCC) - ICD9: 491.20, ICD10: J44.9 Stable Continue present management. 3. Tobacco use disorder - ICD9: 305.1, ICD10: F17.200 - Cessation encouraged. - Physiologic and physical aspects of tobacco addiction as well as strategies for quitting were discussed. - Counseling was given focusing on the harmful effects of this addiction especially given the patient's medical condition(s) which will (more content not included)... [facility] 12-24-2021 History of Present illness Narrative This note was created using NoteWriter. Subjective Hong Rondon is a 56 year old male. Patient presents with: F/U 6 months SUBJECTIVE: Hong Rondon is a 56 year old year old gentleman here today for 6 month follow up appointment for review of medical conditions. States that was not able to get out of bed. Was not feeling good. Went to ER via squad and was admitted. Stroke was ruled out. Was tested positive 11/17/21. Did not feel like anything was wrong till tried to get out of bad and did not feel like could get of bed. Gets dizzy when does things like scooping out litter box. Knows has to sit after that. Waits 15 to 20 minutes then can do dishes. Rests after that. Times his day around what he can do. Things like chips do not taste right. Taste not back since COVID yet. Gets more tired more quick;y than every before. Drinks a lot of Gatorade. Finishes 2 to 3 bottles per day. Cymbalta was started by hospitalist and is up to 30 mg twice daily. While laying in bed, right leg will start throbbing and feel like might go out on him Gabapentin stopped by hospitalist. He states cannot walk and so did not puruue PT. Still has crutches, wheelchair, etc. Noted lots of constipation. Does eat a lot of cheese. PAST MEDICAL HISTORY Diagnosis Date Abdominal pain, right lower quadrant Abdominal pain, unspecified site Back pain 2 blown discs Chest pain, unspecified 07/06/2008 Disturbance of skin sensation Esophageal reflux Hemorrhage of gastrointestinal tract, unspecified Hemorrhage of rectum and anus Hemorrhage of rectum and anus Internal hemorrhoids without mention of complication Pain in joint, shoulder region Poor dentition 01/22/2016 teeth extracted; edentulous Scoliosis Tobacco use disorder Unspecified constipation Current Outpatient Medications Medication Sig gabapentin (NEURONTIN) 600 mg tablet Take 1 tablet by mouth twice daily for 180 days. for back pain. pantoprazole DR (PROTONIX) 40 mg tablet Take 1 tablet by mouth once daily. As directed for persistent reflux naproxen (NAPROSYN) 500 mg tablet Take 1 tablet by mouth twice daily as needed. With food albuterol HFA (PROVENTIL HFA) 90 mcg/actuation inhaler as needed for Wheezing/Shortness of Breath. aspirin, enteric coated (ASPIRIN LOW DOSE) 81 mg EC tablet Take 1 tablet by mouth once daily. DULoxetine (CYMBALTA) 30 mg capsule take 1 capsule by mouth once daily for 3 days then INCREASE to 2 capsules once daily meclizine (ANTIVERT) 12.5 mg tab Take 1 tablet by mouth three times daily as needed (dizziness). albuterol (PROVENTIL) 2.5 mg /3 mL (0.083 %) nebulizer solution Use 3 mL via nebulizer every 4 hours as needed for wheezing/shortness of breath. Use over 5-15minutes. (J44.9) COPD with chronic bronchitis Dispense 100 - 3ml vials, 2 refills hydrOXYzine pamoate (VISTARIL) 25 mg capsule Take 1 capsule by mouth three times daily as needed. (Patient not taking: Reported on 12/30/2020 ) aspirin, enteric coated (ASPIRIN, ENTERIC COATED) 81 mg EC tablet Aspirin Aspirin Active 81 MG DAILY September 16, 2019 2:13am 09-16-2019 [facility] ([id number]) (Patient not taking: Reported on 12/30/2020) Nebulizer NEBULIZER FOR HOME USE. DX: J44.9 COMPOUNDED PRESCRIPTION Walker with seat Dx-M 54.41 No current facility-administered medications for this visit. Review of Systems Objective BP 92/58 Pulse 70 12/24/21 1517 12/24/21 1611 BP: 92/58 90/60 Pulse: 70 Physical Exam Vitals reviewed. Constitutional: Appearance: Normal appearance. Eyes: Conjunctiva/sclera: Conjunctivae normal. Cardiovascular: Rate and Rhythm: Normal rate and regular rhythm. Heart sounds: Normal heart sounds. Pulmonary: Effort: Pulmonary effort is normal. Breath sounds: Normal breath sounds. Skin: General: Skin is warm and dry. Neurological: General: No focal deficit present. Mental Status: He is alert and oriented to person, place, and time. Psychiatric: Behavior: Behavior normal. Thought Content: Thought content normal. Judgment: Judgment normal. Assessment and Plan ASSESSMENT/PLAN: 1. Orthostatic hypotension - ICD9: 458.0, ICD10: I95.1 (primary diagnosis) Encouraged to stay hydrated Consider support hose Adequate electrolytes diet an d fluids 2. COPD with chronic bronchitis (HCC) - ICD9: 491.20, ICD10: J44.9 Stable Continue present management. 3. Tobacco use disorder - ICD9: 305.1, ICD10: F17.200 - Cessation encouraged. - Physiologic and physical aspects of tobacco addiction as well as strategies for quitting were discussed. - Counseling was given focusing on the harmful effects of this addiction especially given the patient's medical condition(s) which will be worsened because of the chemicals in tobacco. 4. Special screening for malignant neoplasms, colon - ICD9: V76.51, ICD10: Z12.11 - COLONOSCOPY SCREENING - CONSULT TO GENERAL SURGERY 5. Post-COVID chronic fatigue - ICD9: 780.79, 139.8, ICD10: R53.82, U09.9 Further evaluation and treatment as indicated. Thao Carpio MD [facility] OPEN ACCESS QUESTIONNAIRE 1. Are you currently having any new or unusual stomach/gastrointestinal issues at this time such as constipation, diarrhea, abdominal pain, rectal bleeding etc?No 2. Do you have any difficulty swallowing? No 3. Do you have any implanted devices such as a defibrillator, pacemaker, cardiac stents or deep brain stimulator? No 4. Do you take any Blood thinners such as Coumadin, Plavix, Xarelto, Eliquis, Brilinta or any other blood thinner? No 5. Do you have any new or past cardiac (heart) or pulmonary (lung) issues? Yes / COPD 6. Do you currently use any oxygen? No 7. Have you been hospitalized in the past 6 weeks? Will be past 6 weeks by the time gets colonoscopy 8. Have you had difficulty with anesthesia previously re: Difficult intubation? No Other difficulty or allergic reaction to anesthesia other than post op N/V? No 9. Are you on dialysis? No 10. Do you have any bleeding disorders such as hemophilia or Factor 5? No 11. Are you an Insulin Dependent Diabetic? No IF ANY OF THE TOP ELEVEN QUESTIONS ARE ANSWERED YES PLEASE SCHEDULE THE PATIENT FOR A CONSULT. advised 12. Is the patient's BMI 40 or greater? No:There is no height or weight on file to calculate BMI.. 13. Do you take any narcotics or anti-Anxiety medications? No 14. Do you use any illegal or recreational drugs including marijuana? No 15. Any alcohol use: No. 16. Have you been diagnosed with chronic liver disease such as hepatitis or cirrhosis? No 17. Do you have a seizure disorder? No 18. Do you have ulcerative colitis or Crohn's disease? No 19. Are you or could you be ? No 20. Any other important health information we should be made aware of prior to your colonoscopy? No To be completed by LIP: Did patient have MAC anesthesia with a previous endoscopy procedure? Yes: Patient will require a Gastro-General Surgery Consultation. Patient appropriate for Open Access Colonoscopy: Needs consult given history of COPD per protocol Checklist: Prior to closing the encounter: Complete questionnaire: Yes Confirm Prep order has been Ordered/Pended: Yes. ? Patient's procedure could be delayed if not given the script for the prep. Please ensure the prep is escripted to pharmacy or printed. Instructions for the prep will print upon filing or pending this smartset. Please send all open access questionnaires to [facility] Sched Pool #[id number] documented in this encounter [facility] 11-17-2021 Note HNO ID: [id number] Author: Stefania العراقي LPN Service: ? Author Type: ? Type: Progress Notes Filed: 11/17/2021 11:15 AM Note Text: rec'd records from [facility] pt was seen in ER 11/14/21 COVID test was positive. Pt was admitted and d/c to home 11/16/21. [facility] 07-14-2021 Note Procedure (PULMWS) HONG RONDON ([id number]) 1965 M Date Time Provider Department 07/14/21 3:00 PM RESPIRATORY THERAPIST [facility] During your visit today, we recorded the following information about you: Weight Height 79.1 kg 1.859 m Joshua Alegria RRT 07/14/2021 2:56 PM Signed PULM FUNCTION TEST: Provider: Penelope Mahmood APRN.BRANCH STORE MANAGER Technologist: Joshua Alegria RRT Spirometry: 1 System: [id number] Referring Provider: PENELOPE MAHMOOD [[id number]] Allergies As of Date: 07/14/2021 Noted Allergy Reaction TRAZODONE 03/22/2019 14 - Other: See Comments Comments: Caused nightmares Date Reviewed: 05/29/2021 Reviewed by: Dylon Manriquez MD - Fully Assessed Reason for Visit: Spirometry [191] Visit Diagnoses:Tobacco use disorder [F17.200] COPD with chronic bronchitis (HCC) [J44.9] Order(s):SPIROMETRY WITH DILATOR IF OBSTRUCTED [2952310] Order #: [id number]. #:[id number]: 1 Prescriptions as of 07/14/2021 - gabapentin (NEURONTIN) 600 mg tablet Take 1 tablet by mouth twice daily for 180 days. for back pain. - pantoprazole DR (PROTONIX) 40 mg tablet Take 1 tablet by mouth once daily. As directed for persistent reflux - meclizine (ANTIVERT) 12.5 mg tab Take 1 tablet by mouth three times daily as needed (dizziness). - albuterol (PROVENTIL) 2.5 mg /3 mL (0.083 %) nebulizer solution Use 3 mL via nebulizer every 4 hours as needed for wheezing/shortness of breath. Use over 5-15minutes. (J44.9) COPD with chronic bronchitis Dispense 100 - 3ml vials, 2 refills - fludrocortisone (FLORINEF) 0.1 mg tablet Take 1 tablet by mouth once daily. For dizziness and orthostatic hypotension. - naproxen (NAPROSYN) 500 mg tablet Take 1 tablet by mouth twice daily as needed. With food - albuterol HFA (PROVENTIL HFA) 90 mcg/actuation inhaler as needed for Wheezing/Shortness of Breath. - hydrOXYzine pamoate (VISTARIL) 25 mg capsule Take 1 capsule by mouth three times daily as needed. - aspirin, enteric coated (ASPIRIN, ENTERIC COATED) 81 mg EC tablet Aspirin Aspirin Active 81 MG DAILY September 16, 2019 2:13am 09-16-2019 [facility] ([id number]) - Nebulizer NEBULIZER FOR HOME USE. DX: J44.9 - aspirin, enteric coated (ASPIRIN LOW DOSE) 81 mg EC tablet Take 1 tablet by mouth once daily. - COMPOUNDED PRESCRIPTION Walker with seat Dx-M 54.41 Problem List As Of Date 07/14/2021 Noted Resolved TOBACCO USE DISORDER [F17.200] 12/04/2007 Hemorrhage of rectum and anus [K62.5] 06/20/2019 Backache [M54.9] 08/27/2011 Chronic constipation [K59.09] 11/18/2015 COPD with chronic bronchitis (HCC) [J44.9] 01/22/2016 Poor dentition [K08.9] 01/22/2016 10/21/2017 Pain disorder with psychological component [F45*04/20/2016 Adjustment disorder with mixed anxiety and depr*04/20/2016 Neck pain, chronic [M54.2, G89.29] 06/25/2016 Chronic bilateral low back pain with right-side*06/25/2016 Physical deconditioning [R53.81] 10/14/2016 DEVON (obstructive sleep apnea) [G47.33] 05/25/2018 RBD (REM behavioral disorder) [G47.52] 05/25/2018 Repeated falls [R29.6] 05/25/2018 Nasal septal deviation [J34.2] 05/25/2018 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 Author Type: Respiratory Therapist Type: Progress Notes Filed: 07/14/2021 2:56 PM Note Text: PULM FUNCTION TEST: Provider: Penelope Mahmood APRN.BRANCH STORE MANAGER Technologist: Joshua Alegria RRT Spirometry: 1 System: [id number] [facility] 06-26-2021 Note HNO ID: [id number] Author: Penelope Mahmood APRN.BRANCH STORE MANAGER Service: ? Author Type: Nurse Specialist Type: Progress Notes Filed: 06/26/2021 6:00 PM Note Text: SUBJECTIVE: SPIROMETRY Never done COLORECTAL CANCER SCREENING due on 03/26/2021 HPI Hong Rondon is a 56 year old male. He is a difficult historian. His past medical history significant for tobacco use disorder, prior alcohol abuse, chronic backache chronic constipation COPD pain disorder chronic neck and low back pain, DEVON RBD nasal septal deviation. Presents for routine visit today. Reports dizziness on arrival. Has had prior history of this. He reports history of vertigo. Notes primarily dysphagia when arising from a chair. Reports seen cardiology and ear nose and throat for this complaint. No current medications. Review of Systems Objective BP 102/62 Pulse 61 Resp 16 Wt 75.8 kg (167 lb) SpO2 99% BMI 21.44 kg/m? Physical Exam ALLERGIES Allergen Reactions - Trazodone Other: See Comments Caused nightmares naproxen (NAPROSYN) 500 mg tablet Take 1 tablet by mouth twice daily as needed. With food albuterol HFA (PROVENTIL HFA) 90 mcg/actuation inhaler as needed for Wheezing/Shortness of Breath. gabapentin (NEURONTIN) 600 mg tablet Take 1 tablet by mouth twice daily for [address] (PROTONIX) 40 mg tablet Take 1 tablet by mouth once daily. As directed for persistent reflux hydrOXYzine pamoate (VISTARIL) 25 mg capsule Take 1 capsule by mouth three times daily as needed. aspirin, enteric coated (ASPIRIN, ENTERIC COATED) 81 mg EC tablet Aspirin Aspirin Active 81 MG DAILY September 16, 2019 2:13am 09-16-2019 [facility] ([id number]) fludrocortisone (FLORINEF) 0.1 mg tablet albuterol (PROVENTIL) 2.5 mg /3 mL (0.083 %) nebulizer solution Use 3 mL via nebulizer every 4 hours as needed for Wheezing/Shortness of Breath. Use over 5-15minutes. 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 DX: J44.9 aspirin, enteric coated (ASPIRIN LOW DOSE) 81 mg EC tablet Take 1 tablet by mouth once daily. COMPOUNDED PRESCRIPTION Walker with seatDx-M 54.41 PAST MEDICAL HISTORY Diagnosis Date - Abdominal pain, right lower quadrant - Abdominal pain, unspecified site - Back pain 2 blown discs - Chest pain, unspecified 07/06/2008 - Disturbance of skin sensation - Esophageal reflux - Hemorrhage of gastrointestinal tract, unspecified - Hemorrhage of rectum and anus - Hemorrhage of rectum and anus - Internal hemorrhoids without mention of complication - Pain in joint, shoulder region - Poor dentition 01/22/2016 teeth extracted; edentulous - Scoliosis - Tobacco use disorder - Unspecified constipation Social History Tobacco Use - Smoking status: Current Every Day Smoker Packs/day: 1.00 Years: 35.00 Pack years: 35.00 Types: Cigarettes - Smokeless tobacco: Never Used - Tobacco comment: has tapered off some but still smokes <= 1 pack/day. (1 pack every 2 days or so); a little over half PPD when erves acting up; down to 12 cig a day otherwise Vaping Use - Vaping Use: Never used Substance Use Topics - Alcohol use: No - Drug use: No Component Latest Ref Rng AND Units 03/24/2021 03/25/2021 Protein, Total 6.3 - 8.0 g/dL 7.1 Albumin 3.9 - 4.9 g/dL 4.3 Calcium 8.5 - 10.2 mg/dL 9.6 Bilirubin, Total 0.2 - 1.3 mg/dL 0.3 Alkaline Phosphatase 38 - 113 U/L 81 AST 14 - 40 U/L 17 Glucose 74 - 99 mg/dL 92 BUN 9 - 24 mg/dL 22 Creatinine 0.73 - 1.22 mg/dL 1.21 Sodium 136 - 144 mmol/L 140 Potassium 3.7 - 5.1 mmol/L 4.4 Chloride 97 - 105 mmol/L 103 CO2 22 - 30 mmol/L 25 Anion Gap 9 - 18 mmol/L 12 ALT 10 - 54 U/L 9 (L) eGFR- >60 eGFR-All Other Races . >60 WBC 3.70 - 11.00 k/uL 8.97 RBC 4.20 - 6.00 m/uL 4.71 Hemoglobin 13.0 - 17.0 g/dL 14.8 Hematocrit 39.0 - 51.0 % 43.2 MCV 80.0 - 100.0 fL 91.7 MCH 26.0 - 34.0 pG 31.4 MCHC 30.5 - 36.0 g/dL 34.3 RDW-CV 11.5 - 15.0 % 12.1 Platelet Count 150 - 400 k/uL 234 MPV 9.0 - 12.7 fL 10.3 Absolute nRBC <0.01 k/uL <0.01 Cholesterol, Total <200 mg/dL 190 Triglyceride <150 mg/dL 86 HDL Cholesterol >39 mg/dL 41 LDL Cholesterol <100 mg/dL 132 (H) Non HDL Cholesterol <130 mg/dL 149 (H) Fasting Time hrs 14 VLDL Cholesterol <30 mg/dL 17 TC:HDL Ratio <5.10 4.63 LDL:HDL Ratio <2.54 3.22 (H) Magnesium 1.7 - 2.3 mg/dL 2.1 Occult Blood, Stool Negative Negative ASSESSMENT/PLAN: 1. Dizziness - ICD9: 780.4, ICD10: R42 (primary diagnosis) - CONSULT TO PHYSICAL THERAPY 2. Chronic bilateral low back pain with bilateral sciatica - ICD9: 724.2, 724.3, 338.29, ICD10: M54.42, M54.41, G89.29 - GABAPENTIN 600 MG TABLET 3. Anterior chest wall pain - ICD9: 786.52, ICD10: R07.89 - GABAPENTIN 600 MG TABLET 4. Cervical radiculopathy - ICD9: 723.4, ICD10: M54.12 PDMP website checked and validated. All prescriptions have been APPROPRIATELY filled. No suspicious activity was iden (more content not included)... [facility] 05-29-2021 Note HNO ID: [id number] Author: Dylon Manriquez MD Service: ? Author Type: Physician Type: Progress Notes Filed: 05/29/2021 1:13 PM Note Text: Dylon Manriquez MD Department of Orthopaedics Orthopaedics [address] [facility] [address] Dept: [phone] Dept May 29, 2021 CHIEF COMPLAINT: New of the Left Hand and Lesion left hand (Referred by Dr. Carpio - Photo - 03/21/21) HPI Patient states a year ago he was working on his truck and a screw bolt went into his left hand and had to unscrew the bolt to get it out of his hand. About 2 months ago he started having swelling in that area. Seen at [facility] care and they opened it up and drained it. He is continuing to have some pain in his hand. States the pain has increased over the past week. Dr. Jc took a photo of his hand on 03/21/21 and is in [facility]. Patient is left handed. Taking Ibuprofen for the pain and does help. X-rays done today. at [facility]. AMB ROOMING INTAKE FLOWSHEET DATA Risk Screening Do you have concerns about personal safety or safety in the home?: No Pain Pain Level: 6 Pain Location: Hand-Left Description: Sharp, Aching, Dull Duration Amount of Time: 1 (worse in the 2 months) Duration Units: Years Frequency: Continuous Intervention/Comfort measure: Medication ASSESSMENT: M60.242 Foreign body granuloma of soft tissue of left hand (primary encounter diagnosis) PLAN: Things have appeared to improve quite a bit after he had it lanced at an outside urgent care as it sounds. On today's exam he does have some.thickness probably just from inflammation he had and scarring but nothing appears to require surgical intervention at this time. I would continue some scar massaging and normal use of the hand. Certainly if he has any worsening symptoms he can follow-up for evaluation. FOLLOW UP INSTRUCTIONS: As above Mr. Hong Rondon was advised as to contrast therapies and/or to take analgesics/anti-inflammatories as needed and all contraindications were reviewed. OBJECTIVE: Mr. Hong Rondon is a pleasant 56 year old in no apparent distress. Gen:Ht 6' 2 (1.88m) Wt 165 lb (74.8kg) BMI 21.18 kg/(m2). nl development, non obese, no deformities ENT: Normocephalic, normal hearing, moist mucosa CV: Pulses:Radial= 2+ and symmetric, capillary refill < 2 secs, no peripheral edema/varicosities Skin: no rash, bruising or lesions. Good turgor. Psych: cooperative and appropriate, alert and oriented x 3, good mood and affect. Musculoskeletal: Keratonotic, Slightly raised area of about 4 mm in diameter with a central healed scab that is soft and nontender, nonfluctuant. No redness. IMAGING: * * *Final Report* * * DATE OF EXAM: May 29 2021 ?9:48AM ? WRX ? [id number] ?- ?XR HAND 3V PA/LAT/OBL LT ?/ PROCEDURE REASON: Left hand pain ?? ? * * * * Physician Interpretation * * * * ?Indication: Lump in lateral left hand adjacent carpal bones Comparison: ?None 3 views of the left hand are obtained. ?There is normal architecture and mineralization of the bones. ?There is no acute fracture or dislocation. ? Joint spaces are maintained. ?Soft tissue swelling adjacent to the ulnar styloid and carpal bones. Impression: 1. ?No acute fracture or dislocation. Supporting Subjective Information Below: Past Medical History: PAST MEDICAL HISTORY Diagnosis Date - Abdominal pain, right lower quadrant - Abdominal pain, unspecified site - Back pain 2 blown discs - Chest pain, unspecified 07/06/2008 - Disturbance of skin sensation - Esophageal reflux - Hemorrhage of gastrointestinal tract, unspecified - Hemorrhage of rectum and anus - Hemorrhage of rectum and anus - Internal hemorrhoids without mention of complication - Pain in joint, shoulder region - Poor dentition 01/22/2016 teeth extracted; edentulous - Scoliosis - Tobacco use disorder - Unspecified constipation Past Surgical History: PAST SURGICAL HISTORY Procedure Laterality Date - COLONOSCOP W/ OR W/O [facility] SPEC 01/05/2005 Colonoscopy - COLONOSCOP W/ OR W/O [facility] SPEC 02/22/09 for c/o constipation. - COLONOSCOP W/ OR W/O [facility] SPEC 01/29/16 Colonoscopy with mac - EGD W/O OR W/BRUSH/WASH 01/29/16 EGD - HEART CATHETERIZATION 2008 Normal coronary arteries - LEFT HEART CATH,PERCUTANEOUS Cardiac cath, L heart- angioplasty Family History: FAMILY HISTORY Problem Relation Age of Onset - Hypertension Mother - Diabetes Mother - Leukemia Mother - Heart Father - Hypertension Father Social History: Social History Tobacco Use - Smoking status: Current Every Day Smoker Packs/day: 1.00 Years: 35.00 Pack years: 35.00 Types: Cigarettes - Smokeless tobacco: Never Used - Tobacco comment: has tapered off some but still smokes <= 1 pack/day. (1 pack every 2 days or so); a little over half PPD when erves acting up; down to 12 cig a day otherwise (more content not included)... [facility] 05-29-2021 Note HNO ID: [id number] Author: RT Brendan(R) Service: ? Author Type: Internet Network Specialist Type: Progress Notes Filed: 05/29/2021 9:50 AM Note Text: Radiology Service Progress Note PATIENT NAME: Hong Rondon DATE OF SERVICE: May 29, 2021 TIME: 9:42 AM PATIENT IDENTITY VERIFICATION COMPLETED USING TWO (2) IDENTIFIERS: Name and Date of confirmed by patient verbally. FALL SCREENING: Has the patient had 2 falls in the last year or 1 fall with injury or currently using an Ambulatory Assistive Device (Walker, Cane, Wheelchair, Crutches, etc.)? No PATIENT GENDER DATA: Male PATIENT RELEVANT IMPLANT DATA REVIEWED: Not Applicable RADIOLOGY DEPARTMENT: General X-ray: Exam(s) Completed: Upper Extremity X-Ray(s): Hand, left PERIPHERAL IV DATA: Not applicable SIGNED BY: Airam Segovia RT(R) May 29, 2021 9:42 AM [facility] 03-21-2021 Note HNO ID: [id number] Author: Thao Carpio MD Service: ? Author Type: Physician Type: Progress Notes Filed: 04/15/2021 12:14 AM Note Text: This note was created using [employer]. Subjective Hong Rondon is a 56 year old male. Patient presents with: Growth on wrist SUBJECTIVE: Hong Rondon is a 56 year old year old gentleman here today for follow up appointment for review of medical conditions. Been working on a skin lesion on left wrist the past couple weeks. Screw went into left wrist area. Developed swelling. Used knife at the top of the lesion and something wormlike and white came out. Expressed it some more. Nothing more has come out since 2 weeks ago. Crusted on top from where had used the knife. Painful and tender. Was softer 2 weeks ago. Really sold and hard now. PAST MEDICAL HISTORY Diagnosis Date - Abdominal pain, right lower quadrant - Abdominal pain, unspecified site - Back pain 2 blown discs - Chest pain, unspecified 07/06/2008 - Disturbance of skin sensation - Esophageal reflux - Hemorrhage of gastrointestinal tract, unspecified - Hemorrhage of rectum and anus - Hemorrhage of rectum and anus - Internal hemorrhoids without mention of complication - Pain in joint, shoulder region - Poor dentition 01/22/2016 teeth extracted; edentulous - Scoliosis - Tobacco use disorder - Unspecified constipation Current Outpatient Medications Medication Sig - albuterol HFA (PROVENTIL HFA) 90 mcg/actuation inhaler as needed for Wheezing/Shortness of Breath. - gabapentin (NEURONTIN) 600 mg tablet Take 1 tablet by mouth twice daily for 180 days. - pantoprazole DR (PROTONIX) 40 mg tablet Take 1 tablet by mouth once daily. As directed for persistent reflux - naproxen (NAPROSYN) 500 mg tablet - albuterol (PROVENTIL) 2.5 mg /3 mL (0.083 %) nebulizer solution Use 3 mL via nebulizer every 4 hours as needed for Wheezing/Shortness of Breath. Use over 5-15minutes. 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 DX: J44.9 - aspirin, enteric coated (ASPIRIN LOW DOSE) 81 mg EC tablet Take 1 tablet by mouth once daily. - COMPOUNDED PRESCRIPTION Walker with seat Dx-M 54.41 - hydrOXYzine pamoate (VISTARIL) 25 mg capsule Take 1 capsule by mouth three times daily as needed. (Patient not taking: Reported on 12/30/2020 ) - predniSONE (DELTASONE) 10 mg tablet Take 4 tabs daily for 3 days, then 2 tabs daily for 3 days, then 1 tab daily for 3 days with food. (Patient not taking: Reported on 12/30/2020 ) - aspirin, enteric coated (ASPIRIN, ENTERIC COATED) 81 mg EC tablet Aspirin Aspirin Active 81 MG DAILY September 16, 2019 2:13am 09-16-2019 [facility] ([id number]) (Patient not taking: Reported on 12/30/2020) - fludrocortisone (FLORINEF) 0.1 mg tablet (Patient not taking: Reported on 03/21/2021 ) No current facility-administered medications for this visit. Review of Systems Objective BP 98/62 Pulse 88 Resp 16 Wt 77.1 kg (170 lb) BMI 21.83 kg/m? Last 5 Encounter BP Readings: Date: BP: 03/21/2021 98/62 12/30/2020 98/68 12/18/2020 112/70 09/02/2020 110/70 11/20/2019 104/68 Last 5 Encounter Wt Readings: Date: Wt: 03/21/2021 77.1 kg (170 lb) 12/30/2020 78.5 kg (173 lb) 12/18/2020 76.7 kg (169 lb) 09/02/2020 75 kg (165 lb 6.4 oz) 11/20/2019 74.8 kg (165 lb) Physical Exam Cyst left wrist. Some redness but not extending to rest of hand or up arm. Tender. Indicates that arm can shoot arm when moves wrist certain ways. Good ROM of wrist. See photo in Images. Assessment and Plan Encounter Diagnosis ICD-10-CM 1. Skin cyst L72.9 rule out abscess; will treat in case of cellulitis. See about referral to general surgery versus ortho given location 2. Hypercholesteremia E78.00 LIPID PANEL BASIC 3. Encounter for long-term current use of medication Z79.899 COMP METABOLIC PANEL CBC MAGNESIUM BLD 4. Encounter for screening for diabetes mellitus Z13.1 COMP METABOLIC PANEL 5. Screening for colon cancer Z12.11 FECAL OCCULT BLOOD TEST Discussed going to UC if wrist pain gets more severe so can be evaluated and treated for possible infected cyst/abscess. Will treat in case of infection with Doxy. Refer as indicated to ortho or gen surg. Naproxen for pain. Above issues addressed with patient. Patient involved in shared decision making for management of medical issues. History and medications reviewed. Epic updated as needed Refills and/or prescriptions taken care of and meds adjusted as indicated after reviewed history, exam and labs. Health Maintenance reviewed. Updated record and/or ordered tests as recorded. I spent a total of at least 34 minutes on the date of the service which included [id number] patient care, completing clinical documentation, obtaining and/or reviewing separately obtained history, performing a medically appropriate examination, counseling and e (more content not included)... [facility] documented as of this encounter (statuses as of 03/19/2022) [facility] Orthostatic hypotension- Primary COPD with chronic bronchitis (HCC) Obstructive chronic bronchitis without exacerbation Tobacco use disorder Special screening for malignant neoplasms, colon Post-COVID chronic fatigue documented in this encounter [facility] Summary Purpose Family History No Family History Records FoundNo Family History Records Found Advance Directives No Advanced Directives Records FoundDocuments on File Type Date Recorded 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 Advance Directive(s) 01/29/2016 7:21 AM Reason for Referral Specialty Diagnoses / Procedures Referred By Contac t Referred To Contact General Surgery Diagnoses Special screening for malignant neoplasms, colon Procedures CONSULT TO GENERAL SURGERY OFFICE/OUTPATIENT [facility] 60-74 MINUTES Thao Carpio MD [address] [place] [address] Referral ID Status Reason Start Date Expiration Date Visits Requested Visits Authorized [id number] Authorized PCP Requested Referral 12/24/2021 12/24/2022 1 1 Specialty Diagnoses / Procedures Referred By He t Referred To Contact [facility] Diagnoses Special screening for malignant neoplasms, colon Procedures COLONOSCOPY SCREENING COLONOSCOPY FLX DX W/COLLJ SPEC WHEN PFAMANDAD Thao Carpio MD [address] [place] [address] [facility] [place] [address] [place] [address] Referral ID Status Reason Start Date Expiration Date Visits Requested Visits Authorized [id number] Pending Review Auto-Generat ed Referral 12/24/2021 12/24/2022 1 1 Additional Source Comments (unrecognized sect ion and content) No Status Records FoundNo Status Records Found INFORMATION SOURCE (unrecogn ized section and content) DATE CREATED AUTHOR AUTHOR'S ORGANIZ ATION 03/19/2022 [facility] Source Comments (unrecognize d section and content) In the event this informatio n is protected by the Federal Confidentiality of Alcohol and Drug Abuse Patient Records regulations: The Federal rules restrict any use of the information to criminally investigate or prosecute any alcohol or drug abuse patient.[facility] Reason for Visit (unrecogniz ed section and content) Care Teams (unrecognized sec tion and content) FOR RECORDS PERTAINING TO PATIENTS WHO ARE OR HAVE BEEN ENROLLED IN A CHEMICAL DEPENDENCY/SUBSTANCEABUSE PROGRAM, SOME INFORMATION MAY BE OMITTED. This clinical summary was aggregated from multiple sources. Caution should be exercised in using it in the provision of clinical care. This summary normalizes information from multiple sources, and as a consequence, information in this document may materially change the coding, format and clinical context of patient data. In addition, data may be omitted in some cases. CLINICAL DECISIONS SHOULD BE BASED ON THE PRIMARY CLINICAL RECORDS. [employer] [facility]. provides no warranty or guarantee of the accuracy or completeness of information in this document.
[2023-10-13 10:02] LABS: Hematocrit 43.5 % (40-54); Hemoglobin 14.8 g/dL (13.0-16.5); Mean Corpuscular Hgb 30.6 pg (27.0-32.0); Mean Corpuscular Volume 90.1 fL (80-94); Mean Platelet Vol. 10.7 fl (6.2-12.0); Platelet Count 293 K/mm3 (150-450); RBC Distribution Width CV 11.9 % (11.6-14.6); RBC Distribution Width SD 39.6 fl (35.1-43.9); Red Blood Count 4.83 M/mm3 (4.6-6.2); White Blood Count 7.5 K/mm3 (4.4-11.0)
[2023-10-13 10:56] LABS: ALB/GLOB Ratio 0.6 RATIO (0.9-2.4); AST(SGOT) 42 U/L (15-37); Alanine Aminotransfer ALT/SGPT 72 U/L (16-61); Albumin, Serum 2.9 g/dL (3.2-5.0); Alkaline Phosphatase 83 U/L (45-117); Anion Gap 7 (5-15); BUN 18 mg/dL (7-18); BUN/Creat Ratio 22.1 RATIO (10-20); Calcium,Total 9.4 mg/dL (8.5-10.1); Chloride 109 mmol/L (98-107); Creatinine, Serum 0.82 mg/dL (0.70-1.30); EST Glomerular Filtration Rate 104 mL/min (>60); Est Glom Filt Rate - Afr Amer 126 mL/min (>60); Globulin 4.8 g/dL (2.2-4.2); Glucose 90 mg/dL (74-106); Potassium 3.7 mmol/L (3.5-5.1); Protein, Total 7.7 g/dL (6.4-8.2); Sodium Level 138 mmol/L (136-145)
== END | disposition home or self-care (01) ==
LOC: OLS.SW 05:00
PROVIDERS: Visit Provider Family Medicine
DX: R41.82 Altered mental status, unspecified (principal)
CPT/HCPCS: 36415; 80053; 85027

== ENCOUNTER → 2023-10-20 | Outpatient (REF) | payer MEDICAID, SELFPAY ==
--- OUTSIDE RECORDS SUMMARY | 2023-10-20 05:19 | XMS RPT_ITS | CCD ---
Author Name Unknown Address [address] [place] [address] Organization [facility] Care Team Providers Care Chalk Machine Operator Name Role Phone THAO CARPIO Jen Unavailable Unavailable Allergies Allergy Classification Reported Allergen(s) Allergy Type Date of Onset Reaction(s) Facility (1 source) traZODone Drug Allergy 03-22-2019 Other: See Comments [facility] Medications Completed/Discontinued Medications Medication Drug Class(es) Dates [...] 78 mm[Hg] Thao Carpio MD Work Phone: [facility] 12-24-2021 16:41-0400 Systolic blood pressure 102 mm[Hg] Thao Carpio MD Work Phone: [facility] 12-24-2021 15:17-0400 Heart rate 70 /min Thao Carpio MD Work Phone: [facility] Encounters Encounter Date Encounter Type Care Provider Facility Start: 12-24-2021 End: 12-24-2021 Office outpatient visit 25 minutes Thao Carpio MD Work Phone: Internal [facility] Procedures Date Procedure Procedure Detail Performing Clinician Start: 03-21-2021 Adult depression scr eening assessment Thao Carpio MD Work Phone: Start: 01-29-2016 Colonoscopy Thao salazar MD Work Phone: Plan of Treatment Date Care Activity Detail Author Start: 03-24-2026 LIPID SCREEN LIPID SCREEN [facility] Start: 03-24-2024 DIABETES SCREEN DIABETES SCREEN [facility] Start: 12-24-2022 ANNUAL PCP TEAM DIALYSIS TECHNICIAN JOHN DISEASE VISIT ANNUAL PCP TEAM CHRONIC DISEASE VISIT [facility] Start: 10-21-2022 PROSTATE CANCER SCRE ENING DISCUSSION PROSTATE CANCER SCREENING DISCUSSION [facility] Start: 06-11-2022 Influenza vaccination INFLUENZA (Sea son Ended) [facility] Start: 03-25-2022 FECAL OCCULT BLOOD FECAL OCCULT BLOO D [facility] Start: 03-21-2022 Adult depression scr eening assessment DEPRESSION SCREENING [facility] Start: 03-21-2022 COVID-19 VACCINE (#1) COVID-19 VACCI NE (#1) [facility] Immunizations Immunization Date Immunization Notes Care Provider Penny welch 11-11-2016 influenza, seasonal, injectable Thao Carpio MD Work Phone: [facility] 08-29-2016 influenza, seasonal, injectable Thao Carpio MD Work Phone: [facility] 08-29-2016 influenza, seasonal, injectable, preservative free Thao Carpio MD Work Phone: [facility] Work Phone: 07-18-1997 hepatitis B vaccine, adult dosage Thao Carpio MD Work Phone: [facility] Work Phone: 05-09-1997 hepatitis B vaccine, adult dosage Thao Carpio MD Work Phone: [facility] Work Phone: Payers Date Payer Category Payer Medicaid [facility] MEDICAID [facility] COMMUNITY PLAN MEDICAID [id number] 2016-Present [phone] [address] [place] [address] Medicaid 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 (1 pack every 2 days or so); a little over half PPD when erves acting up; down to 12 cig a day otherwise [facility] Start: 1965 Sex Assigned At Not on file [facility] Start: 12-14-2021 End: 12-24-2021 Exposure to SARS-CoV-2 (event) Not sure [facility] Clinical Notes 01-22-2016 to 12-24-2021 Thao Carpio MD - 12/24/2021 3:43 PM EDT Note Date & Type Note Facility 12-24-2021 Note HNO ID: [id number] Author: Thao Carpio MD Service: ? Author Type: Physician Type: Progress Notes Filed: 03/19/2022 1:45 AM Note Text: This note was created using [employer]. Subjective Hong Rondon is a 56 year old male. Patient presents with: F/U 6 months SUBJECTIVE: Hong Rondno is a 56 year old year old [...] MG DAILY September 16, 2019 2:13am 09-16-2019 [facility] ([id number]) (Patient not taking: Reported on 12/30/2020) - [...] condition(s) which will (more content not included)... [facility] 12-24-2021 History of Present illness [...] MG DAILY September 16, 2019 2:13am 09-16-2019 [facility] ([id number]) (Patient not taking: Reported on 12/30/2020) Nebulizer [...] and treatment as indicated. Thao Carpio MD [facility] OPEN ACCESS QUESTIONNAIRE 1. Are you currently [...] Please send all open access questionnaires to [facility] Sched Pool #[id number] documented in this encounter [facility] 11-17-2021 Note HNO ID: [id number] Author: Stefania العراقي LPN Service: ? Author Type: ? Type: Progress Notes Filed: 11/17/2021 11:15 AM Note Text: rec'd records from [facility] pt was seen in ER 11/14/21 COVID test was positive. Pt was admitted and d/c to home 11/16/21. [facility] 07-14-2021 Note Procedure (PULMWS) HONG RONDON ([id number]) 1965 M Date Time Provider Department 07/14/21 3:00 PM RESPIRATORY THERAPIST [facility] WSTRPULWS During your visit today, we recorded the following information about you: Weight Height 79.1 kg 1.859 m Joshua Alegria RRT 07/14/2021 2:56 PM Signed PULM FUNCTION TEST: Provider: Penelope Mahmood APRN.[employer] Technologist: Joshua Alegria RRT Spirometry: 1 System: [id number] Referring Provider: PENELOPE MAHMOOD [[id number]] Allergies As of Date: 07/14/2021 Noted Allergy Reaction TRAZODONE 03/22/2019 14 - Other: See Comments Comments: Caused nightmares Date Reviewed: 05/29/2021 Reviewed by: Dylon Manriquez MD - Fully Assessed Reason for Visit: Spirometry [191] Visit Diagnoses:Tobacco use disorder [F17.200] COPD with chronic bronchitis (HCC) [J44.9] Order(s):SPIROMETRY WITH DILATOR IF OBSTRUCTED [1330956] Order #: [id number]. #:[id number]: 1 Prescriptions as of 07/14/2021 - gabapentin [...] MG DAILY September 16, 2019 2:13am 09-16-2019 [facility] ([id number]) - Nebulizer NEBULIZER FOR HOME USE. DX: [...] Encounter Status:Closed by JOSHUA ALEGRIA on 07/14/21 [facility] 07-14-2021 Note HNO ID: [id number] Author: Joshua Alegria RRT Service: ? Author Type: Respiratory Therapist Type: Progress Notes Filed: 07/14/2021 2:56 PM Note Text: PULM FUNCTION TEST: Provider: Penelope Mahmood APRN.[employer] Technologist: Joshua Alegria RRT Spirometry: 1 System: [id number] [facility] 06-26-2021 Note HNO ID: [id number] Author: Penelope Mahmood APRN.[employer] Service: ? Author Type: Nurse Specialist Type: [...] MG DAILY September 16, 2019 2:13am 09-16-2019 [facility] ([id number]) fludrocortisone (FLORINEF) 0.1 mg tablet albuterol (PROVENTIL) [...] activity was iden (more content not included)... [facility] 05-29-2021 Note HNO ID: [id number] Author: Dylon Manriquez MD Service: ? Author Type: Physician Type: Progress Notes Filed: 05/29/2021 1:13 PM Note Text: Dylon Manriquez MD Department of Orthopaedics Orthopaedics [address] [facility] [address] Dept: [phone] Dept May 29, 2021 CHIEF COMPLAINT: New [...] having swelling in that area. Seen at [facility] Urgent care and they opened it up and drained it. He is continuing to have some pain in his hand. States the pain has increased over the past week. Dr. Jc took a photo of his hand on 03/21/21 and is in [facility]. Patient is left handed. Taking Ibuprofen for the pain and does help. X-rays done today. at [facility]. AMB ROOMING INTAKE FLOWSHEET DATA Risk [...] Laterality Date - COLONOSCOP W/ OR W/O [facility] SPEC 01/05/2005 Colonoscopy - COLONOSCOP W/ OR W/O [facility] SPEC 02/22/09 for c/o constipation. - COLONOSCOP W/ OR W/O [facility] SPEC 01/29/16 Colonoscopy with mac - [...] a day otherwise (more content not included)... [facility] 05-29-2021 Note HNO ID: [id number] Author: RT Brendan(R) Service: ? Author Type: Neurosurgery Research Director Type: Progress Notes Filed: 05/29/2021 9:50 AM [...] Segovia RT(R) May 29, 2021 9:42 AM [facility] 03-21-2021 Note HNO ID: [id number] Author: Thao Carpio MD Service: ? Author Type: Physician Type: Progress Notes Filed: 04/15/2021 12:14 AM Note Text: This note was created using [employer]. Subjective Hong Rondon is a 56 year [...] MG DAILY September 16, 2019 2:13am 09-16-2019 [facility] ([id number]) (Patient not taking: Reported on 12/30/2020) - [...] the date of the service which included [id number] patient care, completing clinical documentation, obtaining and/or reviewing separately obtained history, performing a medically appropriate examination, counseling and e (more content not included)... 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 Advance Directive(s) 01/29/2016 7:21 AM Reason for Referral Specialty Diagnoses / Procedures Referred By Contac t Referred To Contact General Surgery Diagnoses Special screening for malignant neoplasms, colon Procedures CONSULT TO GENERAL SURGERY OFFICE/OUTPATIENT [facility] 60-74 MINUTES Thao Carpio MD [address] [place] [address] Referral ID Status Reason Start Date Expiration Date Visits Requested Visits Authorized [id number] Authorized PCP Requested Referral 12/24/2021 12/24/2022 1 1 Specialty Diagnoses / Procedures Referred By He t Referred To Contact [facility] Diagnoses Special screening for malignant neoplasms, colon Procedures COLONOSCOPY SCREENING COLONOSCOPY FLX DX W/COLLJ SPEC WHEN PFAMANDAD Thao Carpio MD [address] [place] [address] [facility] [address] [place] [address] Referral ID Status Reason Start Date Expiration Date Visits Requested Visits Authorized [id number] Pending Review Auto-Generat ed Referral 12/24/2021 12/24/2022 1 1 Additional Source Comments (unrecognized sect ion and content) No Status Records FoundNo Status Records Found INFORMATION SOURCE (unrecogn ized section and content) DATE CREATED AUTHOR AUTHOR'S ORGANIZ ATION 03/19/2022 [facility] Source Comments (unrecognize d section and content) In the event this informatio n is protected by the Federal Confidentiality of Alcohol and Drug Abuse Patient Records regulations: The Federal rules restrict any use of the information to criminally investigate or prosecute any alcohol or drug abuse patient.[facility] Reason for Visit (unrecogniz ed section and [...] BE BASED ON THE PRIMARY CLINICAL RECORDS. [facility]. provides no warranty or guarantee of the accuracy or completeness of information in this document.
[2023-10-20 08:17] LABS: Hematocrit 37.6 % (40-54); Hemoglobin 12.3 g/dL (13.0-16.5); Mean Corp Hgb Conc 32.7 g/dL (32-36); Mean Corpuscular Hgb 29.7 pg (27.0-32.0); Mean Corpuscular Volume 90.8 fL (80-94); Mean Platelet Vol. 10.4 fl (6.2-12.0); Platelet Count 337 K/mm3 (150-450); RBC Distribution Width CV 11.7 % (11.6-14.6); RBC Distribution Width SD 39.1 fl (35.1-43.9); Red Blood Count 4.14 M/mm3 (4.6-6.2); White Blood Count 8.6 K/mm3 (4.4-11.0)
[2023-10-20 08:50] LABS: Anion Gap 4 (5-15); BUN 19 mg/dL (7-18); BUN/Creat Ratio 19.7 RATIO (10-20); Calcium,Total 9.1 mg/dL (8.5-10.1); Chloride 108 mmol/L (98-107); Creatinine, Serum 0.96 mg/dL (0.70-1.30); EST Glomerular Filtration Rate 86 mL/min (>60); Est Glom Filt Rate - Afr Amer 104 mL/min (>60); Glucose 81 mg/dL (74-106); Potassium 4.3 mmol/L (3.5-5.1); Sodium Level 139 mmol/L (136-145)
== END | disposition home or self-care (01) ==
LOC: OLS.SW 05:00
PROVIDERS: Visit Provider Family Medicine
DX: Z79.899 Other long term (current) drug therapy (principal)
CPT/HCPCS: 36415; 80048; 85027

== ENCOUNTER 2023-11-17 02:27 | Emergency (ER) | payer MEDICAID, SELFPAY ==
[2023-11-17 02:29] VITALS: BP 115/82; RESP 62; TEMP 36.4; O2SAT 100
[2023-11-17 02:32] VITALS: BP 115/82; PULSE 56; RESP 16; TEMP 36.4; O2SAT 100
--- NOTE | 2023-11-17 03:16 | RAD_ITS ---
EXAM: XR RIGHT HIP WITH PELVIS WHEN PERFORMED, 2 OR 3 VIEWS CLINICAL INDICATION: pain TECHNIQUE: Two or three views of the right hip with pelvis when performed. COMPARISON: No relevant prior studies available. FINDINGS: Small bone island involving the right intertrochanteric region. No acute or healing fracture or malalignment. Small the elongated focus of calcium hydroxyapatite crystal deposition disease is noted along the inferior aspect of the right greater trochanter. Multiple phleboliths are identified in the pelvis. Prominent stool throughout the colon can be seen with constipation. No osteonecrosis. Hip joint spaces are maintained bilaterally. RAD/HIP, UNI W/ Pelvis 2-3 Views IMPRESSION: No acute osseous abnormality or any other findings to explain pain. Electronically Signed: Kwan Smiley MD at 4:08 EST ,
--- NOTE | 2023-11-17 03:16 | CT_ITS ---
EXAM: CT HEAD WITHOUT INTRAVENOUS CONTRAST CLINICAL INDICATION: head injury TECHNIQUE: Multiple axial images were obtained of the head without intravenous contrast. CTDIvol = ( 44.99 ) mGy, DLP = ( 812.98 ) mGycm This CT exam was performed using one or more of the following dose reduction techniques: automated exposure control, adjustment of the mA and/or kV according to patient size, and/or use of iterative reconstruction technique. COMPARISON: No relevant prior studies available. FINDINGS: BRAIN AND EXTRA-AXIAL SPACES: Unremarkable. No intra- or extra-axial hemorrhage. No evidence of acute infarct. No intracranial mass or mass effect. There is preservation of the reynolds/white matter interface. Posterior fossa structures are unremarkable. Ventricles are appropriate for age. No hydrocephalus. Basal cisterns are patent. BONES/JOINTS: Unremarkable. No discrete lytic or blastic abnormalities. SINUSES: Mucous retention cyst involving the left maxillary sinus. Scattered mild paranasal sinus mucosal thickening with no air-fluid levels. MASTOID AIR CELLS: Mastoid air cells and middle ears are clear. ORBITS: Visualized globes, extraocular muscles, optic nerves and retrobulbar fat appear unremarkable. CT/Brain/Head without Contrast IMPRESSION: No acute intracranial hemorrhage or acute calvarial fracture Electronically Signed: Kwan Smiley MD at 4:04 EST ,
--- OUTSIDE RECORDS SUMMARY | 2023-11-17 03:20 | XMS RPT_ITS | CCD ---
Author Name Unknown Address [address] [place] [address] Organization [facility] Care Team Providers Care Records Management Director Name Role Phone THAO CARPIO Jen Unavailable Unavailable Allergies Allergy Classification Reported Allergen(s) Allergy Type Date of Onset Reaction(s) Facility (1 source) traZODone Drug Allergy 03-22-2019 Other: See Comments [facility] Medications Completed/Discontinued Medications Medication Drug Class(es) [...] 78 mm[Hg] Thao Carpio MD Work Phone: [facility] 12-24-2021 16:41-0400 Systolic blood pressure 102 mm[Hg] Thao Carpio MD Work Phone: [facility] 12-24-2021 15:17-0400 Heart rate 70 /min Thao Carpio MD Work Phone: [facility] Encounters Encounter Date Encounter Type Care [...] Author Start: 03-24-2026 LIPID SCREEN LIPID SCREEN [facility] Start: 03-24-2024 DIABETES SCREEN DIABETES SCREEN [facility] Start: 12-24-2022 ANNUAL PCP TEAM AUDIO VIDEO TECH JOHN DISEASE VISIT ANNUAL PCP TEAM CHRONIC DISEASE VISIT [facility] Start: 10-21-2022 PROSTATE CANCER SCRE ENING DISCUSSION PROSTATE CANCER SCREENING DISCUSSION [facility] Start: 06-11-2022 Influenza vaccination INFLUENZA (Sea son Ended) [facility] Start: 03-25-2022 FECAL OCCULT BLOOD FECAL OCCULT BLOO D [facility] Start: 03-21-2022 Adult depression scr eening assessment DEPRESSION SCREENING [facility] Start: 03-21-2022 COVID-19 VACCINE (#1) COVID-19 VACCI NE (#1) [facility] Immunizations Immunization Date Immunization Notes Care Provider Penny welch 11-11-2016 influenza, seasonal, injectable Thao Carpio MD Work Phone: [facility] 08-29-2016 influenza, seasonal, injectable Thao Carpio MD Work Phone: [facility] 08-29-2016 influenza, seasonal, injectable, preservative free Thao Carpio MD Work Phone: [facility] Work Phone: 07-18-1997 hepatitis B vaccine, adult dosage Thao Carpio MD Work Phone: [facility] Work Phone: 05-09-1997 hepatitis B vaccine, adult dosage Thao Carpio MD Work Phone: [facility] Work Phone: Payers Date Payer Category Payer Medicaid [facility] MEDICAID [facility] COMMUNITY PLAN MEDICAID [id number] 2016-Present [phone] [address] [place] [address] Medicaid 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 (1 pack every 2 days or so); a little over half PPD when erves acting up; down to 12 cig a day otherwise [facility] Start: 1965 Sex Assigned At Not on file [facility] Start: 12-14-2021 End: 12-24-2021 Exposure to SARS-CoV-2 (event) Not sure [facility] Clinical Notes 01-22-2016 to 12-24-2021 Thao Carpio MD - 12/24/2021 3:43 PM EDT Note Date & Type Note Facility 12-24-2021 Note HNO ID: [id number] Author: Thao Carpio MD Service: ? Author Type: Physician Type: Progress Notes Filed: 03/19/2022 1:45 AM Note Text: This note was created using [employer]dHall[employer]. Subjective Hong Rondon is a 56 year [...] MG DAILY September 16, 2019 2:13am 09-16-2019 [facility] ([id number]) (Patient not taking: Reported on 12/30/2020) - [...] condition(s) which will (more content not included)... [facility] 12-24-2021 History of Present illness Narrative This [...] MG DAILY September 16, 2019 2:13am 09-16-2019 [facility] ([id number]) (Patient not taking: Reported on 12/30/2020) Nebulizer [...] and treatment as indicated. Thao Carpio MD [facility] OPEN ACCESS QUESTIONNAIRE 1. Are [...] Please send all open access questionnaires to [facility] Sched Pool #[id number] documented in this encounter [facility] 11-17-2021 Note HNO ID: [id number] Author: Stefania العراقي LPN Service: ? Author Type: ? Type: Progress Notes Filed: 11/17/2021 11:15 AM Note Text: rec'd records from [facility] pt was seen in ER 11/14/21 COVID test was positive. Pt was admitted and d/c to home 11/16/21. [facility] 07-14-2021 Note Procedure (PULMWS) HONG RONDON ([id number]) 1965 M Date Time Provider Department 07/14/21 3:00 PM RESPIRATORY THERAPIST [facility] WSTRPULWS During your visit today, we recorded the following information about you: Weight Height 79.1 kg 1.859 m Joshua Alegria RRT 07/14/2021 2:56 PM Signed PULM FUNCTION TEST: Provider: Penelope Mahmood APRN.FIRE EXTINGUISHER TECHNICIAN Technologist: Joshua Alegria RRT Spirometry: 1 System: [id number] Referring Provider: PENELOPE MAHMOOD [[id number]] Allergies As of Date: 07/14/2021 Noted Allergy Reaction TRAZODONE 03/22/2019 14 - Other: See Comments Comments: Caused nightmares Date Reviewed: 05/29/2021 Reviewed by: Dylon Manriquez MD - Fully Assessed Reason for Visit: Spirometry [191] Visit Diagnoses:Tobacco use disorder [F17.200] COPD with chronic bronchitis (HCC) [J44.9] Order(s):SPIROMETRY WITH DILATOR IF OBSTRUCTED [4520059] Order #: [id number]. #:[id number] Prescriptions as of 07/14/2021 - gabapentin [...] MG DAILY September 16, 2019 2:13am 09-16-2019 [facility] ([id number]) - Nebulizer NEBULIZER FOR HOME USE. DX: [...] Encounter Status:Closed by JOSHUA ALEGRIA on 07/14/21 [facility] 07-14-2021 Note HNO ID: [id number] Author: Joshua Alegria RRT Service: ? Author Type: Respiratory Therapist Type: Progress Notes Filed: 07/14/2021 2:56 PM Note Text: PULM FUNCTION TEST: Provider: Penelope Mahmood APRN.FIRE EXTINGUISHER TECHNICIAN Technologist: Joshua Alegria RRT Spirometry: 1 System: [id number] [facility] 06-26-2021 Note HNO ID: [id number] Author: Penelope Mahmood APRN.FIRE EXTINGUISHER TECHNICIAN Service: ? Author Type: Nurse Specialist Type: [...] MG DAILY September 16, 2019 2:13am 09-16-2019 [facility] ([id number]) fludrocortisone (FLORINEF) 0.1 mg tablet albuterol (PROVENTIL) [...] activity was iden (more content not included)... [facility] 05-29-2021 Note HNO ID: [id number] Author: Dylon Manriquez MD Service: ? Author Type: Physician Type: Progress Notes Filed: 05/29/2021 1:13 PM Note Text: Dylon Manriquez MD Department of Orthopaedics Orthopaedics [address] [facility] [address] Dept: [phone] Dept May 29, 2021 CHIEF COMPLAINT: New [...] his hand on 03/21/21 and is in Psychiatric. Patient is left handed. Taking Ibuprofen for the pain and does help. X-rays done today. at [facility]. AMB ROOMING INTAKE FLOWSHEET DATA Risk Screening [...] Laterality Date - COLONOSCOP W/ OR W/O [facility] SPEC 01/05/2005 Colonoscopy - COLONOSCOP W/ OR W/O [facility] SPEC 02/22/09 for c/o constipation. - COLONOSCOP W/ OR W/O [facility] SPEC 01/29/16 Colonoscopy with mac - EGD [...] a day otherwise (more content not included)... [facility] 05-29-2021 Note HNO ID: [id number] Author: RT Brendan(R) Service: ? Author Type: Sales Promotion Director Type: Progress Notes Filed: 05/29/2021 9:50 [...] Segovia RT(R) May 29, 2021 9:42 AM [facility] 03-21-2021 Note HNO ID: [id number] Author: Thao Carpio MD Service: ? Author Type: Physician Type: Progress Notes Filed: 04/15/2021 12:14 AM Note Text: This note was created using [employer]Hall[employer]. Subjective Hong Rondon is a 56 year [...] MG DAILY September 16, 2019 2:13am 09-16-2019 [facility] ([id number]) (Patient not taking: Reported on 12/30/2020) - [...] the date of the service which included [id number] patient care, completing clinical documentation, obtaining and/or reviewing separately obtained history, performing a medically appropriate examination, counseling and e (more content not included)... [facility] documented as of this encounter (statuses as of 03/19/2022) [facility] Orthostatic hypotension- Primary COPD with chronic bronchitis (HCC) Obstructive chronic bronchitis without exacerbation Tobacco use disorder Special screening for malignant neoplasms, colon Post-COVID chronic fatigue documented in this encounter [facility] Summary Purpose Family History No Family History Records FoundNo Family History Records Found Advance Directives No Advanced Directives Records FoundDocuments on File Type Date 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 Advance Directive(s) 01/29/2016 7:21 AM Reason for Referral Specialty Diagnoses / Procedures Referred By Contac t Referred To Contact General Surgery Diagnoses Special screening for malignant neoplasms, colon Procedures CONSULT TO GENERAL SURGERY OFFICE/OUTPATIENT [facility] 60-74 MINUTES Thao Carpio MD [address] [place] [address] Referral ID Status Reason Start Date Expiration Date Visits Requested Visits Authorized [id number] Authorized PCP Requested Referral 12/24/2021 12/24/2022 1 1 Specialty Diagnoses / Procedures Referred By He t Referred To Contact [facility] Diagnoses Special screening for malignant neoplasms, colon Procedures COLONOSCOPY SCREENING COLONOSCOPY FLX DX W/COLLJ SPEC WHEN PFAMANDAD Thao Carpio MD [address] [place] [address] [facility] [address] [place] [address] Referral ID Status Reason Start Date Expiration Date Visits Requested Visits Authorized [id number] Pending Review Auto-Generat ed Referral 12/24/2021 12/24/2022 1 1 Additional Source Comments (unrecognized sect ion and content) No Status Records FoundNo Status Records Found INFORMATION SOURCE (unrecogn ized section and content) DATE CREATED AUTHOR AUTHOR'S ORGANIZ ATION 03/19/2022 [facility] Source Comments (unrecognize d section and content) In the event this informatio n is protected by the Federal Confidentiality of Alcohol and Drug Abuse Patient Records regulations: The Federal rules restrict any use of the information to criminally investigate or prosecute any alcohol or drug abuse patient.[facility] Reason for Visit (unrecogniz ed section [...] BE BASED ON THE PRIMARY CLINICAL RECORDS. [employer] [facility]. provides no warranty or guarantee of the accuracy or completeness of information in this document.
[2023-11-17] MEDS: Ketorolac 30 MG/ML Syringe IM (03:54)
--- NOTE | 2023-11-17 04:29 | EDS_ITS ---
HPI History of Present Illness Chief Complaint: Fall Informant: patient and SNF Narrative Narrative: Patient is a 58-year-old male with past medical history of encephalopathy and dementia secondary to alcoholism hypertension and chronic hyponatremia. He stays at a detention where they state he is alert and oriented to person at baseline. They state he was walking around the facility this evening when he ran into a door and then fell down and struck his head. They deny any loss of consciousness. However with the trauma and the patient complaining of areas of pain he was sent in for evaluation. Based on the patient's history of encephalopathy as well as the fact detention states his baseline mental status is alert and oriented to person only he cannot offer further history [facility] Medical History Acute encephalopathy Asthma Chest pain of uncertain etiology Chronic hyponatremia Cold intolerance Dementia associated with alcoholism Depression History of bronchitis History of pneumonia Hypertension Nicotine dependence Orthostatic hypotension Pulmonary fibrosis Pulmonary hypertension Rheumatoid arthritis Sleep apnea Syncope and collapse Syncope, near Weight loss, abnormal Home Medications albuterol sulfate 90 mcg/actuation aerosol inhaler (Ventolin HFA) 1 - 2 puff inhalation Q4H PRN PRN Wheezing #1 inh 01/24/23 [Rx Last Taken Unknown] cyclobenzaprine 10 mg tablet 10 mg PO TID PRN Muscle Spasm #20 TABLETS 04/15/23 [Rx Last Taken Unknown] acetaminophen 325 mg tablet 650 mg (2 x 325 mg) PO Q6H PRN PRN Pain 1-10 Or Fever>100.7 #0 tabs 10/12/23 [Rx Last Taken Unknown] folic acid 1 mg tablet 1 mg PO BREAKFAST #0 tabs 10/12/23 [Rx Last Taken Unknown] lactulose 20 gram/30 mL oral solution 20 g (30 mL) PO BID PRN constipation/confusion #0 mL 10/12/23 [Rx Last Taken Unknown] thiamine HCl (vitamin B1) 100 mg tablet (Vitamin B-1) 100 mg PO BREAKFAST #0 ta bs 10/12/23 [Rx Last Taken Unknown] Allergy/AdvReac Type Severity Reaction Status Date / Time No Known Allergies Allergy Verified 11/17/23 03:47 Family History Mother Diabetes Father Heart disease Surgical History History of left heart catheterization (11/11/16) Social History Smoking Status: Current every day smoker tobacco type: cigarettes ROS ROS ED ROS Narrative Please note review of systems may be unreliable secondary to patient's history of dementia Constitutional Constitutional ED: Denies chills or fever(s) Eyes Eyes: Denies change in vision ENT ENT ED: Denies sore throat Cardiovascular Cardiovascular: Denies chest pain Respiratory/Chest Respiratory/Chest: Denies cough or dyspnea Gastrointestinal Gastrointestinal: Denies abdominal pain, diarrhea, nausea or vomiting Genitourinary Genitourinary ED: Denies dysuria Musculoskeletal Musculoskeletal: Reports other Details: Positive right hip pain ; Denies neck pain Integumentary Denies rash Neurologic Neurologic: Denies headache(s) Hematologic/Lymphatic Hematologic/Lymphatic: Denies easy bleeding or easy bruising EXAM Physical Exam Const Vital Signs: 11/17/23 02:29 11/17/23 02:32 11/17/23 03:47 Temperature 97.5 F L 97.5 F L Temperature Source Temporal Temporal Pulse Rate 56 L Respiratory Rate 62 H 16 Respiratory Effort Normal Respiratory Depth Normal Respiratory Pattern Normal Blood Pressure 115/82 H 115/82 H Blood Pressure Mean 93 93 Pulse Ox 100 100 Oxygen Delivery Method Room Air Room Air Room Air 11/17/23 04:37 Temperature Temperature Source Pulse Rate 53 L Respiratory Rate 16 Respiratory Effort Respiratory Depth Respiratory Pattern Blood Pressure 121/85 H Blood Pressure Mean 97 Pulse Ox 100 Oxygen Delivery Method Positive well nourished and well developed General Appearance ED: well developed HEENT HEENT Narrative: Normocephalic atraumatic No signs of depressed or basilar skull fracture Eyes PERRL and EOMs intact bilaterally General Eye ED: Negative for scleral icterus Neck supple Neck Narrative: No bony deformity or step-off of the cervical spine no midline pain on palpation Patient is moving his neck in all directions without pain Chest Wall palpation of chest normal Chest Narrative: No chest wall pain on palpation No bony deformity or crepitance Resp normal respiratory effort and clear to auscultation bilaterally Cardio regular rate and regular rhythm Rate: other Other Details: Radial and carotid pulses are equal and symmetric GI normal to inspection, nondistended, normoactive bowel sounds, non-tender, non- distended and no masses GI Narrative: No voluntary guarding or rigidity or pulsatile mass Auscultation: normoactive bowel sounds Palpation: soft Back/Spine Back/Spine Narrative: No bony deformity or step-off of the thoracic or lumbar spine no midline pain with palpation Extremity Extremity Narrative: Pelvis is stable there is no shortening or external rotation of either lower extremity Patient does have pain on palpation along the right greater trochanter region of the hip No bony deformity or joint effusion noted of the upper or lower extremities No ligamentous or tendon injuries noted Negative sulcus sign bilaterally in the upper extremities Neuro oriented x3 and CN's II-XII intact bilaterally Neuro Narrative: Patient is awake and alert to person only which is baseline mental status per detention and otherwise there are no focal neurologic deficits Sensorium / Orientation: alert Psych Psych Narrative: Patient has a flat affect Skin no rashes or lesions noted Skin Narrative: No abrasions or ecchymosis noted MDM MDM MDM Narrative Medical decision making narrative: Patient arrived to the ER with stable vitals and at baseline mental status per detention. Nursing reported a mechanical fall so therefore there is no need for cardiac or syncope workup. They also reported that he did strike his head with the fall and with concern for underlying skull fracture versus epidural or subdural hematoma I did elect to perform a CT of the head. He not have any midline neck pain and was able to move his neck in all directions I did not feel the need for neck CT. as the patient had pain with palpation along the right hip and x-ray was obtained to rule out fracture versus dislocation versus pubic rami fracture. X-ray revealed no bony deformity. He was given Toradol and had resolution of his pain. His vitals remained stable and he remained at his baseline mental status and therefore as the fall was mechanical there are no physical exam or imaging's findings for trauma and his pain is resolved with Toradol he is otherwise safe to return to the detention Radiography Diagnostic Testing: Clinical Impression(s) from Imaging Studies Brain CT 11/17/23 03:16 IMPRESSION: No acute intracranial hemorrhage or acute calvarial fracture Electronically Signed: Kwan Smiley MD at 4:04 EST Reading Location ID and State: [address] [place] [address] Tel , Service support , Hip/Pelvis X-Ray 11/17/23 03:16 IMPRESSION: No acute osseous abnormality or any other findings to explain pain. Electronically Signed: Kwan Smiley MD at 4:08 EST , X-ray of the right hip and 1 view pelvis as interpreted by the emergency medicine physician reveals no acute fracture or dislocation Discharge Plan Triage Chief Complaint: Fall ED Provider: Kwan Smith Dx/Rx/DC Orders Clinical Impression: Closed head injury, Contusion, Accidental fall, Dementia associated with alcoholism, Hypertension Instructions: Bruises (Contusions), ED Head Injury (Adult) Prescriptions: No Action albuterol sulfate [Ventolin HFA] 90 mcg/actuation HFA aerosol inhaler 1 - 2 puff inhalation Q4H PRN PRN (Reason: Wheezing) Qty: 1 0RF cyclobenzaprine 10 mg tablet 10 mg PO TID PRN (Reason: Muscle Spasm) Qty: 20 0RF acetaminophen 325 mg Tablet 650 mg PO Q6H PRN PRN (Reason: Pain 1-10 Or Fever>100.7) Qty: 0 0RF thiamine HCl (vitamin B1) [Vitamin B-1] 100 mg Tablet 100 mg PO BREAKFAST Qty: 0 0RF folic acid 1 mg Tablet 1 mg PO BREAKFAST Qty: 0 0RF lactulose 20 gram/30 mL Solution 20 g PO BID PRN (Reason: constipation/confusion) Qty: 0 0RF Primary Care Provider: Gwyn Dominguez Referrals: Gwyn Dominguez MD [Primary Care Provider] - Activity Restrictions/Additional Instructions: Your images show no sign of head injury or broken bones or dislocated bones indicating you have contusions from the fall. Please continue all of your home medication as previously directed and return to the ER should you have any f urther concerns Disposition Disposition: Home, Self Care
[2023-11-17 04:37] VITALS: BP 121/85; PULSE 53; RESP 16; O2SAT 100
--- NOTE | 2023-11-17 04:54 | ED.RN ---
Physicians called for transport back to [facility]. ETA 3 hours
--- NOTE | 2023-11-17 05:27 | ED.RN ---
Called [facility] gave nurse Angeles report on patient coming back to their facility. All questions answered.
== END 2023-11-17 07:47 | disposition home or self-care (01) ==
PROVIDERS: Emergency Provider Emergency Medicine; PCP Family Medicine; Visit Provider Emergency Medicine
DX: S09.90XA Unspecified injury of head, initial encounter (principal); F02.80 Dementia in other diseases classified elsewhere, unspecified severity, without behavioral disturbance, psychotic disturbance, mood disturbance, and anxiety; M25.551 Pain in right hip; I10 Essential (primary) hypertension; F17.210 Nicotine dependence, cigarettes, uncomplicated; W18.39XA Other fall on same level, initial encounter; Y93.01 Activity, walking, marching and hiking; Y92.129 Unspecified place in nursing home as the place of occurrence of the external cause
CPT/HCPCS: 70450; 73502; 96372; 99282

== ENCOUNTER 2023-11-21 00:41 | Emergency (ER) | payer MEDICAID, SELFPAY ==
[2023-11-21 00:42] VITALS: BP 134/90; PULSE 60; RESP 17; TEMP 36.1; O2SAT 99; BMI 19.9
--- NOTE | 2023-11-21 01:04 | CT_ITS ---
STUDY: CT BRAIN WITHOUT CONTRAST REASON FOR EXAM: Male, 58 years old. fall RADIATION DOSAGE (If Supplied By Facility): CTDIvol = ( 44.99 ) mGy, DLP = ( 796.11 ) mGycm TECHNIQUE: Transaxial CT imaging of the brain was performed without administration of intravenous contrast material. Individualized dose optimization techniques were used for this CT. COMPARISON: No relevant priors. FINDINGS: Normal soft tissue structures. Normal calvarium. Normal size ventricles and extra-axial spaces for the patient''s age. Normal white matter tracts of the cerebral hemispheres. Normal basal ganglia and thalami. Normal brainstem. Normal cerebellum. There is no intracranial hemorrhage. There are no findings of an acute ischemic infarction. Mucous retention cyst versus mucosal thickening of bilateral maxillary sinuses consistent with sequela of chronic sinusitis. Remainder of the paranasal sinuses are clear. No air-fluid level seen. Bilateral mastoid air cells are clear. CT/Brain/Head without Contrast IMPRESSION: Normal unenhanced CT scan of the brain for age. Sequela of sinus disease as described.. Electronically Signed: Christine Kulkarni MD at 1:47 EST ,
--- NOTE | 2023-11-21 01:04 | RAD_ITS ---
STUDY: X-RAY - PELVIS AND RIGHT HIP REASON FOR EXAM: Male, 58 years old. fall TECHNIQUE: 3 views of the pelvis and hip. COMPARISON: None. FINDINGS: There is a non-specific bowel gas pattern. Normal visualized soft tissue structures. There are multiple calcified phleboliths. There is narrowing with cortical sclerosis and osteophyte formation of the sacroiliac joint consistent with mild degenerative osteoarthritic changes. Normal bilateral superior and inferior pubic rami. Normal pubic symphysis. Normal bilateral ischial tuberosities. Normal visualized right femoral head. Normal right acetabulum. Normal hip joint. RAD/HIP, UNI W/ Pelvis 2-3 Views IMPRESSION: Minor degenerative disease as described. No fracture involving the right hip. No subluxation. Electronically Signed: Christine Kulkarni MD at 1:41 EST ,
--- NOTE | 2023-11-21 01:04 | CT_ITS ---
STUDY: CT CERVICAL SPINE WITHOUT CONTRAST REASON FOR EXAM: Male, 58 years old. fall RADIATION DOSAGE (If Supplied By Facility): CTDIvol = ( 17.93 ) mGy, DLP = ( 453.46 ) mGycm TECHNIQUE: High resolution transaxial imaging was performed without contrast material. Sagittal and coronal images were reconstructed. Individualized dose optimization techniques were used for this CT. COMPARISON: None FINDINGS: Normal craniovertebral junction. There are degenerative changes of the anterior atlantoaxial articulation. Normal odontoid process. Normal cervical lordosis with normal alignment. Level and posterior spondylosis with narrowing of disc height, more significant at C6-C7 with vacuum phenomenon at this level. Otherwise normal vertebral bodies and posterior osseous elements. C2-3: Normal endplates. Normal disc height and morphology. Normal central canal and intervertebral neuroforamina. C3-4: Mild spondylosis. Normal disc height. Mild to moderate left-sided apophyseal hypertrophy. No central canal stenosis. Minimal left-sided neural foraminal encroachment. C4-5: Mild spondylosis. Normal disc height. Minimal bilateral apophyseal hypertrophy. No central canal stenosis. No neural foraminal encroachment. C5-6: Spondylosis with narrowing of disc height. Disc osteophyte complex, more significant over the left lateral recess and intervertebral foramen. Minimal bilateral apophyseal hypertrophy. Moderate to severe left-sided neural foraminal encroachment. Borderline mild central canal narrowing C6-7: Endplate spondylosis with narrowing of disc height along with vacuum phenomenon. Disc osteophyte complex with mild bilateral apophyseal hypertrophy. Mild to moderate bilateral neural foraminal encroachment. No central canal stenosis. C7-T1: Normal endplates. Normal disc height and morphology. Normal central canal and intervertebral neuroforamina. Normal visualized soft tissue structures. Lung apices reveal biapical subpleural emphysematous changes, otherwise clear. There is mild biapical pleural thickening with subpleural scarring versus atelectasis. CT/Spine Cervical without Contras IMPRESSION: Multilevel degenerative disease as described with no acute fracture or subluxation. Electronically Signed: Christine Kulkarni MD at 1:58 EST ,
--- NOTE | 2023-11-21 01:04 | RAD_ITS ---
STUDY: X-RAY - UNILATERAL RIBS ( LEFT ) WITH CHEST REASON FOR EXAM: Male, 58 years old. fall TECHNIQUE - RIBS: 4 view(s) of the ribs. TECHNIQUE - CHEST: Single PA view of the chest. COMPARISON: None. FINDINGS - RIBS: Normal visualized ribs without a demonstrated fracture. FINDINGS - CHEST: The lungs are clear and expanded. There is no demonstrated pleural abnormality. Normal size heart. Normal mediastinum and lori. Normal visualized pulmonary arteries. Normal visualized aortic arch and descending thoracic aorta. Normal visualized thoracic spine. Normal visualized ribs, clavicles, and shoulders. There is no demonstrated abnormality of the visualized soft tissue structures of the upper abdomen. RAD/Ribs Uni Min 3V w/PA Chest IMPRESSION: RIBS: Unremarkable x-ray examination of the left ribs with no distinct fracture. CHEST: Normal x-ray examination of the chest for age. Electronically Signed: Christine Kulkarni MD at 1:42 EST ,
--- OUTSIDE RECORDS SUMMARY | 2023-11-21 01:38 | XMS RPT_ITS | CCD ---
Author Name Unknown Address [address] [place] [address] Organization [facility] Care Team Providers Care Chief Medical Director Name Role Phone THAO CARPIO Jen Unavailable Unavailable Allergies Allergy Classification Reported Allergen(s) Allergy Type Date of Onset Reaction(s) Facility (1 source) traZODone Drug Allergy 03-22-2019 Other: See Comments [facility] Medications Completed/Discontinued Medications Medication Drug Class(es) Dates [...] 78 mm[Hg] Thao Carpio MD Work Phone: [facility] 12-24-2021 16:41-0400 Systolic blood pressure 102 mm[Hg] Thao Carpio MD Work Phone: [facility] 12-24-2021 15:17-0400 Heart rate 70 /min Thao Carpio MD Work Phone: [facility] Encounters Encounter Date Encounter Type Care Provider Facility Start: 12-24-2021 End: 12-24-2021 Office outpatient visit 25 minutes Thao Carpio MD Work Phone: [facility] [place] Procedures Date Procedure Procedure Detail Performing Clinician Start: 03-21-2021 Adult depression scr eening assessment Thao Carpio MD Work Phone: Start: 01-29-2016 Colonoscopy Thao salazar MD Work Phone: Plan of Treatment Date Care Activity Detail Author Start: 03-24-2026 LIPID SCREEN LIPID SCREEN [facility] Start: 03-24-2024 DIABETES SCREEN DIABETES SCREEN [facility] Start: 12-24-2022 ANNUAL PCP TEAM WET END TESTER JOHN DISEASE VISIT ANNUAL PCP TEAM CHRONIC DISEASE VISIT [facility] Start: 10-21-2022 PROSTATE CANCER SCRE ENING DISCUSSION PROSTATE CANCER SCREENING DISCUSSION [facility] Start: 06-11-2022 Influenza vaccination INFLUENZA (Sea son Ended) [facility] Start: 03-25-2022 FECAL OCCULT BLOOD FECAL OCCULT BLOO D [facility] Start: 03-21-2022 Adult depression scr eening assessment DEPRESSION SCREENING [facility] Start: 03-21-2022 COVID-19 VACCINE (#1) COVID-19 VACCI NE (#1) [facility] Immunizations Immunization Date Immunization Notes Care Provider Penny welch 11-11-2016 influenza, seasonal, injectable Thao Carpio MD Work Phone: [facility] 08-29-2016 influenza, seasonal, injectable Thao Carpio MD Work Phone: [facility] 08-29-2016 influenza, seasonal, injectable, preservative free Thao Carpio MD Work Phone: [facility] Work Phone: 07-18-1997 hepatitis B vaccine, adult dosage Thao Carpio MD Work Phone: [facility] Work Phone: 05-09-1997 hepatitis B vaccine, adult dosage Thao Carpio MD Work Phone: [facility] Work Phone: Payers Date Payer Category Payer Medicaid [facility] MEDICAID [facility] [employer] MEDICAID [id number] 2016-Present [phone] [address] [place] [address] Medicaid 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 (1 pack every 2 days or so); a little over half PPD when erves acting up; down to 12 cig a day otherwise [facility] Start: 1965 Sex Assigned At Not on file C [facility] Start: 12-14-2021 End: 12-24-2021 Exposure to SARS-CoV-2 (event) Not sure [facility] Clinical Notes 01-22-2016 to 12-24-2021 Thao Carpio MD - 12/24/2021 3:43 PM EDT Note Date & Type Note Facility 12-24-2021 Note HNO ID: [id number] Author: Thao Carpio MD Service: ? Author Type: Physician Type: Progress Notes Filed: 03/19/2022 1:45 AM Note Text: This note was created using Teleporiter. Subjective Hong Rondon is a 56 year [...] MG DAILY September 16, 2019 2:13am 09-16-2019 [facility] ([id number]) (Patient not taking: Reported on 12/30/2020) - [...] condition(s) which will (more content not included)... [facility] 12-24-2021 History of Present illness [...] MG DAILY September 16, 2019 2:13am 09-16-2019 [facility] ([id number]) (Patient not taking: Reported on 12/30/2020) Nebulizer [...] and treatment as indicated. Thao Carpio MD [facility] OPEN ACCESS QUESTIONNAIRE 1. Are [...] [id number] documented in this encounter [facility] 11-17-2021 Note HNO ID: [id number] Author: Stefania العراقي LPN Service: ? Author Type: ? Type: Progress Notes Filed: 11/17/2021 11:15 AM Note Text: rec'd records from [facility] pt was seen in ER 11/14/21 COVID test was positive. Pt was admitted and d/c to home 11/16/21. [facility] 07-14-2021 Note Procedure (PULMWS) HONG RONDON ([id number]) 1965 M Date Time Provider Department 07/14/21 3:00 PM RESPIRATORY THERAPIST [facility] WSTRPULWS During your visit today, we recorded the following information about you: Weight Height 79.1 kg 1.859 m Joshua Alegria RRT 07/14/2021 2:56 PM Signed PULM FUNCTION TEST: Provider: Penelope Mahmood APRN.UNIVERSITY ADMINISTRATIVE ASSISTANT Technologist: Joshua Alegria RRT Spirometry: 1 System: [id number] Referring Provider: PENELOPE MAHMOOD [[id number]] Allergies As of Date: 07/14/2021 Noted Allergy Reaction TRAZODONE 03/22/2019 14 - Other: See Comments Comments: Caused nightmares Date Reviewed: 05/29/2021 Reviewed by: Dylon Manriquez MD - Fully Assessed Reason for Visit: Spirometry [191] Visit Diagnoses:Tobacco use disorder [F17.200] COPD with chronic bronchitis (HCC) [J44.9] Order(s):SPIROMETRY WITH DILATOR IF OBSTRUCTED [3057446] Order #: [id number]. #:[id number]: [id number] Prescriptions as of 07/14/2021 - gabapentin [...] MG DAILY September 16, 2019 2:13am 09-16-2019 [facility] ([id number]) - Nebulizer NEBULIZER FOR HOME USE. DX: [...] Encounter Status:Closed by JOSHUA ALEGRIA on 07/14/21 [facility] 07-14-2021 Note HNO ID: [id number] Author: Joshua Alegria RRT Service: ? Author Type: Respiratory Therapist Type: Progress Notes Filed: 07/14/2021 2:56 PM Note Text: PULM FUNCTION TEST: Provider: Penelope Mahmood APRN.UNIVERSITY ADMINISTRATIVE ASSISTANT Technologist: Joshua Alegria RRT Spirometry: 1 System: [id number] [facility] 06-26-2021 Note HNO ID: [id number] Author: Penelope Mahmood APRN.UNIVERSITY ADMINISTRATIVE ASSISTANT Service: ? Author Type: Nurse Specialist Type: [...] MG DAILY September 16, 2019 2:13am 09-16-2019 [facility] ([id number]) fludrocortisone (FLORINEF) 0.1 mg tablet albuterol (PROVENTIL) [...] activity was iden (more content not included)... [facility] 05-29-2021 Note HNO ID: [id number] Author: Dylon Manriquez MD Service: ? Author Type: Physician Type: Progress Notes Filed: 05/29/2021 1:13 PM Note Text: Dylon Manriquez MD Department of Orthopaedics Orthopa[facility] [address] [facility] [address] Dept: [phone] Dept May 29, 2021 CHIEF COMPLAINT: New [...] having swelling in that area. Seen at [facility] Urgent care and they opened it up and drained it. He is continuing to have some pain in his hand. States the pain has increased over the past week. Dr. Jc took a photo of his hand on 03/21/21 and is in [facility]. Patient is left handed. Taking Ibuprofen for the pain and does help. X-rays done today. at [facility]. AMB ROOMING INTAKE FLOWSHEET DATA Risk Screening [...] Laterality Date - COLONOSCOP W/ OR W/O [facility] SPEC 01/05/2005 Colonoscopy - COLONOSCOP W/ OR W/O [facility] SPEC 02/22/09 for c/o constipation. - COLONOSCOP W/ OR W/O [facility] SPEC 01/29/16 Colonoscopy with mac - [...] a day otherwise (more content not included)... [facility] 05-29-2021 Note HNO ID: [id number] Author: RT Brendan(R) Service: ? Author Type: Periodicals Clerk Type: Progress Notes Filed: 05/29/2021 9:50 AM [...] Segovia RT(R) May 29, 2021 9:42 AM [facility] 03-21-2021 Note HNO ID: [id number] Author: Thao Carpio MD Service: ? Author Type: Physician Type: Progress Notes Filed: 04/15/2021 12:14 AM Note Text: This note was created using Teleporiter. Subjective Hong Rondon is a 56 year [...] MG DAILY September 16, 2019 2:13am 09-16-2019 [facility] ([id number]) (Patient not taking: Reported on 12/30/2020) - [...] the date of the service which included [id number] patient care, completing clinical documentation, obtaining and/or reviewing separately obtained history, performing a medically appropriate examination, counseling and e (more content not included)... [facility] documented as of this encounter (statuses as of 03/19/2022) [facility] Orthostatic hypotension- Primary COPD with chronic bronchitis (HCC) Obstructive chronic bronchitis without exacerbation Tobacco use disorder Special screening for malignant neoplasms, colon Post-COVID chronic fatigue documented in this encounter [facility] Summary Purpose Family History No Family History Records FoundNo Family History Records Found Advance Directives No Advanced Directives Records FoundDocuments on File Type Date Recorded 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 Advance Directive(s) 01/29/2016 7:21 AM Reason for Referral Specialty Diagnoses / Procedures Referred By Contac t Referred To Contact General Surgery Diagnoses Special screening for malignant neoplasms, colon Procedures CONSULT TO GENERAL SURGERY OFFICE/OUTPATIENT [facility] 60-74 MINUTES Thao Carpio MD [address] [place] [address] Referral ID Status Reason Start Date Expiration Date Visits Requested Visits Authorized [id number] Authorized PCP Requested Referral 12/24/2021 12/24/2022 1 1 Specialty Diagnoses / Procedures Referred By He t Referred To Contact [facility] Diagnoses Special screening for malignant neoplasms, colon Procedures COLONOSCOPY SCREENING COLONOSCOPY FLX DX W/COLLJ SPEC WHEN PFAMANDAD Thao Carpio MD [address] [place] [address] [facility] [place] [address] [place] [address] Referral ID Status Reason Start Date Expiration Date Visits Requested Visits Authorized [id number] Pending Review Auto-Generat ed Referral 12/24/2021 12/24/2022 1 1 Additional Source Comments (unrecognized sect ion and content) No Status Records FoundNo Status Records Found INFORMATION SOURCE (unrecogn ized section and content) DATE CREATED AUTHOR AUTHOR'S ORGANIZ ATION 03/19/2022 [facility] Source Comments (unrecognize d section and content) In the event this informatio n is protected by the Federal Confidentiality of Alcohol and Drug Abuse Patient Records regulations: The Federal rules restrict any use of the information to criminally investigate or prosecute any alcohol or drug abuse patient.[facility] Reason for Visit (unrecogniz ed section and [...] BE BASED ON THE PRIMARY CLINICAL RECORDS. [facility]. provides no warranty or guarantee of the accuracy or completeness of information in this document.
--- NOTE | 2023-11-21 02:33 | EDS_ITS ---
HPI HPI - Fall History of Present Illness Chief Complaint: Fall Narrative Narrative: Patient presents from [facility] secondary to a fall. Per nursing staff he fell out of bed around 745 last evening. He is complaining of pain to his left ribs, neck, and right hip. Patient does have a history of dementia and is ANO x 1 at baseline. On arrival patient states that he did fall at the foot of his bed, but thinks that he was standing up and leaned against the bed which gave way causing him to fall. He is not on any anticoagulants. [facility] Medical History Acute encephalopathy Asthma Chest pain of uncertain etiology Chronic hyponatremia Cold intolerance Dementia associated with alcoholism Depression History of bronchitis History of pneumonia Hypertension Nicotine dependence Orthostatic hypotension Pulmonary fibrosis Pulmonary hypertension Rheumatoid arthritis Sleep apnea Syncope and collapse Syncope, near Weight loss, abnormal Home Medications albuterol sulfate 90 mcg/actuation aerosol inhaler (Ventolin HFA) 1 - 2 puff inhalation Q4H PRN PRN Wheezing #1 inh 01/24/23 [Rx Last Taken Unknown] cyclobenzaprine 10 mg tablet 10 mg PO TID PRN Muscle Spasm #20 TABLETS 04/15/23 [Rx Last Taken Unknown] acetaminophen 325 mg tablet 650 mg (2 x 325 mg) PO Q6H PRN PRN Pain 1-10 Or Fever>100.7 #0 tabs 10/12/23 [Rx Last Taken Unknown] folic acid 1 mg tablet 1 mg PO BREAKFAST #0 tabs 10/12/23 [Rx Last Taken Unknown] lactulose 20 gram/30 mL oral solution 20 g (30 mL) PO BID PRN constipation/confusion #0 mL 10/12/23 [Rx Last Taken Unknown] thiamine HCl (vitamin B1) 100 mg tablet (Vitamin B-1) 100 mg PO BREAKFAST #0 tabs 10/12/23 [Rx Last Taken Unknown] buspirone 5 mg tablet 10 mg PO BID 11/21/23 [History Last Taken Unknown] Allergy/AdvReac Type Severity Reaction Status Date / Time No Known Allergies Allergy Verified 11/21/23 00:52 Family History Mother Diabetes Father Heart disease Surgical History History of left heart catheterization (11/11/16) Social History Smoking Status: Current every day smoker tobacco type: cigarettes ROS ROS ED Constitutional Constitutional ED: Denies chills or fever(s) ENT ENT ED: Denies rhinorrhea or sore throat Cardiovascular Cardiovascular: Reports chest pain Respiratory/Chest Respiratory/Chest: Denies cough or dyspnea Gastrointestinal Gastrointestinal: Denies abdominal pain or vomiting Musculoskeletal Musculoskeletal: Reports extremity pain and neck pain; Denies back pain Integumentary Denies Abrasions or rash Neurologic Neurologic: Denies headache(s) Allergic/Immunologic Allergic/Immunologic ED: Denies lip swelling or urticaria EXAM Physical Exam Const Vital Signs: 11/21/23 00:42 11/21/23 00:49 11/21/23 03:11 Temperature 97 F L Temperature Source Temporal Pulse Rate 60 55 L Respiratory Rate 17 16 Respiratory Effort Normal Respiratory Depth Normal Respiratory Pattern Normal Blood Pressure 134/90 H 128/85 H Blood Pressure Mean 104 99 Pulse Ox 99 100 Oxygen Delivery Method Room Air Room Air Room Air Positive well nourished and well developed General Appearance ED: well developed HEENT Reports normocephalic Eyes EOMs intact bilaterally Neck Neck Narrative: Mild C-spine tenderness. C-collar remains in place. Chest Wall inspection of chest normal Chest Narrative: Patient has mild tenderness to the left lower lateral ribs. No crepitus noted. Resp normal respiratory effort and clear to auscultation bilaterally Cardio regular rate and regular rhythm GI non-tender Palpation: soft Extremity Extremity Narrative: Mild tenderness noted over the greater trochanter of the right hip. No significant pain with logroll. Leg lengths are equal. Neuro moves all extremities Psych mental status grossly normal MDM MDM MDM Narrative Medical decision making narrative: Patient sent for CT scan of the head and C-spine given his fall and neck pain. Rib series with chest x-ray as well as pelvis and right hip x-rays also obtained given his pain to these areas after fall. Radiography Diagnostic Testing: Clinical Impression(s) from Imaging Studies Brain CT 11/21/23 01:04 IMPRESSION: Normal unenhanced CT scan of the brain for age. Sequela of sinus disease as described.. Electronically Signed: Christine Kulkarni MD at 1:47 EST Reading Location ID and State: [facility] / [place] , Service support , Cervical Spine CT 11/21/23 01:04 IMPRESSION: Multilevel degenerative disease as described with no acute fracture or subluxation. Electronically Signed: Christine Kulkarni MD at 1:58 EST Reading Location ID and State: [facility] / [employer] , Service support , Hip/Pelvis X-Ray 11/21/23 01:04 IMPRESSION: Minor degenerative disease as described. No fracture involving the right hip. No subluxation. Electronically Signed: Christine Kulkarni MD at 1:41 EST Reading Location ID and State: [employer] / [employer] , Service support , Ribs w/Chest X-Ray 11/21/23 01:04 IMPRESSION: RIBS: Unremarkable x-ray examination of the left ribs with no distinct fracture. CHEST: Normal x-ray examination of the chest for age. Electronically Signed: Christine Kulkarni MD at 1:42 EST Reading Location ID and State: [facility] / [place] , Service support , Treatment and Re-Evaluation Narrative: Rib series with chest x-ray per my interpretation reveals chronic lung changes but no obvious displaced rib fracture. Radiology interpretation reviewed and agrees. Pelvis and right hip x-rays per my interpretation reveal no obvious fracture. Radiology interpretation reviewed and agrees. CT scan of the head is unremarkable. CT the C-spine shows multilevel degenerative changes but no fracture or subluxation. Patient c-collar is removed. He will be discharged back to his [facility]CF. Discharge Plan Triage Chief Complaint: Fall ED Provider: Manisha Trayolr Dx/Rx/DC Orders Clinical Impression: Contusion of rib, Fall Instructions: ED Fall with Uncertain Cause, ED Rib Contusion or Minor Fracture Prescriptions: No Action albuterol sulfate [Ventolin HFA] 90 mcg/actuation HFA aerosol inhaler 1 - 2 puff inhalation Q4H PRN PRN (Reason: Wheezing) Qty: 1 0RF cyclobenzaprine 10 mg tablet 10 mg PO TID PRN (Reason: Muscle Spasm) Qty: 20 0RF acetaminophen 325 mg Tablet 650 mg PO Q6H PRN PRN (Reason: Pain 1-10 Or Fever>100.7) Qty: 0 0RF thiamine HCl (vitamin B1) [Vitamin B-1] 100 mg Tablet 100 mg PO BREAKFAST Qty: 0 0RF folic acid 1 mg Tablet 1 mg PO BREAKFAST Qty: 0 0RF lactulose 20 gram/30 mL Solution 20 g PO BID PRN (Reason: constipation/confusion) Qty: 0 0RF buspirone 5 mg tablet 10 mg PO BID Primary Care Provider: Gwyn Dominguez Referrals: Gwyn Dominguez MD [Primary Care Provider] - 5-7 Days Disposition Disposition: [facility] Facility Discharge Location: [facility]
[2023-11-21 03:11] VITALS: BP 128/85; PULSE 55; RESP 16; O2SAT 100
--- NOTE | 2023-11-21 03:23 | ED.RN ---
[facility] and [facility] coming back to their facility.
[2023-11-21 07:00] VITALS: BP 124/81; PULSE 50; RESP 16; O2SAT 98
[2023-11-21 08:22] VITALS: BP 124/81; PULSE 50; RESP 16; O2SAT 98
== END 2023-11-21 08:29 | disposition skilled nursing facility (03) ==
PROVIDERS: Emergency Provider Emergency Medicine; PCP Family Medicine; Visit Provider Emergency Medicine
DX: S20.20XA Contusion of thorax, unspecified, initial encounter (principal); F03.90 Unspecified dementia, unspecified severity, without behavioral disturbance, psychotic disturbance, mood disturbance, and anxiety; F17.210 Nicotine dependence, cigarettes, uncomplicated; W06.XXXA Fall from bed, initial encounter; Y92.129 Unspecified place in nursing home as the place of occurrence of the external cause; I10 Essential (primary) hypertension; M54.2 Cervicalgia; M25.551 Pain in right hip
CPT/HCPCS: 70450; 71101; 72125; 73502; 99282

== ENCOUNTER → 2023-11-22 | Outpatient (REF) | payer MEDICAID, SELFPAY ==
--- OUTSIDE RECORDS SUMMARY | 2023-11-22 05:07 | XMS RPT_ITS | CCD ---
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 Name Role Phone THAO CARPIO Jen Unavailable Unavailable Allergies Allergy Classification Reported Allergen(s) Allergy Type Date of Onset Reaction(s) Facility (1 source) traZODone Drug Allergy 03-22-2019 Other: See Comments [facility] Medications Completed/Discontinued Medications Medication Drug Class(es) [...] 78 mm[Hg] Thao Carpio MD Work Phone: [facility] 12-24-2021 16:41-0400 Systolic blood pressure 102 mm[Hg] Thao Carpio MD Work Phone: [facility] 12-24-2021 15:17-0400 Heart rate 70 /min Thao Carpio MD Work Phone: [facility] Encounters Encounter Date Encounter Type Care Provider Facility Start: 12-24-2021 End: 12-24-2021 Office outpatient visit 25 minutes Thao Carpio MD Work Phone: [facility] [place] Procedures Date Procedure Procedure Detail Performing Clinician Start: 03-21-2021 Adult depression scr eening assessment Thao Carpio MD Work Phone: Start: 01-29-2016 Colonoscopy Thao salazar MD Work Phone: Plan of Treatment Date Care Activity Detail Author Start: 03-24-2026 LIPID SCREEN LIPID SCREEN [facility] Start: 03-24-2024 DIABETES SCREEN DIABETES SCREEN [facility] Start: 12-24-2022 ANNUAL PCP TEAM VIDEOTAPE SALES REPRESENTATIVE JOHN DISEASE VISIT ANNUAL PCP TEAM CHRONIC DISEASE VISIT [facility] Start: 10-21-2022 PROSTATE CANCER SCRE ENING DISCUSSION PROSTATE CANCER SCREENING DISCUSSION [facility] Start: 06-11-2022 Influenza vaccination INFLUENZA (Sea son Ended) [facility] Start: 03-25-2022 FECAL OCCULT BLOOD FECAL OCCULT BLOO D [facility] Start: 03-21-2022 Adult depression scr eening assessment DEPRESSION SCREENING [facility] Start: 03-21-2022 COVID-19 VACCINE (#1) COVID-19 VACCI NE (#1) [facility] Immunizations Immunization Date Immunization Notes Care Provider Penny welch 11-11-2016 influenza, seasonal, injectable Thao Carpio MD Work Phone: [facility] 08-29-2016 influenza, seasonal, injectable Thao Carpio MD Work Phone: [facility] 08-29-2016 influenza, seasonal, injectable, preservative free Thao Carpio MD Work Phone: [facility] Work Phone: 07-18-1997 hepatitis B vaccine, adult dosage Thao Carpio MD Work Phone: [facility] Work Phone: 05-09-1997 hepatitis B vaccine, adult dosage Thao Carpio MD Work Phone: [facility] Work Phone: Payers Date Payer Category Payer [place] [employer] [employer] [id number] 2016-Present [phone] [address] [place] [address] Medicaid 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 (1 pack every 2 days or so); a little over half PPD when erves acting up; down to 12 cig a day otherwise [facility] Start: 1965 Sex Assigned At Not on file C [facility] Start: 12-14-2021 End: 12-24-2021 Exposure to SARS-CoV-2 (event) Not sure [facility] Clinical Notes 01-22-2016 to 12-24-2021 Thao Carpio MD - 12/24/2021 3:43 PM EDT Note Date & Type Note Facility 12-24-2021 Note HNO ID: [id number] Author: Thao Carpio MD Service: ? Author Type: Physician Type: Progress Notes Filed: 03/19/2022 1:45 AM Note Text: This note was created using Advizzerriter. Subjective Hong Rondon is a 56 year [...] MG DAILY September 16, 2019 2:13am 09-16-2019 [facility] ([id number]) (Patient not taking: Reported on 12/30/2020) - [...] condition(s) which will (more content not included)... [facility] 12-24-2021 History of Present illness Narrative [...] MG DAILY September 16, 2019 2:13am 09-16-2019 [facility] ([id number]) (Patient not taking: Reported on 12/30/2020) Nebulizer [...] and treatment as indicated. Thao Carpio MD [facility] OPEN ACCESS QUESTIONNAIRE 1. Are you [...] Please send all open access questionnaires to [facility] Sched Pool #[id number] documented in this encounter [facility] 11-17-2021 Note HNO ID: [id number] Author: Stefania العراقي LPN Service: ? Author Type: ? Type: Progress Notes Filed: 11/17/2021 11:15 AM Note Text: rec'd records from [facility] pt was seen in ER 11/14/21 COVID test was positive. Pt was admitted and d/c to home 11/16/21. [facility] 07-14-2021 Note Procedure (PULMWS) HONG RONDON ([id number]) 1965 M Date Time Provider Department 07/14/21 3:00 PM RESPIRATORY THERAPIST [facility] WSTRPULWS During your visit today, we recorded the following information about you: Weight Height 79.1 kg 1.859 m Joshua Alegria RRT 07/14/2021 2:56 PM Signed PULM FUNCTION TEST: Provider: Penelope Mahmood APRN.ROTARY SHEAR CUTTER Technologist: Joshua Alegria RRT Spirometry: 1 System: [id number] Referring Provider: PENELOPE MAHMOOD [[id number]] Allergies As of Date: 07/14/2021 Noted Allergy Reaction TRAZODONE 03/22/2019 14 - Other: See Comments Comments: Caused nightmares Date Reviewed: 05/29/2021 Reviewed by: Dylon Manriquez MD - Fully Assessed Reason for Visit: Spirometry [191] Visit Diagnoses:Tobacco use disorder [F17.200] COPD with chronic bronchitis (HCC) [J44.9] Order(s):SPIROMETRY WITH DILATOR IF OBSTRUCTED [[id number]] Order #: [id number]. #:[id number]: 1 Prescriptions as of 07/14/2021 - gabapentin [...] MG DAILY September 16, 2019 2:13am 09-16-2019 [facility] ([id number]) - Nebulizer NEBULIZER FOR HOME USE. DX: [...] Encounter Status:Closed by JOSHUA ALEGRIA on 07/14/21 [facility] 07-14-2021 Note HNO ID: [id number] Author: Joshua Alegria RRT Service: ? Author Type: Respiratory Therapist Type: Progress Notes Filed: 07/14/2021 2:56 PM Note Text: PULM FUNCTION TEST: Provider: Peneolpe Mahmood APRN.ROTARY SHEAR CUTTER Technologist: Joshua Alegria RRT Spirometry: 1 System: [id number] [facility] 06-26-2021 Note HNO ID: [id number] Author: Penelope Mahmood APRN.ROTARY SHEAR CUTTER Service: ? Author Type: Nurse Specialist Type: [...] MG DAILY September 16, 2019 2:13am 09-16-2019 [facility] ([id number]) fludrocortisone (FLORINEF) 0.1 mg tablet albuterol (PROVENTIL) [...] activity was iden (more content not included)... [facility] 05-29-2021 Note HNO ID: [id number] Author: Dylon Manriquez MD Service: ? Author Type: Physician Type: Progress Notes Filed: 05/29/2021 1:13 PM Note Text: Dylon Manriquez MD Department of Orthopaedics Orthopaedics [address] [facility] [address] Dept: [phone] Dept May 29, 2021 CHIEF COMPLAINT: New [...] having swelling in that area. Seen at [facility] care and they opened it up and drained it. He is continuing to have some pain in his hand. States the pain has increased over the past week. Dr. Jc took a photo of his hand on 03/21/21 and is in [facility]. Patient is left handed. Taking Ibuprofen for the pain and does help. X-rays done today. at [facility]. AMB ROOMING INTAKE FLOWSHEET DATA Risk [...] Date - COLONOSCOP W/ OR W/O [facility] SPEC 01/05/2005 Colonoscopy - COLONOSCOP W/ OR W/O [facility] SPEC 02/22/09 for c/o constipation. - COLONOSCOP W/ OR W/O [facility] SPEC 01/29/16 Colonoscopy with mac - [...] a day otherwise (more content not included)... [facility] 05-29-2021 Note HNO ID: [id number] Author: RT Brendan(R) Service: ? Author Type: Silica Spray Mixer Type: Progress Notes Filed: 05/29/2021 9:50 AM [...] Segovia RT(R) May 29, 2021 9:42 AM [facility] 03-21-2021 Note HNO ID: [id number] Author: Thao Carpio MD Service: ? Author Type: Physician Type: Progress Notes Filed: 04/15/2021 12:14 AM Note Text: This note was created using Advizzerriter. Subjective Hong Rondon is a 56 year [...] MG DAILY September 16, 2019 2:13am 09-16-2019 [facility] ([id number]) (Patient not taking: Reported on 12/30/2020) - [...] the date of the service which included rvnj-xi-lyvv patient care, completing clinical documentation, obtaining and/or reviewing separately obtained history, performing a medically appropriate examination, counseling and e (more content not included)... 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 Advance Directive(s) 01/29/2016 7:21 AM Reason for Referral Specialty Diagnoses / Procedures Referred By Contac t Referred To Contact General Surgery Diagnoses Special screening for malignant neoplasms, colon Procedures CONSULT TO GENERAL SURGERY OFFICE/OUTPATIENT [facility] 60-74 MINUTES Thao Carpio MD [address] [place] [address] Referral ID Status Reason Start Date Expiration Date Visits Requested Visits Authorized [id number] Authorized PCP Requested Referral 12/24/2021 12/24/2022 1 1 Specialty Diagnoses / Procedures Referred By He t Referred To Contact [facility] Diagnoses Special screening for malignant neoplasms, colon Procedures COLONOSCOPY SCREENING COLONOSCOPY FLX DX W/COLLJ SPEC WHEN PFAMANDAD Thao Carpio MD [address] [place] [address] [facility] [place] [facility] [address] [place] [address] Referral ID Status Reason Start Date Expiration Date Visits Requested Visits Authorized [id number] Pending Review Auto-Generat ed Referral 12/24/2021 12/24/2022 1 1 Additional Source Comments (unrecognized sect ion and content) No Status Records FoundNo Status Records Found INFORMATION SOURCE (unrecogn ized section and content) DATE CREATED AUTHOR AUTHOR'S ORGANIZ ATION 03/19/2022 [facility] Source Comments (unrecognize d section and content) In the event this informatio n is protected by the Federal Confidentiality of Alcohol and Drug Abuse Patient Records regulations: The Federal rules restrict any use of the information to criminally investigate or prosecute any alcohol or drug abuse patient.[facility] Reason for Visit (unrecogniz ed section [...] BE BASED ON THE PRIMARY CLINICAL RECORDS. [employer] [facility]. provides no warranty or guarantee of the accuracy or completeness of information in this document.
[2023-11-22 08:22] LABS: Hematocrit 35.4 % (40-54); Hemoglobin 11.6 g/dL (13.0-16.5); Mean Corp Hgb Conc 32.8 g/dL (32-36); Mean Corpuscular Hgb 30.5 pg (27.0-32.0); Mean Corpuscular Volume 93.2 fL (80-94); Mean Platelet Vol. 10.1 fl (6.2-12.0); Platelet Count 184 K/mm3 (150-450); RBC Distribution Width CV 12.8 % (11.6-14.6); RBC Distribution Width SD 43.8 fl (35.1-43.9)
[2023-11-22 09:14] LABS: Mucous, Urine 0 SEEN /hpf (<or=2+); Squamous Epithelial Cells - UA 0 SEEN /hpf (0-5); White Blood Cells 0 SEEN /hpf (0-5)
[2023-11-22 09:19] LABS: Color, Urine Yellow (Yellow); Glucose, Dipstick Normal (Normal); Ketone-Dipstick Negative (Negative); Leukocyte Esterase-Dipstick Negative /ul (Negative); Nitrite-Dipstick Negative (Negative); Occult Blood-Urine 50 /ul (Negative); Protein-Dipstick Negative (Negative); Specific Gravity, Urine 1.025 (1.002-1.030); Urine Bilirubin Dipstick Negative (Negative); Urine Clarity Cloudy (Clear); Urine Urobilinogen Normal (Normal)
[2023-11-22 10:52] LABS: Amorphous Sediment 2+; Bacteria 1+ /hpf (None Seen); Red Blood Cells-Urine 0-5 SEEN /hpf (0-5)
[2023-11-22 12:07] LABS: ALB/GLOB Ratio 0.9 RATIO (0.9-2.4); AST(SGOT) 12 U/L (15-37); Alanine Aminotransfer ALT/SGPT 27 U/L (16-61); Albumin, Serum 3.2 g/dL (3.2-5.0); Alkaline Phosphatase 76 U/L (45-117); Anion Gap 6 (5-15); BUN 26 mg/dL (7-18); Calcium,Total 8.9 mg/dL (8.5-10.1); Chloride 112 mmol/L (98-107); Creatinine, Serum 0.96 mg/dL (0.70-1.30); EST Glomerular Filtration Rate 86 mL/min (>60); Est Glom Filt Rate - Afr Amer 104 mL/min (>60); Globulin 3.6 g/dL (2.2-4.2); Glucose 87 mg/dL (74-106); Potassium 4.1 mmol/L (3.5-5.1); Protein, Total 6.8 g/dL (6.4-8.2); Sodium Level 142 mmol/L (136-145); Thyroid Stim Hormone (TSH) 1.01 uIU/mL (0.358-3.74)
== END | disposition home or self-care (01) ==
LOC: OLS.SW 05:00
PROVIDERS: PCP Family Medicine; Visit Provider Family Medicine
DX: R41.82 Altered mental status, unspecified (principal)
CPT/HCPCS: 36415; 80053; 81001; 84443; 85027; 87086; 87088

== ENCOUNTER → 2023-12-16 05:00 | Outpatient (REF) | payer MEDICAID, SELFPAY ==
--- OUTSIDE RECORDS SUMMARY | 2023-12-16 04:15 | XMS RPT_ITS | CCD ---
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 Role Phone THAO CARPIO Jen Unavailable Unavailable Allergies Allergy Classification Reported Allergen(s) Allergy Type Date of Onset Reaction(s) Facility (1 source) traZODone Drug Allergy 03-22-2019 Other: See Comments [facility] Medications Completed/Discontinued Medications Medication Drug Class(es) [...] 78 mm[Hg] Thao Carpio MD Work Phone: [facility] 12-24-2021 16:41-0400 Systolic blood pressure 102 mm[Hg] Thao Carpio MD Work Phone: [facility] 12-24-2021 15:17-0400 Heart rate 70 /min Thao Carpio MD Work Phone: [facility] Encounters Encounter Date Encounter Type Care [...] Author Start: 03-24-2026 LIPID SCREEN LIPID SCREEN [facility] Start: 03-24-2024 DIABETES SCREEN DIABETES SCREEN [facility] Start: 12-24-2022 ANNUAL PCP TEAM DUST COLLECTOR ORE CRUSHING JOHN DISEASE VISIT ANNUAL PCP TEAM CHRONIC DISEASE VISIT [facility] Start: 10-21-2022 PROSTATE CANCER SCRE ENING DISCUSSION PROSTATE CANCER SCREENING DISCUSSION [facility] Start: 06-11-2022 Influenza vaccination INFLUENZA (Sea son Ended) [facility] Start: 03-25-2022 FECAL OCCULT BLOOD FECAL OCCULT BLOO D [facility] Start: 03-21-2022 Adult depression scr eening assessment DEPRESSION SCREENING [facility] Start: 03-21-2022 COVID-19 VACCINE (#1) COVID-19 VACCI NE (#1) [facility] Immunizations Immunization Date Immunization Notes Care Provider Penny welch 11-11-2016 influenza, seasonal, injectable Thao Carpio MD Work Phone: [facility] 08-29-2016 influenza, seasonal, injectable Thao Carpio MD Work Phone: [facility] 08-29-2016 influenza, seasonal, injectable, preservative free Thoa Carpio MD Work Phone: [facility] Work Phone: 07-18-1997 hepatitis B vaccine, adult dosage Thao Carpio MD Work Phone: [facility] Work Phone: 05-09-1997 hepatitis B vaccine, adult dosage Thao Carpio MD Work Phone: [facility] Work Phone: Payers Date Payer Category Payer Medicaid [facility] MEDICA[facility] [employer] MEDICAID [id number] 2016-Present [phone] [address] [place] [address] Medicaid 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 (1 pack every 2 days or so); a little over half PPD when erves acting up; down to 12 cig a day otherwise [facility] Start: 1965 Sex Assigned At Not on file C [facility] Start: 12-14-2021 End: 12-24-2021 Exposure to SARS-CoV-2 (event) Not sure [facility] Clinical Notes 01-22-2016 to 12-24-2021 Thao Carpio MD - 12/24/2021 3:43 PM EDT Note Date & Type Note Facility 12-24-2021 Note HNO ID: [id number] Author: Thao Carpio MD Service: ? Author Type: Physician Type: Progress Notes Filed: 03/19/2022 1:45 AM Note Text: This note was created using Zooomrriter. Subjective Hong Rondon is a 56 year [...] MG DAILY September 16, 2019 2:13am 09-16-2019 [facility] ([id number]) (Patient not taking: Reported on 12/30/2020) - [...] will (more content not included)... [facility] 12-24-2021 History of Present illness Narrative This [...] MG DAILY September 16, 2019 2:13am 09-16-2019 [facility] ([id number]) (Patient not taking: Reported on 12/30/2020) Nebulizer [...] and treatment as indicated. Thao Carpio MD [facility] OPEN ACCESS QUESTIONNAIRE 1. Are [...] [facility] Sched Pool #[id number] documented in this encounter [facility] 11-17-2021 Note HNO ID: [id number] Author: Stefania العراقي LPN Service: ? Author Type: ? Type: Progress Notes Filed: 11/17/2021 11:15 AM Note Text: rec'd records from [facility] pt was seen in ER 11/14/21 COVID test was positive. Pt was admitted and d/c to home 11/16/21. [facility] 07-14-2021 Note Procedure (PULMWS) HONG RONDON ([id number]) 1965 M Date Time Provider Department 07/14/21 3:00 PM RESPIRATORY THERAPIST [facility] WSTRPULWS During your visit today, we recorded the following information about you: Weight Height 79.1 kg 1.859 m Joshua Alegria RRT 07/14/2021 2:56 PM Signed PULM FUNCTION TEST: Provider: Penelope Mahmood APRN.INSIDE WIRER Technologist: Joshua Alegria RRT Spirometry: 1 System: [id number] Referring Provider: PENELOPE MAHMOOD [[id number]] Allergies As of Date: 07/14/2021 Noted Allergy Reaction TRAZODONE 03/22/2019 14 - Other: See Comments Comments: Caused nightmares Date Reviewed: 05/29/2021 Reviewed by: Dylon Manriquez MD - Fully Assessed Reason for Visit: Spirometry [191] Visit Diagnoses:Tobacco use disorder [F17.200] COPD with chronic bronchitis (HCC) [J44.9] Order(s):SPIROMETRY WITH DILATOR IF OBSTRUCTED [[id number]] Order #: [id number]. #:[id number]: 1 Prescriptions as of 07/14/2021 - gabapentin [...] MG DAILY September 16, 2019 2:13am 09-16-2019 [facility] ([id number]) - Nebulizer NEBULIZER FOR HOME USE. DX: [...] by JOSHUA ALEGRIA on 07/14/21 [facility] 07-14-2021 Note HNO ID: [id number] Author: Joshua Alegria RRT Service: ? Author Type: Respiratory Therapist Type: Progress Notes Filed: 07/14/2021 2:56 PM Note Text: PULM FUNCTION TEST: Provider: Penelope Mahmood APRN.INSIDE WIRER Technologist: Joshua Alegria RRT Spirometry: 1 System: [id number] [facility] 06-26-2021 Note HNO ID: [id number] Author: Penelope Mahmood APRN.INSIDE WIRER Service: ? Author Type: Nurse Specialist Type: [...] MG DAILY September 16, 2019 2:13am 09-16-2019 [facility] ([id number]) fludrocortisone (FLORINEF) 0.1 mg tablet albuterol (PROVENTIL) [...] iden (more content not included)... [facility] 05-29-2021 Note HNO ID: [id number] Author: Dylon Manriquez MD Service: ? Author Type: Physician Type: Progress Notes Filed: 05/29/2021 1:13 PM Note Text: Dylon Manriquez MD Department of Orthopaedics Orthopaedics [address] [facility] [address] Dept: [phone] Dept May 29, 2021 CHIEF COMPLAINT: New [...] having swelling in that area. Seen at [facility] Urgent care and they opened it up and drained it. He is continuing to have some pain in his hand. States the pain has increased over the past week. Dr. Jc took a photo of his hand on 03/21/21 and is in [facility]. Patient is left handed. Taking Ibuprofen for the pain and does help. X-rays done today. at [facility]. AMB ROOMING INTAKE FLOWSHEET DATA Risk [...] Laterality Date - COLONOSCOP W/ OR W/O [facility] SPEC 01/05/2005 Colonoscopy - COLONOSCOP W/ OR W/O [facility] SPEC 02/22/09 for c/o constipation. - COLONOSCOP W/ OR W/O [facility] SPEC 01/29/16 Colonoscopy with mac - [...] otherwise (more content not included)... [facility] 05-29-2021 Note HNO ID: [id number] Author: RT Brendan(R) Service: ? Author Type: Knifeman Type: Progress Notes Filed: 05/29/2021 9:50 AM [...] May 29, 2021 9:42 AM [facility] 03-21-2021 Note HNO ID: [id number] Author: Thao Carpio MD Service: ? Author Type: Physician Type: Progress Notes Filed: 04/15/2021 12:14 AM Note Text: This note was created using Zooomrriter. Subjective Hong Rondon is a 56 year [...] MG DAILY September 16, 2019 2:13am 09-16-2019 [facility] ([id number]) (Patient not taking: Reported on 12/30/2020) - [...] the date of the service which included aumg-kv-xcol patient care, completing clinical documentation, obtaining and/or reviewing separately obtained history, performing a medically appropriate examination, counseling and e (more content not included)... 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 Advance Directive(s) 01/29/2016 7:21 AM Reason for Referral Specialty Diagnoses / Procedures Referred By Contac t Referred To Contact General Surgery Diagnoses Special screening for malignant neoplasms, colon Procedures CONSULT TO GENERAL SURGERY OFFICE/OUTPATIENT [facility] 60-74 MINUTES Thao Carpio MD [address] [place] [address] Referral ID Status Reason Start Date Expiration Date Visits Requested Visits Authorized [id number] Authorized PCP Requested Referral 12/24/2021 12/24/2022 1 1 Specialty Diagnoses / Procedures Referred By He t Referred To Contact [facility] Diagnoses Special screening for malignant neoplasms, colon Procedures COLONOSCOPY SCREENING COLONOSCOPY FLX DX W/COLLJ SPEC WHEN PFAMANDAD Thao Carpio MD [address] [place] [address] [facility] [place] [address] [place] [address] Referral ID Status Reason Start Date Expiration Date Visits Requested Visits Authorized [id number] Pending Review Auto-Generat ed Referral 12/24/2021 12/24/2022 1 1 Additional Source Comments (unrecognized sect ion and content) No Status Records FoundNo Status Records Found INFORMATION SOURCE (unrecogn ized section and content) DATE CREATED AUTHOR AUTHOR'S ORGANIZ ATION 03/19/2022 [facility] Source Comments (unrecognize d section and content) In the event this informatio n is protected by the Federal Confidentiality of Alcohol and Drug Abuse Patient Records regulations: The Federal rules restrict any use of the information to criminally investigate or prosecute any alcohol or drug abuse patient.[facility] Reason for Visit (unrecogniz ed section [...] BE BASED ON THE PRIMARY CLINICAL RECORDS. [employer] [facility]. provides no warranty or guarantee of the accuracy or completeness of information in this document.
[2023-12-16 08:52] LABS: Mucous, Urine 0 SEEN /hpf (<or=2+); Red Blood Cells-Urine 0 SEEN /hpf (0-5)
[2023-12-16 09:03] LABS: Color, Urine Yellow (Yellow); Glucose, Dipstick Normal (Normal); Ketone-Dipstick Negative (Negative); Leukocyte Esterase-Dipstick Negative /ul (Negative); Nitrite-Dipstick Negative (Negative); Occult Blood-Urine 25 /ul (Negative); Protein-Dipstick Negative (Negative); Specific Gravity, Urine 1.025 (1.002-1.030); Urine Bilirubin Dipstick Negative (Negative); Urine Clarity Cloudy (Clear); Urine Urobilinogen Normal (Normal)
[2023-12-16 09:12] LABS: Hematocrit 37.7 % (40-54); Hemoglobin 12.5 g/dL (13.0-16.5); Mean Corp Hgb Conc 33.2 g/dL (32-36); Mean Corpuscular Hgb 30.9 pg (27.0-32.0); Mean Corpuscular Volume 93.3 fL (80-94); Mean Platelet Vol. 10.1 fl (6.2-12.0); Platelet Count 200 K/mm3 (150-450); RBC Distribution Width CV 12.9 % (11.6-14.6); RBC Distribution Width SD 43.8 fl (35.1-43.9); Red Blood Count 4.04 M/mm3 (4.6-6.2); White Blood Count 5.6 K/mm3 (4.4-11.0)
[2023-12-16 09:20] LABS: Vitamin B12 333 pg/mL (211-911); Vitamin D,25 Hydroxy 26.2 ng/mL
[2023-12-16 09:23] LABS: Amorphous Sediment 4+; Bacteria RARE /hpf (None Seen); Squamous Epithelial Cells - UA 0-5 SEEN /hpf (0-5); White Blood Cells 0-5 SEEN /hpf (0-5)
[2023-12-16 09:24] LABS: AST(SGOT) 14 U/L (15-37); Alanine Aminotransfer ALT/SGPT 21 U/L (16-61); Albumin, Serum 3.3 g/dL (3.2-5.0); Alkaline Phosphatase 79 U/L (45-117); Anion Gap 7 (5-15); BUN 20 mg/dL (7-18); BUN/Creat Ratio 21.3 RATIO (10-20); Calcium,Total 9.3 mg/dL (8.5-10.1); Chloride 109 mmol/L (98-107); Creatinine, Serum 0.94 mg/dL (0.70-1.30); EST Glomerular Filtration Rate 88 mL/min (>60); Est Glom Filt Rate - Afr Amer 106 mL/min (>60); Globulin 3.4 g/dL (2.2-4.2); Glucose 80 mg/dL (74-106); Potassium 3.9 mmol/L (3.5-5.1); Protein, Total 6.7 g/dL (6.4-8.2); Sodium Level 143 mmol/L (136-145)
== END ==
LOC: OLS.SW 05:00
PROVIDERS: PCP Family Medicine; Visit Provider Family Medicine
DX: R82.90 Unspecified abnormal findings in urine (principal)
CPT/HCPCS: 36415; 80053; 81001; 82306; 82607; 85027; 87086; 87088

== ENCOUNTER 2023-12-17 07:57 | Emergency (ER) | payer MEDICAID, SELFPAY ==
[2023-12-17 08:00] VITALS: BP 121/79; PULSE 58; RESP 18; TEMP 36; O2SAT 97; BMI 20.9
--- NOTE | 2023-12-17 08:09 | CT_ITS ---
INDICATION: ams EXAMINATION: CT BRAIN - CT Head or Brain W/O Contrast Injection TECHNIQUE: Multiple axial images were obtained of the head without intravenous contrast. A radiation dose optimization technique was used for this scan. IV Contrast dosage and agent: None. RADIATION DOSAGE (If Supplied By Facility): CTDIvol = ( 44.99 ) mGy, DLP = ( 812.98 ) mGycm COMPARISON: November 21, 2023 FINDINGS: BRAIN PARENCHYMA: No intra- or extra-axial hemorrhage. No evidence of acute infarct. No intracranial mass or mass effect. There is preservation of the reynolds/white matter interface. Posterior fossa structures are unremarkable. CSF SPACES: Appropriate for age. No hydrocephalus. Basal cisterns are patent. CALVARIUM, SKULL BASE, PARANASAL SINUSES AND MASTOID AIR CELLS: There is partial visualization of a round low-attenuation foci within the visualized maxillary sinuses consistent with mucous retention cysts or polyps. There is trace opacification of the sphenoid sinuses suggestive of a history of sinusitis. No discrete lytic or blastic abnormalities. ORBITS: Both globes, extraocular muscles, optic nerves and retrobulbar fat appear unremarkable. ASPECTS Score for Acute Strokes: 10 CT/Brain/Head without Contrast IMPRESSION: No acute intracranial process. Electronically Signed: Rena Abdalla MD at 8:51 EST ,
--- NOTE | 2023-12-17 08:10 | EKG12_ITS ---
Test Reason : Blood Pressure : / mmHG Vent. Rate : 060 BPM Atrial Rate : 060 BPM P-R Int : 140 ms QRS Dur : 082 ms QT Int : 424 ms P-R-T Axes : 068 078 068 degrees QTc Int : 424 ms Normal sinus rhythm with sinus arrhythmia Normal ECG Confirmed by Darryl Brand ([id number]), associate entertainment editor PAVAN HUTCHINS ([id number]) on 12/20/2023 2:11:48 PM Referred By: Confirmed By:Darryl Brand
--- NOTE | 2023-12-17 08:11 | EX.ED.DYSGE1 ---
HPI History of Present Illness Chief Complaint: Syncope Narrative Narrative: 58-year-old male from [facility] for evaluation. Apparently he was sitting in his wheelchair when he went unresponsive. Nurse reports states that he had normal vital signs. There was no seizure activity. EMS was called and his blood sugar was normal. Patient woke up when EMS arrived. Patient does state that he did this so he did not have to go back to [facility] because it was not a parasite . He states he did not think the symptoms to get out of there, but then stated he thinks the symptoms to get away from them . Patient has a little bit of nausea he reports. No visual complaints. He is alert and oriented x 1-2 which is baseline. He states that he lives with his brother and his brother saw him fall today although again he was dismissed to [place] and his brother does not live with him. Patient also states his is in her 90s. [facility] Medical History Acute encephalopathy Asthma Chest pain of uncertain etiology Chronic hyponatremia Cold intolerance Dementia associated with alcoholism Depression History of bronchitis History of pneumonia Hypertension Nicotine dependence Orthostatic hypotension Pulmonary fibrosis Pulmonary hypertension Rheumatoid arthritis Sleep apnea Syncope and collapse Syncope, near Weight loss, abnormal Home Medications albuterol sulfate 90 mcg/actuation aerosol inhaler (Ventolin HFA) 1 - 2 puff inhalation Q4H PRN PRN Wheezing #1 inh 01/24/23 [Rx Last Taken Unknown] cyclobenzaprine 10 mg tablet 10 mg PO TID PRN Muscle Spasm #20 TABLETS 04/15/23 [Rx Last Taken Unknown] acetaminophen 325 mg tablet 650 mg (2 x 325 mg) PO Q6H PRN PRN Pain 1-10 Or Fever>100.7 #0 tabs 10/12/23 [Rx Last Taken Unknown] folic acid 1 mg tablet 1 mg PO BREAKFAST #0 tabs 10/12/23 [Rx Last Taken Unknown] lactulose 20 gram/30 mL oral solution 20 g (30 mL) PO BID PRN constipation/confusion #0 mL 10/12/23 [Rx Last Taken Unknown] thiamine HCl (vitamin B1) 100 mg tablet (Vitamin B-1) 100 mg PO BREAKFAST #0 tabs 10/12/23 [Rx Last Taken Unknown] buspirone 5 mg tablet 10 mg PO BID 11/21/23 [History Last Taken Unknown] Allergy/AdvReac Type Severity Reaction Status Date / Time No Known Allergies Allergy Verified 11/21/23 00:52 Family History Mother Diabetes Father Heart disease Surgical History History of left heart catheterization (11/11/16) Social History Smoking Status: Current every day smoker tobacco type: cigarettes ROS ROS ED Constitutional Constitutional ED: Denies chills, fever(s) or sweats Eyes Eyes: Denies blurry vision or change in vision ENT ENT ED: Denies ear pain or sore throat Cardiovascular Cardiovascular: Denies chest pain, palpitations or racing heartbeat Respiratory/Chest Respiratory/Chest: Denies cough, dyspnea or sputum Gastrointestinal Gastrointestinal: Reports nausea; Denies abdominal pain, constipation, diarrhea or vomiting Genitourinary Genitourinary ED: Denies dysuria, hematuria or urinary frequency Musculoskeletal Musculoskeletal: Denies arthralgias, myalgias or neck pain Integumentary Denies abscess, Abrasions or rash Neurologic Neurologic: Denies headache(s), paresthesias or weakness Psychiatric Psychiatric: Denies anxiety, depression, suicidal ideation or suicidal thoughts Endocrine Endocrinology: Denies polydipsia or polyuria EXAM Physical Exam Const Vital Signs: 12/17/23 08:00 12/17/23 08:10 12/17/23 10:00 Temperature 96.8 F L Temperature Source Oral Pulse Rate 58 L 62 Respiratory Rate 18 9 L Respiratory Effort Normal Non-Labored Respiratory Pattern Normal Blood Pressure 121/79 H 123/84 H Blood Pressure Mean 93 97 Pulse Ox 97 97 Oxygen Delivery Method Room Air Room Air Positive well nourished General Appearance ED: NAD HEENT Reports moist mucous membranes Eyes PERRL and EOMs intact bilaterally Chest Wall inspection of chest normal and palpation of chest normal Resp normal respiratory effort and clear to auscultation bilaterally Auscultation: Negative for rales, rhonchi or wheezes Cardio regular rhythm GI normal to inspection, nondistended, normoactive bowel sounds Extremity normal to inspection Neuro CN's II-XII intact bilaterally and no sensory deficits noted Neuro Narrative: Confused Motor Exam: strength 5/5 throughout MDM MDM MDM Narrative Medical decision making narrative: Patient presenting with altered mental status which was short-lived. Not sure what the exact amount of time is. Since patient could have fall and hit his head need to rule out intracranial hemorrhage and will obtain CT brain. Patient will also have urinalysis, chest x-ray to look for organic cause for illness. CBC to assess white blood cell count, hemoglobin, platelets. BMP to assess renal function, electrolytes, glucose. Ammonia level to assess for hyperammonemia as patient has history of elevated ammonia levels. EKG and high-sensitivity troponin to assess for ischemia/dysrhythmia. Patient given Zofran for nausea. CBC shows normal white blood cell count of 5.5. Hemoglobin 12.9. Platelets are normal 190. Ammonia level 16. High-sensitivity troponin is 5. EKG on my interpretation shows a sinus rhythm at 60 bpm without sign of ischemic change or ectopy. Chest x-ray my interpretation shows no acute cardiopulmonary process. Radiologist interprets this as agrees. CT brain is negative for acute intracranial findings. I did not find any evidence of acute pathology. It is unclear whether he fainted or was trying to get out of the facility. Patient is a poor informant but he does not appear to be in acute distress. Workup is ultimately normal. He will be discharged back to [facility]. Impression 1. Syncope 2. Confusion Lab Data Attestation: I reviewed the patient's lab results. Labs: Laboratory Results - last 24 hr 12/17/23 12/17/23 12/17/23 08:24 08:50 09:30 WBC 5.5 RBC 4.25 L Hgb 12.9 L Hct 39.8 L MCV 93.6 MCH 30.4 MCHC 32.4 RDW Std Deviation 44.4 H RDW Coeff of Juan David 13.0 Plt Count 190 MPV 9.6 Immature Gran % (Auto) 0.400 Neut % (Auto) 68.0 Lymph % (Auto) 21.3 Mcduffie % (Auto) 6.5 Eos % (Auto) 3.1 Baso % (Auto) 0.7 Absolute Neuts (auto) 3.8 Absolute Lymphs (auto) 1.18 Nucleated RBC % 0 Sodium 141 Potassium 3.9 Chloride 110 H Carbon Dioxide 27.0 Anion Gap 4 L BUN 23 H Creatinine 0.94 Estim Creat Clear Calc 91.93 Est GFR (MDRD) Af Amer 107 Est GFR (MDRD) Non-Af 89 BUN/Creatinine Ratio 24.6 H Glucose 92 Calcium 9.5 Ammonia 16.0 Troponin I High Sens 5 Urine Color Yellow Urine Clarity Clear Urine pH 6.0 Ur Specific Spencer 1.020 Urine Protein Negative Urine Glucose (UA) Normal Urine Ketones Negative Urine Occult Blood 25 H Urine Nitrite Negative Urine Bilirubin Negative Urine Urobilinogen 1 H Ur Leukocyte Esterase Negative Urine RBC 0-5 SEEN Urine WBC 0 SEEN Ur Squamous Epith Cells 0-5 SEEN Urine Bacteria 1+ Urine Mucus 1+ Radiography Diagnostic Testing: Clinical Impression(s) from Imaging Studies Brain CT 12/17/23 08:09 IMPRESSION: No acute intracranial process. Electronically Signed: Rena Abdalla MD at 8:51 EST , Chest X-Ray 12/17/23 08:42 IMPRESSION: No radiographic evidence of acute cardiopulmonary disease. Electronically Signed: Rena Abdalla MD at 8:52 EST , Discharge Plan Triage Chief Complaint: Syncope ED Provider: Alphonso Tapia Dx/Rx/DC Orders Instructions: ED Fainting, Uncertain Cause Prescriptions: No Action albuterol sulfate [Ventolin HFA] 90 mcg/actuation HFA aerosol inhaler 1 - 2 puff inhalation Q4H PRN PRN (Reason: Wheezing) Qty: 1 0RF cyclobenzaprine 10 mg tablet 10 mg PO TID PRN (Reason: Muscle Spasm) Qty: 20 0RF acetaminophen 325 mg Tablet 650 mg PO Q6H PRN PRN (Reason: Pain 1-10 Or Fever>100.7) Qty: 0 0RF thiamine HCl (vitamin B1) [Vitamin B-1] 100 mg Tablet 100 mg PO BREAKFAST Qty: 0 0RF folic acid 1 mg Tablet 1 mg PO BREAKFAST Qty: 0 0RF lactulose 20 gram/30 mL Solution 20 g PO BID PRN (Reason: constipation/confusion) Qty: 0 0RF buspirone 5 mg tablet 10 mg PO BID Primary Care Provider: Gwyn Dominguez Referrals: Gwyn Dominguez MD [Primary Care Provider] - Disposition Disposition: Home, Self Care
[2023-12-17 08:29] LABS: Absolute Lymphocyte Count 1.18 X10^3/uL (0.83-4.51); Absolute Neutrophil Count 3.8 X10^3/uL (2.0-7.7); Basophil# 0.04 X10^3/uL; Basophil% 0.7 % (0-1); Eosinophil# 0.17 X10^3/uL; Eosinophils% 3.1 % (0-5); Hematocrit 39.8 % (40-54); Hemoglobin 12.9 g/dL (13.0-16.5); Lymphocyte # 1.18 X10^3/ul (0.83-4.51); Lymphocyte % 21.3 % (19-41); Mean Corp Hgb Conc 32.4 g/dL (32-36); Mean Corpuscular Hgb 30.4 pg (27.0-32.0); Mean Corpuscular Volume 93.6 fL (80-94); Mean Platelet Vol. 9.6 fl (6.2-12.0); Monocyte# 0.36 X10^3/uL; Monocyte% 6.5 % (0-10); NRBC Flagged by Analyzer 0 % (0-5); Neutrophil # 3.76 X10^3/uL (2.7-7.7); Platelet Count 190 K/mm3 (150-450); RBC Distribution Width SD 44.4 fl (35.1-43.9); Red Blood Count 4.25 M/mm3 (4.6-6.2); White Blood Count 5.5 K/mm3 (4.4-11.0)
--- NOTE | 2023-12-17 08:42 | RAD_ITS ---
INDICATION: ams EXAMINATION/TECHNIQUE: X-RAY - XR Chest 1 View COMPARISON: November 21, 2023 FINDINGS: LINES/DEVICES: None. LUNGS: The lungs remain hyperinflated. No no consolidation, edema or effusion. No pneumothorax. MEDIASTINUM AND CARDIOVASCULAR STRUCTURES: Cardiac silhouette not enlarged. Central airways and mediastinal contour are unremarkable. BONES AND SOFT TISSUES: Unremarkable. RAD/Chest 1 View (Portable) IMPRESSION: No radiographic evidence of acute cardiopulmonary disease. Electronically Signed: Rena Abdalla MD at 8:52 EST ,
[2023-12-17 08:54] LABS: Anion Gap 4 (5-15); BUN 23 mg/dL (7-18); BUN/Creat Ratio 24.6 RATIO (10-20); Calcium,Total 9.5 mg/dL (8.5-10.1); Chloride 110 mmol/L (98-107); Creatinine, Serum 0.94 mg/dL (0.70-1.30); EST Glomerular Filtration Rate 89 mL/min (>60); Est Glom Filt Rate - Afr Amer 107 mL/min (>60); Estimated Creatinine Clearance 91.93 ml/min; Glucose 92 mg/dL (74-106); Potassium 3.9 mmol/L (3.5-5.1); Sodium Level 141 mmol/L (136-145); Troponin-I HS 5 pg/mL (3.0-78.0)
--- OUTSIDE RECORDS SUMMARY | 2023-12-17 09:30 | XMS RPT_ITS | CCD ---
Author Name Unknown Address [address] [place] [address] Organization [facility] Care Team Providers Care Sterile Processing Technician Name Role Phone THAO CARPIO Jen Unavailable Unavailable Allergies Allergy Classification Reported Allergen(s) Allergy Type Date of Onset Reaction(s) Facility (1 source) traZODone Drug Allergy 03-22-2019 Other: See Comments [facility] Medications Completed/Discontinued Medications Medication Drug Class(es) [...] 78 mm[Hg] Thao Carpio MD Work Phone: [facility] 12-24-2021 16:41-0400 Systolic blood pressure 102 mm[Hg] Thao Carpio MD Work Phone: [facility] 12-24-2021 15:17-0400 Heart rate 70 /min Thao Carpio MD Work Phone: [facility] Encounters Encounter Date Encounter Type Care [...] Author Start: 03-24-2026 LIPID SCREEN LIPID SCREEN [facility] Start: 03-24-2024 DIABETES SCREEN DIABETES SCREEN [facility] Start: 12-24-2022 ANNUAL PCP TEAM 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 JOHN DISEASE VISIT ANNUAL PCP TEAM CHRONIC DISEASE VISIT [facility] Start: 10-21-2022 PROSTATE CANCER SCRE ENING DISCUSSION PROSTATE CANCER SCREENING DISCUSSION [facility] Start: 06-11-2022 Influenza vaccination INFLUENZA (Sea son Ended) [facility] Start: 03-25-2022 FECAL OCCULT BLOOD FECAL OCCULT BLOO D [facility] Start: 03-21-2022 Adult depression scr eening assessment DEPRESSION SCREENING [facility] Start: 03-21-2022 COVID-19 VACCINE (#1) COVID-19 VACCI NE (#1) [facility] Immunizations Immunization Date Immunization Notes Care Provider Penny welch 11-11-2016 influenza, seasonal, injectable Thao Carpio MD Work Phone: [facility] 08-29-2016 influenza, seasonal, injectable Thao Carpio MD Work Phone: [facility] 08-29-2016 influenza, seasonal, injectable, preservative free Thao Carpio MD Work Phone: [facility] Work Phone: 07-18-1997 hepatitis B vaccine, adult dosage Thao Carpio MD Work Phone: [facility] Work Phone: 05-09-1997 hepatitis B vaccine, adult dosage Thao Carpio MD Work Phone: [facility] Work Phone: Payers Date Payer Category Payer Medicaid [facility] MEDICAID [facility] [employer] MEDICAID [id number] 2016-Present [phone] [address] [place] [address] Medicaid 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 (1 pack every 2 days or so); a little over half PPD when erves acting up; down to 12 cig a day otherwise [facility] Start: 1965 Sex Assigned At Not on file [facility] Start: 12-14-2021 End: 12-24-2021 Exposure to SARS-CoV-2 (event) Not sure [facility] Clinical Notes 01-22-2016 to 12-24-2021 Thao Carpio MD - 12/24/2021 3:43 PM EDT Note Date & Type Note Facility 12-24-2021 Note HNO ID: [id number] Author: Thao Carpio MD Service: ? Author Type: Physician Type: Progress Notes Filed: 03/19/2022 1:45 AM Note Text: This note was created using Hexagoriter. Subjective Hong Rondon is a 56 year [...] MG DAILY September 16, 2019 2:13am 09-16-2019 [facility] ([id number]) (Patient not taking: Reported on 12/30/2020) - [...] MG DAILY September 16, 2019 2:13am 09-16-2019 [facility] ([id number]) (Patient not taking: Reported on 12/30/2020) Nebulizer [...] and treatment as indicated. Thao Carpio MD [facility] OPEN ACCESS QUESTIONNAIRE 1. Are you [...] Please send all open access questionnaires to [facility] Sched Pool #[id number] documented in this encounter [facility] 11-17-2021 Note HNO ID: [id number] Author: Stefania العراقي LPN Service: ? Author Type: ? Type: Progress Notes Filed: 11/17/2021 11:15 AM Note Text: rec'd records from [facility] pt was seen in ER 11/14/21 COVID test was positive. Pt was admitted and d/c to home 11/16/21. [facility] 07-14-2021 Note Procedure (PULMWS) HONG RONDON ([id number]) 1965 M Date Time Provider Department 07/14/21 3:00 PM RESPIRATORY THERAPIST [facility] During your visit today, we recorded the following information about you: Weight Height 79.1 kg 1.859 m Joshua Alegria RRT 07/14/2021 2:56 PM Signed PULM FUNCTION TEST: Provider: Penelope Mahmood APRN.ARCHIVIST POLITICAL HISTORY Technologist: Joshua Alegria RRT Spirometry: 1 System: [id number] Referring Provider: PENELOPE MAHMOOD [[id number]] Allergies As of Date: 07/14/2021 Noted Allergy Reaction TRAZODONE 03/22/2019 14 - Other: See Comments Comments: Caused nightmares Date Reviewed: 05/29/2021 Reviewed by: Dylon Manriquez MD - Fully Assessed Reason for Visit: Spirometry [191] Visit Diagnoses:Tobacco use disorder [F17.200] COPD with chronic bronchitis (HCC) [J44.9] Order(s):SPIROMETRY WITH DILATOR IF OBSTRUCTED [[id number]] Order #: [id number]. #:[id number]: [id number] Prescriptions as of 07/14/2021 - gabapentin [...] MG DAILY September 16, 2019 2:13am 09-16-2019 [facility] ([id number]) - Nebulizer NEBULIZER FOR HOME USE. DX: [...] [facility] 07-14-2021 Note HNO ID: [id number] Author: Joshua Alegria RRT Service: ? Author Type: Respiratory Therapist Type: Progress Notes Filed: 07/14/2021 2:56 PM Note Text: PULM FUNCTION TEST: Provider: Penelope Mahmood APRN.ARCHIVIST POLITICAL HISTORY Technologist: Joshua Alegria RRT Spirometry: 1 System: [id number] [facility] 06-26-2021 Note HNO ID: [id number] Author: Penelope Mahmood APRN.ARCHIVIST POLITICAL HISTORY Service: ? Author Type: Nurse Specialist Type: [...] MG DAILY September 16, 2019 2:13am 09-16-2019 [facility] ([id number]) fludrocortisone (FLORINEF) 0.1 mg tablet albuterol (PROVENTIL) [...] [facility] 05-29-2021 Note HNO ID: [id number] Author: Dylon Manriquez MD Service: ? Author Type: Physician Type: Progress Notes Filed: 05/29/2021 1:13 PM Note Text: Dylon Manriquez MD Department of Orthopaedics Orthopaedics [address] [facility] [address] Dept: [phone] Dept May 29, 2021 CHIEF COMPLAINT: New [...] having swelling in that area. Seen at [facility] and they opened it up and drained it. He is continuing to have some pain in his hand. States the pain has increased over the past week. Dr. Jc took a photo of his hand on 03/21/21 and is in [facility]. Patient is left handed. Taking Ibuprofen for the pain and does help. X-rays done today. at [facility]. AMB ROOMING INTAKE FLOWSHEET DATA [...] Laterality Date - COLONOSCOP W/ OR W/O [facility] SPEC 01/05/2005 Colonoscopy - COLONOSCOP W/ OR W/O [facility] SPEC 02/22/09 for c/o constipation. - COLONOSCOP W/ OR W/O [facility] SPEC 01/29/16 Colonoscopy with mac - EGD [...] [facility] 05-29-2021 Note HNO ID: [id number] Author: RT Brendan(R) Service: ? Author Type: Bowl Sander Type: Progress Notes Filed: 05/29/2021 9:50 AM [...] [facility] 03-21-2021 Note HNO ID: [id number] Author: Thao Carpio MD Service: ? Author Type: Physician Type: Progress Notes Filed: 04/15/2021 12:14 AM Note Text: This note was created using Hexagoriter. Subjective Hong Rondon is a 56 year [...] MG DAILY September 16, 2019 2:13am 09-16-2019 [facility] ([id number]) (Patient not taking: Reported on 12/30/2020) - [...] the date of the service which included [id number] patient care, completing clinical documentation, obtaining and/or reviewing separately obtained history, performing a medically appropriate examination, counseling and e (more content not included)... 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 Expl anation Advance Directive(s) 01/29/2016 7:21 AM Reason for Referral Specialty Diagnoses / Procedures Referred By Contac t Referred To Contact General Surgery Diagnoses Special screening for malignant neoplasms, colon Procedures CONSULT TO GENERAL SURGERY OFFICE/OUTPATIENT [facility] 60-74 MINUTES Thao Carpio MD [address] [place] [address] Referral ID Status Reason Start Date Expiration Date Visits Requested Visits Authorized [id number] Authorized PCP Requested Referral 12/24/2021 12/24/2022 1 1 Specialty Diagnoses / Procedures Referred By He t Referred To Contact [facility] Diagnoses Special screening for malignant neoplasms, colon Procedures COLONOSCOPY SCREENING COLONOSCOPY FLX DX W/COLLJ SPEC WHEN PFAMANDAD Thao Carpio MD [address] [place] [address] [facility] [address] [place] [address] Referral ID Status Reason Start Date Expiration Date Visits Requested Visits Authorized [id number] Pending Review Auto-Generat ed Referral 12/24/2021 12/24/2022 [...] or prosecute any alcohol or drug abuse patient.[facility] Reason for Visit (unrecogniz ed section [...] BE BASED ON THE PRIMARY CLINICAL RECORDS. [facility]. provides no warranty or guarantee of the accuracy or completeness of information in this document.
[2023-12-17 09:34] LABS: White Blood Cells 0 SEEN /hpf (0-5)
[2023-12-17 09:36] LABS: Color, Urine Yellow (Yellow); Glucose, Dipstick Normal (Normal); Ketone-Dipstick Negative (Negative); Leukocyte Esterase-Dipstick Negative /ul (Negative); Nitrite-Dipstick Negative (Negative); Occult Blood-Urine 25 /ul (Negative); Protein-Dipstick Negative (Negative); Urine Bilirubin Dipstick Negative (Negative); Urine Clarity Clear (Clear); Urine Urobilinogen 1 mg/dl (Normal)
[2023-12-17 09:45] LABS: Red Blood Cells-Urine 0-5 SEEN /hpf (0-5); Squamous Epithelial Cells - UA 0-5 SEEN /hpf (0-5)
[2023-12-17 09:46] LABS: Bacteria 1+ /hpf (None Seen); Mucous, Urine 1+ /hpf (<or=2+)
[2023-12-17 10:00] VITALS: BP 123/84; PULSE 62; RESP 9; O2SAT 97
[2023-12-17 11:50] VITALS: BP 137/62; PULSE 73; RESP 16; TEMP 36.5; O2SAT 96
== END 2023-12-17 11:52 | disposition home or self-care (01) ==
PROVIDERS: Emergency Provider Student in an Organized Health Care Education/Training Program; PCP Family Medicine; Visit Provider Student in an Organized Health Care Education/Training Program
DX: R55 Syncope and collapse (principal); F17.210 Nicotine dependence, cigarettes, uncomplicated; R41.0 Disorientation, unspecified; R11.0 Nausea; I10 Essential (primary) hypertension
CPT/HCPCS: 70450; 71045; 80048; 81001; 82140; 84484; 85025; 93005; 99284; A4216

== ENCOUNTER 2023-12-20 06:12 | Emergency (ER) | payer MEDICAID, SELFPAY ==
[2023-12-20 06:12] VITALS: BP 135/81; PULSE 56; RESP 18; TEMP 36.4; O2SAT 98; BMI 20.6
--- NOTE | 2023-12-20 06:21 | EKG12_ITS ---
Test Reason : ALT LOC Blood Pressure : / mmHG Vent. Rate : 053 BPM Atrial Rate : 053 BPM P-R Int : 152 ms QRS Dur : 090 ms QT Int : 418 ms P-R-T Axes : 070 073 066 degrees QTc Int : 392 ms Sinus bradycardia Otherwise normal ECG Confirmed by Darryl Brand ([id number]), senior technical editor PAVAN HUTCHINS ([id number]) on 12/21/2023 11:17:30 AM Referred By: Confirmed By:Darryl Brand
[2023-12-20 06:26] VITALS: O2SAT 100
--- NOTE | 2023-12-20 06:43 | RAD_ITS ---
EXAM: XR CHEST, 1 VIEW CLINICAL INDICATION: chest pain TECHNIQUE: Frontal view of the chest. COMPARISON: 12/17/2023. FINDINGS: LUNGS AND PLEURAL SPACES: Unremarkable. No consolidation or edema. No pneumothorax. No effusion. HEART: Unremarkable. Cardiac silhouette not enlarged. MEDIASTINUM: Central airways and mediastinal contour are unremarkable. BONES/JOINTS: Unremarkable. No acute fracture. SOFT TISSUES: Unremarkable. RAD/Chest 1 View (Portable) IMPRESSION: No acute cardiopulmonary abnormality. Electronically Signed: Darryl Angulo MD at 7:04 EDT ,
[2023-12-20 06:45] LABS: Absolute Lymphocyte Count 1.32 X10^3/uL (0.83-4.51); Absolute Neutrophil Count 3.7 X10^3/uL (2.0-7.7); Basophil# 0.03 X10^3/uL; Basophil% 0.5 % (0-1); Eosinophil# 0.19 X10^3/uL; Eosinophils% 3.4 % (0-5); Hematocrit 38.8 % (40-54); Hemoglobin 12.5 g/dL (13.0-16.5); Lymphocyte # 1.32 X10^3/ul (0.83-4.51); Lymphocyte % 23.4 % (19-41); Mean Corp Hgb Conc 32.2 g/dL (32-36); Mean Corpuscular Hgb 30.3 pg (27.0-32.0); Mean Corpuscular Volume 94.2 fL (80-94); Monocyte# 0.42 X10^3/uL; Monocyte% 7.5 % (0-10); NRBC Flagged by Analyzer 0 % (0-5); Neutrophil # 3.65 X10^3/uL (2.7-7.7); Neutrophil % 64.8 % (47-70); Platelet Count 172 K/mm3 (150-450); RBC Distribution Width CV 12.9 % (11.6-14.6); Red Blood Count 4.12 M/mm3 (4.6-6.2); White Blood Count 5.6 K/mm3 (4.4-11.0)
[2023-12-20 06:56] LABS: Anion Gap 5 (5-15); BUN 26 mg/dL (7-18); BUN/Creat Ratio 25.2 RATIO (10-20); Calcium,Total 9.2 mg/dL (8.5-10.1); Chloride 110 mmol/L (98-107); Creatinine, Serum 1.03 mg/dL (0.70-1.30); EST Glomerular Filtration Rate 79 mL/min (>60); Est Glom Filt Rate - Afr Amer 96 mL/min (>60); Estimated Creatinine Clearance 82.57 ml/min; Glucose 91 mg/dL (74-106); Potassium 4.1 mmol/L (3.5-5.1); Sodium Level 142 mmol/L (136-145); Troponin-I HS (w/2H Reflex) 4 pg/mL (3.0-78.0)
--- NOTE | 2023-12-20 07:22 | EDS_ITS ---
HPI History of Present Illness Chief Complaint: Alt LOC Informant: patient, EMS and SNF Narrative Narrative: Patient is a 58-year-old male with history of dementia, chronic hyponatremia, psychiatric illness presenting from [facility] dementia unit for left- sided rib pain. Apparently throughout the night last night patient had been asking to have 911 called but would not tell staff why. And then around 4:30 AM he started complaining of left-sided chest pain that radiated down to his left arm. He was given aspirin and Tylenol at the facility. He then had an episode of being slumped over in his chair not responding to staff however there is no report of any vital sign change, fall from his wheelchair or seizure activity. No report of any urine incontinence. Patient was transferred to the ER for further evaluation. Patient history of dementia and is ANO x 1-2 at baseline. Patient tells me that he wanted to call 911 because he was tired of all the idiots . Of note patient was seen for similar syncopal episode 3 days ago where he was sitting in his wheelchair and went unresponsive but had normal vital signs no seizure activity. Blood sugar was normal at that time. He had a workup including lab work, urinalysis, ammonia level and CT of the brain as well as chest x-ray which did not show any acute process. In addition 1 month ago patient was seen in our ER for a fall and was diagnosed with a left rib contusion. [facility] Medical History Acute encephalopathy Asthma Chest pain of uncertain etiology Chronic hyponatremia Cold intolerance Dementia associated with alcoholism Depression History of bronchitis History of pneumonia Hypertension Nicotine dependence Orthostatic hypotension Pulmonary fibrosis Pulmonary hypertension Rheumatoid arthritis Sleep apnea Syncope and collapse Syncope, near Weight loss, abnormal Home Medications albuterol sulfate 90 mcg/actuation aerosol inhaler (Ventolin HFA) 1 - 2 puff inhalation Q4H PRN PRN Wheezing #1 inh 01/24/23 [Rx Last Taken Unknown] cyclobenzaprine 10 mg tablet 10 mg PO TID PRN Muscle Spasm #20 TABLETS 04/15/23 [Rx Last Taken Unknown] acetaminophen 325 mg tablet 650 mg (2 x 325 mg) PO Q6H PRN PRN Pain 1-10 Or Fever>100.7 #0 tabs 10/12/23 [Rx Last Taken Unknown] folic acid 1 mg tablet 1 mg PO BREAKFAST #0 tabs 10/12/23 [Rx Last Taken Unknown] lactulose 20 gram/30 mL oral solution 20 g (30 mL) PO BID PRN constipation/confusion #0 mL 10/12/23 [Rx Last Taken Unknown] thiamine HCl (vitamin B1) 100 mg tablet (Vitamin B-1) 100 mg PO BREAKFAST #0 tabs 10/12/23 [Rx Last Taken Unknown] buspirone 5 mg tablet 10 mg PO BID 11/21/23 [History Last Taken Unknown] Allergy/AdvReac Type Severity Reaction Status Date / Time No Known Allergies Allergy Verified 11/21/23 00:52 Family History Mother Diabetes Father Heart disease Surgical History History of left heart catheterization (11/11/16) Social History Smoking Status: Current every day smoker tobacco type: cigarettes ROS ROS ED Review of Systems ROS Unobtainable: due to mental status Constitutional Constitutional ED: Denies chills or fever(s) Cardiovascular Cardiovascular: Reports chest pain Respiratory/Chest Respiratory/Chest: Denies cough or dyspnea Gastrointestinal Gastrointestinal: Denies abdominal pain, diarrhea or vomiting Musculoskeletal Musculoskeletal: Reports arthralgias; Denies myalgias Integumentary Denies rash Neurologic Neurologic: Denies headache(s) or weakness EXAM Physical Exam Const Vital Signs: 12/20/23 06:12 12/20/23 06:26 12/20/23 07:29 Temperature 97.6 F L Temperature Source Temporal Pulse Rate 56 L 49 L Respiratory Rate 18 16 Blood Pressure 135/81 H 135/87 H Blood Pressure Mean 99 103 Pulse Ox 98 100 97 Oxygen Delivery Method Room Air Room Air Room Air 12/20/23 08:09 12/20/23 09:03 12/20/23 09:59 Temperature 98.1 F Temperature Source Pulse Rate 48 L 49 L 56 L Respiratory Rate 13 16 13 Blood Pressure 130/89 H 129/86 H 138/88 H Blood Pressure Mean 102 100 104 Pulse Ox 100 99 100 Oxygen Delivery Method Room Air Positive well nourished and well developed General Appearance ED: well developed HEENT Reports TM's clear and moist mucous membranes HEENT Narrative: No hemotympanum or sign of head trauma appreciated Tympanic Membrane ED: Yes TM's clear Eyes PERRL and EOMs intact bilaterally General Eye ED: Negative for scleral icterus Neck supple and no JVD General: Negative for tenderness Chest Wall inspection of chest normal Chest Narrative: No chest wall crepitus. Reproducible tenderness to palpation of the left lower ribs around the mid axillary line Resp normal respiratory effort and clear to auscultation bilaterally Cardio regular rate, regular rhythm and no murmurs GI normal to inspection, nondistended, normoactive bowel sounds and non-tender Extremity normal to inspection General Extremety ED: Negative for edema or tenderness General Extremity: Negative for edema Neuro Neuro Narrative: Oriented x 2. At his baseline. No focal deficits appreciated Sensorium / Orientation: alert and orientation impaired MDM MDM MDM Narrative Medical decision making narrative: Patient is evaluated for chest pain as well and has an episode of something over his chair questionable unresponsiveness with stable vital signs. His cardiac workup is largely normal. At he is low risk for PE but D-dimer is obtained which is negative. Do not think he requires CTA. No report of any new fall or trauma so do not think requires any repeat CT head imaging. He appears to be at his baseline from records and answers questions appropriately. Do not think he is acutely encephalopathic. It was hard to tell given his history of dementia. Workup is large unremarkable. High-sensitivity troponin is normal at 4 and 4 and a urinalysis is unremarkable will send off for culture does have 1+ bacteria with 0-5 white blood cells. I do not think requires treatment. He does not have a fever or leukocytosis. As far as his chest pain seems to be muscle skeletal. Is given a Lidoderm patch. I do not appreciate any acute signs of trauma and I do not think he requires more advanced rib series or CT of his chest. Case is discussed with his PCP, Dr. Dominguez, is comfortable with him going back to [facility]. In addition I did attempt to contact his , Evelina, however the number is not working. I do not have any other contact information available to me. I do question if there is a component of malingering as patient does not seem to like his nursing facility from this syncope standpoint . While in the ER he does not have any further episodes, arrhythmias or other acute abnormalities requiring more emergent workup/cardiac consult at this time. Lab Data Attestation: I reviewed the patient's lab results. Labs: Laboratory Results - last 24 hr 12/20/23 12/20/23 12/20/23 06:02 06:22 08:08 WBC 5.6 RBC 4.12 L Hgb 12.5 L Hct 38.8 L MCV 94.2 H MCH 30.3 MCHC 32.2 RDW Std Deviation 45.0 H RDW Coeff of Juan David 12.9 Plt Count 172 MPV 10.0 Immature Gran % (Auto) 0.400 Neut % (Auto) 64.8 Lymph % (Auto) 23.4 Noble % (Auto) 7.5 Eos % (Auto) 3.4 Baso % (Auto) 0.5 Absolute Neuts (auto) 3.7 Absolute Lymphs (auto) 1.32 Nucleated RBC % 0 D-Dimer Quant (PE/DVT) 0.49 Sodium 142 Potassium 4.1 Chloride 110 H Carbon Dioxide 27.0 Anion Gap 5 BUN 26 H Creatinine 1.03 Estim Creat Clear Calc 82.57 Est GFR (MDRD) Af Amer 96 Est GFR (MDRD) Non-Af 79 BUN/Creatinine Ratio 25.2 H Glucose 91 Calcium 9.2 Troponin I High Sens 4 4 Urine Color Urine Clarity Urine pH Ur Specific Franklin Urine Protein Urine Glucose (UA) Urine Ketones Urine Occult Blood Urine Nitrite Urine Bilirubin Urine Urobilinogen Ur Leukocyte Esterase Urine RBC Urine WBC Ur Squamous Epith Cells Urine Bacteria Urine Mucus 12/20/23 08:20 WBC RBC Hgb Hct MCV MCH MCHC RDW Std Deviation RDW Coeff of Juan David Plt Count MPV Immature Gran % (Auto) Neut % (Auto) Lymph % (Auto) Noble % (Auto) Eos % (Auto) Baso % (Auto) Absolute Neuts (auto) Absolute Lymphs (auto) Nucleated RBC % D-Dimer Quant (PE/DVT) Sodium Potassium Chloride Carbon Dioxide Anion Gap BUN Creatinine Estim Creat Clear Calc Est GFR (MDRD) Af Amer Est GFR (MDRD) Non-Af BUN/Creatinine Ratio Glucose Calcium Troponin I High Sens Urine Color Yellow Urine Clarity Clear Urine pH 5.0 Ur Specific Franklin 1.025 Urine Protein 30 H Urine Glucose (UA) Normal Urine Ketones 5 H Urine Occult Blood 50 H Urine Nitrite Negative Urine Bilirubin Negative Urine Urobilinogen 1 H Ur Leukocyte Esterase 25 H Urine RBC 0-5 SEEN Urine WBC 0-5 SEEN Ur Squamous Epith Cells 0 SEEN Urine Bacteria 1+ Urine Mucus 1+ Radiography Diagnostic Testing: Clinical Impression(s) from Imaging Studies Chest X-Ray 12/20/23 06:43 IMPRESSION: No acute cardiopulmonary abnormality. Electronically Signed: Darryl Angulo MD at 7:04 EDT , Rhythm Strip Rhythm Strip: Sinus Rhythm Rate: 53 Ectopy: None EKG Initial EKG: Attestation: I personally reviewed and interpreted this EKG as follows: Interpretation: Sinus Bradycardia Comments: Sinus bradycardia rate of 53 bpm Normal axis Normal intervals Normal ST segments Compared to prior EKG on 10/06/2023, no acute change Discharge Plan Triage Chief Complaint: Alt LOC ED Provider: Maryanne Patricio Dx/Rx/DC Orders Clinical Impression: Bradycardia, Chest pain of uncertain etiology Instructions: ED ALOC, ED Chest Pain, Noncardiac Prescriptions: No Action albuterol sulfate [Ventolin HFA] 90 mcg/actuation HFA aerosol inhaler 1 - 2 puff inhalation Q4H PRN PRN (Reason: Wheezing) Qty: 1 0RF cyclobenzaprine 10 mg tablet 10 mg PO TID PRN (Reason: Muscle Spasm) Qty: 20 0RF acetaminophen 325 mg Tablet 650 mg PO Q6H PRN PRN (Reason: Pain 1-10 Or Fever>100.7) Qty: 0 0RF thiamine HCl (vitamin B1) [Vitamin B-1] 100 mg Tablet 100 mg PO BREAKFAST Qty: 0 0RF folic acid 1 mg Tablet 1 mg PO BREAKFAST Qty: 0 0RF lactulose 20 gram/30 mL Solution 20 g PO BID PRN (Reason: constipation/confusion) Qty: 0 0RF buspirone 5 mg tablet 10 mg PO BID Primary Care Provider: Gwyn Dominguez Referrals: Gwyn Dominguez MD [Primary Care Provider] - Disposition Disposition: Senior Care Facility Discharge Location: [facility] Discharge Date/Time: 12/20/23 10:49
[2023-12-20 07:29] VITALS: BP 135/87; PULSE 49; RESP 16; O2SAT 97
[2023-12-20 07:38] LABS: D-Dimer Quantitative (DVT/PE) 0.49 FEU/ug/m (0.27-0.49)
--- OUTSIDE RECORDS SUMMARY | 2023-12-20 07:41 | XMS RPT_ITS | CCD ---
Author Name Unknown Address [address] [place] [address] Organization [facility] Care Team Providers Care Dairy Specialist Name Role Phone THAO CARPIO Jen Unavailable Unavailable Allergies Allergy Classification Reported Allergen(s) Allergy Type Date of Onset Reaction(s) Facility (1 source) traZODone Drug Allergy 03-22-2019 Other: See Comments [facility] Medications Completed/Discontinued Medications Medication Drug Class(es) [...] 78 mm[Hg] Thao Carpio MD Work Phone: [facility] 12-24-2021 16:41-0400 Systolic blood pressure 102 mm[Hg] Thao Carpio MD Work Phone: [facility] 12-24-2021 15:17-0400 Heart rate 70 /min Thao Carpio MD Work Phone: [facility] Encounters Encounter Date Encounter Type Care Provider Facility Start: 12-24-2021 End: 12-24-2021 Office outpatient visit 25 minutes Thao Carpio MD Work Phone: Internal Medicine Reading Procedures Date Procedure Procedure Detail Performing Clinician Start: 03-21-2021 Adult depression scr eening assessment Thao Carpio MD Work Phone: Start: 01-29-2016 Colonoscopy Thao salazar MD Work Phone: Plan of Treatment Date Care Activity Detail Author Start: 03-24-2026 LIPID SCREEN LIPID SCREEN [facility] Start: 03-24-2024 DIABETES SCREEN DIABETES SCREEN [facility] Start: 12-24-2022 ANNUAL PCP TEAM PEARL DIVER JOHN DISEASE VISIT ANNUAL PCP TEAM CHRONIC DISEASE VISIT [facility] Start: 10-21-2022 PROSTATE CANCER SCRE ENING DISCUSSION PROSTATE CANCER SCREENING DISCUSSION [facility] Start: 06-11-2022 Influenza vaccination INFLUENZA (Sea son Ended) [facility] Start: 03-25-2022 FECAL OCCULT BLOOD FECAL OCCULT BLOO D [facility] Start: 03-21-2022 Adult depression scr eening assessment DEPRESSION SCREENING [facility] Start: 03-21-2022 COVID-19 VACCINE (#1) COVID-19 VACCI NE (#1) [facility] Immunizations Immunization Date Immunization Notes Care Provider Penny welch 11-11-2016 influenza, seasonal, injectable Thao Carpio MD Work Phone: [facility] 08-29-2016 influenza, seasonal, injectable Thao Carpio MD Work Phone: [facility] 08-29-2016 influenza, seasonal, injectable, preservative free Thao Carpio MD Work Phone: [facility] Work Phone: 07-18-1997 hepatitis B vaccine, adult dosage Thao Carpio MD Work Phone: [facility] Work Phone: 05-09-1997 hepatitis B vaccine, adult dosage Thao Carpio MD Work Phone: [facility] Work Phone: Payers Date Payer Category Payer Medicaid [facility] MEDICAID [facility] [employer] MEDICAID [id number] 2016-Present [phone] [address] [place] [address] Medicaid 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 (1 pack every 2 days or so); a little over half PPD when erves acting up; down to 12 cig a day otherwise [facility] Start: 1965 Sex Assigned At Not on file [facility] Start: 12-14-2021 End: 12-24-2021 Exposure to SARS-CoV-2 (event) Not sure [facility] Clinical Notes 01-22-2016 to 12-24-2021 Thao Carpio MD - 12/24/2021 3:43 PM EDT Note Date & Type Note Facility 12-24-2021 Note HNO ID: [id number] Author: Thao Carpio MD Service: ? Author Type: Physician Type: Progress Notes Filed: 03/19/2022 1:45 AM Note Text: This note was created using [employer]. Subjective Hong Rondon is a 56 year [...] MG DAILY September 16, 2019 2:13am 09-16-2019 [facility] ([id number]) (Patient not taking: Reported on 12/30/2020) - [...] condition(s) which will (more content not included)... [facility] 12-24-2021 History of Present illness [...] MG DAILY September 16, 2019 2:13am 09-16-2019 [facility] ([id number]) (Patient not taking: Reported on 12/30/2020) Nebulizer [...] and treatment as indicated. Thao Carpio MD [facility] OPEN ACCESS QUESTIONNAIRE 1. Are you [...] Please send all open access questionnaires to [facility] Sched Pool #[id number] documented in this encounter [facility] 11-17-2021 Note HNO ID: [id number] Author: Stefania العراقي LPN Service: ? Author Type: ? Type: Progress Notes Filed: 11/17/2021 11:15 AM Note Text: rec'd records from [facility] pt was seen in ER 11/14/21 COVID test was positive. Pt was admitted and d/c to home 11/16/21. [facility] 07-14-2021 Note Procedure (PULMWS) HONG RONDON ([id number]) 1965 M Date Time Provider Department 07/14/21 3:00 PM RESPIRATORY THERAPIST [facility] WSTRPULWS During your visit today, we recorded the following information about you: Weight Height 79.1 kg 1.859 m Joshua Alegria RRT 07/14/2021 2:56 PM Signed PULM FUNCTION TEST: Provider: Penelope Mahmood APRN.HEEL BUILDER Technologist: Joshua Alegria RRT Spirometry: 1 System: [id number] Referring Provider: PENELOPE MAHMOOD [[id number]] Allergies As of Date: 07/14/2021 Noted Allergy Reaction TRAZODONE 03/22/2019 14 - Other: See Comments Comments: Caused nightmares Date Reviewed: 05/29/2021 Reviewed by: Dylon Manriquez MD - Fully Assessed Reason for Visit: Spirometry [191] Visit Diagnoses:Tobacco use disorder [F17.200] COPD with chronic bronchitis (HCC) [J44.9] Order(s):SPIROMETRY WITH DILATOR IF OBSTRUCTED [7668931] Order #: [id number]. #:[id number]: [id number] Prescriptions as of 07/14/2021 - gabapentin [...] MG DAILY September 16, 2019 2:13am 09-16-2019 [facility] ([id number]) - Nebulizer NEBULIZER FOR HOME USE. DX: [...] Encounter Status:Closed by JOSHUA ALEGRIA on 07/14/21 [facility] 07-14-2021 Note HNO ID: [id number] Author: Joshua Alegria RRT Service: ? Author Type: Respiratory Therapist Type: Progress Notes Filed: 07/14/2021 2:56 PM Note Text: PULM FUNCTION TEST: Provider: Pneelope Mahmood APRN.HEEL BUILDER Technologist: Joshua Alegria RRT Spirometry: 1 System: [id number] [facility] 06-26-2021 Note HNO ID: [id number] Author: Penelope Mahmood APRN.HEEL BUILDER Service: ? Author Type: Nurse Specialist Type: [...] MG DAILY September 16, 2019 2:13am 09-16-2019 [facility] ([id number]) fludrocortisone (FLORINEF) 0.1 mg tablet albuterol (PROVENTIL) [...] activity was iden (more content not included)... [facility] 05-29-2021 Note HNO ID: [id number] Author: Dylon Manriquez MD Service: ? Author Type: Physician Type: Progress Notes Filed: 05/29/2021 1:13 PM Note Text: Dylno Manriquez MD Department of Orthopaedics Orthopa[facility] [address] [facility] [address] Dept: [phone] Dept May 29, 2021 CHIEF COMPLAINT: New [...] having swelling in that area. Seen at [facility] Ur[facility] care and they opened it up and drained it. He is continuing to have some pain in his hand. States the pain has increased over the past week. Dr. Jc took a photo of his hand on 03/21/21 and is in [facility]. Patient is left handed. Taking Ibuprofen for the pain and does help. X-rays done today. at [facility]. AMB ROOMING INTAKE FLOWSHEET DATA Risk [...] Laterality Date - COLONOSCOP W/ OR W/O RUST SPEC 01/05/2005 Colonoscopy - COLONOSCOP W/ OR W/O RUST SPEC 02/22/09 for c/o constipation. - COLONOSCOP W/ OR W/O RUST SPEC 01/29/16 Colonoscopy with mac - EGD [...] a day otherwise (more content not included)... [facility] 05-29-2021 Note HNO ID: [id number] Author: RT Brendan(R) Service: ? Author Type: Livestock Inspector Type: Progress Notes Filed: 05/29/2021 9:50 AM [...] Segovia RT(R) May 29, 2021 9:42 AM [facility] 03-21-2021 Note HNO ID: [id number] Author: Thao Carpio MD Service: ? Author Type: Physician Type: Progress Notes Filed: 04/15/2021 12:14 AM Note Text: This note was created using [employer]. Subjective Hong Rondon is a 56 year [...] MG DAILY September 16, 2019 2:13am 09-16-2019 [facility] ([id number]) (Patient not taking: Reported on 12/30/2020) - [...] the date of the service which included [id number] patient care, completing clinical documentation, obtaining and/or reviewing separately obtained history, performing a medically appropriate examination, counseling and e (more content not included)... [facility] documented as of this encounter (statuses as of 03/19/2022) [facility] Orthostatic hypotension- Primary COPD with chronic bronchitis (HCC) Obstructive chronic bronchitis without exacerbation Tobacco use disorder Special screening for malignant neoplasms, colon Post-COVID chronic fatigue documented in this encounter [facility] Summary Purpose Family History No Family History Records FoundNo Family History Records Found Advance Directives No Advanced Directives Records FoundDocuments on File Type Date Recorded Patient Nurse First Assist Expl anation Advance Directive(s) 01/29/2016 7:21 AM Reason for Referral Specialty Diagnoses / Procedures Referred By Contac t Referred To Contact General Surgery Diagnoses Special screening for malignant neoplasms, colon Procedures CONSULT TO GENERAL SURGERY OFFICE/OUTPATIENT [facility] 60-74 MINUTES Thao Carpio MD [address] [place] [address] Referral ID Status Reason Start Date Expiration Date Visits Requested Visits Authorized [id number] Authorized PCP Requested Referral 12/24/2021 12/24/2022 1 1 Specialty Diagnoses / Procedures Referred By He t Referred To Contact [facility] Diagnoses Special screening for malignant neoplasms, colon Procedures COLONOSCOPY SCREENING COLONOSCOPY FLX DX W/COLLJ SPEC WHEN PFAMANDAD Thao Carpio MD [address] [place] [address] [facility] [address] [place] [address] Referral ID Status Reason Start Date Expiration Date Visits Requested Visits Authorized [id number] Pending Review Auto-Generat ed Referral 12/24/2021 12/24/2022 1 1 Additional Source Comments (unrecognized sect ion and content) No Status Records FoundNo Status Records Found INFORMATION SOURCE (unrecogn ized section and content) DATE CREATED AUTHOR AUTHOR'S ORGANIZ ATION 03/19/2022 [facility] Source Comments (unrecognize d section and content) In the event this informatio n is protected by the Federal Confidentiality of Alcohol and Drug Abuse Patient Records regulations: The Federal rules restrict any use of the information to criminally investigate or prosecute any alcohol or drug abuse patient.[facility] Reason for Visit (unrecogniz ed section [...] BE BASED ON THE PRIMARY CLINICAL RECORDS. [facility]. provides no warranty or guarantee of the accuracy or completeness of information in this document.
[2023-12-20] MEDS: Lidocaine 5% Patch 1 PATCH TOPICAL (08:01)
[2023-12-20 08:09] VITALS: BP 130/89; PULSE 48; RESP 13; O2SAT 100
[2023-12-20 08:15] LABS: Reflex Troponin-HS? (from REC) Y
[2023-12-20 08:25] LABS: Squamous Epithelial Cells - UA 0 SEEN /hpf (0-5)
[2023-12-20 08:44] LABS: Color, Urine Yellow (Yellow); Glucose, Dipstick Normal (Normal); Ketone-Dipstick 5 mg/dl (Negative); Leukocyte Esterase-Dipstick 25 /ul (Negative); Nitrite-Dipstick Negative (Negative); Occult Blood-Urine 50 /ul (Negative); Protein-Dipstick 30 mg/dl (Negative); Specific Gravity, Urine 1.025 (1.002-1.030); Urine Bilirubin Dipstick Negative (Negative); Urine Clarity Clear (Clear); Urine Urobilinogen 1 mg/dl (Normal)
[2023-12-20 08:45] LABS: Troponin-I HS 4 pg/mL (3.0-78.0)
[2023-12-20 08:51] LABS: Bacteria 1+ /hpf (None Seen); Mucous, Urine 1+ /hpf (<or=2+); Red Blood Cells-Urine 0-5 SEEN /hpf (0-5); White Blood Cells 0-5 SEEN /hpf (0-5)
[2023-12-20 09:03] VITALS: BP 129/86; PULSE 49; RESP 16; O2SAT 99
--- NOTE | 2023-12-20 09:54 | ED.RN ---
[facility] CALLED, ETA [id number]
[2023-12-20 09:59] VITALS: BP 138/88; PULSE 56; RESP 13; TEMP 36.7; O2SAT 100
== END 2023-12-20 10:49 | disposition skilled nursing facility (03) ==
PROVIDERS: Emergency Provider Emergency Medicine; PCP Family Medicine; Visit Provider Emergency Medicine
DX: R07.9 Chest pain, unspecified (principal); M06.9 Rheumatoid arthritis, unspecified; F03.90 Unspecified dementia, unspecified severity, without behavioral disturbance, psychotic disturbance, mood disturbance, and anxiety; F17.210 Nicotine dependence, cigarettes, uncomplicated; R00.1 Bradycardia, unspecified; I10 Essential (primary) hypertension; Z79.899 Other long term (current) drug therapy
CPT/HCPCS: 71045; 80048; 81001; 84484; 85025; 85379; 87086; 87088; 93005; 99284; A4216

== ENCOUNTER → 2023-12-30 | Outpatient (REF) | payer MEDICAID, SELFPAY ==
[2023-12-30 08:51] LABS: Hematocrit 37.1 % (40-54); Hemoglobin 12.2 g/dL (13.0-16.5); Mean Corp Hgb Conc 32.9 g/dL (32-36); Mean Corpuscular Hgb 30.3 pg (27.0-32.0); Mean Corpuscular Volume 92.3 fL (80-94); Mean Platelet Vol. 10.4 fl (6.2-12.0); Platelet Count 199 K/mm3 (150-450); RBC Distribution Width CV 12.7 % (11.6-14.6); RBC Distribution Width SD 43.1 fl (35.1-43.9); Red Blood Count 4.02 M/mm3 (4.6-6.2); White Blood Count 6.2 K/mm3 (4.4-11.0)
[2023-12-30 08:58] LABS: Valproic Acid (Depakene) Level 14 ug/mL (50-100)
[2023-12-30 10:02] LABS: AST(SGOT) 14 U/L (15-37); Alanine Aminotransfer ALT/SGPT 20 U/L (16-61); Albumin, Serum 3.1 g/dL (3.2-5.0); Alkaline Phosphatase 65 U/L (45-117); Bilirubin, Direct 0.12 mg/dL (0.00-0.30); Globulin 3.3 g/dL (2.2-4.2); Protein, Total 6.4 g/dL (6.4-8.2)
== END | disposition home or self-care (01) ==
LOC: OLS.SW 05:00
PROVIDERS: PCP Family Medicine; Visit Provider Family Medicine
DX: Z79.899 Other long term (current) drug therapy (principal)
CPT/HCPCS: 36415; 80076; 80164; 85027

== ENCOUNTER → 2024-01-19 | Outpatient (REF) | payer MEDICAID, SELFPAY ==
[2024-01-19 07:23] LABS: Hematocrit 39.2 % (40-54); Hemoglobin 13.1 g/dL (13.0-16.5); Mean Corp Hgb Conc 33.4 g/dL (32-36); Mean Corpuscular Hgb 31.1 pg (27.0-32.0); Mean Corpuscular Volume 93.1 fL (80-94); Mean Platelet Vol. 10.2 fl (6.2-12.0); Platelet Count 205 K/mm3 (150-450); RBC Distribution Width CV 12.3 % (11.6-14.6); Red Blood Count 4.21 M/mm3 (4.6-6.2); White Blood Count 5.6 K/mm3 (4.4-11.0)
[2024-01-19 07:42] LABS: T3 Total - Triiodothyronine 0.76 ng/mL (0.6-1.81)
[2024-01-19 07:43] LABS: Anion Gap 4 (5-15); BUN 25 mg/dL (7-18); BUN/Creat Ratio 26.3 RATIO (10-20); Calcium,Total 9.1 mg/dL (8.5-10.1); Chloride 108 mmol/L (98-107); Creatinine, Serum 0.95 mg/dL (0.70-1.30); EST Glomerular Filtration Rate 87 mL/min (>60); Est Glom Filt Rate - Afr Amer 105 mL/min (>60); Glucose 87 mg/dL (74-106); Potassium 3.9 mmol/L (3.5-5.1); Sodium Level 141 mmol/L (136-145); T4 Total, Thyroxin 6.9 ug/dL (4.5-12.1)
== END | disposition home or self-care (01) ==
LOC: OLS.SW 05:00
PROVIDERS: PCP Family Medicine; Visit Provider Family Medicine
DX: G93.41 Metabolic encephalopathy (principal); J45.909 Unspecified asthma, uncomplicated; E44.0 Moderate protein-calorie malnutrition; D69.6 Thrombocytopenia, unspecified
CPT/HCPCS: 36415; 80048; 84436; 84443; 84480; 85027

== ENCOUNTER → 2024-03-23 | Outpatient (REF) | payer MEDICAID, SELFPAY ==
[2024-03-23 09:42] LABS: Hematocrit 41.7 % (40-54); Hemoglobin 13.7 g/dL (13.0-16.5); Mean Corp Hgb Conc 32.9 g/dL (32-36); Mean Corpuscular Hgb 30.5 pg (27.0-32.0); Mean Corpuscular Volume 92.9 fL (80-94); Mean Platelet Vol. 10.2 fl (6.2-12.0); Platelet Count 189 K/mm3 (150-450); RBC Distribution Width CV 11.9 % (11.6-14.6); RBC Distribution Width SD 40.8 fl (35.1-43.9); Red Blood Count 4.49 M/mm3 (4.6-6.2); White Blood Count 5.9 K/mm3 (4.4-11.0)
[2024-03-23 09:54] LABS: Valproic Acid (Depakene) Level 10 ug/mL (50-100)
[2024-03-23 10:32] LABS: AST(SGOT) 21 U/L (15-37); Alanine Aminotransfer ALT/SGPT 27 U/L (16-61); Albumin, Serum 3.3 g/dL (3.2-5.0); Alkaline Phosphatase 71 U/L (45-117); Bilirubin, Direct 0.14 mg/dL (0.00-0.30); Globulin 3.4 g/dL (2.2-4.2); Protein, Total 6.7 g/dL (6.4-8.2)
== END | disposition home or self-care (01) ==
LOC: OLS.SW 05:45
PROVIDERS: PCP Family Medicine; Visit Provider Family Medicine
DX: Z79.899 Other long term (current) drug therapy (principal)
CPT/HCPCS: 36415; 80076; 80164; 85027

== ENCOUNTER → 2024-04-19 | Outpatient (REF) | payer MEDICAID, SELFPAY ==
[2024-04-19 06:29] LABS: Hematocrit 40.1 % (40-54); Hemoglobin 13.2 g/dL (13.0-16.5); Mean Corp Hgb Conc 32.9 g/dL (32-36); Mean Corpuscular Hgb 30.2 pg (27.0-32.0); Mean Corpuscular Volume 91.8 fL (80-94); Platelet Count 187 K/mm3 (150-450); RBC Distribution Width CV 12.1 % (11.6-14.6); RBC Distribution Width SD 40.7 fl (35.1-43.9); Red Blood Count 4.37 M/mm3 (4.6-6.2); White Blood Count 4.9 K/mm3 (4.4-11.0)
[2024-04-19 06:49] LABS: Anion Gap 6 (5-15); BUN 27 mg/dL (7-18); BUN/Creat Ratio 28.5 RATIO (10-20); Chloride 106 mmol/L (98-107); Creatinine, Serum 0.95 mg/dL (0.70-1.30); EST Glomerular Filtration Rate 87 mL/min (>60); Est Glom Filt Rate - Afr Amer 105 mL/min (>60); Glucose 94 mg/dL (74-106); Sodium Level 138 mmol/L (136-145)
== END | disposition home or self-care (01) ==
LOC: OLS.SW 05:00
PROVIDERS: PCP Family Medicine; Visit Provider Internal Medicine
DX: G93.41 Metabolic encephalopathy (principal); E44.0 Moderate protein-calorie malnutrition; D69.6 Thrombocytopenia, unspecified
CPT/HCPCS: 36415; 80048; 85027

== ENCOUNTER 2024-04-27 21:47 | Emergency (ER) | payer MEDICAID, SELFPAY ==
[2024-04-27 21:51] VITALS: BP 153/77; PULSE 63; RESP 18; TEMP 36.6; O2SAT 100; BMI 22.9
--- NOTE | 2024-04-27 22:13 | RAD_ITS ---
EXAM: XR LEFT KNEE COMPLETE, 4 OR MORE VIEWS CLINICAL INDICATION: INJURY PAIN TECHNIQUE: Four or more views of the left knee. COMPARISON: No relevant prior studies available. FINDINGS: BONES/JOINTS: Patellar enthesophytes. Lateral greater than medial patellofemoral joint space narrowing and articular sclerosis. No acute fracture. No subluxation. Normal alignment. SOFT TISSUES: No significant abnormality. No soft tissue swelling or gas. No radiopaque foreign body. RAD/Knee 4 or More Views IMPRESSION: Patellofemoral arthrosis. No acute osseous abnormalities. Electronically Signed: Romeo Edgar DO at 22:32 EDT ,
--- NOTE | 2024-04-27 22:16 | EDS_ITS ---
HPI History of Present Illness HPI Narrative: Patient presents with left knee pain that began today. Patient states she was walking at the extended care facility where he lives. Patient states his knee twisted and buckled on him. Patient states he fell. Patient denies any head injury or loss of consciousness. Patient describes the pain as throbbing. Patient states it is worse with weightbearing and movement. Patient states it is better with rest. Patient denies any paresthesias or weakness. Patient denies any other injuries. Chief Complaint: Lower Extremity Injury Informant: patient Occured/Mechanism Mechanism/Context: Yes fall Onset/Context/Timing Onset: Today Context: Sudden Onset Timing: Continuous Quality of Pain: Throbbing Location: Left knee Worsened by: Weightbearing, movement Relieved by: Rest Associated Symptoms Associated Symptoms: Negative for Parasthesia, Weakness or Loss of Funtion [facility] Medical History Dementia associated with alcoholism Acute encephalopathy Rheumatoid arthritis Depression Hypertension Pulmonary hypertension Sleep apnea Pulmonary fibrosis History of pneumonia History of bronchitis Asthma Syncope and collapse Syncope, near Cold intolerance Chest pain of uncertain etiology Orthostatic hypotension Chronic hyponatremia Weight loss, abnormal Nicotine dependence Home Medications ?Medication ?Instructions ?Recorded ?Last Taken ?Type cyclobenzaprine 10 mg tablet 10 mg PO TID PRN Muscle Spasm #20 04/15/23 Unknown Rx TABLETS acetaminophen 325 mg tablet 650 mg (2 x 325 mg) PO Q6H PRN PRN 10/12/23 Unknown Rx Pain 1-10 Or Fever>100.7 #0 tabs folic acid 1 mg tablet 1 mg PO BREAKFAST #0 tabs 10/12/23 Unknown Rx lactulose 20 gram/30 mL oral 20 g (30 mL) PO BID PRN 10/12/23 Unknown Rx solution constipation/confusion #0 mL thiamine HCl (vitamin B1) 100 mg 100 mg PO BREAKFAST #0 tabs 10/12/23 Unknown Rx tablet (Vitamin B-1) buspirone 5 mg tablet 10 mg PO BID 11/21/23 Unknown History escitalopram oxalate 10 mg tablet 10 mg PO DAILY 04/27/24 Unknown History melatonin 5 mg capsule 5 mg PO QHS 04/27/24 Unknown History multivitamin (Daily Multi-Vitamin 1 tab PO DAILY 04/27/24 Unknown History tablet) Allergy/AdvReac Type Severity Reaction Status Date / Time No Known Allergies Allergy Verified 07/18/24 21:50 Family History Mother Diabetes Father Heart disease Surgical History History of left heart catheterization (11/11/16) Social History Smoking Status: Former smoker ROS ROS ED Constitutional Constitutional ED: Denies chills or fever(s) Eyes Eyes: Denies blurry vision or change in vision ENT ENT ED: Denies rhinorrhea or sore throat Cardiovascular Cardiovascular: Denies chest pain or palpitations Respiratory/Chest Respiratory/Chest: Denies cough or dyspnea Gastrointestinal Gastrointestinal: Denies nausea or vomiting Genitourinary Genitourinary ED: Denies dysuria or hematuria Musculoskeletal Musculoskeletal: Reports back pain and neck pain Integumentary Denies abscess or rash Neurologic Neurologic: Denies headache(s) or weakness Allergic/Immunologic Allergic/Immunologic ED: Denies mouth swelling or urticaria EXAM Physical Exam Const Vital Signs: 04/27/24 21:51 Temperature 97.9 F Temperature Source Temporal Pulse Rate 63 Respiratory Rate 18 Blood Pressure 153/77 H Blood Pressure Mean 102 Pulse Ox 100 Oxygen Delivery Method Room Air Positive well nourished and well developed General Appearance ED: well developed and NAD HEENT Reports moist mucous membranes Extremity Extremity Narrative: There is tenderness over the posterior aspect of the left knee. There is no bony crepitance or step-off noted. There is no joint effusion noted. Range of motion was limited in all motions of the left knee secondary to pain. Extensor mechanism is intact. Strength is 5/5 bilaterally in the lower extremities. There are no sensory deficits noted. Pedal pulses are equal bilaterally. Neuro oriented x3, CN's II-XII intact bilaterally, moves all extremities and no sensory deficits noted Sensorium / Orientation: alert Motor Exam: strength 5/5 throughout Psych mental status grossly normal MDM MDM MDM Narrative Medical decision making narrative: Differential diagnosis includes fracture, sprain, meniscus tear, and contusion. X-rays of the left knee will be obtained to assess for fracture. Radiography Diagnostic Testing: X-rays of the left knee were obtained. There are 4 views. On my independent interpretation, there is no acute fracture or dislocation noted. There is no joint effusion noted. Radiologist also interpreted the x-rays and agrees. Treatment and Re-Evaluation Narrative: Patient was advised of his findings. Patient was given a knee immobilizer. Patient was instructed to ice and elevate the left knee. Patient was instructed to follow-up with his primary care physician in 5 to 7 days. Patient understood and was agreeable with the plan. All questions were answered. Discharge Plan Triage Chief Complaint: Lower Extremity Injury ED Provider: Rubén Andrews Dx/Rx/DC Orders Clinical Impression: Acute pain of left knee, Fall Instructions: ED Knee Pain of Uncertain Cause Prescriptions: No Action cyclobenzaprine 10 mg tablet 10 mg PO TID PRN (Reason: Muscle Spasm) Qty: 20 0RF acetaminophen 325 mg Tablet 650 mg PO Q6H PRN PRN (Reason: Pain 1-10 Or Fever>100.7) Qty: 0 0RF thiamine HCl (vitamin B1) [Vitamin B-1] 100 mg Tablet 100 mg PO BREAKFAST Qty: 0 0RF folic acid 1 mg Tablet 1 mg PO BREAKFAST Qty: 0 0RF lactulose 20 gram/30 mL Solution 20 g PO BID PRN (Reason: constipation/confusion) Qty: 0 0RF buspirone 5 mg tablet 10 mg PO BID escitalopram oxalate 10 mg tablet 10 mg PO DAILY multivitamin [Daily Multi-Vitamin] Tablet 1 tab PO DAILY melatonin 5 mg capsule 5 mg PO QHS Primary Care Provider: Gwyn Dominguez Referrals: Gwyn Dominguez MD [Primary Care Provider] - 5-7 Days Print Language: Sammarinese Disposition Disposition: Home, Self Care
[2024-04-27 23:24] VITALS: BP 126/72; PULSE 84; RESP 18; TEMP 36.1; O2SAT 99
--- NOTE | 2024-04-27 23:42 | ED.RN ---
Report given to [place] at [facility]
[2024-04-28 01:48] VITALS: BP 100/70; PULSE 59; RESP 16; O2SAT 94
[2024-04-28 05:00] VITALS: BP 103/66; PULSE 61; RESP 15; O2SAT 95
== END 2024-04-28 05:49 | disposition home or self-care (01) ==
PROVIDERS: Emergency Provider Emergency Medicine; PCP Family Medicine; Visit Provider Emergency Medicine
DX: M25.562 Pain in left knee (principal); I10 Essential (primary) hypertension; Z87.891 Personal history of nicotine dependence; W18.39XA Other fall on same level, initial encounter; Y93.01 Activity, walking, marching and hiking; Y92.89 Other specified places as the place of occurrence of the external cause; F32.A Depression, unspecified; Z79.899 Other long term (current) drug therapy
CPT/HCPCS: 73564; 99283

== ENCOUNTER → 2024-05-17 | Outpatient (REF) | payer MEDICAID, SELFPAY ==
[2024-05-17 08:41] LABS: Absolute Lymphocyte Count 1.23 X10^3/uL (0.83-4.51); Basophil# 0.02 X10^3/uL; Basophil% 0.3 % (0-1); Eosinophil# 0.16 X10^3/uL; Eosinophils% 2.7 % (0-5); Hematocrit 39.1 % (40-54); Hemoglobin 13.2 g/dL (13.0-16.5); Lymphocyte # 1.23 X10^3/ul (0.83-4.51); Lymphocyte % 20.8 % (19-41); Mean Corp Hgb Conc 33.8 g/dL (32-36); Mean Corpuscular Hgb 30.6 pg (27.0-32.0); Mean Corpuscular Volume 90.5 fL (80-94); Mean Platelet Vol. 10.2 fl (6.2-12.0); Monocyte# 0.43 X10^3/uL; Monocyte% 7.3 % (0-10); NRBC Flagged by Analyzer 0 % (0-5); Neutrophil # 4.04 X10^3/uL (2.7-7.7); Neutrophil % 68.6 % (47-70); Platelet Count 192 K/mm3 (150-450); RBC Distribution Width CV 11.9 % (11.6-14.6); RBC Distribution Width SD 39.5 fl (35.1-43.9); Red Blood Count 4.32 M/mm3 (4.6-6.2); White Blood Count 5.9 K/mm3 (4.4-11.0)
[2024-05-17 09:10] LABS: AST(SGOT) 16 U/L (15-37); Alanine Aminotransfer ALT/SGPT 23 U/L (16-61); Albumin, Serum 3.3 g/dL (3.2-5.0); Alkaline Phosphatase 61 U/L (45-117); Bilirubin, Direct 0.09 mg/dL (0.00-0.30); Globulin 3.5 g/dL (2.2-4.2); Protein, Total 6.8 g/dL (6.4-8.2)
[2024-05-17 09:13] LABS: Valproic Acid (Depakene) Level 22 ug/mL (50-100)
== END | disposition home or self-care (01) ==
LOC: OLS.SW 05:00
PROVIDERS: PCP Family Medicine; Visit Provider Family Medicine
DX: G93.41 Metabolic encephalopathy (principal)
CPT/HCPCS: 36415; 80076; 80164; 85025

== ENCOUNTER → 2024-05-18 | Outpatient (REF) | payer MEDICAID, SELFPAY ==
[2024-05-18 09:26] LABS: Hematocrit 42.6 % (40-54); Hemoglobin 13.9 g/dL (13.0-16.5); Mean Corp Hgb Conc 32.6 g/dL (32-36); Mean Corpuscular Volume 91.8 fL (80-94); Mean Platelet Vol. 11.5 fl (6.2-12.0); Platelet Count 168 K/mm3 (150-450); RBC Distribution Width CV 12.3 % (11.6-14.6); RBC Distribution Width SD 41.1 fl (35.1-43.9); Red Blood Count 4.64 M/mm3 (4.6-6.2); White Blood Count 5.4 K/mm3 (4.4-11.0)
[2024-05-18 09:49] LABS: ALB/GLOB Ratio 0.9 RATIO (0.9-2.4); AST(SGOT) 16 U/L (15-37); Alanine Aminotransfer ALT/SGPT 26 U/L (16-61); Albumin, Serum 3.5 g/dL (3.2-5.0); Alkaline Phosphatase 67 U/L (45-117); Anion Gap 4 (5-15); BUN 26 mg/dL (7-18); BUN/Creat Ratio 28.9 RATIO (10-20); Calcium,Total 9.1 mg/dL (8.5-10.1); Chloride 113 mmol/L (98-107); EST Glomerular Filtration Rate 92 mL/min (>60); Est Glom Filt Rate - Afr Amer 112 mL/min (>60); Globulin 3.8 g/dL (2.2-4.2); Glucose 81 mg/dL (74-106); PSA,Total - Annual Screen 4.16 ng/mL (0.00-4.00); Protein, Total 7.3 g/dL (6.4-8.2); Sodium Level 144 mmol/L (136-145)
== END | disposition home or self-care (01) ==
LOC: OLS.SW 05:00
PROVIDERS: PCP Family Medicine; Visit Provider Family Medicine
DX: G93.41 Metabolic encephalopathy (principal); J45.909 Unspecified asthma, uncomplicated; D69.6 Thrombocytopenia, unspecified; R41.82 Altered mental status, unspecified
CPT/HCPCS: 36415; 80053; 84153; 85027; G0103

== ENCOUNTER 2024-06-09 16:57 | Emergency (ER) | payer MEDICAID, SELFPAY ==
[2024-06-09 16:58] VITALS: BP 121/73; PULSE 69; RESP 18; TEMP 36.9; O2SAT 99; BMI 22.4
--- NOTE | 2024-06-09 18:06 | CT_ITS ---
STUDY: CT BRAIN WITHOUT CONTRAST REASON FOR EXAM: Male, 59 years old. confusion RADIATION DOSAGE (If Supplied By Facility): CTDIvol = ( 44.99 ) mGy, DLP = ( 779.24 ) mGycm TECHNIQUE: Transaxial CT imaging of the brain was performed without administration of intravenous contrast material. Individualized dose optimization techniques were used for this CT. COMPARISON: No relevant priors. FINDINGS: Normal soft tissue structures. Normal calvarium. Normal size ventricles and extra-axial spaces for the patient''s age. Normal white matter tracts of the cerebral hemispheres. Normal basal ganglia and thalami. Normal brainstem. Normal cerebellum. There is no intracranial hemorrhage. There are no findings of an acute ischemic infarction. Probable retention cysts in the maxillary sinuses. CT/Brain/Head without Contrast IMPRESSION: No acute intracranial pathology of the brain. Electronically Signed: Brian Stokes DO at 19:19 EDT ,
--- NOTE | 2024-06-09 18:08 | EDS_ITS ---
HPI HPI - Psych History of Present Illness Chief Complaint: Mental Health Informant: SNF Narrative Narrative: Sent from skilled facility memory unit for being combative. Unclear his baseline at this time. He reports he was protecting babies. Initial reporting came from home. He denies cough vomiting. Per nursing similar events in the past with findings of UTI. Patient denies suicidal or homicidal ideations. Denies visual hallucinations. Per nursing reported he was hearing babies on arrival. He has not been combative.Records note history of alcoholic dementia. Prior similar symptoms: Yes PFSH PFSH Medical History Dementia associated with alcoholism Acute encephalopathy Rheumatoid arthritis Depression Hypertension Pulmonary hypertension Sleep apnea Pulmonary fibrosis History of pneumonia History of bronchitis Asthma Syncope and collapse Syncope, near Cold intolerance Chest pain of uncertain etiology Orthostatic hypotension Chronic hyponatremia Weight loss, abnormal Nicotine dependence Home Medications ?Medication ?Instructions ?Recorded ?Last Taken ?Type cyclobenzaprine 10 mg tablet 10 mg PO TID PRN Muscle Spasm #20 04/15/23 Unknown Rx TABLETS acetaminophen 325 mg tablet 650 mg (2 x 325 mg) PO Q6H PRN PRN 10/12/23 Unknown Rx Pain 1-10 Or Fever>100.7 #0 tabs folic acid 1 mg tablet 1 mg PO BREAKFAST #0 tabs 10/12/23 Unknown Rx lactulose 20 gram/30 mL oral 20 g (30 mL) PO BID PRN 10/12/23 Unknown Rx solution constipation/confusion #0 mL thiamine HCl (vitamin B1) 100 mg 100 mg PO BREAKFAST #0 tabs 10/12/23 Unknown Rx tablet (Vitamin B-1) buspirone 5 mg tablet 10 mg PO BID 11/21/23 Unknown History escitalopram oxalate 10 mg tablet 10 mg PO DAILY 04/27/24 Unknown History melatonin 5 mg capsule 5 mg PO QHS 04/27/24 Unknown History multivitamin (Daily Multi-Vitamin 1 tab PO DAILY 04/27/24 Unknown History tablet) Allergy/AdvReac Type Severity Reaction Status Date / Time No Known Allergies Allergy Verified 04/27/24 21:50 Family History Mother Diabetes Father Heart disease Surgical History History of left heart catheterization (11/11/16) Social History housing: longterm Smoking Status: Former smoker ROS ROS ED Constitutional Constitutional ED: Denies chills, fever(s) or sweats Eyes Eyes: Denies change in vision ENT ENT ED: Denies dysphagia or sore throat Cardiovascular Cardiovascular: Denies chest pain, leg edema, palpitations or racing heartbeat Respiratory/Chest Respiratory/Chest: Denies cough, dyspnea or dyspnea on exertion Gastrointestinal Gastrointestinal: Denies abdominal pain, diarrhea, nausea or vomiting Genitourinary Genitourinary ED: Denies dysuria, hematuria or urinary frequency Musculoskeletal Musculoskeletal: Denies back pain, extremity pain or neck pain Integumentary Denies rash or wounds Neurologic Neurologic: Denies headache(s), paresthesias or weakness Psychiatric Psychiatric: Denies suicidal ideation or suicidal thoughts EXAM Physical Exam Const Vital Signs: 06/09/24 16:58 06/09/24 18:25 06/09/24 19:00 Temperature 98.4 F Temperature Source Temporal Pulse Rate 69 60 64 Respiratory Rate 18 16 19 H Blood Pressure 121/73 H 125/75 H 128/75 H Blood Pressure Mean 89 91 92 Pulse Ox 99 100 100 Oxygen Delivery Method Room Air Room Air 06/09/24 20:00 06/09/24 21:06 06/10/24 01:06 Temperature 97.9 F Temperature Source Pulse Rate 69 78 54 L Respiratory Rate 19 H 16 14 Blood Pressure 128/75 H 124/85 H 125/91 H Blood Pressure Mean 92 98 102 Pulse Ox 97 100 100 Oxygen Delivery Method Room Air Room Air Positive well nourished and well developed Constitutional Narrative: Nontoxic General Appearance ED: well developed and NAD HEENT Reports moist mucous membranes normocephalic and atraumatic Eyes EOMs intact bilaterally and conjunctivae normal General Eye ED: Yes normal appearance of both eyes Neck no lymphadenopathy and supple General: Negative for tenderness Chest Wall Chest: Negative for tenderness Resp normal respiratory effort and normal air movement Effort and Inspection: symmetric chest movement; Negative for respiratory distress Cardio regular rate, regular rhythm and no murmurs Peripheral Pulses: pulses 2+ throughout GI normal to inspection, nondistended, normoactive bowel sounds and non-tender Palpation: Negative for guarding or rebound tenderness present Back/Spine no CVA tenderness and no thoracic nor lumbar tenderness Extremity normal to inspection General Extremety ED: Negative for edema or tenderness General Extremity: Negative for edema Neuro Neuro Narrative: Alert to person, no focal deficits. Sensorium / Orientation: awake Skin no rashes or lesions noted and no wounds MDM MDM MDM Narrative Medical decision making narrative: Interventions / MDM: Differential diagnosis: Alcoholic dementia, infectious causes, agitation Diagnosis considered but do not suspect: Denies suicidal homicidal ideation My EKG interpretation: N/A Imaging independently reviewed and interpreted by myself: 1 view chest x-ray: No acute process. CT brain: No acute process. External documents reviewed: N/A Test considered but not ordered:N/A ED course: Vital stable. History of alcoholic dementia. Was reported combativeness. Will order labs and urine rule out metabolic and infectious causes. Will order CT brain. Chest x-ray also ordered. Patient workup was negative. He was calm throughout. Reevaluation of the patient, he is stable. Nursing discussed back to facility has not required any medications, therefore the plan was to transfer him back to facility. Prior to transport back, patient became more agitated. He required IM Geodon. Added toxicology and alcohol which were negative. Will have crisis evaluate the patient. 2350: Apparently patient climb out of bed falling hitting his head. Superficial laceration left brow nasal bridge. Nursing initially sent back for CT facial bones. 0020: CT facial bones negative. Superficial laceration left brow and nasal bridge with Dermabond placed by myself. He is ordered for repeat CT brain due to his head injury for clearance. Will await crisis evaluation for disposition plans. 0105: Patient fighting nursing would not lay still to go to CT scan. IM Ativan 2 mg ordered. 0145: CT brain interpreted myself shows no acute process. Awaiting final read. He has been medically cleared. Awaiting disposition by crisis. [place] slip has been filled out. Re-evaluation: stable Disposition discussed with patient/family/significant other: Case discussed with consulting clinician: Crisis This note was generated with [email or web address] dictation software. It may contain incorrect words, spelling, and punctuation that were not noted in checking the note before signing. Lab Data Attestation: I reviewed the patient's lab results. Labs: Laboratory Results - last 24 hr 06/09/24 06/09/24 06/09/24 18:26 18:39 21:29 WBC 9.2 RBC 4.21 L Hgb 13.0 Hct 38.3 L MCV 91.0 MCH 30.9 MCHC 33.9 RDW Std Deviation 39.9 RDW Coeff of Juan David 12.1 Plt Count 168 MPV 9.9 Immature Gran % (Auto) 0.200 Neut % (Auto) 83.3 H Lymph % (Auto) 9.3 L [place] % (Auto) 6.5 Eos % (Auto) 0.4 Baso % (Auto) 0.3 Absolute Neuts (auto) 7.6 Absolute Lymphs (auto) 0.85 Nucleated RBC % 0 Sodium 139 Potassium 4.3 Chloride 107 Carbon Dioxide 28.0 Anion Gap 4 L BUN 26 H Creatinine 1.06 Estim Creat Clear Calc 86.35 Est GFR (MDRD) Af Amer 93 Est GFR (MDRD) Non-Af 76 BUN/Creatinine Ratio 24.5 H Glucose 99 Calcium 9.2 Total Bilirubin 0.50 AST 17 ALT 26 Alkaline Phosphatase 62 Total Protein 7.1 Albumin 3.6 Globulin 3.5 Albumin/Globulin Ratio 1.0 Urine Color Yellow Urine Clarity Clear Urine pH 6.5 Ur Specific [place] 1.015 Urine Protein 15 H Urine Glucose (UA) Normal Urine Ketones 5 H Urine Occult Blood 25 H Urine Nitrite Negative Urine Bilirubin Negative Urine Urobilinogen 1 H Ur Leukocyte Esterase 25 H Urine RBC 0-5 SEEN Urine WBC 0-5 SEEN Ur Squamous Epith Cells 0 SEEN Urine Bacteria RARE Urine Mucus RARE Urine Opiates Screen NEGATIVE Urine Methadone Screen NEGATIVE Ur Barbiturates Screen NEGATIVE Ur Phencyclidine Scrn NEGATIVE Ur Amphetamines Screen NEGATIVE MDMA (Ecstasy) Screen NEGATIVE U Benzodiazepines Scrn NEGATIVE Urine Cocaine Screen NEGATIVE U Cannabinoids Screen NEGATIVE Ur Drug Screen Comment Ethyl Alcohol 06/09/24 21:33 WBC RBC Hgb Hct MCV MCH MCHC RDW Std Deviation RDW Coeff of Juan David Plt Count MPV Immature Gran % (Auto) Neut % (Auto) Lymph % (Auto) [place] % (Auto) Eos % (Auto) Baso % (Auto) Absolute Neuts (auto) Absolute Lymphs (auto) Nucleated RBC % Sodium Potassium Chloride Carbon Dioxide Anion Gap BUN Creatinine Estim Creat Clear Calc Est GFR (MDRD) Af Amer Est GFR (MDRD) Non-Af BUN/Creatinine Ratio Glucose Calcium Total Bilirubin AST ALT Alkaline Phosphatase Total Protein Albumin Globulin Albumin/Globulin Ratio Urine Color Urine Clarity Urine pH Ur Specific [place] Urine Protein Urine Glucose (UA) Urine Ketones Urine Occult Blood Urine Nitrite Urine Bilirubin Urine Urobilinogen Ur Leukocyte Esterase Urine RBC Urine WBC Ur Squamous Epith Cells Urine Bacteria Urine Mucus Urine Opiates Screen Urine Methadone Screen Ur Barbiturates Screen Ur Phencyclidine Scrn Ur Amphetamines Screen MDMA (Ecstasy) Screen U Benzodiazepines Scrn Urine Cocaine Screen U Cannabinoids Screen Ur Drug Screen Comment Ethyl Alcohol < 3.0 Radiography Diagnostic Testing: Clinical Impression(s) from Imaging Studies Brain CT 06/09/24 18:06 IMPRESSION: No acute intracranial pathology of the brain. Electronically Signed: Brian Stokes DO at 19:19 EDT , Chest X-Ray 06/09/24 18:42 IMPRESSION: No radiographic evidence of acute cardiopulmonary disease. Electronically Signed: Brian Stokes DO at 19:30 EDT , Facial/Sinus 06/09/24 23:25 IMPRESSION: Mild left facial subcutaneous edema. No acute bone injury of the facial bones. Electronically Signed: Brian Stokes DO at 0:00 EDT , Discharge Plan Triage Chief Complaint: Mental Health ED Provider: Chetan Spear Dx/Rx/DC Orders Clinical Impression: Alcoholic dementia, Agitation, CHI (closed head injury), Abrasion Prescriptions: No Action cyclobenzaprine 10 mg tablet 10 mg PO TID PRN (Reason: Muscle Spasm) Qty: 20 0RF acetaminophen 325 mg Tablet 650 mg PO Q6H PRN PRN (Reason: Pain 1-10 Or Fever>100.7) Qty: 0 0RF thiamine HCl (vitamin B1) [Vitamin B-1] 100 mg Tablet 100 mg PO BREAKFAST Qty: 0 0RF folic acid 1 mg Tablet 1 mg PO BREAKFAST Qty: 0 0RF lactulose 20 gram/30 mL Solution 20 g PO BID PRN (Reason: constipation/confusion) Qty: 0 0RF buspirone 5 mg tablet 10 mg PO BID escitalopram oxalate 10 mg tablet 10 mg PO DAILY multivitamin [Daily Multi-Vitamin] Tablet 1 tab PO DAILY melatonin 5 mg capsule 5 mg PO QHS Primary Care Provider: Gwyn Dominguez Referrals: Gwyn Dominguez MD [Primary Care Provider] - Activity Restrictions/Additional Instructions: CT brain negative. Chest x-ray negative. Labs all stable. Urine negative. Print Language: Italian
[2024-06-09] MEDS: 0.9% Normal Saline (500mL Bag) 500 ML 1000 ML IV (18:24)
[2024-06-09 18:25] VITALS: BP 125/75; PULSE 60; RESP 16; O2SAT 100
[2024-06-09 18:33] LABS: Absolute Lymphocyte Count 0.85 X10^3/uL (0.83-4.51); Absolute Neutrophil Count 7.6 X10^3/uL (2.0-7.7); Basophil# 0.03 X10^3/uL; Basophil% 0.3 % (0-1); Eosinophil# 0.04 X10^3/uL; Eosinophils% 0.4 % (0-5); Hematocrit 38.3 % (40-54); Lymphocyte # 0.85 X10^3/ul (0.83-4.51); Lymphocyte % 9.3 % (19-41); Mean Corp Hgb Conc 33.9 g/dL (32-36); Mean Corpuscular Hgb 30.9 pg (27.0-32.0); Mean Platelet Vol. 9.9 fl (6.2-12.0); Monocyte% 6.5 % (0-10); NRBC Flagged by Analyzer 0 % (0-5); Neutrophil # 7.63 X10^3/uL (2.7-7.7); Neutrophil % 83.3 % (47-70); Platelet Count 168 K/mm3 (150-450); RBC Distribution Width CV 12.1 % (11.6-14.6); RBC Distribution Width SD 39.9 fl (35.1-43.9); Red Blood Count 4.21 M/mm3 (4.6-6.2); White Blood Count 9.2 K/mm3 (4.4-11.0)
--- NOTE | 2024-06-09 18:42 | RAD_ITS ---
INDICATION: confusion EXAMINATION/TECHNIQUE: X-RAY - XR Chest 1 View COMPARISON: FINDINGS: LINES/DEVICES: None. LUNGS: No consolidation, edema or effusion. No pneumothorax. MEDIASTINUM AND CARDIOVASCULAR STRUCTURES: Cardiac silhouette not enlarged. Central airways and mediastinal contour are unremarkable. BONES AND SOFT TISSUES: Unremarkable. RAD/Chest 1 View (Portable) IMPRESSION: No radiographic evidence of acute cardiopulmonary disease. Electronically Signed: Brian Stokes DO at 19:30 EDT Reading Location ID and State: [facility] / [place] Tel [phone], Service support ,
[2024-06-09 18:47] LABS: Color, Urine Yellow (Yellow); Glucose, Dipstick Normal (Normal); Ketone-Dipstick 5 mg/dl (Negative); Leukocyte Esterase-Dipstick 25 /ul (Negative); Nitrite-Dipstick Negative (Negative); Occult Blood-Urine 25 /ul (Negative); Protein-Dipstick 15 mg/dl (Negative); Specific Gravity, Urine 1.015 (1.002-1.030); Squamous Epithelial Cells - UA 0 SEEN /hpf (0-5); Urine Bilirubin Dipstick Negative (Negative); Urine Clarity Clear (Clear); Urine Urobilinogen 1 mg/dl (Normal); Urine pH 6.5 (5.0 - 8.0)
[2024-06-09 18:54] LABS: AST(SGOT) 17 U/L (15-37); Alanine Aminotransfer ALT/SGPT 26 U/L (16-61); Albumin, Serum 3.6 g/dL (3.2-5.0); Alkaline Phosphatase 62 U/L (45-117); Anion Gap 4 (5-15); BUN 26 mg/dL (7-18); BUN/Creat Ratio 24.5 RATIO (10-20); Calcium,Total 9.2 mg/dL (8.5-10.1); Chloride 107 mmol/L (98-107); Creatinine, Serum 1.06 mg/dL (0.70-1.30); EST Glomerular Filtration Rate 76 mL/min (>60); Est Glom Filt Rate - Afr Amer 93 mL/min (>60); Estimated Creatinine Clearance 86.35 ml/min; Globulin 3.5 g/dL (2.2-4.2); Glucose 99 mg/dL (74-106); Potassium 4.3 mmol/L (3.5-5.1); Protein, Total 7.1 g/dL (6.4-8.2); Sodium Level 139 mmol/L (136-145)
[2024-06-09 18:56] LABS: Bacteria RARE /hpf (None Seen); Mucous, Urine RARE /hpf (<or=2+); Red Blood Cells-Urine 0-5 SEEN /hpf (0-5); White Blood Cells 0-5 SEEN /hpf (0-5)
[2024-06-09 19:00] VITALS: BP 128/75; PULSE 64; RESP 19; O2SAT 100
[2024-06-09 20:00] VITALS: BP 128/75; PULSE 69; RESP 19; O2SAT 97
--- NOTE | 2024-06-09 20:45 | ED.RN ---
pt. stood up in bed. Saying things about a puppy he saw outside and a mirror he sees in his room. pt. assisted back into bed by colten [facility] and Lelia SO. pt. covered with warm blanket.
[2024-06-09 21:06] VITALS: BP 124/85; PULSE 78; RESP 16; TEMP 36.6; O2SAT 100
[2024-06-09] MEDS: Ziprasidone IM 20 MG/ML VIAL 10 MG IM (21:22)
--- NOTE | 2024-06-09 21:24 | ED.RN ---
Pt. got out of bed and stated he was seeing black and white cats in the room. pt. refused to get back into bed despite verbal judo and yelling at staff. THis RN told Dr. Spear concerns about pt. agitation and mental status. Dr. Spear stated he needed a crisis consult. Medications ordered and pt. began to kick and punch staff to avoid medications. Pt. had to be held down to give med and continued to call staff fucking idiots.
--- NOTE | 2024-06-09 21:27 | ED.RN ---
I CALLED PHYSICIANS TO CANCEL PTS. RIDE BACK HOME AND CRISIS AT [id number] REGARDING PT. NEEDING AN EVALUATION DUE TO HIS RECENT COMBATIVENESS
[2024-06-09 21:53] LABS: Alcohol, Blood (Medical)-Serum < 3.0 mg/dL
[2024-06-09 22:06] LABS: Amphetamine Urine VISTA NEGATIVE (<1000 ng/mL); Barbiturate Urine VISTA NEGATIVE (< 200 ng/mL); Benzodiazepine Urine VISTA NEGATIVE (< 200 ng/mL); Cocaine Urine VISTA NEGATIVE (< 300 ng/mL); Ecstacy Urine VISTA NEGATIVE (< 500 ng/mL); Methadone Urine VISTA NEGATIVE (< 300 ng/mL); PCP Urine VISTA NEGATIVE (< 25 ng/mL); THC Urine VISTA NEGATIVE (< 50 ng/mL); Vista UDS pH Range 5
--- NOTE | 2024-06-09 23:25 | CT_ITS ---
INDICATION: fall EXAMINATION: CT FACIAL BONES - CT Maxillofacial W/O Contrast Injection TECHNIQUE: Helically acquired images were obtained of the facial bones. A radiation dose optimization technique was used for this scan. The protocol utilizes one or more of the following dose reduction techniques: automated exposure control, adjustment of mA and/or kV according to patient size,and/or use of iterative reconstruction technique. IV Contrast dosage and agent: None. RADIATION DOSAGE (If Supplied By Facility): CTDIvol = ( 29.38 ) mGy, DLP = ( 1322.64 ) mGycm COMPARISON: FINDINGS: SOFT TISSUES: Mild left facial subcutaneous swelling. No discrete fluid collections. VISUALIZED PARANASAL SINUSES: Probable retention cysts in the maxillary sinuses. VISUALIZED MASTOID AIR CELLS: Clear. FACIAL BONES, MANDIBLE AND TMJs: No displaced facial bone fracture. No lytic or blastic abnormality. VISUALIZED DENTITION: No periodontal osseous erosion. ORBITAL CONTENTS: Both globes, extraocular muscles and retrobulbar fat appear unremarkable. CT/Sinus/Facial Bone IMPRESSION: Mild left facial subcutaneous edema. No acute bone injury of the facial bones. Electronically Signed: Brian Stokes DO at 0:00 EDT Reading Location ID and State: [address] [place] [address] Tel [phone], Service support ,
--- NOTE | 2024-06-09 23:32 | ED.RN ---
Patient had a witnessed fall in ED room. Pt. has small abrasion on left eye brow and nose. CT of face ordered.
[2024-06-10] VITALS (8 sets, daily range): BP systolic 111–150; BP diastolic 70–91; PULSE 54–84; RESP 14–22; O2SAT 96–100
--- NOTE | 2024-06-10 00:18 | CT_ITS ---
STUDY: CT BRAIN WITHOUT CONTRAST REASON FOR EXAM: Male, 59 years old. Posttraumatic headache status post fall RADIATION DOSAGE (If Supplied By Facility): CTDIvol = ( 44.99 ) mGy, DLP = ( 812.98 ) mGycm TECHNIQUE: Transaxial CT imaging of the brain was performed without administration of intravenous contrast material. Individualized dose optimization techniques were used for this CT. COMPARISON: No relevant priors. FINDINGS: Normal soft tissue structures. Normal calvarium. Normal size ventricles and extra-axial spaces for the patient''s age. There is minimal bilateral periventricular and subcortical white matter hypoattenuation which is symmetric in distribution. Normal basal ganglia and thalami. Normal brainstem. Normal cerebellum. There is no intracranial hemorrhage. There are no findings of an acute ischemic infarction. There is mild mucoperiosteal thickening of the paranasal sinuses. CT/Brain/Head without Contrast IMPRESSION: Normal unenhanced CT scan of the brain. Electronically Signed: Andrzej Grewal MD at 2:50 EDT ,
[2024-06-10] MEDS: LORazepam 2 MG/ML Syringe IM ×2 (01:20→10:50)
--- NOTE | 2024-06-10 01:24 | ED.RN ---
ATTEMPTED TO GET CT SCAN OF HEAD. PT. WILL NOT LAY HEAD STILL, KICKING STAFF.
--- NOTE | 2024-06-10 01:26 | ED.RN ---
PT HAS BEEN REFEERD TO [facility], AND [facility]
--- NOTE | 2024-06-10 03:44 | ED.RN ---
PT DECLINED AT [facility] AND NOW REFFERED TO [facility], PT IS STILL PENDING AT [facility]
--- NOTE | 2024-06-10 07:52 | ED.RN ---
Crisis called at 0752 stating that this patient has been declined at [facility] due to not meeting criteria. Crisis will call back when they get an update on placement at another facility
--- NOTE | 2024-06-10 09:16 | ED.RN ---
Ramya from Crisis called stating that this patient is pending at [facility]. They have not yet reviewed his chart. A referral has also been sent to [facility]. Will call back when an update occurs
--- NOTE | 2024-06-10 10:50 | CM.ED ---
Social Work: dialysis social worker made phone contact with the Crisis Team to get an update on placement for patient. Assistant Professor Of Physics spoke with Ramya who stated she's been having a difficult time securing placement for patient due to either beds being full, not accepting insurance or not being a geriatric psychiatric unit that can also accommodate patient's dementia diagnosis. Placements that have been ruled out so far: [facility], [facility], [facility] and [facility]. Patient referral for possible placement is currently being reviewed at [facility]. Crisis Team has called facility twice already this morning and [facility] has not yet had a chance to review. Other options: [facility] and [facility] reported referral can be sent over but no current beds are available and patient would have to be placed on a wait list if accepted. Crisis Team will continue to provide updates as they become available. Manisha Garcia, [employer], [employer]
--- NOTE | 2024-06-10 11:35 | CM.ED ---
Social Work: farmworker general received a call from Tammy at [facility]. Patient was declined from [facility]. Crisis is continuing to see placement and will reach out next to [facility] [place] and [facility]. No additional information. Manisha Garcia, CANE FEEDER, SURGICAL SERVICES ASSISTANT
[2024-06-10] MEDS: Ziprasidone IM 20 MG/ML VIAL IM (12:34)
--- NOTE | 2024-06-10 14:25 | CM.ED ---
Social Work: cut in worker received placement update from Ruby with Crisis. Placement continues to be unsecured for patient as patient remains hard to place. Other possible options for placement include: [facility], [facility], [facility], [facility] and [facility]. Ruby reported that patient was last assessed on 06/09 at roughly 9:30pm and by that time she will know if patient is able to be placed and if not, Crisis will complete another full assessment and may discharge back to the SNF on a safety plan if appropriate for such. Ruby indicated that patient slept a lot during the last assessment and plan is for Ruby to reach out to patient's and the SNF to gain additional information. Manisha Garcia, [employer]ICER, COMMUNITY AFFAIRS DIRECTOR
--- NOTE | 2024-06-10 17:08 | ED.RN ---
Call from Mikala, needing some additional information on pt. All questions answered. [facility] states the are waiting on information from Crisis in order to place pt.
--- NOTE | 2024-06-10 18:14 | ED.RN ---
Pt resting quietly in bed with eyes closed, no signs of distress noted.
--- NOTE | 2024-06-10 19:25 | ED.RN ---
PT STILL PENDING AT [facility] 1925 06/10/24
--- NOTE | 2024-06-11 00:18 | ED.RN ---
This RN spoke to [facility] RN updating pt being transferred back to extended care facility. Questions and concerns answered
[2024-06-11 00:20] VITALS: BP 134/84; PULSE 89; RESP 16; TEMP 36.8; O2SAT 95
== END 2024-06-11 01:12 | disposition skilled nursing facility (03) ==
PROVIDERS: Emergency Provider Emergency Medicine; PCP Family Medicine; Visit Provider Emergency Medicine
DX: S09.90XA Unspecified injury of head, initial encounter (principal); F10.97 Alcohol use, unspecified with alcohol-induced persisting dementia; Z87.891 Personal history of nicotine dependence; I10 Essential (primary) hypertension; R45.1 Restlessness and agitation; F32.A Depression, unspecified; Z79.899 Other long term (current) drug therapy; W06.XXXA Fall from bed, initial encounter; Y92.129 Unspecified place in nursing home as the place of occurrence of the external cause; S01.21XA Laceration without foreign body of nose, initial encounter; S01.112A Laceration without foreign body of left eyelid and periocular area, initial encounter
CPT/HCPCS: 12011; 36415; 70450; 70486; 71045; 80053; 80307; 81001; 82077; 85025; 96360; 96372; 99285; J7040

== ENCOUNTER → 2024-06-21 05:00 | Outpatient (REF) | payer MEDICAID, SELFPAY ==
[2024-06-21 09:48] LABS: Hemoglobin 17.6 g/dL (13.0-16.5); Mean Corp Hgb Conc 30.3 g/dL (32-36); Mean Corpuscular Hgb 30.1 pg (27.0-32.0); Mean Corpuscular Volume 99.3 fL (80-94); Mean Platelet Vol. 11.2 fl (6.2-12.0); Platelet Count 208 K/mm3 (150-450); RBC Distribution Width CV 12.6 % (11.6-14.6); RBC Distribution Width SD 46.5 fl (35.1-43.9); Red Blood Count 5.84 M/mm3 (4.6-6.2); White Blood Count 17.6 K/mm3 (4.4-11.0)
[2024-06-21 10:01] LABS: Valproic Acid (Depakene) Level 6 ug/mL (50-100)
[2024-06-21 10:20] LABS: AST(SGOT) 19 U/L (15-37); Alanine Aminotransfer ALT/SGPT 66 U/L (16-61); Albumin, Serum 3.5 g/dL (3.2-5.0); Alkaline Phosphatase 101 U/L (45-117); Bilirubin, Direct 0.19 mg/dL (0.00-0.30); Globulin 5.8 g/dL (2.2-4.2); Protein, Total 9.3 g/dL (6.4-8.2)
== END ==
LOC: OLS.SW 05:00
PROVIDERS: PCP Family Medicine; Visit Provider Family Medicine
DX: Z79.899 Other long term (current) drug therapy (principal)
CPT/HCPCS: 36415; 80076; 80164; 85027

== ENCOUNTER → 2024-06-22 | Outpatient (REF) | payer MEDICAID, SELFPAY ==
[2024-06-22 08:25] LABS: Mucous, Urine 0 SEEN /hpf (<or=2+)
[2024-06-22 08:57] LABS: Color, Urine Yellow (Yellow); Glucose, Dipstick Normal (Normal); Ketone-Dipstick Negative (Negative); Leukocyte Esterase-Dipstick 500 /ul (Negative); Nitrite-Dipstick Positive (Negative); Occult Blood-Urine 250 /ul (Negative); Protein-Dipstick 30 mg/dl (Negative); Specific Gravity, Urine 1.015 (1.002-1.030); Urine Bilirubin Dipstick Negative (Negative); Urine Clarity Clear (Clear); Urine Urobilinogen Normal (Normal)
[2024-06-22 09:16] LABS: Bacteria 2+ /hpf (None Seen); Red Blood Cells-Urine 0-5 SEEN /hpf (0-5); Squamous Epithelial Cells - UA 0-5 SEEN /hpf (0-5); White Blood Cells 50-100 SEEN /hpf (0-5)
[2024-06-22 09:37] LABS: Albumin, Serum 3.2 g/dL (3.2-5.0)
== END | disposition home or self-care (01) ==
LOC: OLS.SW 05:00
PROVIDERS: PCP Family Medicine; Visit Provider Family Medicine
DX: R41.82 Altered mental status, unspecified (principal)
CPT/HCPCS: 36415; 81001; 82040; 87077; 87086; 87088; 87186